=== PATIENT | female | born 1975 | race Caucasian/White ===

== ENCOUNTER → 2020-07-12 14:20 | Outpatient (BNVA) | payer BC, SELFPAY | PROVIDERS: Visit Provider Physician Assistant ==

== ENCOUNTER → 2020-07-16 07:49 | Outpatient (BNVA) | payer BC, SELFPAY | PROVIDERS: Visit Provider Surgery ==

== ENCOUNTER 2020-07-23 08:12 | Outpatient (REF) | payer BC, SELFPAY ==
--- NOTE | ~2020-07-23 | XR_ITS ---
EXAMINATION: XR CHEST CLINICAL INFORMATION: Moderate to severe obesity due to excess calories COMPARISON: None TECHNIQUE: 2 views of the chest were obtained. FINDINGS: No significant abnormality is noted involving the heart, lungs, mediastinum, bony thorax or soft tissues. XR/XR chest 2V IMPRESSION: Unremarkable chest examination.
--- NOTE | 2020-07-23 08:43 | ECG_ITS ---
Test Reason : MORBID OBESITY Blood Pressure : / mmHG Vent. Rate : 071 BPM Atrial Rate : 071 BPM P-R Int : 132 ms QRS Dur : 088 ms QT Int : 394 ms P-R-T Axes : 051 038 008 degrees QTc Int : 428 ms Normal sinus rhythm Normal ECG No previous ECGs available Referred By: Godwin Snowden Electronically Signed By:JOE JOAQUIN
[2020-07-23 09:14] LABS: MANUAL DIFF FLAG NO
[2020-07-23 09:22] LABS: Basophils Percent Auto 0.5 % (0-2); Eosinophils Absolute Auto 0.2 X10*3/uL (0.0-0.4); Eosinophils Percent Auto 3.9 % (0-4); Hematocrit 40.2 % (37-47); Hemoglobin 13.2 g/dl (12.0-16.0); Imm Gran Abs Auto 0.02 X10*3/uL (0.00-0.03); Imm Gran Pct Auto 0.3 % (0.0-0.4); Lymphocytes Absolute Auto 1.8 X10*3/uL (1.2-4.9); Lymphocytes Percent Auto 29.6 % (20-40); Mean Corpuscular HGB Conc 32.8 g/dl (31.0-35.0); Mean Corpuscular Hemoglobin 29.3 pg (27.0-33.0); Mean Corpuscular Volume 89.1 fL (80-98); Mean Platelet Volume 10.1 fL (9.4-12.3); Monocytes Absolute Auto 0.5 X10*3/uL (0.1-1.2); Monocytes Percent Auto 8.2 % (2-11); Neutrophils Absolute Auto 3.4 X10*3/uL (2.0-8.3); Neutrophils Percent Auto 57.5 % (45-73); Platelet Count 342 X10*3/uL (160-400); Red Blood Count 4.51 X10*6/uL (4.20-5.50); Red Cell Distribution Width 13.1 % (11.0-16.0); White Blood Count 5.9 X10*3/uL (4.8-10.8)
[2020-07-23 09:53] LABS: Alanine Aminotransferase 20 U/L (0-31); Albumin Level 4.2 g/dL (3.5-5.0); Alkaline Phosphatase 69 U/L (39-117); Anion Gap 12 (12-20); Aspartate Amino Transferase 22 U/L (5-31); Bilirubin Total 0.3 mg/dL (0.0-1.0); Blood Urea Nitrogen 17 mg/dL (9-16); C Reactive Protein 1.62 mg/dL (< or = 0.50); Carbon Dioxide 23 mmol/L (22-29); Chloride 107 mmol/L (96-108); Cholesterol 177 mg/dL; Estimated Glomerular Filt Rate > 60; Glucose Random 99 mg/dL (60-115); HDL Cholesterol 40 mg/dL; LDL Cholesterol Calculated 116 mg/dl; Potassium 4.2 mmol/L (3.3-5.1); Sodium 138 mmol/L (135-145); Total Protein 7.4 g/dL (6.5-8.0); Triglycerides 105 mg/dL
[2020-07-23 10:05] LABS: Estimated Average Glucose 105 mg/dL; Hemoglobin A1c % 5.3 %
[2020-07-23 10:16] LABS: Ferritin 105 ng/mL (10-250); TSH reflex Free T4 1.31 uIU/mL (0.32-4.0); Vitamin D 25-OH Total 30.1 ng/mL (>30)
[2020-07-23 10:36] LABS: Folate 17.8 ng/mL (> or = 4.0); Vitamin B12 156 pg/mL (200-900)
[2020-07-24 11:41] LABS: H Pylori Breath Test NOT DETECTED (NOT DETECTED)
[2020-07-25 02:16] LABS: Insulin Level Total 10.2 uIU/mL
[2020-07-25 10:36] LABS: Calcium (PTHI) 9.1 mg/dL (8.6-10.2); PTHI 22 pg/mL (14-64)
[2020-07-26 06:07] LABS: Zinc 79 mcg/dL (60-130)
[2020-07-27 11:57] LABS: Vitamin B1 <6 nmol/L (8-30)
[2020-07-27 23:51] LABS: Vitamin A 58 mcg/dL (38-98)
== END 2020-07-23 08:13 | disposition home or self-care (01) ==
LOC: HO.LAB 08:12
PROVIDERS: Visit Provider Surgery
DX: E66.01 Morbid (severe) obesity due to excess calories (principal); K21.9 Gastro-esophageal reflux disease without esophagitis
CPT/HCPCS: 36415; 71046; 80053; 80061; 82306; 82607; 82728; 82746; 83013; 83036; 83525; 83970; 84425; 84443; 84590; 84630; 85025; 86140; 93005

== ENCOUNTER 2020-08-02 08:00 | Outpatient (REF) | payer BC, SELFPAY ==
--- NOTE | ~2020-08-02 | FL_ITS ---
EXAMINATION: FL UPPER GI SERIES CLINICAL INFORMATION: Bariatric service evaluation, E66.01 COMPARISON: None TECHNIQUE: Upper GI series is performed using fluoroscopic evaluation in addition to multiple fluoroscopic spot views. The patient is imaged both upright and prone and using both thick and thin barium sulfate along with effervescent granules. Fluoroscopy time: 0.8 minutes DAP: 11.51 Gycm2 Fluoroscopic spot images: 12 FINDINGS: There is normal esophageal motility. There is no obstruction, stricture, ulceration, or hernia. There is prominent gastroesophageal reflux during the water siphon test to the mid thoracic esophagus. The stomach shows no thickened folds or ulcer crater or outlet obstruction. The duodenal bulb is pliable and without ulcer crater or scarring. The post bulbar duodenum the jejunal mucosal pattern are unremarkable. FL/FL upper GI series IMPRESSION: 1. Gastroesophageal reflux during water siphon test to mid thoracic esophagus. 2. Otherwise normal study. No ulceration.
--- NOTE | ~2020-08-02 | US_ITS ---
EXAMINATION: US COMPLETE ABDOMEN WITH LIVER ELASTOGRAPHY CLINICAL INFORMATION: Severe obesity. COMPARISON: None. TECHNIQUE: Real-time imaging of the abdominal viscera. Noninvasive ultrasound liver fibrosis assessment is performed using Abhijit ElastPQ point quantification shear wave elastography (pSWE) with a C5-2 MHz transducer. Multiple elastography samples are obtained. FINDINGS: PANCREAS: The visualized pancreatic head and body are normal in appearance. The remainder of the pancreas is obscured from visualization by the overlying bowel gas. ABDOMINAL AORTA: The proximal, middle, and distal aortic segments are normal in caliber. INFERIOR VENA CAVA: Visualized portions are normal. LIVER: The liver demonstrates normal size, contour and increased echogenicity. No focal lesion or intrahepatic biliary duct dilatation. The right lobe measures 17.4 cm in length. The left lobe measures 11.7 cm in length. Portal flow is hepatopedal. Shear wave liver elastography median stiffness is 1.14 m/s (reference: normal median stiffness is 1.3 m/s or less). IQR/median stiffness to assess sampling precision is 0.11 (reference: good quality data set is IQR/median stiffness of 0.15 or less). GALLBLADDER: Normal. The gallbladder is physiologically distended without evidence of stones, sludge, polyps, wall thickening or pericholecystic fluid. COMMON BILE DUCT: Normal in caliber measuring 0.4 cm in diameter. RIGHT KIDNEY: Normal. No hydronephrosis. No renal calculi or focal parenchymal lesions. The kidney measures 11.2 cm in maximum dimension. LEFT KIDNEY: Normal. No hydronephrosis. No renal calculi or focal parenchymal lesions. The kidney measures 10.8 cm in maximum dimension. SPLEEN: Normal. The spleen measures 8.2 cm in maximum dimension. There is anechoic simple cyst measuring 1.0 x 0.9 x 1.1 cm. FREE FLUID: None. US/US abdomen comp w elastography IMPRESSION: 1. Appendix steatosis without focal lesion. Small splenic cyst. 2. Liver elastography: Median stiffness of 1.14. High Prob Normal. REFERENCE: Society of Radiologists in Ultrasound Liver Stiffness Thresholds (2019): LIVER STIFFNESS THRESHOLDS: *Liver Stiffness equal or less than 1.3 m/s: High probability of being normal. *Liver Stiffness less than 1.7 m/s: In the absence of other known clinical signs, rules out compensated advanced chronic liver disease. *Liver Stiffness 1.7-2.1 m/s: Suggestive of compensated advanced chronic liver disease but need further test for confirmation. *Liver Stiffness over 2.1 m/s: Rules in compensated advanced chronic liver disease. *Liver Stiffness over 2.4 m/s: Suggestive of clinically significant portal hypertension. QUALITY OF DATA SET: *IQR/Median value equal or less than 0.15 implies a quality data set. *IQR/Median value over 0.15 implies a poor quality data set. SIGNIFICANT CHANGE FROM PRIOR EXAM: Significant change if liver stiffness measurement is 10% or greater from prior exam. OTHER CONSIDERATIONS: The stage of liver fibrosis may be overestimated in the setting of acute hepatitis, liver inflammation, elevated liver function tests, hepatic vascular congestion, obstructive cholestasis, non-fasting state, and infiltrative diseases such as amyloidosis and lymphoma. In some patients with NAFLD, the liver stiffness thresholds for compensated advanced chronic liver disease may be lower. In causes other than viral hepatitis and NAFLD, liver stiffness thresholds are not well established.
== END 2020-08-02 08:01 | disposition home or self-care (01) ==
LOC: HO.US 08:00
PROVIDERS: Visit Provider Surgery
DX: Z01.818 Encounter for other preprocedural examination (principal); E66.01 Morbid (severe) obesity due to excess calories; K21.9 Gastro-esophageal reflux disease without esophagitis
CPT/HCPCS: 74240; 76705; 76981

== ENCOUNTER → 2020-08-06 08:25 | Outpatient (BNVA) | payer BC, SELFPAY | PROVIDERS: Visit Provider Surgery ==

== ENCOUNTER → 2020-08-13 13:10 | Outpatient (BNVA) | payer BC, SELFPAY | PROVIDERS: Visit Provider Dietitian, Registered ==

== ENCOUNTER → 2020-08-31 08:02 | Outpatient (BNVA) | payer BC, SELFPAY | PROVIDERS: Visit Provider Surgery ==

== ENCOUNTER → 2020-09-03 08:16 | Outpatient (BNVA) | payer BC, SELFPAY | PROVIDERS: Visit Provider Dietitian, Registered | DX: E66.01 Morbid (severe) obesity due to excess calories (principal) | CPT/HCPCS: 97803 ==

== ENCOUNTER → 2020-09-24 08:24 | Outpatient (BNVA) | payer BC, SELFPAY | PROVIDERS: Visit Provider Surgery ==

== ENCOUNTER → 2020-09-26 08:19 | Outpatient (BNVA) | payer BC, SELFPAY | PROVIDERS: Visit Provider Dietitian, Registered | DX: E66.01 Morbid (severe) obesity due to excess calories (principal); Z68.41 Body mass index [BMI] 40.0-44.9, adult | CPT/HCPCS: 97803 ==

== ENCOUNTER → 2020-10-05 08:20 | Outpatient (BNVA) | payer BC, SELFPAY | PROVIDERS: Visit Provider Surgery ==

== ENCOUNTER 2020-10-09 09:34 | Inpatient (IN) | payer BC, SELFPAY ==
[2020-10-05 10:24] VITALS: BMI 40.5
[2020-10-06 10:50] LABS: MANUAL DIFF FLAG NO
[2020-10-06 10:53] LABS: Basophils Percent Auto 0.4 % (0-2); Eosinophils Absolute Auto 0.2 X10*3/uL (0.0-0.4); Eosinophils Percent Auto 3.3 % (0-4); Hematocrit 42.5 % (37-47); Hemoglobin 13.5 g/dl (12.0-16.0); Imm Gran Abs Auto 0.01 X10*3/uL (0.00-0.03); Imm Gran Pct Auto 0.2 % (0.0-0.4); Lymphocytes Percent Auto 35.8 % (20-40); Mean Corpuscular HGB Conc 31.8 g/dl (31.0-35.0); Mean Corpuscular Hemoglobin 28.8 pg (27.0-33.0); Mean Corpuscular Volume 90.8 fL (80-98); Mean Platelet Volume 9.7 fL (9.4-12.3); Monocytes Absolute Auto 0.5 X10*3/uL (0.1-1.2); Monocytes Percent Auto 8.8 % (2-11); Neutrophils Absolute Auto 2.9 X10*3/uL (2.0-8.3); Neutrophils Percent Auto 51.5 % (45-73); Platelet Count 383 X10*3/uL (160-400); Red Blood Count 4.68 X10*6/uL (4.20-5.50); Red Cell Distribution Width 13.4 % (11.0-16.0); White Blood Count 5.7 X10*3/uL (4.8-10.8)
[2020-10-06 10:59] LABS: Prothrombin Time 12.3 SEC (10.8-13.0)
[2020-10-06 11:02] LABS: Partial Thromboplastin Time 35.2 SEC (24.1-38.0)
[2020-10-06 11:07] LABS: Estimated Average Glucose 105 mg/dL; Hemoglobin A1c % 5.3 %
[2020-10-06 11:23] LABS: Alanine Aminotransferase 43 U/L (0-31); Albumin Level 4.2 g/dL (3.5-5.0); Alkaline Phosphatase 72 U/L (39-117); Anion Gap 13 (12-20); Aspartate Amino Transferase 23 U/L (5-31); Bilirubin Total 0.5 mg/dL (0.0-1.0); Blood Urea Nitrogen 16 mg/dL (9-16); C Reactive Protein 0.99 mg/dL (< or = 0.50); Carbon Dioxide 25 mmol/L (22-29); Chloride 107 mmol/L (96-108); Cholesterol 178 mg/dL; Creatinine Clr Calc Pharmacy 95.6; Estimated Glomerular Filt Rate > 60; Glucose Random 91 mg/dL (60-115); HDL Cholesterol 41 mg/dL; LDL Cholesterol Calculated 124 mg/dl; Potassium 4.5 mmol/L (3.3-5.1); Sodium 140 mmol/L (135-145); Total Protein 7.3 g/dL (6.5-8.0); Triglycerides 65 mg/dL
[2020-10-06 11:43] LABS: TSH reflex Free T4 0.79 uIU/mL (0.32-4.0)
--- NOTE | 2020-10-08 08:39 | HO.ANESPROP2 ---
Documented by User: Marilyn Hirsch 10/08/20 08:40 HPI - Anesthesia Eval Consult details Narrative: 45yo F for Gastrectomy Sleeve PMFSH Active Problems Active Problems: All Active Problems (Updated 10/05/20 @ 10:28 by Sunni Charles) Vitamin B12 deficiency (Acute) Adjustment disorder, unspecified (Acute) Vitamin B1 deficiency (Acute) GERD (gastroesophageal reflux disease) (Acute) Morbid obesity (Acute) Past Medical History Medical History (Updated 10/09/20 @ 11:08 by Annabelle Garcia) COVID-19 vaccine series completed GERD (gastroesophageal reflux disease) Morbid obesity Plantar fasciitis, bilateral Family History Family History Mother No problems noted. Father Diabetes Brother No problems noted. Daughter No problems noted. Surgical History Surgical History No significant past surgical history Sidney teeth extracted Social History Social History Are you a primary career technical education teacher to a significant other at home: No Do you presently have visiting nurse or other home services: No Alcohol intake: current Alcohol intake frequency: holidays/special occasions only Smoking Status: Former smoker Smoking Quit Date: 11 years ago Use of substances other than those prescribed or required for medical reasons: No Have you been hit, kicked, punched, or otherwise hurt by someone within the past year? If so, by whom?: No Are you DNR?: No Advance Directives: No Advance Directives Information Provided: No Advance Directives on File: No Recently lost weight without trying: No How much weight loss: 14-23 pounds Eating poorly because of decreased appetite: No Nutrition screen score: 2 Nutrition Risks: No Nutritional Risk Patient : No Meds Allergies Allergy/AdvReac Type Severity Reaction Status Date / Time bacitracin Allergy Severe Anaphylaxis Verified 10/09/20 09:21 Cephalosporins Allergy Severe Anaphylaxis Verified 10/09/20 09:21 Sulfa (Sulfonamide Allergy Severe Anaphylaxis Verified 10/09/20 09:21 Antibiotics) Home Medications Medication Instructions Recorded Confirmed Last Taken Type L norgest/E estradiol-E estrad 1 tab PO DAILY 07/12/20 10/05/20 Unknown History 0.15 mg-30 mcg (84)/10 mcg(7) tabs,3mos fluticasone propionate 50 1 spray INTRANASAL DAILY 07/12/20 10/05/20 Unknown History mcg/actuation nasal spray,suspension loratadine 10 mg tablet 10 mg PO DAILY 07/12/20 10/05/20 Unknown History multivitamin 1 tab PO DAILY 07/12/20 10/05/20 Unknown History Exam Exam Date and Time: October 08, 2020 0839 Height,Weight and Vital Signs: Height 5 ft 1.5 in Weight 98.94 kg Pertinent Lab Results Pertinent Lab Results: Laboratory Tests 10/06/20 10/06/20 10/06/20 10:20 10:20 10:20 WBC 5.7 RBC 4.68 Hgb 13.5 Hct 42.5 MCV 90.8 MCH 28.8 MCHC 31.8 RDW 13.4 Plt Count 383 MPV 9.7 Immature Gran % (Auto) 0.2 Neut % (Auto) 51.5 Lymph % (Auto) 35.8 Barren % (Auto) 8.8 Eos % (Auto) 3.3 Baso % (Auto) 0.4 Lymph # (Auto) 2.0 Barren # (Auto) 0.5 Eos # (Auto) 0.2 Baso # (Auto) 0.0 Abs Immat Gran (auto) 0.01 Absolute Neuts (auto) 2.9 Absolute Nucleated RBC 0.000 Nucleated RBC % (auto) 0.0 PT 12.3 INR 1.0 APTT 35.2 Sodium 140 Potassium 4.5 Chloride 107 Carbon Dioxide 25 Anion Gap 13 BUN 16 Creatinine 0.80 Estim Creat Clear Calc 95.6 Estimated GFR > 60 Random Glucose 91 Estimat Average Glucose Hemoglobin A1c % Calcium 9.0 Total Bilirubin 0.5 AST 23 ALT 43 H Alkaline Phosphatase 72 C-Reactive Protein 0.99 H Total Protein 7.3 Albumin 4.2 Triglycerides 65 Cholesterol 178 LDL Cholesterol, Calc 124 HDL Cholesterol 41 TSH 0.79 Blood Type Antibody Screen 10/06/20 10/06/20 10:20 10:20 WBC RBC Hgb Hct MCV MCH MCHC RDW Plt Count MPV Immature Gran % (Auto) Neut % (Auto) Lymph % (Auto) Barren % (Auto) Eos % (Auto) Baso % (Auto) Lymph # (Auto) Barren # (Auto) Eos # (Auto) Baso # (Auto) Abs Immat Gran (auto) Absolute Neuts (auto) Absolute Nucleated RBC Nucleated RBC % (auto) PT INR APTT Sodium Potassium Chloride Carbon Dioxide Anion Gap BUN Creatinine Estim Creat Clear Calc Estimated GFR Random Glucose Estimat Average Glucose 105 Hemoglobin A1c % 5.3 Calcium Total Bilirubin AST ALT Alkaline Phosphatase C-Reactive Protein Total Protein Albumin Triglycerides Cholesterol LDL Cholesterol, Calc HDL Cholesterol TSH Blood Type O Positive Antibody Screen NEGATIVE Narrative Narrative: EKG 07/2020 Vent. Rate : 071 BPM Atrial Rate : 071 BPM P-R Int : 132 ms QRS Dur : 088 ms QT Int : 394 ms P-R-T Axes : 051 038 008 degrees QTc Int : 428 ms Normal sinus rhythm Normal ECG No previous ECGs available Assessment and Plan Assessment Anesthesia Assessment: Chart Reviewed Documented by User: Annabelle Garcia 10/09/20 11:13 [facility] Past Medical History Medical History (Updated 10/09/20 @ 11:08 by Annabelle Garcia) COVID-19 vaccine series completed GERD (gastroesophageal reflux disease) Morbid obesity Plantar fasciitis, bilateral Family History Family History Mother No problems noted. Father Diabetes Brother No problems noted. Daughter No problems noted. Family history of problems with anesthesia: No Surgical History Surgical History No significant past surgical history Sidney teeth extracted History of Problems with Anesthesia: No Social History Social History Are you a primary career technical education teacher to a significant other at home: No Do you presently have visiting nurse or other home services: No Alcohol intake: current Alcohol intake frequency: holidays/special occasions only Smoking Status: Former smoker Smoking Quit Date: 11 years ago Use of substances other than those prescribed or required for medical reasons: No Have you been hit, kicked, punched, or otherwise hurt by someone within the past year? If so, by whom?: No Are you DNR?: No Advance Directives: No Advance Directives Information Provided: No Advance Directives on File: No Recently lost weight without trying: No How much weight loss: 14-23 pounds Eating poorly because of decreased appetite: No Nutrition screen score: 2 Nutrition Risks: No Nutritional Risk Patient : No Meds Allergies Allergy/AdvReac Type Severity Reaction Status Date / Time bacitracin Allergy Severe Anaphylaxis Verified 10/09/20 09:21 Cephalosporins Allergy Severe Anaphylaxis Verified 10/09/20 09:21 Sulfa (Sulfonamide Allergy Severe Anaphylaxis Verified 10/09/20 09:21 Antibiotics) Home Medications Medication Instructions Recorded Confirmed Last Taken Type L norgest/E estradiol-E estrad 1 tab PO DAILY 07/12/20 10/05/20 Unknown History 0.15 mg-30 mcg (84)/10 mcg(7) tabs,3mos fluticasone propionate 50 1 spray INTRANASAL DAILY 07/12/20 10/05/20 Unknown History mcg/actuation nasal spray,suspension loratadine 10 mg tablet 10 mg PO DAILY 07/12/20 10/05/20 Unknown History multivitamin 1 tab PO DAILY 07/12/20 10/05/20 Unknown History Exam Height,Weight and Vital Signs: Vital Signs Temp Pulse Resp BP Pulse Ox 10/09/20 09:25 98.5 F 63 16 113/56 L 99 Pertinent Lab Results Pertinent Lab Results: Laboratory Results - last 24 hr 10/06/20 10/09/20 10/09/20 10:20 09:15 09:15 Total Insulin 6.1 Urine Test NEGATIVE COVID-19 (PRAFUL) Negative COVID-19 Clin Com See Note Airway Mallampati Class: II TM Dist: >3cm Neck ROM: Full Loose/Missing/Broken Teeth: Yes (Top front bonded) Heart: RRR Lungs: CTAB Assessment and Plan Assessment Anesthesia Assessment: Anesthesia Plan Discussed and Chart Reviewed Final Anesthetic Review NPO: Yes ASA Class: III Final Preanesthetic Review: No Changes in Pt Med Stat, Meds/Allgs Chart Reviewed, Consent Obtained/Reviewed and Anes Risks/Benef Reviewed Patient Risk: Intermediate Procedure Risk: Intermediate Assessment/Block/Sedation in SS: Assess/Block/Sedation-SS Anesthetic Plan Anesthetic Plan: GA Disposition: Inp. Admit - Standard Bed
[2020-10-08 14:46] LABS: Insulin Level Total 6.1 uIU/mL
[2020-10-09] VITALS (10 sets, daily range): BP systolic 113–164; BP diastolic 56–77; PULSE 63–88; RESP 16–18; TEMP 36–36.9; O2SAT 98–100
--- NOTE | 2020-10-09 07:24 | P.HPSUR_ITS ---
Pre-Procedural Eval Section A The patient is an INPATIENT: Yes The History & Physical has been completed within 30 days and I have reviewed it.: No Section B Chief Complaint: obesity Details of Present Illness: obesity Relevant Family History (Specify if Yes): No Relevant Social History: None Present Medications: see Short Stay Collaborative assessment Medical History: No relevant PMH History of Previous Operations: No relevant previous surgery Allergies: Allergies Allergy/AdvReac Type Severity Reaction Status Date / Time bacitracin Allergy Severe Anaphylaxis Verified 10/05/20 13:05 Cephalosporins Allergy Severe Anaphylaxis Verified 10/05/20 13:05 Sulfa (Sulfonamide Allergy Severe Anaphylaxis Verified 10/05/20 13:05 Antibiotics) Review of Systems Sugical H&P ROS: Negative: Constitution, Cardiovascular, Respiratory, Neurological, Psychiatric, Hem-Onc, Allergic/Immunologic, Gastrointestinal, Genitourinary, Musculoskeletal, Integumentary, Endocrine and Eyes/Ears/Nose /Throat Exam Surgical H&P Exam: Normal: HEENT, Normal: Heart, Normal: Lungs, Normal: Extremities, Normal: Abdomen, Normal: Skin and Normal: Neurological Plan Diagnosis/Plan: Unchanged I have reviewed the history and physical and performed a pertinent physical examination on my patient. No changes have occurred unless specified.
[2020-10-09 09:34] LABS: UPreg QC Valid YES; Urine Pregnancy NEGATIVE (NEGATIVE)
[2020-10-09 09:54] LABS: COVID-19 Test Negative (Negative)
[2020-10-09] MEDS: Lactated Ringers 1,000 ML 999 ML IV (10:12)
[2020-10-09] MEDS: Lactated Ringers 1,000 ML 100 ML IVCONT (10:14)
[2020-10-09] MEDS: vancomycin HCL 1,000 MG in 0.9 % Sodium Chloride 250 ML 270 MG IV ×2 (10:26→21:55)
--- NOTE | 2020-10-09 13:19 | PM.OP ---
Brief Operative Note Date of Service: 10/09/20 Pre-op diagnosis: Morbid obesity and comorbidities Post-op diagnosis: same (& diaphragmatic hernia) Procedure: INITIAL PATIENT BMI ON PRESENTATION AT OUR OFFICE: 45 kg/m2 LAST BMI BEFORE SURGERY: 40.4 kg/m2 COMORBIDITIES: GERD, diaphragmatic hernia, liver steatosis The patient participated in an intensive weekly lifestyle intervention and exercise program during which the patient has lost between the initial office visit and the last preoperative visit 24.4lbs, or % of initial actual body weight. The patient met the BMI-criteria for bariatric surgery based on the BMI on initial presentation. The patient should not be penalized for achieving such weight loss because it is not sustainable long-term without surgical intervention and it was achieved in preparation for bariatric surgery under my direction and based on my published research ([email or web address] and [email or web address]) that a 10% preoperative weight loss improves long-term weight loss after surgery and reduces perioperative complications. Insurance carriers such as [facility] have endorsed my recommendations and have included in their policies criteria to include a 10% preoperative weight loss requirement. PROCEDURE: Esophago-gastroscopy, laparoscopic repair of incarcerated diaphragmatic hernia, laparoscopic lysis of adhesions, laparoscopic sleeve gastrectomy and laparoscopic gastropexy INDICATIONS: This is a 45 year-old female who was electively scheduled for laparoscopic, possibly open sleeve gastrectomy. The risks and complications of the procedure were discussed with the patient in advance, particularly the possibility of ; pulmonary embolism; staple line leak; bleeding; GERD; cardiac, pulmonary, or renal complications; as well as long-term problems such as insufficient weight loss, vitamin deficiency, strictures, or ulcers. The patient understood all the risks, and was in agreement to proceed with surgery. DESCRIPTION OF PROCEDURE: After informed consent was obtained from the patient, the patient was given preoperative antibiotics, and was transferred to the operating room. After successful induction of general anesthesia, pneumatic compressive devices were placed on both lower extremities. An upper endoscopy was performed next. The oropharynx and esophagus appeared to be within normal limits. There was a diaphragmatic hernia present of moderate size consistent with the findings of the preoperative upper GI. The stomach was entered. Then after all fluid and air were suctioned and the stomach was fully decompressed, the scope was withdrawn and secured in the mid esophagus. The patient was then prepped and draped in the usual sterile manner, and abdominal access was established at the right upper quadrant with the Vidal technique. A 12 mm blunt port was inserted, and the abdomen was insufflated with CO2 to a pressure of 15 mmHg. Under direct visualization, additional ports were placed, specifically two 5 mm Versi-step ports to the left upper quadrant, and a 5 mm Versi-Step port to the right upper quadrant. 1% lidocaine plan was used to infiltrate all port sites as well as all fascia defects. Using the EndoClose suture passer device, we placed a #1 Polysorb tie across the falciform ligament in order to retract it up against the abdominal wall and prevent injury of the ligament with our instruments during the procedure. Following that, the patient was placed in a steep reverse Trendelenburg position. An additional 5 mm port was placed to the right flank for the Mediflex retractor that was used to retract the left lobe of the liver. The gastro-esophageal fat pad was opened with the ultrasonic device (Thunderbeat, Olympus) and the anterior esophagus and hiatus were exposed. The angle of His was opened with the ultrasonic device the fundus of the stomach from any diaphragmatic and splenic attachments. I then opened the gastrocolic ligament between the transverse colon and the greater curvature of the stomach with the ultrasonic device to enter the lesser sac and facilitate the ligation of the short gastric vessels. I started at a mid-point along the greater curvature and using the Thunderbeat, all short gastric vessels were divided all the way to the angle of His until the left isaac was completely dissected at its entirety. I then divided the gastro-colic ligament distally to a distance of about 3-4 cm proximal to the esophagus. There was an obvious significant-sized hiatal hernia. I continued dissecting along the hiatus toward the left isaac and the angle of His. I fully mobilized the fat pad that was incarcerated in the hernia. I then continued by dissecting even further into the posterior retro-esophageal space all the way to the angle of His. I continued to mobilize the esophagus into the mediastinum circumferentially. Both vagal nerves were seen and preserved. The right isaac was also mobilized completely. At that point, I was able to have at least 3 to 5 cm of esophagus into the abdomen. After I completely mobilized the esophagus from both the left and right isaac and I had a good mobilization of the esophagus circumferentially, I closed the hernia defect with three interrupted #0 Surgidac sutures using the Endo Stitch device, two of which were placed posterior and one anterior to the esophagus. The stomach was then divided transversely with one Endo NICOLE-45 purple, one NICOLE-45 orange load and three NICOLE-60 articulating orange loads using the AEON stapler and loads. Every effort was made that the gastric sleeve had a tubular shape and an even caliber throughout. Once the sleeve resection was completed, the staple line of the gastric sleeve was reinforced with Hemoclips. The resected stomach was retrieved without difficulty from the Vidal port. A gastropexy was then performed in order to prevent postoperative GERD and partial gastric volvulus. Several interrupted 2.0 Surgidac sutures were placed between the sleeve's staple line and the previously divided greater omentum and gastro-colic ligament using the Endo-Stitch device. An upper endoscopy was performed. There was no narrowing at the GE junction. The scope was easily advanced all the way to the pylorus which was clearly visualized. There was no narrowing anywhere and the sleeve's caliber was even throughout. The sleeve's staple line was inspected and there was no evidence of ischemia, bleeding or dehiscence. At that point the gastroscope was withdrawn from the patient?s mouth while we were decompressing the bowel and the stomach from any remaining air. I looked into the lesser sac to see how the sleeve was situating and it was situating well. There was no bleeding from the staple line, spleen, or short gastric vessels. The Mediflex retractor was removed, and the undersurface of the liver was inspected and there was no bleeding. The patient was placed in supine position. I closed the fascial defect of the 12 mm port site with a figure of eight #1 Polysorb suture. Then 100 cc 0.25 % Marcaine plain with 10 mg of Dexamethasone were used to infiltrate the fascial closure as well as all skin incisions. At this point, the abdomen was deflated, all ports were removed under direct vision, and no bleeding was noted from any of the port sites. The skin incisions were irrigated with saline and were closed with 4-0 absorbable monofilament sutures. Steri-Strips and OpSites were used to cover all incisions. The patient was extubated and was transferred in stable condition to the recovery room for further care. I was present and performed all lehman parts of the procedure. Ms. Peterson was the assistant operator. There were no residents to assist with this case. Gerardo Snowden MD, PhD, FACS Surgeon: Godwin Snowden MD Anesthesia: GETA, local and other (TAP block) Was an Production Metal Sprayer used for this Procedure?: Yes Production Metal Sprayer: Anabel Peterson Estimated blood loss (mL): 10 IV fluids (mL): 3,000 Urine output (mL): 0 (No Foster to record) Pathology: other (Stomach) Condition: stable Disposition: PACU
--- NOTE | 2020-10-09 13:24 | PM.DS ---
DS: Providers Provider Date of Service: 10/10/20 Date of admission: 10/09/20 09:34 Primary care physician: Nonstaff Physician DS: Medications Discharge Medications Home Medications: Home Medications Medication Instructions Recorded Confirmed L norgest/E estradiol-E estrad 1 tab PO DAILY 07/12/20 10/05/20 0.15 mg-30 mcg (84)/10 mcg(7) tabs,3mos fluticasone propionate 50 1 spray INTRANASAL DAILY 07/12/20 10/05/20 mcg/actuation nasal spray,suspension loratadine 10 mg tablet 10 mg PO DAILY 07/12/20 10/05/20 multivitamin 1 tab PO DAILY 07/12/20 10/05/20 Previous Rx's Medication Instructions Recorded mecobalamin (vitamin B12) 1,000 1,000 mcg SUBLINGUAL DAILY #30 tab 07/23/20 mcg disintegrating tablet,sublingual thiamine HCl (vitamin B1) 100 mg 100 mg PO DAILY #30 tab 08/06/20 tablet ondansetron HCl 4 mg tablet 4 mg PO Q12H #20 tab 10/05/20 pantoprazole 40 mg tablet,delayed 40 mg PO DAILY #30 tab 10/05/20 release polyethylene glycol 3350 17 gram 17 g PO DAILY #14 ea 10/05/20 oral powder packet sucralfate 100 mg/mL oral 10 ml PO BID #400 ml 10/05/20 suspension DS: Summary Time Spent with Patient Time attestation: ADMITTING DIAGNOSIS: morbid obesity, GERD DISCHARGE DIAGNOSIS: same, s/p laparoscopic sleeve gastrectomy and repair diaphragmatic hernia PAST SURGICAL HISTORY: none PROCEDURE: upper endoscopy, laparoscopic sleeve gastrectomy and repair of diaphragmatic hernia hernia DISCHARGE SUMMARY: History of Present Illness: The patient is a 45 year-old woman with a BMI of 45 kg/m2 and associated co-morbidities as described above. The patient had extensive work-up,lost 22 lbs preoperatively and was electively scheduled for laparoscopic, possible open sleeve gastrectomy and gastropexy. Risks and complications of the surgery were discussed with the patient in advance, particularly the possibility of , pulmonary embolism, anastomotic leak, bleeding, bowel injury, GERD, cardiac, renal or pulmonary complications. The patient understood all the risks and was in agreement with the surgical plan. Hospital Course: The patient underwent an uneventful laparoscopic sleeve gastrectomy with gastropexy and repair of diaphragmatic hernia on the day of admission. Postoperatively, the patient was transferred to the surgical floor. The patient was on IV Acetaminophen and IV dilaudid for pain control. Patient was started on bariatric phase 1 diet POD #0. On postoperative day one, the patient was feeling well without nausea, vomiting, fevers, or tachycardia. The patient had some mild incisional pain. The abdomen was soft. On the morning of postoperative day one, the patient was continued on 1 ounce of water or ice every half hour. During the first day, the patient did fairly well, having some incisional pain, but able to ambulate adequately and to tolerate liquids well. Since the patient is doing well, we decided that the patient was ready to be discharged. The patient was given instructions to follow-up with me next week and to call my office for any fever over 101, persistent abdominal pain, nausea, vomiting, GERD, symptoms of DVT such as calf tenderness, or leg swelling, or pulmonary embolism such as chest pain or shortness of breath. The patient was also instructed to drink 40-60 ounces of liquids per day using the 1-ounce cups. The patient was given prescription for Tylenol for pain, Zofran prn for nausea, and pantoprazole and carafate. The patient was encouraged to ambulate and use the incentive spirometer. The patient was allowed to shower, but no baths, and encouraged to stay active at home. All of these instructions were given to the patient personally. All questions were answered and the patient understood all instructions, the instructions were also given to the patient in print. Total time spent providing and/or coordinating discharge services: 15 Discharge coordination time: Less than 30 minutes Quality: Stroke Does the patient have a stroke diagnosis?: No Physical Exam Vital Signs: Vital Signs: Last Vital Signs Temp 97.7 F 10/09/20 13:12 Pulse 83 10/09/20 13:17 Resp 16 10/09/20 13:17 BP 135/74 10/09/20 13:17 Pulse Ox 100 10/09/20 13:17 Body Mass Index 40.5 DS: Data Data Completed and Pending Pending studies at discharge: Pending at discharge 10/09/20 12:53 Surgical [PTH] Routine Labs on day of discharge: Laboratory Results - last 24 hr 10/06/20 10/09/20 10/09/20 10:20 09:15 09:15 Total Insulin 6.1 Urine Test NEGATIVE COVID-19 (PRAFUL) Negative COVID-19 Clin Com See Note Discharge Plan Discharge Anticipated Discharge Date/Time: 10/10/20 11:00 Patient Disposition: Home, Self-Care Discharge Diagnosis: pod#1 s/p sleeve gastrectomy Referrals: Physician,Nonstaff [Primary Care Provider] - 1 Week Discharge Medications: Continued pantoprazole 40 mg tablet,delayed release (DR/EC) 40 mg PO DAILY Qty: 30 RF: 2 sucralfate 100 mg/mL suspension 10 ml PO BID Qty: 400 RF: 2 ondansetron HCl [Zofran] 4 mg tablet 4 mg PO Q12H Qty: 20 RF: 0 loratadine [Claritin] 10 mg tablet 10 mg PO DAILY RF: 0 fluticasone propionate 50 mcg/actuation spray,suspension 1 spray intranasal DAILY RF: 0 Held L norgest/e.estradiol-e.estrad 0.15 mg-30 mcg (84)/10 mcg (7) tablets,dose pack,3 month 1 tab PO DAILY RF: 0 Hold Instructions: Discuss when to restart with Dr Snowden Discontinued mecobalamin (vitamin B12) 1,000 mcg tablet,disintegrating 1,000 mcg sublingual DAILY Qty: 30 RF: 2 thiamine HCl (vitamin B1) 100 mg tablet 100 mg PO DAILY Qty: 30 RF: 2 polyethylene glycol 3350 [Miralax] 17 gram powder in packet 17 g PO DAILY Qty: 14 RF: 0 multivitamin Tablet 1 tab PO DAILY RF: 0 Discharge Orders: Discharge Order (Routine); Ordered 10/10/20 Ordered By: Anabel Peterson Diet: other Activity on Discharge: No heavy lifting Stand Alone Forms: Patient Portal Discharge page Activity Restrictions/Additional Instructions: No tub baths, sex or returning to work until discussed at first post op appointment. No exercise, alcohol, tobacco or illegal drug use. Continue to use incentive spirometer hourly while awake. Walk in home for 5- 10 minutes every 2 hours during the first week. Continue phase 1 diet today and start phase 2 diet tomorrow morning. Follow all instructions in the bariatric handbook and call with any questions. Care Plan Goals: weight loss Health Concerns: morbid obesity Plan of Treatment: see discharge instructions Assessment: stable s/p sleeve gstrectomy
[2020-10-09] MEDS: HYDROmorphone HCl 0.5 MG/0.5 ML SYRINGE 0.25 MG IVPUSH ×2 (13:42→14:05)
[2020-10-09] MEDS: Famotidine/PF 20 MG/2 ML VIAL IVPUSH ×2 (13:42→20:23)
[2020-10-09 14:14] LABS: Hematocrit 39.1 % (37-47); Hemoglobin 12.7 g/dl (12.0-16.0)
[2020-10-09 14:53] LABS: Anion Gap 15 (12-20); Blood Urea Nitrogen 13 mg/dL (9-16); Carbon Dioxide 21 mmol/L (22-29); Chloride 107 mmol/L (96-108); Creatinine Clr Calc Pharmacy 100.7; Estimated Glomerular Filt Rate > 60; Glucose Random 123 mg/dL (60-115); Potassium 4.2 mmol/L (3.3-5.1); Sodium 139 mmol/L (135-145)
[2020-10-09 14:59] LABS: Calcium 8.5 mg/dL (8.4-10.2)
[2020-10-09] MEDS: Lactated Ringers 1,000 ML 125 ML IVCONT ×2 (16:01→21:55)
[2020-10-09] MEDS: ondansetron HCL 4 MG/2 ML VIAL IVPUSH (20:23)
[2020-10-09] MEDS: 0.9 % Sodium Chloride Flush 3 ML SYRINGE IVFLUSH (20:23)
[2020-10-10] VITALS: BP 141/58; PULSE 70; RESP 18; TEMP 36.4; O2SAT 97
[2020-10-10] MEDS: HYDROmorphone HCl 0.5 MG/0.5 ML SYRINGE 0.25 MG IVPUSH ×2 (00:30→04:36)
[2020-10-10 04:00] VITALS: BP 137/60; PULSE 67; RESP 16; TEMP 36.9; O2SAT 98
[2020-10-10] MEDS: ondansetron HCL 4 MG/2 ML VIAL IVPUSH (04:36)
[2020-10-10] MEDS: Lactated Ringers 1,000 ML 125 ML IVCONT (04:38)
[2020-10-10 06:28] LABS: MANUAL DIFF FLAG NO
[2020-10-10 06:47] LABS: Basophils Percent Auto 0.1 % (0-2); Eosinophils Percent Auto 0.2 % (0-4); Hemoglobin 11.5 g/dl (12.0-16.0); Imm Gran Abs Auto 0.01 X10*3/uL (0.00-0.03); Imm Gran Pct Auto 0.1 % (0.0-0.4); Lymphocytes Absolute Auto 1.2 X10*3/uL (1.2-4.9); Mean Corpuscular HGB Conc 32.9 g/dl (31.0-35.0); Mean Corpuscular Hemoglobin 29.5 pg (27.0-33.0); Mean Corpuscular Volume 89.7 fL (80-98); Mean Platelet Volume 10.1 fL (9.4-12.3); Monocytes Absolute Auto 0.8 X10*3/uL (0.1-1.2); Monocytes Percent Auto 9.2 % (2-11); Neutrophils Percent Auto 77.4 % (45-73); Platelet Count 301 X10*3/uL (160-400); Red Cell Distribution Width 13.2 % (11.0-16.0)
[2020-10-10 06:58] LABS: Anion Gap 14 (12-20); Blood Urea Nitrogen 8 mg/dL (9-16); Calcium 8.4 mg/dL (8.4-10.2); Carbon Dioxide 21 mmol/L (22-29); Chloride 107 mmol/L (96-108); Creatinine Clr Calc Pharmacy 121.5; Estimated Glomerular Filt Rate > 60; Glucose Random 114 mg/dL (60-115); Potassium 4.2 mmol/L (3.3-5.1); Sodium 138 mmol/L (135-145)
[2020-10-10] MEDS: Fluticasone Propionate Nasal 16 GM SPRAY 1 SPRAY NOSTRIL-B (07:13)
[2020-10-10] MEDS: Famotidine/PF 20 MG/2 ML VIAL IVPUSH (07:14)
[2020-10-10 07:52] VITALS: BP 129/60; PULSE 61; RESP 17; TEMP 36.8; O2SAT 99
--- NOTE | 2020-10-10 08:30 | P.PNGS_ITS ---
Subjective Subjective Date of Service: 10/10/20 Interval history: Pt feels well this am, no abd pain, nausea or emesis. Had neck pain overnight, from position ibed, pillow adjusted this am and pain improved. Using ICS well, tolerated bariatric phase 1 diet yesterday and phase 2 diet this am. Ambulating, voiding well. Physical Exam Vital Signs: Vital Signs: Last Vital Signs Temp 98.3 F 10/10/20 07:52 Pulse 61 10/10/20 07:52 Resp 17 10/10/20 07:52 BP 129/60 10/10/20 07:52 Pulse Ox 99 10/10/20 07:52 Body Mass Index 40.5 Const: General: cooperative, healthy appearing and comfortable Nutritional Appearance: obese GI: Inspection: Yes other (all surg dressings clean, dry intact,) Palpation (GI): Soft to palpation, nontender, no guarding and not rigid Extrem: General: No no pedal edema and No no calf tenderness Progress Note: A&P Assessment and plan (1) S/P laparoscopic sleeve gastrectomy: Problem details: POD #1 s/p LSG and repair off paraesophageal hernia. Pt is stable and tolerating phase 2 diet well, ready for discharge home this am. All discharge instructions reviewed with patient. Will continue heating pad to back of neck and pillow at mid back prn for posterior neck pain. Labs reviewed and case discussed with Dr Snowden. Status: Acute (2) S/P repair of paraesophageal hernia: Status: Acute (3) Morbid obesity: Problem details: Denies LUIS Status: Acute Fall Risk Details Current Medications: Current Medications Generic Name Dose Route Start Last Admin Trade Name Freq PRN Reason Stop Dose Admin Famotidine 20 mg 10/09/20 13:34 10/10/20 07:14 Famotidine/Pf 20 Mg/2 Ml Vial IVPUSH 20 mg BID DUC Administration Fluticasone Propionate 1 spray 10/10/20 09:00 10/10/20 07:13 Fluticasone Propionate Nasal 16 Gm [place] NOSTRIL-B 1 spray DAILY DUC Administration Hydromorphone HCl 0.25 mg 10/09/20 14:36 10/10/20 04:36 Hydromorphone Hcl 0.5 Mg/0.5 Ml Syringe IVPUSH 0.25 mg Q4H PRN Administration Pain, Moderate (Pain Scale 4-6 Lactated Ringer's 1,000 mls @ 125 mls/hr 10/09/20 14:36 10/10/20 04:38 Lr IVCONT 125 mls/hr .Q8H DUC Administration Acetaminophen 1,000 mg in 100 mls @ 16.7 mls/hr 10/09/20 18:00 10/10/20 04:36 Ofirmev IV 16.7 mls/hr .Q6H DUC Administration Metoclopramide HCl 10 mg 10/09/20 14:36 Metoclopramide Hcl 10 Mg/2 Ml Vial IVPUSH Q6H PRN Nausea Ondansetron HCl 4 mg 10/09/20 20:00 10/10/20 04:36 Ondansetron Hcl 4 Mg/2 Ml Vial IVPUSH 4 mg Q8H DUC Administration Sodium Chloride 3 ml 10/09/20 16:00 10/10/20 06:49 0.9 % Sodium Chloride Flush 3 Ml Syringe IVFLUSH Not Given QSHIFT DUC Time Spent With Patient Time: Total time spent is greater than 50% in coordination of care (as documented) at patient's floor/unit and/or counseling patient: Time with patient: 25 - 35 minutes Procedures Date of Service Date of Service: 10/10/20
--- NOTE | 2020-10-10 10:19 | MHC.CM.PN ---
NURSE ENGAGEMENT ENGINEER NOTE ELECTRONIC MEDICAL RECORD. 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 PATIENT HAS NO DME/NO VNA SERVICES IN THE HOME , SHE IS S/P BARIATRIC SURGERY AND IS AWARE THAT SHE WILL BE GOING HOME TODAY , NO SERVICES DISCHARGE PLAN HOME NO SERVICES
--- NOTE | 2020-10-10 10:26 | HO.POSTANES ---
Post Anesthesia Evaluation Post Anesthesia Evaluation Vital Signs: Vital Signs Temp Pulse Resp BP Pulse Ox 10/10/20 07:52 98.3 F 61 17 129/60 99 10/10/20 04:00 98.4 F 67 16 137/60 98 10/10/20 00:00 97.6 F 70 18 141/58 H 97 Anesthesia: General Endotracheal-GETA Mental Status: Awake Pain Control: Satisfactory Nausea/Vomiting: None Hydration: Adequate Anesthesia-Related Issues: No Anes. Related Issues
== END 2020-10-10 10:28 | disposition home or self-care (01) | DRG 403 ==
LOC: HO.SSSA 13:24 → HO.S3 13:54
PROVIDERS: Nurse Practitioner; Physician Assistant; Admitting Provider Surgery; PCP Internal Medicine Cardiovascular Disease; Visit Provider Surgery
PROC: 0DB64Z3 Excision of Stomach, Percutaneous Endoscopic Approach, Vertical (ICD-10-PCS; CPT 43845; principal; 2020-10-09 10:30)
DX: E66.01 Morbid (severe) obesity due to excess calories (principal); K44.0 Diaphragmatic hernia with obstruction, without gangrene; K76.0 Fatty (change of) liver, not elsewhere classified; K66.0 Peritoneal adhesions (postprocedural) (postinfection); Z68.41 Body mass index [BMI] 40.0-44.9, adult; Z20.822 Contact with and (suspected) exposure to COVID-19; Z88.2 Allergy status to sulfonamides; Z87.891 Personal history of nicotine dependence; Z79.51 Long term (current) use of inhaled steroids; Z79.899 Other long term (current) drug therapy
CPT/HCPCS: 36415; 80048; 80053; 80061; 81025; 83036; 83525; 84443; 85014; 85018; 85025; 85610; 85730; 86140; 86850; 86900; 86901; 87635; 88307; 88342; A4649; J0131; J1100; J1170; J2250; J2405; J3010; J3370

== ENCOUNTER → 2020-10-15 09:54 | Outpatient (BNVA) | payer BC, SELFPAY | PROVIDERS: Visit Provider Surgery ==

== ENCOUNTER → 2020-11-09 06:50 | Outpatient (BNVA) | payer BC, SELFPAY | PROVIDERS: Visit Provider Surgery ==

== ENCOUNTER → 2020-12-19 07:01 | Outpatient (BNVA) | payer BC, SELFPAY | PROVIDERS: Visit Provider Surgery ==

== ENCOUNTER → 2021-02-08 08:09 | Outpatient (BNVA) | payer BC, SELFPAY | PROVIDERS: Visit Provider Surgery ==

== ENCOUNTER → 2021-03-13 07:59 | Outpatient (BNVA) | payer BC, SELFPAY | PROVIDERS: Visit Provider Surgery ==

== ENCOUNTER → 2021-04-22 08:16 | Outpatient (BNVA) | payer BC, SELFPAY | PROVIDERS: Visit Provider Physician Assistant Surgical ==

== ENCOUNTER → 2021-05-08 08:20 | Outpatient (BNVA) | payer BC, SELFPAY | PROVIDERS: Visit Provider Dietitian, Registered | DX: E66.9 Obesity, unspecified (principal) | CPT/HCPCS: 97803 ==

== ENCOUNTER 2021-05-22 13:09 | Outpatient (REF) | payer BC, SELFPAY ==
[2021-05-22 13:37] LABS: MANUAL DIFF FLAG NO
[2021-05-22 13:38] LABS: Basophils Percent Auto 0.3 % (0-2); Eosinophils Absolute Auto 0.1 X10*3/uL (0.0-0.4); Eosinophils Percent Auto 1.2 % (0-4); Hematocrit 40.5 % (37.0-47.0); Hemoglobin 13.3 g/dl (12.0-16.0); Imm Gran Abs Auto 0.02 X10*3/uL (0.00-0.03); Imm Gran Pct Auto 0.3 % (0.0-0.4); Lymphocytes Absolute Auto 2.5 X10*3/uL (1.2-4.9); Lymphocytes Percent Auto 32.9 % (20-40); Mean Corpuscular HGB Conc 32.8 g/dl (31.0-35.0); Mean Corpuscular Hemoglobin 30.2 pg (27.0-33.0); Mean Platelet Volume 9.2 fL (9.4-12.3); Monocytes Absolute Auto 0.4 X10*3/uL (0.1-1.2); Monocytes Percent Auto 5.8 % (2-11); Neutrophils Absolute Auto 4.5 x10*3/uL (2.0-8.3); Neutrophils Percent Auto 59.5 % (45-73); Platelet Count 311 X10*3/uL (160-400); Red Cell Distribution Width 13.8 % (11.0-16.0); White Blood Count 7.6 X10*3/uL (4.8-10.8)
[2021-05-22 13:51] LABS: Estimated Average Glucose 97 mg/dL
[2021-05-22 14:07] LABS: Anion Gap 12 (12-20); Blood Urea Nitrogen 17 mg/dL (9-16); C Reactive Protein 0.72 mg/dL (< or = 0.50); Calcium 9.9 mg/dL (8.4-10.2); Carbon Dioxide 25 mmol/L (22-29); Chloride 107 mmol/L (96-108); Cholesterol 183 mg/dL; Estimated Glomerular Filt Rate > 60; Glucose Random 89 mg/dL (60-115); HDL Cholesterol 46 mg/dL; Iron 65 mcg/dL (30-160); LDL Cholesterol Calculated 118 mg/dl; Percent Iron Saturation 13 % (15-50); Sodium 140 mmol/L (135-145); Total Iron Binding Capacity 491 mcg/dL (228-428); Triglycerides 95 mg/dL; Unsaturated Iron Binding 426 ug/dL
[2021-05-22 14:29] LABS: TSH reflex Free T4 0.54 uIU/mL (0.32-4.0); Vitamin D 25-OH Total 88.1 ng/mL (>30)
[2021-05-22 14:54] LABS: Folate > 20.0 ng/mL (> or = 4.0); Vitamin B12 418 pg/mL (200-900)
[2021-05-22 15:01] LABS: Ferritin 79 ng/mL (10-250)
[2021-05-24 13:25] LABS: Zinc 67 mcg/dL (60-130)
[2021-05-27 14:10] LABS: Vitamin A 68 mcg/dL (38-98)
[2021-05-28 15:56] LABS: Vitamin B1 38 nmol/L (8-30)
== END 2021-05-22 13:10 | disposition home or self-care (01) ==
LOC: HO.LAB 13:09
PROVIDERS: Absent Provider Internal Medicine Cardiovascular Disease; PCP Internal Medicine Cardiovascular Disease; Visit Provider Physician Assistant Surgical
DX: E66.9 Obesity, unspecified (principal); Z98.84 Bariatric surgery status
CPT/HCPCS: 36415; 80048; 80061; 82306; 82607; 82728; 82746; 83036; 83540; 84425; 84443; 84590; 84630; 85025; 86140

== ENCOUNTER → 2021-05-28 08:01 | Outpatient (BNVA) | payer BC, SELFPAY | PROVIDERS: Visit Provider Physician Assistant Surgical | DX: E66.9 Obesity, unspecified (principal); Z98.84 Bariatric surgery status ==

== ENCOUNTER → 2021-07-12 10:28 | Outpatient (BNVA) | payer BC, SELFPAY | PROVIDERS: Visit Provider Physician Assistant Surgical | DX: E66.9 Obesity, unspecified (principal); Z98.84 Bariatric surgery status ==

== ENCOUNTER → 2021-10-07 14:46 | Outpatient (BNVA) | payer BC, SELFPAY | PROVIDERS: Visit Provider Dietitian, Registered | DX: E66.9 Obesity, unspecified (principal); Z68.28 Body mass index [BMI] 28.0-28.9, adult | CPT/HCPCS: 97803 ==

== ENCOUNTER → 2022-01-15 08:42 | Outpatient (BNVA) | payer BC, SELFPAY | PROVIDERS: Visit Provider Dietitian, Registered | DX: E66.3 Overweight (principal) | CPT/HCPCS: 97803 ==

== ENCOUNTER 2022-01-17 10:17 | Outpatient (REF) | payer BC, SELFPAY ==
[2022-01-17 10:35] LABS: MANUAL DIFF FLAG NO
[2022-01-17 11:16] LABS: Basophils Percent Auto 0.5 % (0-2); Eosinophils Absolute Auto 0.1 X10*3/uL (0.0-0.4); Eosinophils Percent Auto 1.3 % (0-4); Hematocrit 40.9 % (37.0-47.0); Hemoglobin 13.7 g/dl (12.0-16.0); Imm Gran Abs Auto 0.02 X10*3/uL (0.00-0.03); Imm Gran Pct Auto 0.2 % (0.0-0.4); Lymphocytes Absolute Auto 2.6 X10*3/uL (1.2-4.9); Lymphocytes Percent Auto 31.1 % (20-40); Mean Corpuscular HGB Conc 33.5 g/dl (31.0-35.0); Mean Corpuscular Hemoglobin 31.6 pg (27.0-33.0); Mean Corpuscular Volume 94.2 fL (80.0-98.0); Mean Platelet Volume 9.5 fL (9.4-12.3); Monocytes Absolute Auto 0.6 X10*3/uL (0.1-1.2); Monocytes Percent Auto 6.9 % (2-11); Neutrophils Absolute Auto 4.9 x10*3/uL (2.0-8.3); Platelet Count 302 X10*3/uL (160-400); Red Blood Count 4.34 X10*6/uL (4.20-5.50); Red Cell Distribution Width 13.2 % (11.0-16.0); White Blood Count 8.2 X10*3/uL (4.8-10.8)
[2022-01-17 12:26] LABS: Anion Gap 14 (12-20); Blood Urea Nitrogen 21 mg/dL (9-16); Carbon Dioxide 26 mmol/L (22-29); Chloride 105 mmol/L (96-108); Cholesterol 171 mg/dL; Estimated Glomerular Filt Rate > 60; Glucose Random 82 mg/dL (60-115); HDL Cholesterol 51 mg/dL; Iron 125 mcg/dL (30-160); LDL Cholesterol Calculated 106 mg/dl; Percent Iron Saturation 24 % (15-50); Potassium 4.2 mmol/L (3.3-5.1); Sodium 141 mmol/L (135-145); Total Iron Binding Capacity 523 mcg/dL (228-428); Triglycerides 74 mg/dL; Unsaturated Iron Binding 398 ug/dL
[2022-01-17 12:37] LABS: Ferritin 87 ng/mL (10-250); TSH reflex Free T4 0.59 uIU/mL (0.32-4.0); Vitamin D 25-OH Total 95.5 ng/mL (>30)
[2022-01-17 12:58] LABS: Folate > 20.0 ng/mL (> or = 4.0); Vitamin B12 491 pg/mL (200-900)
[2022-01-19 13:17] LABS: Calcium (PTHI) 9.4 mg/dL (8.6-10.2); PTHI 8 pg/mL (16-77)
[2022-01-22 00:51] LABS: Zinc 85 mcg/dL (60-130)
[2022-01-22 17:06] LABS: Vitamin A 89 mcg/dL (38-98)
[2022-01-23 15:17] LABS: Vitamin B1 44 nmol/L (8-30)
== END 2022-01-17 10:18 | disposition home or self-care (01) ==
LOC: HO.LAB 10:17
PROVIDERS: Absent Provider Internal Medicine Cardiovascular Disease; PCP Internal Medicine Cardiovascular Disease; Visit Provider Physician Assistant Surgical
DX: E66.3 Overweight (principal); Z98.84 Bariatric surgery status
CPT/HCPCS: 36415; 80048; 80061; 82306; 82607; 82728; 82746; 83540; 83970; 84425; 84443; 84590; 84630; 85025

== ENCOUNTER → 2022-04-14 08:41 | Outpatient (BNVA) | payer BC, SELFPAY | PROVIDERS: PCP Internal Medicine Cardiovascular Disease; Referring Provider Physician Assistant Surgical; Visit Provider Dietitian, Registered | DX: E66.3 Overweight (principal) | CPT/HCPCS: 97803 ==

== ENCOUNTER → 2022-06-03 13:04 | Outpatient (BNVA) | payer BC, SELFPAY | PROVIDERS: PCP Internal Medicine Cardiovascular Disease; Visit Provider Dietitian, Registered | DX: E66.3 Overweight (principal) | CPT/HCPCS: 97803 ==

== ENCOUNTER → 2022-08-27 07:50 | Outpatient (BNVA) | payer BC, SELFPAY | PROVIDERS: PCP Internal Medicine Cardiovascular Disease; Visit Provider Surgery | DX: L03.90 Cellulitis, unspecified (principal); Z98.84 Bariatric surgery status; K91.2 Postsurgical malabsorption, not elsewhere classified; Z90.3 Acquired absence of stomach [part of] ==

== ENCOUNTER → 2022-09-05 11:01 | Outpatient (BNVA) | payer BC, SELFPAY | PROVIDERS: PCP Internal Medicine Cardiovascular Disease; Visit Provider Surgery | DX: Z13.89 Encounter for screening for other disorder (principal) ==

== ENCOUNTER 2022-09-11 07:56 | Day surgery (SDC) | payer BC, SELFPAY ==
[2022-08-28 12:30] VITALS: BMI 26.7
[2022-09-04 12:30] LABS: MANUAL DIFF FLAG NO
[2022-09-04 13:05] LABS: Basophils Percent Auto 0.7 % (0-2); Eosinophils Absolute Auto 0.1 X10*3/uL (0.0-0.4); Eosinophils Percent Auto 1.6 % (0-4); Hematocrit 41.2 % (37.0-47.0); Hemoglobin 13.8 g/dl (12.0-16.0); Lymphocytes Absolute Auto 2.4 X10*3/uL (1.2-4.9); Lymphocytes Percent Auto 42.6 % (20-40); Mean Corpuscular HGB Conc 33.5 g/dl (31.0-35.0); Mean Corpuscular Hemoglobin 31.3 pg (27.0-33.0); Mean Corpuscular Volume 93.4 fL (80.0-98.0); Mean Platelet Volume 9.1 fL (9.4-12.3); Monocytes Absolute Auto 0.4 X10*3/uL (0.1-1.2); Monocytes Percent Auto 7.8 % (2-11); Neutrophils Absolute Auto 2.6 x10*3/uL (2.0-8.3); Neutrophils Percent Auto 47.3 % (45-73); Platelet Count 266 X10*3/uL (160-400); Red Blood Count 4.41 X10*6/uL (4.20-5.50); Red Cell Distribution Width 12.7 % (11.0-16.0); White Blood Count 5.5 X10*3/uL (4.8-10.8)
[2022-09-04 13:11] LABS: Prothrombin Time 11.1 SEC (10.0-13.1)
[2022-09-04 13:43] LABS: Alanine Aminotransferase 15 U/L (0-31); Albumin Level 4.2 g/dL (3.5-5.0); Alkaline Phosphatase 56 U/L (39-117); Anion Gap 11 (12-20); Aspartate Amino Transferase 17 U/L (5-31); Bilirubin Total 0.4 mg/dL (0.0-1.0); Blood Urea Nitrogen 20 mg/dL (9-16); Calcium 9.9 mg/dL (8.4-10.2); Carbon Dioxide 29 mmol/L (22-29); Chloride 104 mmol/L (96-108); Creatinine Clr Calc Pharmacy 89.8; Estimated Glomerular Filt Rate > 60; Glucose Random 84 mg/dL (60-115); Potassium 4.2 mmol/L (3.3-5.1); Sodium 140 mmol/L (135-145); Total Protein 6.9 g/dL (6.5-8.0)
--- NOTE | 2022-09-07 23:11 | P.HPSUR_ITS ---
Pre-Procedural Eval Section A Date of Service: 09/07/22 The patient is an INPATIENT: No The History & Physical has been completed within 30 days and I have reviewed it.: Yes Section B Chief Complaint: Excessive and redundant skin and subcutaneous tiss Relevant Family History (Specify if Yes): No Relevant Social History: None Present Medications: None Medical History: No relevant PMH History of Previous Operations: Relevant previous surgery/procedure and date(s) (Laparoscopic sleeve gastrectomy) Allergies: Allergies Allergy/AdvReac Type Severity Reaction Status Date / Time bacitracin Allergy Severe Anaphylaxis, Verified 09/05/22 11:41 cellilitis Cephalosporins Allergy Severe Anaphylaxis, Verified 09/05/22 11:41 cellulitis Sulfa (Sulfonamide Allergy Severe Anaphylaxis Verified 09/05/22 11:41 Antibiotics) Review of Systems Sugical H&P ROS: Negative: Constitution, Cardiovascular, Respiratory, Neurological, Psychiatric, Hem-Onc, Allergic/Immunologic, Gastrointestinal, Genitourinary, Musculoskeletal, Integumentary, Endocrine and Eyes/Ears/Nose/Throat Exam Surgical H&P Exam: Normal: HEENT, Normal: Heart, Normal: Lungs, Normal: Extr emities, Normal: Abdomen, Normal: Skin and Normal: Neurological Plan Diagnosis/Plan: Unchanged I have reviewed the history and physical and performed a pertinent physical examination on my patient. No changes have occurred unless specified. Time Spent With Patient Time: Total time managing care of this patient today ____ minutes.
--- NOTE | 2022-09-10 10:05 | P.CONAN_ITS ---
HPI - Anesthesia Eval Consult details Narrative: 47yo F for Panniculectomy s/p sleeve09/2020 with GA-ETT 7 PMFSH Active Problems Active Problems: All Active Problems (Updated 08/28/22 @ 12:36 by Arelis Khan, RN) Adjustment disorder, unspecified (Acute) Paraesophageal hernia (Acute) S/P repair of paraesophageal hernia (Acute) S/P laparoscopic sleeve gastrectomy (Acute) BMI 38.0-38.9,adult (Acute) BMI over 35 (Acute) BMI 32.0-32.9,adult (Acute) Obesity (BMI 30.0-34.9) (Acute) Overweight (BMI 25.0-29.9) (Acute) Excess skin of abdomen (Acute) Colonoscopy planned (Acute) Colon cancer screening (Acute) Postgastrectomy malabsorption (Acute) Obesity (Acute) GERD (gastroesophageal reflux disease) (Acute) Morbid obesity (Acute) Past Medical History Medical History COVID-19 vaccine series completed GERD (gastroesophageal reflux disease) Low back pain Morbid obesity Obesity Plantar fasciitis, bilateral Vitamin B1 deficiency Vitamin B12 deficiency Family History Family History Mother No problems noted. Father Diabetes Brother No problems noted. Daughter No problems noted. Family history of problems with anesthesia: No Surgical History Surgical History History of sleeve gastrectomy [place] teeth extracted History of Problems with Anesthesia: No Social History Social History Are you a primary residential child care counselor to a significant other at home: No Do you presently have visiting nurse or other home services: No Alcohol intake: former Patient Tobacco Use Status: Former Tobacco user Quit Date: 2009 Tobacco use type: Cigarette service: No Current occupational status: employed Meds Allergies Allergy/AdvReac Type Severity Reaction Status Date / Time bacitracin Allergy Severe Anaphylaxis, Verified 09/05/22 11:41 cellilitis Cephalosporins Allergy Severe Anaphylaxis, Verified 09/05/22 11:41 cellulitis Sulfa (Sulfonamide Allergy Severe Anaphylaxis Verified 09/05/22 11:41 Antibiotics) Home Medications Medication Instructions Recorded Confirmed Last Taken Type fluticasone propionate 50 1 spray intranasal DAILY 07/12/20 08/28/22 09/11/22 History mcg/actuation nasal spray,suspension multivitamin 1 tab PO DAILY 07/12/21 08/28/22 09/11/22 History acyclovir 5 % topical ointment topical 01/17/22 04/11/22 Unknown History L norgest/E estradiol-E estrad 1 tab PO DAILY 04/23/22 08/28/22 08/27/22 08:00 History 0.15 mg-30 mcg (84)/10 mcg(7) tabs,3mos cetirizine 10 mg tablet (Zyrtec) 10 mg PO DAILY 08/28/22 08/28/22 09/11/22 History valacyclovir 1 gram tablet 1,000 mg PO Q12H 08/28/22 08/28/22 09/11/22 History Exam Exam Date and Time: September 10, 2022 1005 Height,Weight and Vital Signs: Height 5 ft 1.5 in Weight 65.317 kg Pertinent Lab Results Pertinent Lab Results: Laboratory Tests 09/04/22 09/04/22 09/04/22 12:22 12:29 12:29 WBC 5.5 RBC 4.41 Hgb 13.8 Hct 41.2 MCV 93.4 MCH 31.3 MCHC 33.5 RDW 12.7 Plt Count 266 MPV 9.1 L Immature Gran % (Auto) 0.0 Neut % (Auto) 47.3 Lymph % (Auto) 42.6 H Baker % (Auto) 7.8 Eos % (Auto) 1.6 Baso % (Auto) 0.7 Lymph # (Auto) 2.4 Baker # (Auto) 0.4 Eos # (Auto) 0.1 Baso # (Auto) 0.0 Abs Immat Gran (auto) 0.00 Absolute Neuts (auto) 2.6 Absolute Nucleated RBC 0.000 Nucleated RBC % (auto) 0.0 PT 11.1 INR 1.0 APTT 31.0 Sodium Potassium Chloride Carbon Dioxide Anion Gap BUN Creatinine Estim Creat Clear Calc Estimated GFR Random Glucose Calcium Total Bilirubin AST ALT Alkaline Phosphatase Total Protein Albumin Blood Type O Positive Antibody Screen NEGATIVE 09/04/22 12:29 WBC RBC Hgb Hct MCV MCH MCHC RDW Plt Count MPV Immature Gran % (Auto) Neut % (Auto) Lymph % (Auto) Baker % (Auto) Eos % (Auto) Baso % (Auto) Lymph # (Auto) Baker # (Auto) Eos # (Auto) Baso # (Auto) Abs Immat Gran (auto) Absolute Neuts (auto) Absolute Nucleated RBC Nucleated RBC % (auto) PT INR APTT Sodium 140 Potassium 4.2 Chloride 104 Carbon Dioxide 29 Anion Gap 11 L BUN 20 H Creatinine 0.67 Estim Creat Clear Calc 89.8 Estimated GFR > 60 Random Glucose 84 Calcium 9.9 D Total Bilirubin 0.4 AST 17 ALT 15 Alkaline Phosphatase 56 Total Protein 6.9 Albumin 4.2 Blood Type Antibody Screen Assessment and Plan Assessment Anesthesia Assessment: Chart Reviewed Final Anesthetic Review Family History of Problems with Anesthesia: No History of Problems with Anesthesia: No
[2022-09-10 12:55] LABS: COVID-19 Test Negative (Negative); IDNOW Serial# BCCEAD1C
[2022-09-11] VITALS (9 sets, daily range): BP systolic 100–126; BP diastolic 49–60; PULSE 69–104; RESP 12–20; TEMP 36.6–37.2; O2SAT 98–99
[2022-09-11] MEDS: Lactated Ringers 1,000 ML 100 ML IVCONT (08:26)
[2022-09-11] MEDS: Lactated Ringers 1,000 ML 80 ML IVCONT (08:26)
[2022-09-11 08:30] LABS: UPreg QC Valid YES; Urine Pregnancy NEGATIVE (NEGATIVE)
--- NOTE | 2022-09-11 10:24 | P.CONAN_ITS ---
[facility] Active Problems Active Problems: All Active Problems (Updated 08/28/22 @ 12:36 by Arelis Khan RN) Adjustment disorder, unspecified (Acute) Paraesophageal hernia (Acute) S/P repair of paraesophageal hernia (Acute) S/P laparoscopic sleeve gastrectomy (Acute) BMI 38.0-38.9,adult (Acute) BMI over 35 (Acute) BMI 32.0-32.9,adult (Acute) Obesity (BMI 30.0-34.9) (Acute) Overweight (BMI 25.0-29.9) (Acute) Excess skin of abdomen (Acute) Colonoscopy planned (Acute) Colon cancer screening (Acute) Postgastrectomy malabsorption (Acute) Obesity (Acute) GERD (gastroesophageal reflux disease) (Acute) Morbid obesity (Acute) Past Medical History Medical History COVID-19 vaccine series completed GERD (gastroesophageal reflux disease) Low back pain Morbid obesity Obesity Plantar fasciitis, bilateral Vitamin B1 deficiency Vitamin B12 deficiency Family History Family History Mother No problems noted. Father Diabetes Brother No problems noted. Daughter No problems noted. Family history of problems with anesthesia: No Surgical History Surgical History History of sleeve gastrectomy [place] teeth extracted History of Problems with Anesthesia: No Social History Social History Are you a primary school childcare attendant to a significant other at home: No Do you presently have visiting nurse or other home services: No Alcohol intake: former Patient Tobacco Use Status: Former Tobacco user Quit Date: 2009 Tobacco use type: Cigarette Use of substances other than those prescribed or required for medical reasons: No Have you been hit, kicked, punched, or otherwise hurt by someone within the past year? If so, by whom?: No Are you DNR?: No Advance Directives: No Advance Directives Information Provided: Yes Advance Directives on File: No Recently lost weight without trying: No Patient : No FDLMP: 08/20/2022 : No Poor oral hygiene: No service: No Current occupational status: employed Meds Allergies Allergy/AdvReac Type Severity Reaction Status Date / Time bacitracin Allergy Severe Anaphylaxis, Verified 09/05/22 11:41 cellilitis Cephalosporins Allergy Severe Anaphylaxis, Verified 09/05/22 11:41 cellulitis Sulfa (Sulfonamide Allergy Severe Anaphylaxis Verified 09/05/22 11:41 Antibiotics) Active Medications: Current Medications Lactated Ringer's (Lr) 1,000 mls @ 80 mls/hr IVCONT .[id number] [facility] Last Admin: 09/11/22 08:26 Dose: 80 mls/hr Lactated Ringer's (Lr) 1,000 mls @ 100 mls/hr IVCONT .Q10H [facility] Last Admin: 09/11/22 08:26 Dose: 100 mls/hr Home Medications Medication Instructions Recorded Confirmed Last Taken Type fluticasone propionate 50 1 spray intranasal DAILY 07/12/20 08/28/22 09/11/22 History mcg/actuation nasal spray,suspension multivitamin 1 tab PO DAILY 07/12/21 08/28/22 09/11/22 History acyclovir 5 % topical ointment topical 01/17/22 04/11/22 Unknown History L norgest/E estradiol-E estrad 1 tab PO DAILY 04/23/22 08/28/22 08/27/22 08:00 History 0.15 mg-30 mcg (84)/10 mcg(7) tabs,3mos cetirizine 10 mg tablet (Zyrtec) 10 mg PO DAILY 08/28/22 08/28/22 09/11/22 History valacyclovir 1 gram tablet 1,000 mg PO Q12H 08/28/22 08/28/22 09/11/22 History Exam Exam Date and Time: September 11, 2022 1024 Height,Weight and Vital Signs: Height 5 ft 1.5 in Weight 65.317 kg Last Vital Signs Temp 98.3 F 09/11/22 08:11 Pulse 69 09/11/22 08:11 Resp 20 09/11/22 08:11 BP 100/54 L 09/11/22 08:11 Pulse Ox 98 09/11/22 08:11 O2 Del Method Room Air 09/11/22 08:11 Pertinent Lab Results Pertinent Lab Results: Laboratory Tests 09/04/22 09/04/22 09/04/22 12:22 12:29 12:29 WBC 5.5 RBC 4.41 Hgb 13.8 Hct 41.2 MCV 93.4 MCH 31.3 MCHC 33.5 RDW 12.7 Plt Count 266 MPV 9.1 L Immature Gran % (Auto) 0.0 Neut % (Auto) 47.3 Lymph % (Auto) 42.6 H Wilkinson % (Auto) 7.8 Eos % (Auto) 1.6 Baso % (Auto) 0.7 Lymph # (Auto) 2.4 Wilkinson # (Auto) 0.4 Eos # (Auto) 0.1 Baso # (Auto) 0.0 Abs Immat Gran (auto) 0.00 Absolute Neuts (auto) 2.6 Absolute Nucleated RBC 0.000 Nucleated RBC % (auto) 0.0 PT 11.1 INR 1.0 APTT 31.0 Sodium Potassium Chloride Carbon Dioxide Anion Gap BUN Creatinine Estim Creat Clear Calc Estimated GFR Random Glucose Calcium Total Bilirubin AST ALT Alkaline Phosphatase Total Protein Albumin Urine Test COVID-19 (PRAFUL) [facility] Blood Type O Positive Antibody Screen NEGATIVE 09/04/22 09/10/22 09/11/22 12:29 12:22 08:00 WBC RBC Hgb Hct MCV MCH MCHC RDW Plt Count MPV Immature Gran % (Auto) Neut % (Auto) Lymph % (Auto) Wilkinson % (Auto) Eos % (Auto) Baso % (Auto) Lymph # (Auto) Wilkinson # (Auto) Eos # (Auto) Baso # (Auto) Abs Immat Gran (auto) Absolute Neuts (auto) Absolute Nucleated RBC Nucleated RBC % (auto) PT INR APTT Sodium 140 Potassium 4.2 Chloride 104 Carbon Dioxide 29 Anion Gap 11 L BUN 20 H Creatinine 0.67 Estim Creat Clear Calc 89.8 Estimated GFR > 60 Random Glucose 84 Calcium 9.9 D Total Bilirubin 0.4 AST 17 ALT 15 Alkaline Phosphatase 56 Total Protein 6.9 Albumin 4.2 Urine Test NEGATIVE COVID-19 (PRAFUL) Negative [facility] See Note Blood Type Antibody Screen Airway Mallampati Class: II TM Dist: >3cm Neck ROM: Full Loose/Missing/Broken Teeth: No Heart: RRR Lungs: CTA Assessment and Plan Assessment Anesthesia Assessment: Anesthesia Plan Discussed and Chart Reviewed Final Anesthetic Review Family History of Problems with Anesthesia: No History of Problems with Anesthesia: No NPO: Yes ASA Class: II Final Preanesthetic Review: Meds/Allgs Chart Reviewed, Consent Obtained/Reviewed and Anes Risks/Benef Reviewed Patient Risk: Low Procedure Risk: Low Anesthetic Plan Anesthetic Plan: GA Disposition: Standard PACU
--- NOTE | 2022-09-11 10:30 | PM.OP ---
Brief Operative Note Date of Service: 09/11/22 Pre-op diagnosis: Excess skin Post-op diagnosis: same Procedure: PROCEDURE: Panniculectomy with umbilical transposition and bilateral subcutaneous fat flaps INDICATION: This a 47 year old female who underwent laparoscopic sleeve gastrectomy on 10/19/2020. She had an excellent result achieving a BMI of 26.8 kg/m2 with a total weight loss of 98.4lbs, or 40.6% of her TBWL. As a result, she has developed panniculitis which has not resolved despite continuous use of clotrimazole ointment as well as skin irritation. On exam she has extreme skin laxity due to massive weight loss, with the abdominal pannus completely hanging 4cm below the pubis. Panniculectomy was recommended. We discussed the two options for the panniculectomy of using a combined vertical and horizontal incisions or just a horizontal (bikini) incision. It was my recommendation to do only horizontal incision based on her body habitus and skin laxity. The patient agreed with this. Risks and complications were discussed with the patient including bleeding, infection, umbilical loss, flap necrosis, asymmetry, dehiscence, seroma, VTE. The patient understood the risks and was in agreement to proceed with surgery. PROCEDURE: The incisions were appropriately marked at the preop area with the patient standing and laying down. After induction of general anesthesia a Foster catheter and pneumatic compression devices were placed. The patient was prepped and draped in the usual sterile manner and the incisions were marked again and confirmed. The skin was infiltrated with lidocaine and epinephrine. The #10 blade scalpel was used for the large incisions and the #15 blade scalpel for the umbilicus. Cautery was used to divide the subcutaneous tissues until the fascia was identified. Then I used the Thunderbeat (Olympus) to separate the pannus from the fascia. The inferior incision was made initially and I mobilized the flap for a several centimeters cephalad to the umbilicus. The umbilicus was incised circumferentially and detached from the surrounding tissues all the way to the fascia while its stalk was preserved. With the patient in reflex position I confirmed that the skin flaps were appropriate and would allow for the tissues to come together with reasonable tension. At that point a horizontal incision was made 4 cm above the umbilicus. #10 blade was used for the skin, cautery for the dermis and the Thunderbeat for the remaining tissues. A subcutaneous fat flap was raised from the upper skin flap in order to fill the space under the skin and support the closure of the two flaps. In addition the inferior flap was mobilized caudally for a few centimeters to create a space for the subcutaneous fat flap as well as relieve tension from the closure. A circumferential incision was made at the area where the umbilicus would be re-implanted. The umbilicus was appropriately oriented and was delivered through the defect and was secured in place with a Ksenia. No bleeding was noted anywhere. One HONEY drain was placed from the left corner of the horizontal incision across the wound and was secured in place with a silk suture. A total of 14ml of Zynrelef was applied on top of the fascia and under the subcutaneous fat flaps. The subcutaneous fat flap was secured under the inferior flap with several interrupted 3.0 Monocryl sutures. The two flaps were brought together and were attached at the midline of the horizontal incision with a #3.0 Monocryl suture. At that point the umbilicus was properly oriented and was re-approximated to the skin with 8 interrupted 3.0 Monocryl sutures. In a similar fashion the skin flaps were re-approximated with multiple 3.0 Monocryl sutures. The skin was closed in all incisions and umbilicus with 4.0 Monocryl sutures. Steri-strips, xeroform gauzes and gauzes were used to cover the incisions. An abdominal binder was also placed. The was awaken and was transferred to the recover room in a stable condition. I was present and performed the entire procedure. Nikita Baker was the mate first. Gerardo Snowden MD, PhD, FACS Surgeon: Godwin Snowden MD Surgeon: Godwin Snowden MD Anesthesia: GETA, local and other (14ml Zynrelef) Was an [employer] Fire Control Man used for this Procedure?: No [employer] Fire Control Man: Suki Baker Estimated blood loss (mL): 10 IV fluids (mL): 3,000 Urine output (mL): 100 Pathology: other (Abdominal pannus) Condition: stable Disposition: PACU
[2022-09-11] MEDS: ondansetron HCL 4 MG/2 ML VIAL IVPUSH (15:23)
--- NOTE | 2022-09-11 15:38 | W.MHC.F2F ---
Service Date Service Date: 09/11/22 Encounter Date of encounter: 09/11/22 Reasons for Services Signs and symptoms assessed: s/p panniculectomy Reason for custodial: wound care and other (drain care) Homebound: Leaving the home is medically contraindicated at this time without the asist of a device and/or another person due to the listed conditions above and below. Reason homebound: unable to drive Certification: Based on the above findings, I certify that this patient is confined to the home and needs intermittent custodial care, physical therapy and/or speech therapy, or continues to need occupational therapy. The patient is under my care, and I have initiated the establishment of the plan of care. The patient will be followed by a physician who will periodically review the plan of care. Time Spent With Patient Time: Total time managing care of this patient today __30__ minutes.
== END 2022-09-11 16:45 | disposition home or self-care (01) ==
PROVIDERS: Nurse Practitioner; Physician Assistant Surgical; PCP Internal Medicine Cardiovascular Disease; Visit Provider Surgery
PROC: 0JB80ZZ Excision of Abdomen Subcutaneous Tissue and Fascia, Open Approach (ICD-10-PCS; CPT 15830; principal; 2022-09-11 10:10)
DX: L98.7 Excessive and redundant skin and subcutaneous tissue (principal); K91.2 Postsurgical malabsorption, not elsewhere classified; Z90.3 Acquired absence of stomach [part of]; Z98.84 Bariatric surgery status; M54.50 Low back pain, unspecified; K21.9 Gastro-esophageal reflux disease without esophagitis; K44.9 Diaphragmatic hernia without obstruction or gangrene; K59.00 Constipation, unspecified; M72.2 Plantar fascial fibromatosis; E66.9 Obesity, unspecified; Z68.26 Body mass index [BMI] 26.0-26.9, adult; E53.8 Deficiency of other specified B group vitamins; Z79.51 Long term (current) use of inhaled steroids; Z79.899 Other long term (current) drug therapy; Z88.1 Allergy status to other antibiotic agents; Z88.2 Allergy status to sulfonamides; Z20.822 Contact with and (suspected) exposure to COVID-19; Z87.891 Personal history of nicotine dependence
CPT/HCPCS: 15830; 15847; 36415; 80053; 81025; 85025; 85610; 85730; 86850; 86900; 86901; 87635; 88304; C9088; J0131; J1170; J1956; J2250; J2370; J2405; J2550; J3010; J3370

== ENCOUNTER → 2022-09-19 10:59 | Outpatient (BNVA) | payer BC, SELFPAY | PROVIDERS: PCP Internal Medicine Cardiovascular Disease; Visit Provider Physician Assistant Surgical | DX: Z13.89 Encounter for screening for other disorder (principal) ==

== ENCOUNTER → 2022-09-24 11:26 | Outpatient (BNVA) | payer BC, SELFPAY | PROVIDERS: PCP Internal Medicine Cardiovascular Disease; Visit Provider Physician Assistant | DX: Z13.89 Encounter for screening for other disorder (principal) ==

== ENCOUNTER → 2022-09-29 10:16 | Outpatient (BNVA) | payer BC, SELFPAY | PROVIDERS: PCP Internal Medicine Cardiovascular Disease; Visit Provider Dietitian, Registered | DX: E66.9 Obesity, unspecified (principal); Z98.84 Bariatric surgery status; Z71.3 Dietary counseling and surveillance | CPT/HCPCS: 97803 ==

== ENCOUNTER → 2022-10-01 15:02 | Outpatient (BNVA) | payer BC, SELFPAY | PROVIDERS: PCP Internal Medicine Cardiovascular Disease; Visit Provider Physician Assistant ==

== ENCOUNTER → 2022-10-21 14:16 | Outpatient (BNVA) | payer BC, SELFPAY | PROVIDERS: PCP Internal Medicine Cardiovascular Disease; Referring Provider Internal Medicine Cardiovascular Disease; Visit Provider Physician Assistant Surgical ==

== ENCOUNTER 2022-12-08 14:40 | Outpatient (AMB) | payer BC, SELFPAY ==
--- NOTE | 2022-12-08 14:42 | A.OFFVIS_ITS ---
Intake VS Expanded 12/08/22 14:43 Height 5 ft 1.5 in Weight 140 lb BMI 26.0 BP 106/59 L Blood Pressure Location Rt brachial Blood Pressure Position Sitting Pulse 66 Pulse Source Pulse Oximeter Temp 98.3 F Temperature Source Temporal Artery Scan Pulse Oximetry 100 Oxygen Delivery Method Room Air Body Fat 40.0 Body Fat Percentage 28.5 Free Fat Mass 100.0 Muscle Mass 95.0 Visceral Mass 5.0 Water Mass 71.2 BMR 1,346 Intake Visit Reasons: (OV) PO Panniculectomy 09/11/22 Allergies bacitracin Allergy (Severe, Verified 12/08/22 14:45) Anaphylaxis, cellilitis Cephalosporins Allergy (Severe, Verified 12/08/22 14:45) Anaphylaxis, cellulitis Sulfa (Sulfonamide Antibiotics) Allergy (Severe, Verified 12/08/22 14:45) Anaphylaxis Medication List - Last Reconciled 12/08/22 by JOANNE Gentile acyclovir 400 mg PO BID cetirizine (Zyrtec) 10 mg PO DAILY ciprofloxacin HCl (Cipro) 500 mg PO Q12H docusate sodium (Colace) 100 mg orally one per day; fluticasone propionate 50 mcg/actuation 1 spray intranasal DAILY L norgest/e.estradiol-e.estrad 0.15 mg-30 mcg (84)/10 mcg (7) 1 tab PO DAILY multivitamin 1 tab PO DAILY valacyclovir 1,000 mg PO Q12H HPI HPI Comments History of Present Illness Details Pt is almost 3 months s/p panniculectomy, 09/11/2022. LSG 10/10/2020. No complaints of pain, no fevers at home. Tolerating high protein meal plan although she reports some increased peanut butter intake recently and some evenings where she has some snacking. Wearing binder at night for comfort. Doing walking for exercise. Reports infrequent sensations of weakness and sweating, often happening in evening before or after dinner. Perhaps 4 times since her sleeve. [facility] Medical History COVID-19 vaccine series completed GERD (gastroesophageal reflux disease) Low back pain Morbid obesity Obesity Plantar fasciitis, bilateral Vitamin B1 deficiency Vitamin B12 deficiency Surgical History History of sleeve gastrectomy [place] teeth extracted Family History Mother No problems noted. Father Diabetes Brother No problems noted. Daughter No problems noted. Social History Are you a primary home care chaplain to a significant other at home: No Do you presently have visiting nurse or other home services: No Alcohol intake: former Patient Tobacco Use Status: Former Tobacco user Quit Date: 2009 Tobacco use type: Cigarette service: No Current occupational status: employed Physical Exam Const General: cooperative, comfortable and no acute distress Orientation/consciousness: patient oriented x3 GI Other: soft, nontender, nondistended, incisions well healed, no hernia, no masses; panniculectomy incision healed well Neuro General: patient oriented x3 Assessment & Plan Assessment & Plan (1) S/P panniculectomy: Code(s): Z98.890 - Other specified postprocedural states (2) S/P laparoscopic sleeve gastrectomy: Code(s): Z98.84 - Bariatric surgery status (3) Overweight (BMI 25.0-29.9): Code(s): E66.3 - Overweight Plan Pt cleared for all physical activity once she is 3 months postop. Annual labs ordered. Pt will monitor any future episodes of flushing/sweating, will try to track what she eats/activity around any future episodes. Can have a snack with protein and complex carb (protein bar plus fruit, or dairy milk) at the time to see if that helps. RTC next year for annual in September with PA. Can follow up with RD in 3 months. Patient is overweight and is not considered stable at this time. I spent a total of 30 minutes reviewing/updating records, examining the patient and counseling the patient on weight management as detailed above. Orders: Orders Vitamin B12 and Folate Today Z87.19 - Personal history of other diseases of the digestive system, Z98.890 - Other specified postprocedural states Comprehensive Met. Panel Today Z87.19 - Personal history of other diseases of the digestive system, Z98.890 - Other specified postprocedural states C Reactive Protein Today Z87.19 - Personal history of other diseases of the digestive system, Z98.890 - Other specified postprocedural states Ferritin Today Z87.19 - Personal history of other diseases of the digestive system, Z98.890 - Other specified postprocedural states Hemoglobin A1c Today Z87.19 - Personal history of other diseases of the digestive system, Z98.890 - Other specified postprocedural states Insulin Today Z87.19 - Personal history of other diseases of the digestive system, Z98.890 - Other specified postprocedural states IRON PROFILE Today Z87.19 - Personal history of other diseases of the digestive system, Z98.890 - Other specified postprocedural states Lipid Panel Today Z87.19 - Personal history of other diseases of the digestive system, Z98.890 - Other specified postprocedural states PTHI Today Z87.19 - Personal history of other diseases of the digestive system, Z98.890 - Other specified postprocedural states TSH reflex Free T4 Today Z87.19 - Personal history of other diseases of the digestive system, Z98.890 - Other specified postprocedural states Vitamin A Today Z87.19 - Personal history of other diseases of the digestive system, Z98.890 - Other specified postprocedural states Vitamin B1 Today Z87.19 - Personal history of other diseases of the digestive system, Z98.890 - Other specified postprocedural states Vitamin D 25-OH Total Today Z87.19 - Personal history of other diseases of the digestive system, Z98.890 - Other specified postprocedural states Zinc Today Z87.19 - Personal history of other diseases of the digestive system, Z98.890 - Other specified postprocedural states Complete Blood Count Auto Diff Today Z87.19 - Personal history of other diseases of the digestive system, Z98.890 - Other specified postprocedural states Medications: Discontinued ciprofloxacin HCl (Cipro) Discontinued Reason: Patient Completed Course 500 mg PO Q12H 30 tabs 2RF L03.90 - Cellulitis, unspecified Coding Level of Care Code Est Pt Level 4 (75655) Diagnoses S/P panniculectomy Z98.890 S/P laparoscopic sleeve gastrectomy Z98.84 Overweight (BMI 25.0-29.9) E66.3
[2022-12-08 14:43] VITALS: BP 106/59; PULSE 66; TEMP 36.8; O2SAT 100; BMI 26.0
== END 2022-12-08 15:29 | disposition home or self-care (01) ==
PROVIDERS: PCP Internal Medicine Cardiovascular Disease; Visit Provider Physician Assistant Surgical
DX: L98.7 Excessive and redundant skin and subcutaneous tissue (principal); E66.3 Overweight; Z68.26 Body mass index [BMI] 26.0-26.9, adult; Z90.3 Acquired absence of stomach [part of]; Z98.84 Bariatric surgery status
CPT/HCPCS: 99214

== ENCOUNTER → 2022-12-08 14:40 | Outpatient (BNVA) | payer BC, SELFPAY | PROVIDERS: PCP Internal Medicine Cardiovascular Disease; Visit Provider Physician Assistant Surgical ==

== ENCOUNTER 2022-12-25 08:12 | Outpatient (REF) | payer BC, SELFPAY ==
[2022-12-25 09:00] LABS: Basophils Percent Auto 0.6 % (0-2); Eosinophils Absolute Auto 0.1 X10*3/uL (0.0-0.4); Eosinophils Percent Auto 1.7 % (0-4); Hematocrit 41.5 % (37.0-47.0); Hemoglobin 13.6 g/dl (12.0-16.0); Imm Gran Abs Auto 0.01 X10*3/uL (0.00-0.03); Imm Gran Pct Auto 0.2 % (0.0-0.4); Lymphocytes Absolute Auto 2.1 X10*3/uL (1.2-4.9); Lymphocytes Percent Auto 40.5 % (20-40); MANUAL DIFF FLAG NO; Mean Corpuscular HGB Conc 32.8 g/dl (31.0-35.0); Mean Corpuscular Volume 94.5 fL (80.0-98.0); Mean Platelet Volume 8.9 fL (9.4-12.3); Monocytes Absolute Auto 0.4 X10*3/uL (0.1-1.2); Monocytes Percent Auto 7.3 % (2-11); Neutrophils Absolute Auto 2.6 x10*3/uL (2.0-8.3); Neutrophils Percent Auto 49.7 % (45-73); Platelet Count 251 X10*3/uL (160-400); Red Blood Count 4.39 X10*6/uL (4.20-5.50); Red Cell Distribution Width 12.5 % (11.0-16.0); White Blood Count 5.2 X10*3/uL (4.8-10.8)
[2022-12-25 09:20] LABS: Estimated Average Glucose 94 mg/dL; Hemoglobin A1c % 4.9 %
[2022-12-25 10:03] LABS: Alanine Aminotransferase 18 U/L (0-31); Albumin Level 4.1 g/dL (3.5-5.0); Alkaline Phosphatase 53 U/L (39-117); Anion Gap 14 (12-20); Aspartate Amino Transferase 19 U/L (5-31); Bilirubin Total 0.5 mg/dL (0.0-1.0); Blood Urea Nitrogen 22 mg/dL (9-16); C Reactive Protein 0.17 mg/dL (< or = 0.50); Carbon Dioxide 24 mmol/L (22-29); Chloride 106 mmol/L (96-108); Cholesterol 159 mg/dL; Estimated Glomerular Filt Rate > 60; Glucose Random 85 mg/dL (60-115); HDL Cholesterol 57 mg/dL; Iron 120 mcg/dL (30-160); LDL Cholesterol Calculated 91 mg/dl; Percent Iron Saturation 30 % (15-50); Potassium 4.1 mmol/L (3.3-5.1); Sodium 140 mmol/L (135-145); Total Iron Binding Capacity 402 mcg/dL (228-428); Total Protein 7.4 g/dL (6.5-8.0); Triglycerides 58 mg/dL; Unsaturated Iron Binding 282 ug/dL
[2022-12-25 10:19] LABS: Ferritin 90 ng/mL (10-250); Insulin 3 uU/mL (2-29); TSH reflex Free T4 0.97 uIU/mL (0.32-4.0); Vitamin D 25-OH Total 152.4 ng/mL (>30)
[2022-12-25 10:36] LABS: Folate 17.4 ng/mL (> or = 4.0); Vitamin B12 771 pg/mL (200-900)
[2022-12-29 12:42] LABS: Calcium (PTHI) 9.4 mg/dL (8.6-10.2); PTHI 9 pg/mL (16-77)
[2022-12-30 02:04] LABS: Zinc 85 mcg/dL (60-130)
[2022-12-31 14:29] LABS: Vitamin A 84 mcg/dL (38-98)
[2022-12-31 15:39] LABS: Vitamin B1 33 nmol/L (8-30)
== END 2022-12-25 08:13 | disposition home or self-care (01) ==
LOC: HO.LAB 08:12
PROVIDERS: PCP Internal Medicine Cardiovascular Disease; Visit Provider Physician Assistant Surgical
DX: Z87.19 Personal history of other diseases of the digestive system (principal); Z98.890 Other specified postprocedural states
CPT/HCPCS: 36415; 80053; 80061; 82306; 82607; 82728; 82746; 83036; 83525; 83540; 83970; 84425; 84443; 84590; 84630; 85025; 86140

== ENCOUNTER 2022-12-30 10:09 | Outpatient (AMB) | payer BC, SELFPAY ==
--- NOTE | 2022-12-30 10:07 | A.OFFVIS_ITS ---
Intake Intake Visit Reasons: VIDEO PO LSG 10/10/20 Allergies bacitracin Allergy (Severe, Verified 12/08/22 14:45) Anaphylaxis, cellilitis Cephalosporins Allergy (Severe, Verified 12/08/22 14:45) Anaphylaxis, cellulitis Sulfa (Sulfonamide Antibiotics) Allergy (Severe, Verified 12/08/22 14:45) Anaphylaxis HPI Nutrition Presentation Details 18 MO LSG DOS 10/10/20 Weight at 6 months PO 166# Panniculectomy 09/11/22 current weight - fluctuations 137-140# Reason for consult elevated BMI Diet Assmnt Details coffee with almond milk breakfast 1 scoop pure protein powder with water - or celebrate oatmeal lunch 1 scoop protein powder - or cottage cheese and fruit dinner 4pm-4:30pm 5 bites of protein, same veg Then 7pm experiences what she thinks is a low blood sugar Exercise: now cleared so walking and doing elliptical Vitamins: celebrate MVI and calcium but is taking 2 of each Noted labs Dietary counseling reduction Diagnosis Nutrition problem #1 overweight/obesity As related to (etiology) #1 excess energy intake and physical inactivity As evidenced by (sign/symptom) #1 high BMI (resolved) Monitoring/Goals Nutrition problem monitoring total energy intake, level of knowledge/skill, total PRO intake, total CHO intake and weight Outcome progress progressing Learning/Education Readiness to learn excellent Stages of change action Most Recent Diabetes Results: Cholesterol 159 mg/dL 12/25/22 HDL Cholesterol 57 mg/dL 12/25/22 Triglycerides 58 mg/dL 12/25/22 Creatinine 0.81 mg/dL (0.5-1.4) 12/25/22 Blood Urea Nitrogen 22 mg/dL (9-16) H 12/25/22 Sodium 140 mmol/L (135-145) 12/25/22 Potassium 4.1 mmol/L (3.3-5.1) 12/25/22 Chloride 106 mmol/L (96-108) 12/25/22 Carbon Dioxide 24 mmol/L (22-29) 12/25/22 Calcium 10.0 mg/dL (8.4-10.2) 12/25/22 AST 19 U/L (5-31) 12/25/22 ALT 18 U/L (0-31) 12/25/22 Total Protein 7.4 g/dL (6.5-8.0) 12/25/22 Albumin 4.1 g/dL (3.5-5.0) 12/25/22 [facility] Medical History COVID-19 vaccine series completed GERD (gastroesophageal reflux disease) Low back pain Morbid obesity Obesity Plantar fasciitis, bilateral Vitamin B1 deficiency Vitamin B12 deficiency Surgical History History of sleeve gastrectomy [place] teeth extracted Family History Mother No problems noted. Father Diabetes Brother No problems noted. Daughter No problems noted. Social History Are you a primary transitional care nurse to a significant other at home: No Do you presently have visiting nurse or other home services: No Alcohol intake: former Patient Tobacco Use Status: Former Tobacco user Quit Date: 2009 Tobacco use type: Cigarette service: No Current occupational status: employed Assessment & Plan Assessment & Plan (1) History of sleeve gastrectomy: Code(s): Z90.3 - Acquired absence of stomach [part of] Patient Instructions: Patient's symptoms are consistent with low blood glucose symptoms. We talked about getting adequate calories throughout the day. 1 Pure protein shake with 1 scoop powder - with water (next appt may consider changing to milk) lunch: protein and vegetable, encouraged adding healthy fats into each meal Dinner: Same as lunch Snack: Protein bar Exercise: Recommended adding 3 days per week minimum of weight training in addition to cardio routine The dose for [id number] is 1 capsule per day, she will cut down to 1 capsule. monitor vitaminD Telehealth Telehealth Location of provider rendering services: practice address Location of patient: address on file Patient Identification confirmed using: Name, : Yes Telehealth method: voice only Patient verbally consented to treatment: Yes Patient verbally consented to billing insurance company: Yes Patient informed of any privacy concerns related to visit: Yes Minutes spent on Phone/Video with Pt.: 30 Coding Level of Care Code Nutr Indiv Subseq (87136) Diagnoses History of sleeve gastrectomy Z90.3 Time Spent (min) 30
== END 2022-12-30 10:37 | disposition home or self-care (01) ==
LOC: HO.HBS 10:09
PROVIDERS: PCP Internal Medicine Cardiovascular Disease; Visit Provider Dietitian, Registered
DX: Z90.3 Acquired absence of stomach [part of] (principal)

== ENCOUNTER → 2022-12-30 10:09 | Outpatient (BNVA) | payer BC, SELFPAY | PROVIDERS: PCP Internal Medicine Cardiovascular Disease; Visit Provider Dietitian, Registered | DX: E66.01 Morbid (severe) obesity due to excess calories (principal); K21.9 Gastro-esophageal reflux disease without esophagitis; E51.9 Thiamine deficiency, unspecified; E53.8 Deficiency of other specified B group vitamins; Z71.3 Dietary counseling and surveillance; Z90.3 Acquired absence of stomach [part of] | CPT/HCPCS: 97803 ==

== ENCOUNTER → 2023-03-09 08:45 | Outpatient (BNVA) | payer BC, SELFPAY | PROVIDERS: PCP Internal Medicine Cardiovascular Disease; Visit Provider Dietitian, Registered | DX: E66.9 Obesity, unspecified (principal); Z98.84 Bariatric surgery status; Z71.3 Dietary counseling and surveillance | CPT/HCPCS: 97803 ==

== ENCOUNTER 2023-03-18 19:02 | Outpatient (AMB) | payer BC, SELFPAY ==
--- NOTE | 2023-03-19 09:20 | A.OFFWM_ITS ---
Intake Intake Visit Reasons: Group Therapy Allergies bacitracin Allergy (Severe, Verified 12/08/22 14:45) Anaphylaxis, cellilitis Cephalosporins Allergy (Severe, Verified 12/08/22 14:45) Anaphylaxis, cellulitis Sulfa (Sulfonamide Antibiotics) Allergy (Severe, Verified 12/08/22 14:45) Anaphylaxis [facility] Medical History COVID-19 vaccine series completed GERD (gastroesophageal reflux disease) Low back pain Morbid obesity Obesity Plantar fasciitis, bilateral Vitamin B1 deficiency Vitamin B12 deficiency Surgical History History of sleeve gastrectomy [place] teeth extracted Family History Mother No problems noted. Father Diabetes Brother No problems noted. Daughter No problems noted. Social History Are you a primary care trainer to a significant other at home: No Do you presently have visiting nurse or other home services: No Alcohol intake: former Patient Tobacco Use Status: Former Tobacco user Quit Date: 2009 Tobacco use type: Cigarette service: No Current occupational status: employed Behavioral Health Assessment Weight Management Therapy Therapy Notes Details Group therapy session on Hurry Sickness , reducing stress around rushing/being late, analysis of time management. Patient was encouraging, e ngaged, shared, and supportive to others. Patient is a couple of years post weight loss surgery. She is doing well overall but struggles with some old habits. Assessment & Plan Assessment & Plan (1) S/P laparoscopic sleeve gastrectomy: Code(s): Z98.84 - Bariatric surgery status Coding Level of Care Code [facility] ([id number]) Diagnoses S/P laparoscopic sleeve gastrectomy Z98.84 Time Spent (min) 60
== END 2023-03-19 09:20 | disposition home or self-care (01) ==
LOC: HO.HBST 19:02
PROVIDERS: PCP Internal Medicine Cardiovascular Disease; Visit Provider Counselor Mental Health
DX: Z98.84 Bariatric surgery status (principal)

== ENCOUNTER → 2023-03-18 19:02 | Outpatient (BNVA) | payer BC, SELFPAY | PROVIDERS: PCP Internal Medicine Cardiovascular Disease; Visit Provider Counselor Mental Health | DX: Z98.84 Bariatric surgery status (principal) | CPT/HCPCS: 90853 ==

== ENCOUNTER → 2023-03-25 10:12 | Outpatient (BNVA) | payer BC, SELFPAY | PROVIDERS: PCP Internal Medicine Cardiovascular Disease; Visit Provider Dietitian, Registered | DX: Z71.3 Dietary counseling and surveillance (principal); E66.09 Other obesity due to excess calories; Z68.26 Body mass index [BMI] 26.0-26.9, adult; Z90.3 Acquired absence of stomach [part of] | CPT/HCPCS: 97803 ==

== ENCOUNTER 2023-06-25 09:45 | Outpatient (AMB) | payer BC, SELFPAY ==
--- NOTE | 2023-06-25 09:36 | A.OFFVIS_ITS ---
Intake Intake Visit Reasons: VIDEO PO LSG 10/10/20 Allergies bacitracin Allergy (Severe, Verified 12/08/22 14:45) Anaphylaxis, cellilitis Cephalosporins Allergy (Severe, Verified 12/08/22 14:45) Anaphylaxis, cellulitis Sulfa (Sulfonamide Antibiotics) Allergy (Severe, Verified 12/08/22 14:45) Anaphylaxis HPI Nutrition Presentation Details LSG DOS 10/10/20 Weight at 6 months PO 166# Panniculectomy 09/11/22 current weight - 139# pt reports got up to 146# as a result of emotional eating . has worked through this now Diet Assmnt Details Pt reports she likes her nutrition plan below, her choice to continue with shakes. She reports Denice is therapy groups have been immensely helpful i helping control and understand her emotional eating triggers coffee with almond milk breakfast 2 scoop premier protein powder with water = 30g lunch 2 scoop protein powder = 30g dinner 4pm-4:30pm 5 bites of protein, same veg Quest bars = 20g was previously emotionally eating, but switched her bar from the Zone to the quest. Also switched from using using really sweet [place] water additives to less sweet and noticed lesser sweet cravings. pt states she has good discipline and is able to think through decisions before making choices Exercise: 3x per week exercise , previously getting tx for bursitis , she wants to incorporate more strength training Vitamins: celebrate MVI and calcium Dietary counseling reduction Diagnosis Nutrition problem #1 overweight/obesity As related to (etiology) #1 excess energy intake and physical inactivity As evidenced by (sign/symptom) #1 high BMI (resolved) Monitoring/Goals Nutrition problem monitoring total energy intake, level of knowledge/skill, total PRO intake, total CHO intake and weight Outcome progress progressing Learning/Education Readiness to learn excellent Stages of change action Most Recent Diabetes Results: Cholesterol 159 mg/dL 12/25/22 HDL Cholesterol 57 mg/dL 12/25/22 Triglycerides 58 mg/dL 12/25/22 Creatinine 0.81 mg/dL (0.5-1.4) 12/25/22 Blood Urea Nitrogen 22 mg/dL (9-16) H 12/25/22 Sodium 140 mmol/L (135-145) 12/25/22 Potassium 4.1 mmol/L (3.3-5.1) 12/25/22 Chloride 106 mmol/L (96-108) 12/25/22 Carbon Dioxide 24 mmol/L (22-29) 12/25/22 Calcium 10.0 mg/dL (8.4-10.2) 12/25/22 AST 19 U/L (5-31) 12/25/22 ALT 18 U/L (0-31) 12/25/22 Total Protein 7.4 g/dL (6.5-8.0) 12/25/22 Albumin 4.1 g/dL (3.5-5.0) 12/25/22 [facility] Medical History COVID-19 vaccine series completed GERD (gastroesophageal reflux disease) Low back pain Morbid obesity Obesity Plantar fasciitis, bilateral Vitamin B1 deficiency Vitamin B12 deficiency Surgical History History of sleeve gastrectomy [place] teeth extracted Family History Mother No problems noted. Father Diabetes Brother No problems noted. Daughter No problems noted. Social History Are you a primary critical care paramedic to a significant other at home: No Do you presently have visiting nurse or other home services: No Alcohol intake: former Comment: aware of trip hazard Patient Tobacco Use Status: Former Tobacco user Quit Date: 2009 Tobacco use type: Cigarette service: No Current occupational status: employed Assessment & Plan Assessment & Plan (1) Overweight (BMI 25.0-29.9): Code(s): E66.3 - Overweight Plan see below Patient Instructions: discussed the benefits of strength training. Is getting adequate protein and feeling great. next appt with PA for 3 year appt, and resume f/u with me. pt would like both appts in September Telehealth Telehealth Location of provider rendering services: practice address Location of patient: address on file Patient Identification confirmed using: Name, : Yes Telehealth method: video Patient verbally consented to treatment: Yes Patient verbally consented to billing insurance company: Yes Patient informed of any privacy concerns related to visit: Yes Minutes spent on Phone/Video with Pt.: 45 Coding Level of Care Code Nutr Indiv Subseq ([id number]) Diagnoses Overweight (BMI 25.0-29.9) E66.3 Time Spent (min) 45
== END 2023-06-25 10:15 | disposition home or self-care (01) ==
LOC: HO.HBS 09:45
PROVIDERS: PCP Internal Medicine Cardiovascular Disease; Visit Provider Dietitian, Registered
DX: E66.3 Overweight (principal)

== ENCOUNTER → 2023-06-25 09:45 | Outpatient (BNVA) | payer BC, SELFPAY | PROVIDERS: PCP Internal Medicine Cardiovascular Disease; Visit Provider Dietitian, Registered | DX: E66.3 Overweight (principal); Z98.84 Bariatric surgery status; Z71.3 Dietary counseling and surveillance | CPT/HCPCS: 97803 ==

== ENCOUNTER 2023-08-19 10:10 | Outpatient (AMB) | payer BC, SELFPAY ==
--- NOTE | 2023-08-19 10:01 | MHC.AMNUTRGE ---
Intake VS Expanded 08/19/23 10:02 Height 5 ft 1.5 in Weight 142 lb BMI 26.4 Intake Visit Reasons: (TV) PO LSG 10/10/20 Communications Systems Engineer Required: No Allergies bacitracin Allergy (Severe, Verified 12/08/22 14:45) Anaphylaxis, cellilitis Cephalosporins Allergy (Severe, Verified 12/08/22 14:45) Anaphylaxis, cellulitis Sulfa (Sulfonamide Antibiotics) Allergy (Severe, Verified 12/08/22 14:45) Anaphylaxis HPI Nutrition Presentation Details LSG DOS 10/10/20 Weight at 6 months PO 166# Panniculectomy 09/11/22 current weight - 139# pt reports got up to 146# as a result of emotional eating . has worked through this now Diet Assmnt Details Pt reports she likes her nutrition plan below, her choice to continue with shakes. She does however report increased snacking on peanut butter. will ahve a few spoonfuls at night. noticed some weight gain associated. Also decreased exercise. coffee with almond milk breakfast 2 scoop premier protein powder with water = 30g lunch 2 scoop protein powder = 30g dinner 4pm-4:30pm 5 bites of protein, same veg Quest bars = 20g was previously emotionally eating, but switched her bar from the Zone to the quest. Also switched from using using really sweet Stephan water additives to less sweet and noticed lesser sweet cravings. pt states she has good discipline and is able to think through decisions before making choices. Exercise: 3x per week exercise , previously getting tx for bursitis , she wants to incorporate more strength training Vitamins: celebrate MVI and calcium Dietary counseling reduction Diagnosis Nutrition problem #1 overweight/obesity As related to (etiology) #1 excess energy intake and physical inactivity As evidenced by (sign/symptom) #1 high BMI (resolved) Monitoring/Goals Nutrition problem monitoring total energy intake, level of knowledge/skill, total PRO intake, total CHO intake and weight Outcome progress progressing Learning/Education Readiness to learn excellent Stages of change action Most Recent Diabetes Results: Cholesterol 159 mg/dL 12/25/22 HDL Cholesterol 57 mg/dL 12/25/22 Triglycerides 58 mg/dL 12/25/22 Creatinine 0.81 mg/dL (0.5-1.4) 12/25/22 Blood Urea Nitrogen 22 mg/dL (9-16) H 12/25/22 Sodium 140 mmol/L (135-145) 12/25/22 Potassium 4.1 mmol/L (3.3-5.1) 12/25/22 Chloride 106 mmol/L (96-108) 12/25/22 Carbon Dioxide 24 mmol/L (22-29) 12/25/22 Calcium 10.0 mg/dL (8.4-10.2) 12/25/22 AST 19 U/L (5-31) 12/25/22 ALT 18 U/L (0-31) 12/25/22 Total Protein 7.4 g/dL (6.5-8.0) 12/25/22 Albumin 4.1 g/dL (3.5-5.0) 12/25/22 [facility] Medical History COVID-19 vaccine series completed GERD (gastroesophageal reflux disease) Low back pain Morbid obesity Obesity Plantar fasciitis, bilateral Vitamin B1 deficiency Vitamin B12 deficiency Surgical History History of sleeve gastrectomy [place] teeth extracted Family History Mother No problems noted. Father Diabetes Brother No problems noted. Daughter No problems noted. Social History Are you a primary pet caretaker to a significant other at home: No Do you presently have visiting nurse or other home services: No Alcohol intake: former Comment: aware of trip hazard Patient Tobacco Use Status: Former Tobacco user Quit Date: 2009 Tobacco use type: Cigarette service: No Current occupational status: employed Assessment & Plan Assessment & Plan (1) Overweight (BMI 25.0-29.9): Code(s): E66.3 - Overweight Plan Pt will continue f/u with Suki RUBIO . Patient Instructions: rec having 1 spoon of peanut butter with half an apple for a more balanced, filling snack. we also talked about including some healthy fats in her diet, which she currently has none during the day. Telehealth Telehealth Location of provider rendering services: practice address Location of patient: address on file Patient Identification confirmed using: Name, : Yes Telehealth method: voice only Patient verbally consented to treatment: Yes Patient verbally consented to billing insurance company: Yes Patient informed of any privacy concerns related to visit: Yes Minutes spent on Phone/Video with Pt.: 35 Coding Level of Care Code Nutr Indiv Subseq ([id number]) Diagnoses Overweight (BMI 25.0-29.9) E66.3 Time Spent (min) 35
[2023-08-19 10:02] VITALS: BMI 26.4
== END 2023-08-19 10:52 | disposition home or self-care (01) ==
LOC: HO.HBS 10:10
PROVIDERS: PCP Internal Medicine Cardiovascular Disease; Visit Provider Dietitian, Registered
DX: E66.3 Overweight (principal)

== ENCOUNTER → 2023-08-19 10:10 | Outpatient (BNVA) | payer BC, SELFPAY | PROVIDERS: PCP Internal Medicine Cardiovascular Disease; Visit Provider Dietitian, Registered | DX: E66.3 Overweight (principal); Z68.26 Body mass index [BMI] 26.0-26.9, adult; Z98.84 Bariatric surgery status; Z71.3 Dietary counseling and surveillance | CPT/HCPCS: 97803 ==

== ENCOUNTER 2023-09-25 07:56 | Outpatient (REF) | payer BC, SELFPAY ==
[2023-09-25 08:11] LABS: MANUAL DIFF FLAG NO
[2023-09-25 09:12] LABS: Basophils Percent Auto 0.8 % (0-2); Eosinophils Absolute Auto 0.1 X10*3/uL (0.0-0.4); Eosinophils Percent Auto 2.3 % (0-4); Hematocrit 40.3 % (37.0-47.0); Hemoglobin 13.4 g/dl (12.0-16.0); Imm Gran Abs Auto 0.01 X10*3/uL (0.00-0.03); Imm Gran Pct Auto 0.3 % (0.0-0.4); Lymphocytes Absolute Auto 1.8 X10*3/uL (1.2-4.9); Lymphocytes Percent Auto 45.8 % (20-40); Mean Corpuscular HGB Conc 33.3 g/dl (31.0-35.0); Mean Corpuscular Hemoglobin 31.5 pg (27.0-33.0); Mean Corpuscular Volume 94.8 fL (80.0-98.0); Mean Platelet Volume 9.3 fL (9.4-12.3); Monocytes Absolute Auto 0.3 X10*3/uL (0.1-1.2); Neutrophils Absolute Auto 1.7 x10*3/uL (2.0-8.3); Neutrophils Percent Auto 42.8 % (45-73); Platelet Count 253 X10*3/uL (160-400); Red Blood Count 4.25 X10*6/uL (4.20-5.50); Red Cell Distribution Width 12.6 % (11.0-16.0)
[2023-09-25 09:22] LABS: Estimated Average Glucose 103 mg/dL; Hemoglobin A1C 110.1391 umol/L; Hemoglobin A1c % 5.2 % (<6.0)
[2023-09-25 10:06] LABS: Ferritin 97 ng/mL (10-250); TSH reflex Free T4 0.93 uIU/mL (0.32-4.0); Vitamin D 25-OH Total 99.7 ng/mL (>30)
[2023-09-25 10:19] LABS: Alanine Aminotransferase 16 U/L (0-31); Alkaline Phosphatase 38 U/L (39-117); Anion Gap 12 (12-20); Aspartate Amino Transferase 18 U/L (5-31); Bilirubin Total 0.5 mg/dL (0.0-1.0); Blood Urea Nitrogen 17 mg/dL (9-16); C Reactive Protein 0.13 mg/dL (< or = 0.50); Calcium 9.5 mg/dL (8.4-10.2); Carbon Dioxide 26 mmol/L (22-29); Chloride 105 mmol/L (96-108); Cholesterol 143 mg/dL (<200); Estimated Glomerular Filt Rate > 60; Glucose Random 88 mg/dL (60-115); HDL Cholesterol 49 mg/dL (>40); Iron 133 mcg/dL (30-160); LDL Cholesterol Calculated 79 mg/dL (<100); Percent Iron Saturation 34 % (15-50); Potassium 3.7 mmol/L (3.3-5.1); Sodium 139 mmol/L (135-145); Total Iron Binding Capacity 395 mcg/dL (228-428); Total Protein 7.3 g/dL (6.5-8.0); Triglycerides 75 mg/dL (<150); Unsaturated Iron Binding 262 ug/dL
[2023-09-25 10:51] LABS: Folate 14.5 ng/mL (> or = 4.0); Vitamin B12 684 pg/mL (200-900)
[2023-09-25 11:03] LABS: Insulin 4 uU/mL (2-29)
[2023-09-29 06:33] LABS: Zinc 86 mcg/dL (60-130)
[2023-09-29 17:23] LABS: Vitamin A 74 mcg/dL (38-98)
[2023-10-04 11:14] LABS: Vitamin B1 19 nmol/L (8-30)
== END 2023-09-25 07:57 | disposition home or self-care (01) ==
LOC: HO.LAB 07:56
PROVIDERS: Visit Provider Physician Assistant Surgical
DX: Z98.84 Bariatric surgery status (principal)
CPT/HCPCS: 36415; 80053; 80061; 82306; 82607; 82728; 82746; 83036; 83525; 83540; 84425; 84443; 84590; 84630; 85025; 86140

== ENCOUNTER 2023-10-08 13:35 | Outpatient (AMB) | payer BC, SELFPAY ==
--- NOTE | 2023-10-08 13:37 | A.OFFVIS_ITS ---
VS Expanded 10/08/23 13:45 BP 113/56 L Blood Pressure Location Rt brachial Blood Pressure Position Sitting Pulse 60 Pulse Source Pulse Oximeter Temp 97.0 F Temperature Source Tympanic Pulse Oximetry 100 Oxygen Delivery Method Room Air Height 5 ft 1.5 in Weight 143 lb 6.4 oz BMI 26.7 Body Fat % 31.2 Body Fat Mass 44.8 Fat Free Mass 98.6 Visceral Fat Rating 6.0 Body Water % 48.9 Body Water Mass 70.2 Muscle Mass/Score 93.4 Basal Metabolic Rate/Score 1,335 Intake Visit Reasons: (OV) PO LSG 10/10/20 Allergies bacitracin Allergy (Severe, Verified 10/08/23 13:53) Anaphylaxis, cellilitis Cephalosporins Allergy (Severe, Verified 10/08/23 13:53) Anaphylaxis, cellulitis Sulfa (Sulfonamide Antibiotics) Allergy (Severe, Verified 10/08/23 13:53) Anaphylaxis Medication List - Last Reconciled 10/08/23 by JOANNE Gentile acyclovir 400 mg PO BID cetirizine (Zyrtec) 10 mg PO DAILY fluticasone propionate 50 mcg/actuation 1 spray intranasal DAILY L norgest/e.estradiol-e.estrad 0.15 mg-30 mcg (84)/10 mcg (7) 1 tab PO DAILY multivitamin 1 tab PO DAILY valacyclovir 1,000 mg PO Q12H HPI Comments Details: This?is a?48?yo female who is s/p LSG 10/10/2020. Presents for 3 year post op visit. Weight stable since last visit 6 weeks ago.? No complaints of nausea, emesis, abdominal pain or reflux, or constipation. Notes discomfort with any weight gain in abdomen- feels tight. Present meal plan includes: coffee with almond milk breakfast 2 scoop premier protein powder with water = 30g lunch 2 scoop protein powder = 30g dinner 4pm-4:30pm 5 bites of protein, same veg Quest bars = 20g snack of PB and half apple tried adding PB2 to shake was trying too many different snack options Exercise: 3x per week exercise treadmill and elliptical, she wants to incorporate more strength training [facility] Medical History COVID-19 vaccine series completed GERD (gastroesophageal reflux disease) Low back pain Morbid obesity Obesity Plantar fasciitis, bilateral Vitamin B1 deficiency Vitamin B12 deficiency Surgical History History of sleeve gastrectomy [place] teeth extracted Family History Mother No problems noted. Father Diabetes Brother No problems noted. Daughter No problems noted. Social History Are you a primary transitional care liaison to a significant other at home: No Do you presently have visiting nurse or other home services: No Alcohol intake: former Comment: aware of trip hazard Patient Tobacco Use Status: Former Tobacco user Quit Date: 2009 Tobacco use type: Cigarette service: No Current occupational status: employed Assessment & Plan Assessment & Plan (1) Overweight (BMI 25.0-29.9): Code(s): E66.3 - Overweight Category: Medical (2) S/P laparoscopic sleeve gastrectomy: Code(s): Z98.84 - Bariatric surgery status Category: Surgical (3) S/P panniculectomy: Code(s): Z98.890 - Other specified postprocedural states Category: Surgical Plan Pt expresses interest in meeting with Denice to discuss tactics for avoiding emotional/habitual eating. She is unavailable during support groups although she found them helpful in the past. Will keep same meal plan for now, will work on avoiding snacking. She recognizes that too many options for variety can cause her to overeat. Also wants to start strength training. Labs reviewed. RTC 6 months, sent pt text message with my contact info and encouraged her to reach out between appts with any concerns. Patient is overweight and is not considered stable at this time. I spent a total of 30 minutes reviewing/updating records, examining the patient and counseling the patient on weight management as detailed above.
[2023-10-08 13:45] VITALS: BP 113/56; PULSE 60; TEMP 36.1; O2SAT 100; BMI 26.7
== END 2023-10-08 14:56 | disposition home or self-care (01) ==
PROVIDERS: PCP Internal Medicine Cardiovascular Disease; Visit Provider Physician Assistant Surgical
DX: E66.3 Overweight (principal); Z68.26 Body mass index [BMI] 26.0-26.9, adult; Z90.3 Acquired absence of stomach [part of]; Z98.84 Bariatric surgery status
CPT/HCPCS: 99214

== ENCOUNTER → 2023-10-08 13:35 | Outpatient (BNVA) | payer BC, SELFPAY | PROVIDERS: PCP Internal Medicine Cardiovascular Disease; Visit Provider Physician Assistant Surgical | DX: E66.3 Overweight (principal) ==

== ENCOUNTER 2023-10-21 09:12 | Outpatient (AMB) | payer BC, SELFPAY ==
--- NOTE | 2023-10-21 10:44 | A.OFFWM_ITS ---
Intake Intake Visit Reasons: (TV) PO LSG 10/10/20 Allergies bacitracin Allergy (Severe, Verified 10/08/23 13:53) Anaphylaxis, cellilitis Cephalosporins Allergy (Severe, Verified 10/08/23 13:53) Anaphylaxis, cellulitis Sulfa (Sulfonamide Antibiotics) Allergy (Severe, Verified 10/08/23 13:53) Anaphylaxis [facility] Medical History COVID-19 vaccine series completed GERD (gastroesophageal reflux disease) Low back pain Morbid obesity Obesity Plantar fasciitis, bilateral Vitamin B1 deficiency Vitamin B12 deficiency Surgical History History of sleeve gastrectomy [place] teeth extracted Family History Mother No problems noted. Father Diabetes Brother No problems noted. Daughter No problems noted. Social History Are you a primary health care / medical job titles to a significant other at home: No Do you presently have visiting nurse or other home services: No Alcohol intake: former Comment: aware of trip hazard Patient Tobacco Use Status: Former Tobacco user Quit Date: 2009 Tobacco use type: Cigarette service: No Current occupational status: employed Behavioral Health Assessment Weight Management Therapy Therapy Notes Details Pt requested an appt when she met with the PA recently due to lack of motivation and unclear goals/direction. She reported not exercising, not wanting to. Discussed her Why, her history of disordered eating and the details of all that. She reported currently fluctuating between 145 and 140lbs. Assessment & Plan Assessment & Plan (1) S/P laparoscopic sleeve gastrectomy: Code(s): Z98.84 - Bariatric surgery status Plan Pt has a hx in her teenage years of disordered eating and also body image issues. She is three years post sleeve surgery and also one year post skin removal surgery. Pt stated that she often all day thinks about food. what she can eat and what she cant. Also weighs herself constantly. Is struggling with motivation, we discussed her goals. Telehealth Telehealth Telehealth Platform: Telephone Location of provider rendering services: other Location of patient: other Patient Identification confirmed using: Name, : Yes Telehealth method: voice only Patient verbally consented to treatment: Yes Patient verbally consented to billing insurance company: Yes Patient informed of any privacy concerns related to visit: Yes Minutes spent on Phone/Video with Pt.: 55 Coding Level of Care Code Tele Psytx >53 mins ([id number]) Diagnoses S/P laparoscopic sleeve gastrectomy Z98.84 Time Spent (min) 55
== END 2023-10-21 15:02 | disposition home or self-care (01) ==
LOC: HO.HBST 09:12
PROVIDERS: PCP Internal Medicine Cardiovascular Disease; Visit Provider Counselor Mental Health
DX: Z98.84 Bariatric surgery status (principal)
CPT/HCPCS: 90837

== ENCOUNTER → 2023-10-21 09:12 | Outpatient (BNVA) | payer BC, SELFPAY | PROVIDERS: PCP Internal Medicine Cardiovascular Disease; Visit Provider Counselor Mental Health ==

== ENCOUNTER 2023-11-18 10:11 | Outpatient (AMB) | payer BC, SELFPAY ==
--- NOTE | 2023-12-21 10:59 | A.OFFWM_ITS ---
Intake Intake Visit Reasons: (TV) PO LSG 10/10/20 Allergies bacitracin Allergy (Severe, Verified 10/08/23 13:53) Anaphylaxis, cellilitis Cephalosporins Allergy (Severe, Verified 10/08/23 13:53) Anaphylaxis, cellulitis Sulfa (Sulfonamide Antibiotics) Allergy (Severe, Verified 10/08/23 13:53) Anaphylaxis [facility] Medical History COVID-19 vaccine series completed GERD (gastroesophageal reflux disease) Low back pain Morbid obesity Obesity Plantar fasciitis, bilateral Vitamin B1 deficiency Vitamin B12 deficiency Surgical History History of sleeve gastrectomy [place] teeth extracted Family History Mother No problems noted. Father Diabetes Brother No problems noted. Daughter No problems noted. Social History Are you a primary healthcare interpreter to a significant other at home: No Do you presently have visiting nurse or other home services: No Alcohol intake: former Comment: aware of trip hazard Patient Tobacco Use Status: Former Tobacco user Tobacco use type: Cigarette service: No Current occupational status: employed Behavioral Health Assessment Weight Management Therapy Therapy Notes Details Pt stated that overally doing well but still struggles with some exercise and motivation. CBT was used to rexamine and reframe thoughts around her progress, and difficulties. Assessment & Plan Assessment & Plan (1) S/P laparoscopic sleeve gastrectomy: Code(s): Z98.84 - Bariatric surgery status Plan Pt has a hx in her teenage years of disordered eating and also body image issues. She is three years post sleeve surgery and also one year post skin removal surgery. Pt stated that she often all day thinks about food. what she can eat and what she cant. Also weighs herself constantly. Is struggling with motivation, we discussed her goals. Telehealth Telehealth Telehealth Platform: Telephone Location of provider rendering services: other Location of patient: other Patient Identification confirmed using: Name, : Yes Telehealth method: voice only Patient verbally consented to treatment: Yes Patient verbally consented to billing insurance company: Yes Patient informed of any privacy concerns related to visit: Yes Minutes spent on Phone/Video with Pt.: 45 Coding Level of Care Code Tele Psytx 45 mins ([id number]) Diagnoses S/P laparoscopic sleeve gastrectomy Z98.84 Time Spent (min) 45
== END 2023-11-18 11:00 | disposition home or self-care (01) ==
LOC: HO.HBST 10:11
PROVIDERS: PCP Internal Medicine Cardiovascular Disease; Visit Provider Counselor Mental Health
DX: Z98.84 Bariatric surgery status (principal)
CPT/HCPCS: 90834

== ENCOUNTER → 2023-11-18 10:11 | Outpatient (BNVA) | payer BC, SELFPAY | PROVIDERS: PCP Internal Medicine Cardiovascular Disease; Visit Provider Counselor Mental Health | DX: Z98.84 Bariatric surgery status (principal) ==

== ENCOUNTER 2024-03-28 13:32 | Outpatient (AMB) | payer BC, SELFPAY ==
--- NOTE | 2024-03-28 13:49 | A.OFFVIS_ITS ---
VS Expanded 03/28/24 13:59 BP 118/55 L Blood Pressure Location Rt brachial Blood Pressure Position Sitting Pulse 78 Pulse Source Pulse Oximeter Temp 98.5 F Temperature Source Temporal Artery Scan Pulse Oximetry 100 Oxygen Delivery Method Room Air Height 5 ft 1.5 in Weight 138 lb BMI 25.6 Body Fat % 30.2 Body Fat Mass 41.6 Fat Free Mass 96.2 Visceral Fat Rating 6.0 Body Water % 49.6 Body Water Mass 68.4 Muscle Mass/Score 91.2 Basal Metabolic Rate/Score 1,301 Intake Visit Reasons: OV PO LSG 10/10/20 Allergies bacitracin Allergy (Severe, Verified 03/28/24 13:53) Anaphylaxis, cellilitis Cephalosporins Allergy (Severe, Verified 03/28/24 13:53) Anaphylaxis, cellulitis Sulfa (Sulfonamide Antibiotics) Allergy (Severe, Verified 03/28/24 13:53) Anaphylaxis Medication List - Last Reconciled 03/28/24 by JOANNE Gentile acyclovir 400 mg PO BID cetirizine (Zyrtec) 10 mg PO DAILY fluticasone propionate 50 mcg/actuation 1 spray intranasal DAILY L norgest/e.estradiol-e.estrad 0.15 mg-30 mcg (84)/10 mcg (7) 1 tab PO DAILY multivitamin 1 tab PO DAILY valacyclovir 1,000 mg PO Q12H HPI Comments Details: This?is a?48?yo female who is s/p LSG 10/10/2020. Presents for 3.5 year post op visit. Weight at last visit on 10/08/2023 was 143.4 pounds with a BMI of 26.7, weight today is 138 pounds, representing a 5.4 pound weight loss with a BMI today of 25.6.? No complaints of nausea, emesis, abdominal pain or reflux, or constipation. Pt had a few appts with Denice, found it helpful. Has been using [employer] hoa. Was able to get down to 136lbs, feels comfortable at this weight. Feels better with abdominal pressure at previous panniculectomy incision when her weight is lower. Present meal plan includes: coffee with almond milk 2 shakes 2 bars (hoa told her to use 1 but she felt she needed 2 due to hunger; uses Quest and [employer]) 1 meal MVI Exercise: 3x per week exercise treadmill and elliptical, she wants to incorporate more strength training got a new puppy, also has 2 Rottweilers and has been walking a lot more than doing formal exercise PFSH Medical History COVID-19 vaccine series completed GERD (gastroesophageal reflux disease) Low back pain Morbid obesity Obesity Plantar fasciitis, bilateral Vitamin B1 deficiency Vitamin B12 deficiency Surgical History History of sleeve gastrectomy [place] teeth extracted Family History Mother No problems noted. Father Diabetes Brother No problems noted. Daughter No problems noted. Social History Are you a primary hospice care transitions coordinator to a significant other at home: No Do you presently have visiting nurse or other home services: No Alcohol intake: current Alcohol intake frequency: holidays/special occasions only Comment: aware of trip hazard Patient Tobacco Use Status: Former Tobacco user Tobacco use type: Cigarette service: No Current occupational status: employed Assessment & Plan Assessment & Plan (1) S/P panniculectomy: Code(s): Z98.890 - Other specified postprocedural states Category: Surgical (2) S/P laparoscopic sleeve gastrectomy: Code(s): Z98.84 - Bariatric surgery status Category: Surgical (3) Overweight (BMI 25.0-29.9): Code(s): E66.3 - Overweight Category: Medical Plan Pt will continue using hoa for meal plan, doing well. Will be due for labs at next annual. RTC 6 months. I spent a total of 30 minutes reviewing/updating records, examining the patient and counseling the patient on weight management as detailed above.
[2024-03-28 13:59] VITALS: BP 118/55; PULSE 78; TEMP 36.9; O2SAT 100; BMI 25.6
== END 2024-03-28 14:11 | disposition home or self-care (01) ==
LOC: HO.HBS 13:46
PROVIDERS: PCP Internal Medicine Cardiovascular Disease; Visit Provider Physician Assistant Surgical
DX: E66.3 Overweight (principal); Z68.25 Body mass index [BMI] 25.0-25.9, adult; Z90.3 Acquired absence of stomach [part of]; Z98.84 Bariatric surgery status
CPT/HCPCS: 99214

== ENCOUNTER 2024-09-30 07:41 | Outpatient (REF) | payer BC, SELFPAY ==
--- OUTSIDE RECORDS SUMMARY | 2024-09-30 07:45 | XMS_ITS | Encounter Summary ---
Author Organization [facility]ly [facility] Address [address] [place] [address] Care Team Providers Care Sailing Instructor Name Role Phone Trudy Pascual MD Unavailable Unavaila Trudy Trejo MD Primary Care Provider Un available Dannie Honeycutt DO Unavailable Valerie Shahid MD Primary Care Provider Shmuel Norton MD Unavailable [phone] Encounter Details Date Type Department Care Team (Late st Contact Info) Description 06/25/2023 Scanned Document [facility] ENDOCRINOLOGY SCAN Endocrinology, Scan Social History Tobacco Use Types Packs/Day Years Used Date Smoking Tobacco: Former Cigarettes Smokeless Tobacco: Never Comments:QUIT IN 2009 Alcohol Use Standard Drinks/Week Comments Yes 0 (1 standard drink = 0.6 oz pur e alcohol) Rarely OASIS D0700: Social Isolation Answer Da te Recorded Frequency of experiencing loneliness or isolatio n Never 10/06/2022 OASIS A1250: Transportation Answer Date Recorded Lack of Transportation (Medical) No 10/06/2022 Lack of Transportation (Non-Medical) No 10/06/2022 Patient Unable or Declines to Respond No 10/06/2022 AUDIT-C Answer Date Recorded Frequency of Alcohol Consumption Never 07/09/2018 Average Number of Drinks Not on file 019 Frequency of Binge Drinking Not on file 06/25 PHQ-2 Answer Date Recorded PHQ-2 Total Score 0 07/31/2020 Comments No Sex and Gender Information Value Date Recorded Sex Assigned at Female 10/27/2023 12:28 PM EDT Legal Sex Female 3:24 PM EDT Gender Identity Female 08/23/2020 6:42 AM EDT Sexual Orientation Not on file documented as of this encounter Plan of Treatment Upcoming Encounters Date Type Department Care Team (Late st Contact Info) Description 10/24/2024 1:00 PM EDT Consult [facility] [address] [facility] [address] [place] [phone] Radha Escalante MD [address] [place], [place] [id number] 11/21/2024 3:00 PM EDT Office Visit [facility] [address] [facility] [address] [place] [phone] Valerie Shahid MD [address] [place] [address] documented as of this encounter Visit Diagnoses Not on filedocumented in this encounter Care Teams Sailing Instructor Relationship Specialty Start Date End Date Trudy Pascual MD PCP - Hospice Attending 08/27/22 Trudy Pascual MD PCP - General Internal Medicine 02/26/23 10/28/23 Dannie Honeycutt DO [address] [place] [address] PCP - [place] [employer] Attributed 03/25/23 Valerie Shahid MD [address] [place] [address] PCP - General Internal Medicine 10/29/23 Shmuel Norton MD [address] [place] [address] Obstetrics and Gynecology 12/16/23 documented as of this encounter
--- OUTSIDE RECORDS SUMMARY | 2024-09-30 07:45 | XMS_ITS | Encounter Summary ---
Author Organization [facility] Address [address] [place] [address] Care Team Providers Care Information Technology Intern Name Role Phone Bethany Hernandez MD Primary Care Provider [phone] Khushbu John APRN Primary Care Provider [phone] Trudy Pascual MD Primary Care Provider Un available Jack Goodman DO Unavailable [phone] Trudy Pascual MD Unavailable UnavailTrudy Ogden MD Unavailable UnavailTrudy Ogden MD Unavailable UnavailTrudy Ogden MD Unavailable UnavailGodwin Gabriel MD Primary Care Provider [phone] Trudy Pascual MD Primary Care Provider Un available Dannie Honeycutt DO Unavailable Valerie Shahid MD Primary Care Provider [phone] Shmuel Norton MD Unavailable [phone] Encounter Details Date Type Department Care Team (Late st Contact Info) Description 03/02/2018 Scanned Document [facility] [address] [place] [address] Bethany Hernandez MD [address] [place] [address] [place] [id number] Social History Tobacco Use Types Packs/Day Years Used Date Smoking Tobacco: Former Smokeless Tobacco: Never Alcohol Use Standard Drinks/Week Comments Yes 0 (1 standard drink = 0.6 oz pur e alcohol) Comments No Sex and Gender Information Value Date Recorded Sex Assigned at Female 10/27/2023 12:28 PM EDT Legal Sex Female 3:24 PM EDT Gender Identity Female 08/23/2020 6:42 AM EDT Sexual Orientation Not on file documented as of this encounter Plan of Treatment Upcoming Encounters Date Type Department Care Team (Late st Contact Info) Description 10/24/2024 1:00 PM EDT Consult [facility] [address] [facility] [address] [place] [phone] Radha Escalante MD [address] [place] [address] 11/21/2024 3:00 PM EDT Office Visit [facility] [address] [facility] [address] [place] [phone] Valerie Shahid MD [address] [place] [address] documented as of this encounter Visit Diagnoses Not on filedocumented in this encounter Care Teams Information Technology Intern Relationship Specialty Start Date End Date Bethany Hernandez MD PCP - General Internal Medicine 06/20/15 07/24/19 Khushbu John APRN [address] [place] [address] PCP - General Family Medicine 07/25/19 07/08/20 Trudy Pascual MD [address] [place] [address] PCP - General Internal Medicine 07/09/20 08/26/22 Jack Goodman DO [address] [place] [address] PCP - [place] [employer] Attributed 09/22/20 12/22/20 Trudy Psacual MD Retired provider PCP - [place] [employer] Attributed 12/23/20 03/24/21 Trudy Pascual MD Retired provider PCP - [place] [employer] Attributed 05/25/21 10/22/21 Trudy Pascual MD Retired provider PCP - [place] [employer] Attributed 12/23/21 09/21/22 Trudy Pascual MD [address] [place], [place] [id number] PCP - Hospice Attending 08/27/22 Godwin Snowden MD [address] [place] [address] PCP - General Surgery, General 08/27/22 02/25/23 Trudy Pascual MD [address] [place], [place] [id number] PCP - General Internal Medicine 02/26/23 10/28/23 Dannie Honeycutt DO [address] [place] [address] PCP - [place] [employer] Attributed 03/25/23 Valerie Shahid MD [address] [place] [address] PCP - General Internal Medicine 10/29/23 Shmuel Norton MD [address] [place] [address] Obstetrics and Gynecology 12/16/23 documented as of this encounter
--- OUTSIDE RECORDS SUMMARY | 2024-09-30 07:45 | XMS_ITS | Encounter Summary ---
Author Organization [facility] Address [address] [place] [address] Care Team Providers Care Glue Mounter Operator Name Role Phone Trudy Pascual MD Unavailable Unavaila Trudy Trejo MD Primary Care Provider Un available Dannie Honeycutt DO Unavailable Valerie Shahid MD Primary Care Provider [phone] Shmuel Norton MD Unavailable [phone] Encounter Details Date Type Department Care Team (Late st Contact Info) Description 09/10/[address] [address] Trudy Pascual MD Retired provider Social History Tobacco Use Types Packs/Day Years [...] Description 10/24/2024 1:00 PM EDT Consult [facility] [address] [place] [phone] Radha Escalante MD [address] [place] [address] 11/21/2024 3:00 PM EDT Office Visit [facility] [address] [facility] [address] [place] [phone] Valerie Shahid MD [address] [place] [id number] documented as of this encounter Visit Diagnoses Not on filedocumented in this encounter Care Teams Glue Mounter Operator Relationship Specialty Start Date End Date Trudy Pascual MD PCP - Hospice Attending 08/27/22 Trudy Pascual MD PCP - General Internal Medicine 02/26/23 10/28/23 Dannie Honeycutt DO [address] [place] [address] PCP - [place] Commercial Attributed 03/25/23 Valerie Shahid MD 100 [place] [address] PCP - General Internal Medicine 10/29/23 Shmuel Norton MD [address] [place] [address] Obstetrics and Gynecology 12/16/23 documented as of this encounter
--- OUTSIDE RECORDS SUMMARY | 2024-09-30 07:45 | XMS_ITS | Encounter Summary ---
Author Organization [facility] Address [address] [place] [address] Care Team Providers Care Collection Support Specialist Name Role Phone Trudy Pascual MD Primary Care Provider Un available Jack Goodman DO Unavailable [phone] Turdy Pascual MD Unavailable UnavailTrudy Ogden MD Unavailable UnavailTrudy gOden MD Unavailable UnavailTrudy Ogden MD Unavailable UnavailGodwin Gabriel MD Primary Care Provider [phone] Trudy Pascual MD Primary Care Provider Un available Dannie Honeycutt DO Unavailable Valerie Shahid MD Primary Care Provider [phone] Shmuel Norton MD Unavailable [phone] Encounter Details Date Type Department Care Team (Late st Contact Info) Description 07/23/2020 Scanned Document [id number] [place] [phone] Bariatric Surgery, Scan Social History Tobacco Use Types Packs/Day Years Used Date Smoking Tobacco: Former Cigarettes Smokeless Tobacco: Never Alcohol Use Standard Drinks/Week Comments Yes 0 (1 standard drink = 0.6 oz pur e alcohol) Rarely AUDIT-C Answer Date Recorded Frequency of Alcohol Consumption Never 07/09/2018 Average Number of Drinks Not on file 019 Frequency of Binge Drinking Not on file 06/25 Comments No Sex and Gender Information Value Date Recorded Sex Assigned at Female 10/27/2023 12:28 PM EDT Legal Sex Female 3:24 PM EDT Gender Identity Female 08/23/2020 6:42 AM EDT Sexual Orientation Not on file COVID-19 Exposure Response Date Recorded In the last month, have you been in contact with someone who was confirmed or suspected to have Coronavirus / COVID-19? No / Unsure 07/09/2020 10:22 AM EST documented as of this encounter Plan of Treatment Upcoming Encounters Date Type Department Care Team (Late st Contact Info) Description 10/24/2024 1:00 PM EDT Consult [facility] [address] [facility] [address] [place] [address] Radha Escalante MD [address] [place] [address] 11/21/2024 3:00 PM EDT Office Visit [facility] [address] [facility] [address] [place] [address] Valerie Shahid MD [address] [place] [address] documented as of this encounter Procedures Procedure Name Priority Date/Time Associated Diagnosis Comments LAB RESULT 07/23/2020 documented in this encounter Results * LAB RESULT (07/23/2020) 07/23/2020 us Scan Bariatric Surgery HX AMB PROCEDURES Edited Result - Final documented in this encounter Visit Diagnoses Not on filedocumented in this encounter Care Teams Collection Support Specialist Relationship Specialty Start Date End Date Trudy Pascual MD PCP - General Internal Medicine 07/09/20 08/26/22 Jack Goodman DO [address] [place] [address] PCP - Agency Commercial Attributed 09/22/20 12/22/20 Trudy Pascual MD Retired provider PCP - Agency Commercial Attributed 12/23/20 03/24/21 Trudy Pascual MD Retired provider PCP - Agency Commercial Attributed 05/25/21 10/22/21 Trudy Pascual MD Retired provider PCP - Agency Commercial Attributed 12/23/21 09/21/22 Trudy Pascual MD PCP - Hospice Attending 08/27/22 Godwin Snowden MD [address] [place] [address] PCP - General Surgery, General 08/27/22 02/25/23 Trudy Pascual MD PCP - General Internal Medicine 02/26/23 10/28/23 Dannie Honeycutt DO [address] [place] [address] PCP - Agency Commercial Attributed 03/25/23 Valerie Shahid MD [address] [place] [address] PCP - General Internal Medicine 10/29/23 Shmuel Norton MD [address] [place] [id number] Obstetrics and Gynecology 12/16/23 documented as of this encounter
--- OUTSIDE RECORDS SUMMARY | 2024-09-30 07:45 | XMS_ITS | Encounter Summary ---
Author Organization [facility] Address [address] [place] [address] Care Team Providers Care Sql Etl Developer Name Role Phone Trudy Pascual MD Unavailable Unavaila Trudy Trejo MD Primary Care Provider Un available Dannie Honeycutt DO Unavailable Valerie Shahid MD Primary Care Provider [phone] Shmuel Norton MD Unavailable [phone] Encounter Details Date Type Department Care Team (Late st Contact Info) Description 09/09/[address] [address] Trudy Pascual MD Retired provider [...] Description 10/24/2024 1:00 PM EDT Consult [facility] [address] [place] [phone] Radha Escalante MD 85 [place] [address] 11/21/2024 3:00 PM EDT Office Visit [facility] 100 [facility] [address] [place] [phone] Valerie Shahid MD [address] [place] [phone] documented as of this encounter Visit Diagnoses Not on filedocumented in this encounter Care Teams Sql Etl Developer Relationship Specialty Start Date End Date Trudy Pascual MD PCP - Hospice Attending 08/27/22 Trudy Pascual MD PCP - General Internal Medicine 02/26/23 10/28/23 Dannie Honeycutt DO [address] [place] [address] PCP - [place] Commercial Attributed 03/25/23 Valerie Shahid MD 100 [place] [address] PCP - General Internal Medicine 10/29/23 Shmuel Norton MD 100 [place] [address] Obstetrics and Gynecology 12/16/23 documented as of this encounter
--- OUTSIDE RECORDS SUMMARY | 2024-09-30 07:45 | XMS_ITS | Encounter Summary ---
Author Organization [facility] Address [address] [place] [address] Care Team Providers Care Grassland Conservationist Name Role Phone Khushbu John APRN Primary Care Provider [phone] Trudy Pascual MD Primary Care Provider Un available Jack Goodman DO Unavailable [phone] Trudy Pascual MD Unavailable Unavaila Trudy Trejo MD Unavailable Unavaila Trudy Trejo MD Unavailable Unavaila Trudy Trejo MD Unavailable Unavaila Godwin Franklin MD Primary Care Provider [phone] Trudy Pascual MD Primary Care Provider Un available Dannie Honeycutt DO Unavailable Valerie Shahid MD Primary Care Provider [phone] Shmuel Norton MD Unavailable [phone] Encounter Details Date Type Department Care Team (Latest Contact Info) Description 04/18/2020 Lab Requisition [facility] COVID [address] Through [address] [place] [address] [address] [place] [address] Shmuel Talbot, PALuiC [address] [place] [id number] Encounter for laboratory testing for COVID-19 virus Social History Tobacco Use Types Packs/Day Years [...] Info) Description 10/24/2024 1:00 PM EDT Consult [facility] [address] [facility] [address] [place] [address] Radha Escalante MD [address] [place], [place] [phone] 11/21/2024 3:00 PM EDT [facility] [address] [facility] [address] [place] [address] Valerie Shahid MD 100 [place] [address] documented as of this encounter Procedures Procedure Name Priority Date/Time Associated Diagnosis Comments (REPORT) SARS COV-2 RNA (COVID-19), QUAL Routine 04/18/2020 12:34 PM EST Encounter for laboratory testing for COVID-19 virus [ICD-10-CM] documented in this encounter Results * SARS CoV-2 RNA (COVID-19), Qual (04/18/2020 12:34 PM EST) [facility] SARS CoV 2 RNA, Qual NOT DETECTED NOT DETECTED 04/22/2020 6:00 PM EST [facility] Comment: A Not Detected (negative) test result for this test means that SARS-CoV-2 RNA was not present in the specimen above the limit of detection. A negative result does not rule out the possibility of COVID-19 and should not be used as the sole basis for treatment or patient management decisions. If COVID-19 is still suspected, based on exposure history together with other clinical findings, re-testing should be considered in consultation with public health authorities. Laboratory test results should always be considered in the context of clinical observations and epidemiological data in making a final diagnosis and patient management decisions. REFERENCE RANGE: ??NOT DETECTED This patient specimen was tested using an FDA EUA pooling method. Negative results from pooled testing should not be treated as definitive. ??If the patient's clinical signs and symptoms are inconsistent with a negative result or results are necessary for patient management, then the patient should be considered for individual testing. Specimens with low viral loads may not be detected in sample pools due to the decreased sensitivity of pooled testing. Please review the Fact Sheets and FDA authorized labeling available for health care providers and patients using the following websites: https://www.[employer].Socialscope/home/Covid-19/HCP/QuestLDTP/ fact-sheet https://www.[employer].Socialscope/home/Covid-19/Patients/QuestLDTP/ fact-sheet.html This test has been authorized by the FDA under an Emergency Use Authorization (EUA) for use by authorized laboratories. Due to the current public health emergency, [facility] is receiving a high volume of samples from a wide variety of swabs and media for COVID-19 testing. In order to serve patients during this public health crisis, samples from appropriate clinical sources are being tested. Negative test results derived from specimens received in non-commercially manufactured viral collection and transport media, or in media and sample collection kits not yet authorized by FDA for COVID-19 testing should be cautiously evaluated and the patient potentially subjected to extra precautions such as additional clinical monitoring, including collection of an additional specimen. Methodology: ??Nucleic Acid Amplification Test (NAAT) includes RT-PCR or TMA ?? Additional information about COVID-19 can be found at the [facility] website: www.[employer].Socialscope/Covid19. Microbiology Nasopharyngeal swab / Unknown 04/18/2020 12:34 PM EST 04/18/2020 12:34 PM EST [facility] 04/22/2020 6:00 PM EST Performing Organization Information: ?Site ID: [id number] ?Name: [facility] [facility] ?Address: [address] [place] [address] [address] [address] ?Director: ATIF QUEEN MD Performed at [facility] License number [id number] Shmuel Talbot PA-C BODY FLUIDS AND STOOLS OR DERABLES Final Result JORGE Poe PURDON documented in this encounter Visit Diagnoses Diagnosis Encounter for laboratory testing for COVID-19 virus documented in this encounter Care Teams Grassland Conservationist Relationship Specialty Start Date End Date Khushbu John APRN [address] [place] [address] PCP - General Family Medicine 07/25/19 07/08/20 Trudy Pascual MD [address] [place] [address] PCP - General Internal Medicine 07/09/20 08/26/22 Jack Goodman DO [address] [place] [address] PCP - [place] Commercial Attributed 09/22/20 12/22/20 Trudy Pascual MD Retired provider PCP - [place] Commercial Attributed 12/23/20 03/24/21 Trudy Pascual MD Retired provider PCP - [place] Commercial Attributed 05/25/21 10/22/21 Trudy Pascual MD Retired provider PCP - [place] Commercial Attributed 12/23/21 09/21/22 Trudy Pascual MD [address] [place] [address] PCP - Hospice Attending 08/27/22 Godwin Snowden MD [address] [address] PCP - General Surgery, General 08/27/22 02/25/23 Trudy Pascual MD [address] [place] [address] PCP - General Internal Medicine 02/26/23 10/28/23 Dannie Honeycutt DO [address] [place] [address] PCP - [place] Commercial Attributed 03/25/23 Valerie Shahid MD [address] [place] [address] PCP - General Internal Medicine 10/29/23 Shmuel Norton MD [address] [place] [address] Obstetrics and Gynecology 12/16/23 documented as of this encounter
--- OUTSIDE RECORDS SUMMARY | 2024-09-30 07:45 | XMS_ITS | Clinical Summary ---
Author Organization [facility] Address [address] [place] [address] Care Team Providers Care Canal Driver Name Role Phone Lanre Galvan Primary Care Provider Unavailabl e Allergies Active Allergy Reactions Criticality Noted Date Comments Bacitracin 12/09/2017 Cephalosporins 12/09/2017 Sulfa Antibiotics 12/09/2017 Active Problems Problem Noted Date Diagnosed Date Acute recurrent maxillary sinusitis 08/10/2019 Dysfunction of right eustachian tube 08/10/2019 Vestibular dizziness 12/09/2017 Family History Medical History Relation Name Comments Allergies (med/food/envrnmt) Other allergies : Family History Cancer (?Type) Other malignant thi plasm : Family History Relation Name Status Comments Other Social History Tobacco Use Types Packs/Day Years Used Date Smoking Tobacco: Never Assessed Comments Unknown Sex and Gender Information Value Date Recorded Sex Assigned at Not on file Legal Sex Female 8:27 PM EDT Gender Identity Not on file Sexual Orientation Not on file Last Filed Vital Signs Vital Sign Reading Time Taken Comments Blood Pressure - - Pulse - - Temperature - - Respiratory Rate - - Oxygen Saturation - - Inhaled Oxygen Concentration - - Weight 109 kg (239 lb 15.9 oz) 12/09/2017 9:59 A M EDT Height 157.5 cm (5' 2 ) 12/09/2017 9:59 AM EDT Body Mass Index 43.9 12/09/2017 9:59 AM EDT Plan of Treatment Health Maintenance Due Date Last Done Comments Hepatitis C Screening 1975 Pap Smear 1991 DTaP/Tdap/Td (1 - Tdap) 09/04/1993 Hep B (1 of 3 - 19+ 3-dose series) 09/04/1994 Mammogram/Breast Imaging 2015 COVID-19 Vaccine ( - 2023-2 5 season) 2024 Influenza (#1) 2024 Zoster (Shingrix) (1 of 2) 09/04/2025 HPV Vaccine Aged Out No longer eligi ble based on patient's age to complete this topic Hep A Aged Out No longer eligi ble based on patient's age to complete this topic Hib Aged Out No longer eligi ble based on patient's age to complete this topic Meningococcal ACWY Aged Out No longer eligible based on patient's age to complete this topic Pneumococcal Aged Out No longer eligi ble based on patient's age to complete this topic Care Teams Canal Driver Relationship Specialty Start Date End Date Lanre Galvan PCP - General 12/29/22
--- OUTSIDE RECORDS SUMMARY | 2024-09-30 07:45 | XMS_ITS | Data Portability ---
Author Organization [place] - [facility], [facility] Address [address] [place] [address] Care Team Providers Care Property Clerk Name Role Phone MAMI MURCIA Primary Care Provider [phone] Assessment No assessment recorded. 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 Azul Smith Not available Not available Not available Lab bacteria l vaginosi s + vaginiti s panel, vaginal 2023 024 [facility], [address] [place] [address], 11/13/2023 09:18:37 urinalys is, dipstick 2023 024 In-Office Order, Internal Use Only DO Not Attach Compendium DO Not Attach Compendium, Do Not Delete/merge, [id number] 11/11/2023 11:45:31 pap, IG + reflex HPV 2023 024 [facility], [address], [place], 11/13/2023 09:28:38 pap, IG + HPV 2022 023 [facility], [address] [place] [address], 08/03/2022 07:32:29 urinalys is, dipstick 2021 [email or web address] In-Office Order, Internal Use Only DO Not Attach Compendium DO Not Attach Compendium, Do Not Delete/merge, [id number] 10/17/2021 19:26:22 ken wet prep 2021 [email or web address] In-Office Order, Internal Use Only DO Not Attach Compendium DO Not Attach Compendium, Do Not Delete/merge, [id number] 10/17/2021 19:26:22 ph, vaginal fluid 2021 [email or web address] In-Office Order, Internal Use Only DO Not Attach Compendium DO Not Attach Compendium, Do Not Delete/merge, 10/17/2021 19:26:22 whiff test, vaginal fluid 2021 [email or web address] In-Office Order, Internal Use Only DO Not Attach Compendium DO Not Attach Compendium, Do Not Delete/merge, 10/17/2021 19:26:22 Referral None recorded . Procedures colonosc opy procedur e (PROC) 2023 024 kermit Parker MD, [address] [facility] , [place], [address], 11/18/2023 16:40:32 Surgeries None recorded . Imaging None recorded . Medication Orders nystatin -triamci nolone 100,000 unit/gra m-0.1 % topical ointment 2023 024 [facility] #1098, [address] [place], [address], 11/11/2023 11:45:31 Simpesse 0.15 mg-30 mcg (84)/10 mcg(7) tablets, 3 month dose pack 2023 024 [facility]acy #1098, [address] [place], [address], 11/11/2023 11:45:30 L norgest/ E estradio l-E estrad 0.15 mg-30 mcg (84)/10 mcg(7) tabs,3mo s 2022 023 [facility] [address] [place], [address], 07/30/2022 10:26:50 Zovirax 5 % topical ointment 2021 022 [address] [place], [address], 07/30/2022 10:05:37 lidocain e 5 % topical cream [address]/Pharmacy #1098, [address] [place], [address], 07/30/2022 10:05:41 Valtrex 1 gram tablet 2021 022 [email or web address] [facility]/Pharmacy #1098, [address] [place], [address], 10/17/2021 21:18:00 lidocain e HCl 2 % mucosal jelly 2021 022 [address] [place], [address], 07/30/2022 10:05:56 Diflucan 150 mg tablet 2021 022 [facility] [address] [place], [address], 10/17/2021 19:26:25 Patient TargetsNo targets recorded. Patient Instructions Encounter Date Encounter Id Patient Instructions Last Modified By Organization Details Last Modified Time 10/17/2021 [id number] genital herpes: care instructions [email or web address] Not available 10/17/2021 19:26:22 vaginal yeast infection: care instructions [email or web address] Not available 10/17/2021 19:26:22 07/30/2022 [id number] mammogram: about this test Not available 07/30/2022 10:26:48 tips to help you stay healthy Not available 07/30/2022 10:26:48 self breast exam education Not available 07/30/2022 10:26:48 Normal Harness Brusher Exam; PAP done per Guidelines; Low Fat Diet/Regular Exercise Not available 07/29/2022 12:27:12 Normal Harness Brusher Exam; PAP done per Guidelines; Low Fat Diet/Regular Exercise Not available 07/29/2022 12:27:25 11/11/2023 [id number] mammogram: about this test Not available 11/11/2023 11:45:27 tips to help you stay healthy Not available 11/11/2023 11:45:27 self breast exam education Not available 11/11/2023 11:45:27 Normal Harness Brusher Exam; PAP done per Guidelines; Low Fat Diet/Regular Exercise Not available 11/09/2023 08:37:42 Normal Harness Brusher Exam; PAP done per Guidelines; Low Fat Diet/Regular Exercise Not available 11/09/2023 08:37:54 Reason for Referral None Reported. Results Created Date Observation Date Name Description Value Unit Range Abnormal Flag Note LastModifiedBy Organization Detail LastModifiedTime 10/16/19 22 10/15/2021 URINE CULTU RE urine source URINE, CLEAN CATCH Not Available [facility] [address] [place], [address] 10/17/2021 09:18:34 10/16/1910/15/2021 URINE CULTU RE micro culture result Steril e or <1,000 col/mL . NOTE: For urine cultu re speci mens not submi tted in rodriguez top tubes , due to suppl y chain limit s, the labor atory is tempo raril y perfo rming urine cultu res from FDA appro yamel prese rvati ve tubes that have not been valid ated, as well as from refri gerat ed steri le urine colle ction cups that do not conta in a prese rvati ve. Cultu re of unpre serve d urine may produ ce false ly eleva dipesh bacte rial count s. Not Available [facility] [address] [place], [address] 10/17/2021 09:18:34 10/18/19 22 10/17/2021 whiff test, vagin al fluid Result negati ve Not Available In-Office Order Internal Use Only DO Not Attach Compendium DO Not Attach Compendium, Do Not Delete/merge, [id number] 10/17/2021 19:24:30 10/18/19 22 10/17/2021 ph, vagin al fluid Vaginal pH 4.5 Not Available In-Offi ce Order Internal Use Only DO Not Attach Compendium DO Not Attach Compendium, Do Not Delete/merge, [id number] 10/17/2021 19:24:30 10/18/19 22 10/17/2021 ken wet prep Hyphae Presen t Not Available In-Office Order Internal Use Only DO Not Attach Compendium DO Not Attach Compendium, Do Not Delete/merge, [id number] 10/17/2021 19:24:30 10/18/19 22 10/17/2021 ken wet prep Clue Cells Presen t Not Available In-Office Order Internal Use Only DO Not Attach Compendium DO Not Attach Compendium, Do Not Delete/merge, [id number] 10/17/2021 19:24:30 10/18/19 22 10/17/2021 ken wet prep Yeast Presen t Not Available In-Office Order Internal Use Only DO Not Attach Compendium DO Not Attach Compendium, Do Not Delete/merge, [id number] 10/17/2021 19:24:30 10/18/19 22 10/17/2021 urina lysis , dipst ick Interpretati on negati ve Not Available In-Office Order Internal Use Only DO Not Attach Compendium DO Not Attach Compendium, Do Not Delete/merge, [id number] 10/17/2021 19:02:15 10/18/19 22 10/17/2021 urina lysis , dipst ick Leukocytes Negati ve Not Available In-Office Order Internal Use Only DO Not Attach Compendium DO Not Attach Compendium, Do Not Delete/merge, [id number] 10/17/2021 19:02:15 10/18/19 22 10/17/2021 urina lysis , dipst ick Nitrite negati ve Not Available In-Office Order Internal Use Only DO Not Attach Compendium DO Not Attach Compendium, Do Not Delete/merge, 10/17/2021 19:02:15 10/18/19 22 10/17/2021 urina lysis , dipst ick Urobilinogen Normal : 0.2 mg/dl Not Available In-Office Order Internal Use Only DO Not Attach Compendium DO Not Attach Compendium, Do Not Delete/merge, 10/17/2021 19:02:15 10/18/19 22 10/17/2021 urina lysis , dipst ick Protein Negati ve Not Available In-Office Order Internal Use Only DO Not Attach Compendium DO Not Attach Compendium, Do Not Delete/merge, 10/17/2021 19:02:15 10/18/19 22 10/17/2021 urina lysis , dipst ick pH 5.0 Not Available In-Office Order Internal Use Only DO Not Attach Compendium DO Not Attach Compendium, Do Not Delete/merge, 10/17/2021 19:02:15 10/18/19 22 10/17/2021 urina lysis , dipst ick Blood Negati ve Not Available In-Office Order Internal Use Only DO Not Attach Compendium DO Not Attach Compendium, Do Not Delete/merge, 10/17/2021 19:02:15 10/18/19 22 10/17/2021 urina lysis , dipst ick Specific [place] 1.000 Not Available In-Off ice Order Internal Use Only DO Not Attach Compendium DO Not Attach Compendium, Do Not Delete/merge, 10/17/2021 19:02:15 10/18/19 22 10/17/2021 urina lysis , dipst ick Ketone Negati ve Not Available In-Office Order Internal Use Only DO Not Attach Compendium DO Not Attach Compendium, Do Not Delete/merge, 10/17/2021 19:02:15 10/18/19 22 10/17/2021 urina lysis , dipst ick Bilirubin Negati ve Not Available In-Office Order Internal Use Only DO Not Attach Compendium DO Not Attach Compendium, Do Not Delete/merge, 10/17/2021 19:02:15 10/18/19 22 10/17/2021 urina lysis , dipst ick Glucose Negati ve Not Available In-Office Order Internal Use Only DO Not Attach Compendium DO Not Attach Compendium, Do Not Delete/merge, 10/17/2021 19:02:15 10/18/19 22 10/17/2021 urina lysis , dipst ick Appearance Clear Not Available In-Offi ce Order Internal Use Only DO Not Attach Compendium DO Not Attach Compendium, Do Not Delete/merge, 10/17/2021 19:02:15 10/18/19 22 10/17/2021 urina lysis , dipst ick Color Pale Yellow Not Available In-Office Order Internal Use Only DO Not Attach Compendium DO Not Attach Compendium, Do Not Delete/merge, 10/17/2021 19:02:15 07/31/19 23 07/30/2022 HPV MRNA E6/E7 HPV MRNA E6/E7 Negati ve negati ve APTIM A HPV assay detec ts 14 high risk HPV types (HPV 16,18 ,31,3 3,35, 39,45 ,51,5 2,56, 58,59 ,66,6 8). The assay is FDA appro yamel for testi ng ThinP rep liqui d Pap vials but not FDA appro yamel for detec ting HPV in SureP ath liqui d Pap speci mens. In-ho use valid ation has shown the assay can detec t all HPV types from this [facility] e Not Available [facility] [address] [place] [address], [id number] 08/03/2022 07:32:27 07/31/19 23 07/30/2022 THINP REP PAP TEST (IMAG ER), HPV ERNESTO N, REFLE X HPV 16,18 /45 report Report Final Gynec ologi isidoro Cytol ogy Repor t ----- ----- ----- ----- ----- ----- ----- ----- ----- ----- ----- ----- ThinP rep Pap Test, HPV Scree n, Refle x HPV Genot ype SPECI MEN ADEQU ACY: SATIS FACTO RY FOR EVALU ATION ; ENDOC ERVIC AL/TR ANSFO RMATI ON ZONE COMPO NENT PRESE NT. INTER PRETA TION: NEGAT VERÓNICA FOR INTRA EPITH ELIAL JULEE Fitzgerald OR ZIYAD TRACY . Elect jose carlos Bell d: Barbara Garner, [place] (ASCP ) ----- ----- ----- ----- ----- ----- ----- ----- ----- ----- ----- ----- CLINI ISIDORO INFOR MATIO N: LMP: NG Clini isidoro Histo ry: HXP Biops y Date: NG Speci men Sourc e: Cervi x, Endoc ervix Previ ous Pap Date: NG HPV RESUL TS: HPV mRNA E6/E7 16037 30040 Appro yamel: 08/01 Negat verónica REF RANGE : Negat verónica CPT Codes : 52049 ICD Codes : Z12.4 Not Available [facility] [address] [place], [address] 08/03/2022 07:32:29 11/11/19 24 11/13/2023 SURES WAB(R ) ADVAN LISA VAGIN ITIS, TMA sureswab(R) adv bacterial vaginosis (bv), tma NEGATI VE negati ve normal Not Available [facility] [place] [facility] [address], [address], 11/13/2023 09:18:37 11/11/19 24 11/13/2023 SURES WAB(R ) ADVAN LISA VAGIN ITIS, TMA jozef species NOT DETECT ED not detect ed normal Not Available [facility] [place] [facility] [address], [address], 11/13/2023 09:18:37 11/11/19 24 11/13/2023 SURES WAB(R ) ADVAN LISA VAGIN ITIS, TMA jozef glabrata NOT DETECT ED not detect ed normal Julieta da speci es C. albic ans, C. tropi calis , C. parap barrett is, and/o r C. dubli angelina is can be detec dipesh, but not diffe renti ated, in the Julieta da spp. resul t. Not Available [facility] [address], [address], 11/13/2023 09:18:37 11/11/19 24 11/13/2023 SURES WAB(R ) ADVAN LISA VAGIN ITIS, TMA trichomonas vaginalis (TV), tma NOT DETECT ED not detect ed normal Not Available [facility]- [address], [place], [address], 11/13/2023 09:18:37 11/11/19 24 11/13/2023 THINP REP TIS PAP W/REF L HPV MRNA E6/E7 clinical information: normal None given Not Available [facility]- [address], [place], [address], 11/13/2023 09:28:38 11/11/19 24 11/13/2023 THINP REP TIS PAP W/REF L HPV MRNA E6/E7 LMP: normal NONE GIVEN Not Available [facility]- [address], [address], 11/13/2023 09:28:38 11/11/19 24 11/13/2023 THINP REP TIS PAP W/REF L HPV MRNA E6/E7 prev. Pap: normal NONE GIVEN Not Available [facility]- [address], [address], 11/13/2023 09:28:38 11/11/19 24 11/13/2023 THINP REP TIS PAP W/REF L HPV MRNA E6/E7 prev. BX: normal NONE GIVEN Not Available [facility] [place], [address], 11/13/2023 09:28:38 11/11/19 24 11/13/2023 THINP REP TIS PAP W/REF L HPV MRNA E6/E7 source: normal Cervi x, Endoc ervix Not Available [facility] [address] [place], [address], 11/13/2023 09:28:38 11/11/19 24 11/13/2023 THINP REP TIS PAP W/REF L HPV MRNA E6/E7 statement of adequacy: normal Satis facto ry for evalu ation . Endoc ervic al/tr ansfo rmati on zone compo nent absen t. Not Available [facility] [place] [facility] [address], [place], [address], 11/13/2023 09:28:38 11/11/19 24 11/13/2023 THINP REP TIS PAP W/REF L HPV MRNA E6/E7 interpretati on/result: normal Cytol ogy Resul ts: Negat verónica for intra epith elial lesio n or ziyad tracy . Not Available [facility] [place] [facility] [address] [place], [place], [address], 11/13/2023 09:28:38 11/11/19 24 11/13/2023 THINP REP TIS PAP W/REF L HPV MRNA E6/E7 comment: normal This Pap test has been evalu ated with compu ter ronnie dipesh techn ology . Not Available [facility] [place] [facility] [address] [place], [address], 11/13/2023 09:28:38 11/11/19 24 11/13/2023 THINP REP TIS PAP W/REF L HPV MRNA E6/E7 cytotechnolo gist: normal ALS, CT( CP) CT scree robb locat ion: [facility] [address] [place], [place] [address] Not Available [facility] [place] [facility] [address] [place], [place], [address], 11/13/2023 09:28:38 11/11/19 24 11/13/2023 THINP REP TIS PAP W/REF L HPV MRNA E6/E7 comment EXPLA NATOR Y NOTE: The Pap is a scree robb test for cervi isidoro cance r. It is not a diagn ostic test and is subje ct to false negat verónica and false posit verónica resul ts. It is most relia ble when a satis facto ry sampl e, regul graeme obtai bereket, is submi tted with relev ant clini isidoro findi ngs and histo ry, and when the Pap resul t is evalu ated along with histo herlinda and curre nt clini isidoro infor matio n. Not Available [facility] [place] [facility] [address] [place], [place], [address], 11/13/2023 09:28:38 11/11/19 24 11/11/2023 urina lysis , dipst ick Leukocytes Negati ve Not Available In-Office Order Internal Use Only DO Not Attach Compendium DO Not Attach Compendium, Do Not Delete/merge, [id number] 11/09/2023 08:37:04 11/11/19 24 11/11/2023 urina lysis , dipst ick Nitrite negati ve Not Available In-Office Order Internal Use Only DO Not Attach Compendium DO Not Attach Compendium, Do Not Delete/merge, [id number] 11/09/2023 08:37:04 11/11/19 24 11/11/2023 urina lysis , dipst ick Protein Negati ve Not Available In-Office Order Internal Use Only DO Not Attach Compendium DO Not Attach Compendium, Do Not Delete/merge, [id number] 11/09/2023 08:37:04 11/11/19 24 11/11/2023 urina lysis , dipst ick Glucose Negati ve Not Available In-Office Order Internal Use Only DO Not Attach Compendium DO Not Attach Compendium, Do Not Delete/merge, [id number] 11/09/2023 08:37:04 08/05/19 23 07/30/2022 MAMMO , ernesto zamudio, anthony ybenigno sis, bilat eral HISTOR Y: Andrzej mercedes is 46 years old and is seen for screen ing. The andrzej mercedes has the follow ing family histor y of breast cancer : naomie al aunt, at age 55, breast cancer . FILMS COMPAR ED: The presayala t examin ation has been compar ed to prior imagin g studie s dated 2021, 2020, 2018 and 2015. TIFFANIE ORDOÑEZ ENT: Comput er-aid ed detect ion was utiliz ed by the radiol ogist in the interp retati on of this examin ation. 3D tomosy nthesi s digita l mammog raphic images were obtain ed using standa rd projec tions. MAMMOG EUNICE FINDIN GS: The breast s are hetero geneou sly dense, which may obscur e small masses . (ACR BIRADS densit y Catego ry c) * No suspic ious masses , calcif icatio ns or other abnorm alitie s are seen in either breast . IMPRES KINZA: There is no mammog raphic eviden ce of malign delgado. Routin e follow -up mammog eunice in 1 year is recomm ended. The andrzej mercedes will receiv e a lay summar y of the result s of this breast imagin g exam. Lay summar ies for mammog greyson examin ations will also identi fy the andrzej mercedes's person al breast tissue compos ition as requir ed by state law. BIRADS Catego ry 1: Negati ve Electr onical ly Signed By: LARISSA GOMEZ Electr onical ly Signed On: Aug 04, 2022 14:10 [email or web address] [facility] [place] [address], [place], [address], 08/05/2022 08:05:02 08/20/19 23 08/19/2022 US, trans vagin al RAD [facility] [address], [place], [address], 08/19/2022 13:18:21 08/20/19 23 08/19/2022 US, trans vagin al RAD [facility] [address], [place], [address], 08/19/2022 13:18:21 11/12/19 24 11/12/2023 scree robb mammm ogram - bilat eral 3D No observ ation record ed. [address], [place], [address], 11/19/2023 12:13:17 Result Notes None recorded. Problems Name Problem SNOMED Code Status Onset Date Resolution Date Notes Provider Name and Address Organization Details Recorded Time Acute vaginitis 30855778 Active AZUL SMITH MD 175 [facility], [address] [place] [address], [address] [place] [address] 4, [facility] 6 12:13:53 Cystitis 61795117 Active AZUL SMITH MD 175 [facility], [address] [place] [address], [address] [place] [address] 4, [facility] 6 12:13:53 Obesity 794304382 Active AZUL SMITH MD 175 [facility], [address] [place] [address], [address] [place] [address] 4, [facility] 6 12:13:54 Genital herpes simplex 50229828 Active 022 ERUM MOTA MD 175 [facility], [address] [place] [address], [address] [place] [address] 4, [facility] 2 13:33:26 Problem Notes None recorded. Procedures Surgical History Date Name Laterality Status Provider Name and Address Organization Details Recorded Time 11/11/19 24 [id number] completed AZUL SMITH MD 175 [facility], [address] [place] [address], [address], [facility] 11/09/2023 08:36:30 11/11/19 24 Date of Last Pap Smear completed AZUL SMITH MD [address], [place], [address], [facility] 11/13/2023 09:32:34 11/11/19 24 Date of Last Mammogram completed Isabelle Lalo [facility] 11/11/2023 10:51:49 09/12/19 23 Abdominoplasty completed AZUL SMITH MD [address], [place], [address], [facility] 11/11/2023 11:46:06 07/31/19 23 [id number] completed AZUL SMITH MD [address], [place], [address], [facility] 07/29/2022 12:24:59 07/31/19 23 H5F-WIR completed AZUL SMITH MD [address], [place], [address], [facility] 07/29/2022 12:24:57 07/17/19 22 [id number] completed AZUL SMITH MD [address], [place], [address], [facility] 07/16/2021 13:13:55 07/17/19 22 P8R-CXE completed AZUL SMITH MD [address], [place], [address], [facility] 07/16/2021 13:13:52 10/10/19 21 laparoscopic sleeve gastrectomy completed AZUL SMITH MD [address], [place], [address], [facility] 07/17/2021 09:31:33 06/06/19 21 [id number] completed AZUL SMITH MD [address], [place], [address], [facility] 06/05/2020 17:15:01 06/06/19 21 A0D-EAL completed AZUL SMITH MD [address] [facility], [place], [address], [facility] 06/05/2020 17:14:59 05/25/19 21 Gastric Bypass completed Eleanor Desouza [facility] 08/19/2022 12:30:36 06/01/19 20 [id number] completed AZUL SMITH MD [address], [address] [place] [address], [place], [address], [facility] 06/01/2019 15:15:21 06/01/19 20 V6R-ARM completed AZUL SMITH MD [address] [facility], [address] [place] [address], [place], [address], [facility] 06/01/2019 15:15:20 03/19/20 18 [id number]-[id number] completed AZUL SMITH MD [address], [address] [place] [address], [place], [address], [facility] 03/19/2018 15:41:56 03/19/20 18 Y3L-EHC completed AZUL SMITH MD [address] [facility], [address] [place] [address], [place], [address], [facility] 03/19/2018 15:41:53 03/11/20 17 P6P-EGKLCF completed AZUL SMITH MD [address], [address] [place] [address], [place], [address], [facility] 03/11/2017 12:31:17 03/11/20 17 E5E-HEG completed AZUL SMITH MD [address] [facility], [place], [address], [facility] 03/11/2017 12:30:36 12/17/19 16 W7I-JBG completed AZUL SMITH MD [address], [place], [address], [place] [facility] 12/17/2015 12:07:34 12/17/19 16 B2G-[id number] completed AZUL SMITH MD [address], [place], [address], [place] [facility] 12/17/2015 12:07:34 12/17/19 16 C2X-PLN completed AZUL SMITH MD [address], [place], [address], [place] [facility] 12/17/2015 12:07:34 12/17/19 16 H0P-UAM completed AZUL SMITH MD [address], [place], [address], [place] [facility] 12/17/2015 12:07:34 12/17/19 16 [id number]-[id number] completed AZUL SMITH MD [address], [place], [address], [place] [facility] 12/17/2015 12:07:34 12/17/19 16 [id number] completed AZUL SMITH MD [address], [place], [address], [place] [facility] 12/17/2015 12:07:34 05/25/19 02 Dilation & suction completed Not Available [facility] 06/04/2020 08:55:57 Imaging Results Imaging Date Name Status LastModified by Organization Details LastModified Time 07/30/2022 MAMMO, screening, tomosynthesis, bilateral completed [email or web address] [facility] [address], [place], [address], 08/05/2022 08:05:02 08/19/2022 [facility], [place], [address], 08/19/2022 13:18:21 08/19/2022 US, transvaginal completed [facility] [address], [place], [address], 08/19/2022 13:18:21 11/12/2023 screening mammmogram - bilateral 3D completed [facility] [address] [facility] [address], [place], [address], 11/19/2023 12:13:17 Procedure Notes None recorded. Medical Equipment None Reported. Allergies Allergen ID Allergen Name Allergen Category Reaction Reaction Severity Criticality Documentation Date Start Date Code Code System Note Provider Name and Address Organization Details Recorded Time 4789185 Macrobid medicatio n dizziness headache nausea mild moderate moderate Not available 12/09/20162016 65902 1 RxNorm Leandrovesta Osei [facility] 7 11:52:23 888867 Substance with sulfonami de structure and antibacte rial mechanism of action (substanc e) medicatio n rash Not available Not available 12/17/2015 89376 8003 SNOMED Lashell Alejandre [facility] 6 11:34:43 [id number] bacitraci n medicatio n other Not available Not available 12/17/2015 1291 RxNorm Cellu litis AZUL SMITH MD 175 [facility], [address] [place] [address], [phone], [facility] 6 11:43:47 [id number] Medicinal product containin g cephalosp susan and acting as antibacte rial agent (product) medicatio n rash Not available Not available 12/17/2015 [id number] SNOMED AZUL SMITH MD 175 [facility], [address] [place] [address], [phone], [facility] 6 11:43:47 Medications Name Sig Start Date Stop Date Status Note LastModified by Organization Details LastModified Time cyclobenzap rine 10 mg tablet TAKE 1 TABLET BY MOUTH 3 TIMES DAILY (EVERY 8 HOURS) NEEDED FOR MUSCLE SPASMS. 07/14 completed Not Available Not Available Not Available amoxicillin 500 mg capsule active Not Available Not Available Not Available prednisone 10 mg tablet PLEASE SEE ATTACHED FOR DETAILED DIRECTION S 06/04 completed Not Available Not Available Not Available doxycycline hyclate 100 mg capsule 03/11 completed Not Available Not Available Not Available polyethylen e glycol 3350 17 gram oral powder packet MIX 17 G WITH 8 OZ OF WATER ON 10/07/20 AND REPEAT ON 12/08/2007/14 completed Not Available Not Available Not Available azithromyci n 250 mg tablet TAKE 2 TABLETS BY MOUTH TODAY, THEN TAKE 1 TABLET DAILY FOR 4 DAYS 06/04 completed Not Available Not Available Not Available fluconazole 150 mg tablet TAKE 1 TABLET BY MOUTH ONCE 07/27 completed Not Available Not Available Not Available benzonatate 200 mg capsule TAKE 1 CAPSULE BY MOUTH THREE TIMES A DAY NEEDED FOR COUGH 06/04 completed Not Available Not Available Not Available valacyclovi r 1 gram tablet TAKE 1 TABLET BY MOUTH EVERY 12 HOURS FOR 10 DAYS active Not Available Not Available No t Available sucralfate 100 mg/mL oral suspension TAKE 10 ML BY MOUTH TWICE A DAY 07/14 completed Not Available Not Available Not Available meloxicam 15 mg tablet 03/11 completed Not Available Not Available Not Available metronidazo le 0.75 % (37.5 mg/5 gram) vaginal gel INSERT 1 APPLICATO RFUL BY VAGINAL ROUTE EVERY DAY IN THE EVENING FOR 5 DAYS 07/14 completed Not Available Not Available Not Available ondansetron HCl 4 mg tablet TAKE 1 TABLET BY MOUTH EVERY 12 HOURS FOR NAUSEA AND VOMITING 07/14 completed Not Available Not Available Not Available prednisone 20 mg tablet TAKE 2 TABLETS BY MOUTH EVERY DAY WITH FOOD 11/10 completed Not Available Not Available Not Available thiamine HCl (vitamin B1) 100 mg tablet TAKE 1 TABLET EVERY DAY 07/14 completed Not Available Not Available Not Available metronidazo le 500 mg tablet Take 1 tablet every 12 hours by oral route for 7 days. 06/01 completed Not Available Not Available Not Available lidocaine HCl 2 % mucosal jelly APPLY A SMALL AMOUNT OF GEL TO AFFECTED AREA EVERY 2-3 HOURS NEEDED FOR PAIN 07/30 completed Not Available Not Available Not Available ciprofloxac in 250 mg tablet TAKE 1 TABLET BY MOUTH EVERY 12 HOURS FOR 3 DAYS 10/17 completed Not Available Not Available Not Available acyclovir 400 mg tablet TAKE 1 TABLET BY MOUTH TWO TIMES A DAY FOR SUPPRESSI ON 2023 active Not Available Not Available Not Avai lable valacyclovi r 500 mg tablet 06/18 completed Not Available Not Available Not Available ciprofloxac in 500 mg tablet TAKE 1 TABLET EVERY 12 HOURS 11/10 completed Not Available Not Available Not Available nystatin-tr iamcinolone 100,000 unit/gram-0 .1 % topical ointment APPLY TO AFFECTED AREA TWICE A DAY active Not Available Not Available No t Available terbinafine HCl 250 mg tablet TAKE 1 TABLET BY MOUTH DAILY 07/27 completed Not Available Not Available Not Available amoxicillin 875 mg tablet 03/19 completed Not Available Not Available Not Available dicyclomine 20 mg tablet 06/01 completed Not Available Not Available Not Available meclizine 25 mg tablet 03/19 completed Not Available Not Available Not Available pantoprazol e 40 mg tablet,abran yed release TAKE 1 TABLET BY MOUTH EVERY DAY 07/14 completed Not Available Not Available Not Available erythromyci n 5 mg/gram (0.5 %) eye ointment APPLY 1 APPLICATI ON TO EYE(S) 3 TIMES A DAY FOR 5 DAYS 07/30 completed Not Available Not Available Not Available acyclovir 5 % topical ointment APPLY TO AFFECTED AREA EVERY 3 HOURS 6 TIMES A DAY 07/30 completed Not Available Not Available Not Available tobramycin 0.3 % eye drops INSTILL 1 DROP INTO RIGHT EYE 3 TIMES A DAY 06/04 completed Not Available Not Available Not Available dexamethaso ne 4 mg tablet 03/11 completed Not Available Not Available Not Available prednisone 50 mg tablet 06/01 completed Not Available Not Available Not Available nystatin-tr iamcinolone 100,000 unit/g-0.1 % topical cream Apply every night for 5 nights 03/11 completed Not Available Not Available Not Available codeine 10 mg-guaifene sin 100 mg/5 mL oral liquid TAKE 5 ML BY MOUTH NIGHTLY NEEDED FOR COUGH. 06/04 completed Not Available Not Available Not Available clobetasol 0.05 % topical ointment APPLY A THIN LAYER TO THE AFFECTED AREA(S) BY TOPICAL ROUTE 2-3 TIMES PER DAY 06/01 completed Not Available Not Available Not Available levofloxaci n 500 mg tablet active Not Available Not Available Not Available albuterol sulfate HFA 90 mcg/actuati on aerosol inhaler INHALE 2 PUFFS BY MOUTH 4 TIMES A DAY 06/04 completed Not Available Not Available Not Available fluticasone propionate 50 mcg/actuati on nasal spray,suspe nsion 03/11 completed Not Available Not Available Not Available clotrimazol e 1 % topical cream APPLY TO AFFECTED AREA TOPICALLY TWICE A DAY 07/30 completed Not Available Not Available Not Available amoxicillin 875 mg-potassiu m clavulanate 125 mg tablet TAKE 1 TABLET BY MOUTH TWICE A DAY 07/14 completed Not Available Not Available Not Available nitrofurant oin monohydrate /macrocryst als 100 mg capsule TAKE 1 CAPSULE BY MOUTH TWICE A DAY WITH MEALS -DISPENSE GENERIC EQUIVALEN T OF MACROBID 07/27 completed Not Available Not Available Not Available acyclovir active Not Available Not [place] ilable Not Available diclofenac 1 % topical gel PLEASE SEE ATTACHED FOR DETAILED DIRECTION S 11/10 completed Not Available Not Available Not Available sodium,pota ssium,mag sulfates 17.5 gram-3.13 gram-1.6 gram oral soln DILUTE PER INSTRUCTI ONS 07/27 completed Not Available Not Available Not Available Joe Kovacs [facility] spacer 06/01 completed Not Available Not Available Not Available AneCream5 5 % topical APPLY 1 APPLICATI ON 6 TIMES A DAY BY TOPICAL ROUTE NEEDED. 07/30 completed Not Available Not Available Not Available Simpesse 0.15 mg-30 mcg (84)/10 mcg(7) tablets,3 month dose pack TAKE 1 TABLET BY MOUTH EVERY DAY 2023 active Not Available Not Available Not Avai lable Fluzone Quad (PF) 60 mcg (15 mcg x 4)/0.5 mL IM syringe PHARMACY ADMINIST[facility] 06/04 completed Not Available Not Available Not Available COVID-19 At-Home Test kit FOLLOW DIRECTION S INSIDE PACKAGE 07/27 completed Not Available Not Available Not Available Vitals Date Recorded Body height Systolic blood pressure Diastolic blood pressure Provider Name and Address Organization Details Last Updated DateTime 10/17/2021 157.48 cm 112 mm[Hg] 78 mm[Hg] Jane Olivares [facility] 10/17/2021 18:59:00 Date Recorded Body height Body mass index (BMI) Body weight Systolic blood pressure Diastolic blood pressure Provider Name and Address Organization Details Last Updated DateTime 12/02/2021 157.48 cm 28.4 kg/m2 69402.25 g 120 mm[Hg] 70 mm[Hg] Tashia Hubbardtana [facility] 2 14:02:08 Date Recorded Body height Body mass index (BMI) Body weight Systolic blood pressure Diastolic blood pressure Provider Name and Address Organization Details Last Updated DateTime 07/30/2022 157.48 cm 27.4 kg/m2 80104.14 g 110 mm[Hg] 60 mm[Hg] Alon Ramirez [facility] 3 10:11:46 Date Recorded Body height Body mass index (BMI) Body weight Systolic blood pressure Diastolic blood pressure Provider Name and Address Organization Details Last Updated DateTime 08/19/2022 157.48 cm 27.3 kg/m2 95094.26 g 104 mm[Hg] 68 mm[Hg] Eleanor Desouza [facility] 3 12:33:19 Date Recorded Body height Body mass index (BMI) Body weight Systolic blood pressure Diastolic blood pressure Provider Name and Address Organization Details Last Updated DateTime 11/11/2023 157.48 cm 26.3 kg/m2 28449.3 g 108 mm[Hg] 58 mm[Hg] Isabelle May [facility] 4 11:34:42 Social History Question Answer Notes LastModified by Organizat ion Details LastModified Time Tobacco Smoking Status Former Smoker Jane rodríguez, [facility] 10/17/2021 18:42:54 What Is Your Level Of Alcohol Consumption? Occasional Information not available 10/17/2021 Is Blood Transfusion Acceptable In An Emergency? Yes Information not available 07/30/2022 Concerns About Meeting Basic Needs (food, Housing, Heat, Etc)? No Information not available 07/30/2022 Education 4 Year College Informatio n not available 07/30/2022 What Is The Highest Grade Or Level Of School You Have Completed Or The Highest Degree You Have Received? [id number] Information not available 10/17/2021 Does Your Partner Physically Hurt You Or Threaten To Hurt You? No Information not available 03/11/2017 Has Your Partner Forced You To Have Sex Or Perform Sex Acts When You Did Not Want To? No Information not available 03/11/2017 Does Your Partner Insult, Scream At Or Talk Down To You? No Information not available 03/11/2017 Does Your Partner Control You Or Any Part Of Your Life? No Information not available 03/11/2017 Are You Afraid Of Your Partner? No 06/01/19, 06/06/20, 07/17/21, 11/11/23 Information not available 03/11/2017 Tobacco Type Cigarettes Information not available 06/01/2019 Drug Use? No Information no t available 12/17/2015 Do You Feel Safe At Home? Yes Information not available 03/11/2017 What Was The Date Of Your Most Recent Tobacco Screening? 11/11/2023 [email or web address] Information not available 11/11/2023 General Stress Level High Information not available 07/30/2022 Do You Feel Stressed (tense, Restless, Nervous, Or Anxious, Or Unable To Sleep At Night)? [id number] Information not available 10/17/2021 Have You Recently Traveled Abroad? No Information not available 07/17/2021 Have You Recently (within The Last 12 Weeks, Or During A Current ) Traveled To Or Lived In A Zika-affected Area? No Information not available 07/30/2022 Sex: Unknown Functional Status Question Answer Note LastModified by Organization D etails LastModified Time What is your exercise level? Moderate Information not available 10/17/2021 Mental Status None recorded. Family History Relationship Description Onset Age of this Age Resolved Age Notes LastModified by Organization Details LastModified Time Paternal Aunt Malignant tumor of breast Not available 12/16 11:49:03 Maternal Aunt Malignant tumor of colon Not available 12/16 11:49:03 Mother Well adult roly Not avai lable 11/11/2023 10:36:57 Father Diabetes mellitus Not available 12/16 11:49:03 Notes:No Family H/O Ovarian/ Endometrial/Cervical Cancer Medical History Condition Response Other N Kidney Stones N Blood clots N Breast Cancer N Benign breast disease N Colon cancer N Lung Disease N Depression N Defects or Inherited Disease N Anesthesia Complications N Headaches/Migraines N Neurological Disorder N Have you ever been on isolation N Anxiety Disorder N HSV Y Arthritis N Infertility N Interstitial Cystitis N Acid Reflux (GERD) N Cancer N Stroke N Endometriosis N Fibromyalgia N Spina Bifida N HIV N Heart Problems N Sexual Dysfunction N Hypogonadism N Autoimmune disorder N Thyroid Problems N Kidney or Bladder Problems N GI Problems N Eating Disorder N Anemia N Multiple Sclerosis N Psychiatric Illness N Diabetes N Ovarian Cancer N Blood Transfusions N Bladder disease N History of MRSA N None reported by patient N Abnormal Uterine Bleeding N Hyperlipidemia N BrCa positive N Abuse/Domestic Violence N Diverticulitis N Asthma Y Bladder Cancer N Hepatitis N Hypertension N Osteoporosis N Thrombophilias N Gynecological History Statement/Question Response Date of Last Mammogram 11/11/2023 Date of LMP 09/24/2023 IPV Screen Done 11/11/2023 STIs/STDs Y Cervical Cancer N BrCa gene tested? N Ovarian Cancer N Breast Cancer N Bladder Problems N Last HPV Result Negative Abnormal Pap Y BrCa Positive N Infertility N Breast Ultrasound Yes Sexual Orientation heterosexual HPV Vaccine N Endometriosis N Age at Menarche 9 Age at First Child 35 Fibroids N Uterine Cancer N Current Control Method Oral Contra ceptives Sexually Active? Y Sexual Problems? N Date of Last Pap Smear 11/11/2023 Obstetrics History GPAL:G 2 P 1 0 1 1 Type Value Full Term 1 Induced 1 Living 1 Total 2 Immunizations Vaccine Type Date Status Note Provider Nam e and Address Organization Details Recorded Time COVID-19, mRNA, LNP-S, PF, 100 mcg/0.5mL dose or 50 mcg/0.25mL dose 08/30/2020 completed Isabelle Lalo null, [facility] 11/11/2023 10:48:20 COVID-19, mRNA, LNP-S, PF, 100 mcg/0.5mL dose or 50 mcg/0.25mL dose 09/27/2020 completed Isabelle Lalo null, [facility] 11/11/2023 10:48:20 COVID-19, mRNA, LNP-S, PF, 100 mcg/0.5mL dose or 50 mcg/0.25mL dose 04/29/2021 completed Isabelle Lalo null, [facility] 11/11/2023 10:48:20 Influenza, split virus, quadrivalent, PF 04/04/2020 completed Isabelle Lalo null, [facility] 11/11/2023 10:48:20 Past Encounters Encounter ID Performer Location Encounter Start Date Encounter Closed Date Diagnosis/Indication Diagnosis SNOMED-CT Code Diagnosis ICD10 Code Diagnosis Note [id number] AZUL SMITH MD [facility] [address] 12/17/2015 11:07:26 12/17/2015 12:10:59 Gynecologic examination 59989662 Z01.419 Acute vaginitis 57203106 N76.0 Screening for malignant neoplasm of cervix 881870335 Z12.4 Screening for malignant neoplasm of breast 592424575 Z12.39 Cystitis 70982841 N30.00 [id number] AZUL SMITH MD [facility] [place] [address] 06/18/2016 14:05:23 06/18/2016 14:53:39 Acute vaginitis 80494263 N76.0 Prescripti on sent - take as prescribed BV culture taken - treat as indicated Call if symptoms persist Venereal d isease screening 476963700 Z11.3 [id number] AZUL SMITH MD [facility] [place] [address] 12/01/2016 15:00:37 12/01/2016 16:30:42 Acute vaginitis 74276332 N76.0 Prescripti on sent - take as prescribed BV culture taken - treat as indicated Call if symptoms persist Cystitis 53615256 N30.00 Treat as indicated [id number] AZUL SMITH MD [facility] [address] 03/11/2017 12:03:29 03/11/2017 12:36:30 Gynecologic examination 57338834 Z01.419 ? N ormal Harness Brusher Exam PAP Guidelines reviewed with pt - PAP with HPV co-testing done as indicated Annual Screening MMG @40yo Bone Density as indicated - 1200mg Ca and at least 800IU Vit D (diet/supp lementatio n), weight-katie ring exercise, avoid smoking, limit alcohol consumptio n Routine Colonoscop y Screening @50yo, earlier if clinically indicated Low saturated fat diet rich in fruit/veg/ grains, regular aerobic exercise (3-5 times per week), seatbelts, sunscreen/ avoid excess sun exposure Sample Estrace given x1 for urethral irritation Atypical s quamous cells of undetermined significance on cervical Papanicolaou smear 205062257 R87.610 Screening for malignant neoplasm of breast 303872982 Z12.39 Acute vaginitis 59496790 N76.0 Treat as indicated [id number] AZUL SMITH MD [facility] [address] 06/05/2017 11:03:48 06/05/2017 11:42:28 Venereal disease screening 856998468 Z11.3 Acute vaginitis 34894747 N76.0 Treat as indicated Dysuria 01137754 R30.0 Treat as indicated Vulval irritation 848616 003 N90.89 BV Culture taken - treat as indicated Avoid tight-fitt ed pants/unde rwear, pantyhose, panty liners, scented soaps/sham poos, bubble bath, scented detergents , feminine sprays, douches/po wers, dyed toilet articles, hair drying vulvar area Recommend using hypoallerg enic baby detergent with underwear, ?allergic rxn to scented detergent If no improvemen t, will trial clobetasol ointment f/u 2 month for re-check [id number] AZUL SMITH MD [facility] [place] [address] 08/05/2017 14:40:52 08/05/2017 15:06:01 Pruritus of vulva 76285416 L29.2 Explained to pt that may take a while for complete resolution of symptoms Will re-fill Clobetasol and cont use of hypoallerg enic detergents Instructed to call if symptoms fail to improve more worsen [id number] AZUL SMITH MD [facility] [address] [place] [address] 03/19/2018 15:10:13 03/19/2018 15:47:50 Gynecologic examination 07372805 Z01.419 Normal Harness Brusher Exam PAP Guidelines reviewed with pt - PAP with HPV co-testing done as indicated Annual Screening MMG @40yo Bone Density as indicated - 1200mg Ca and at least 800IU Vit D (diet/supp lementatio n), weight-katie ring exercise, avoid smoking, limit alcohol consumptio n Routine Colonoscop y Screening @50yo, earlier if clinically indicated Low saturated fat diet rich in fruit/veg/ grains, regular aerobic exercise (3-5 times per week), seatbelts, sunscreen/ avoid excess sun exposure Screening for malignant neoplasm of cervix 311477945 Z12.4 Z87.42 Screening mammography 24 855055 Z12.31 Obesity 398136362 E66.9 [id number] AZUL SMITH MD [facility] [address] 05/05/2018 09:00:43 05/05/2018 09:40:21 Acute vaginitis 12471040 N76.0 Prescripti on sent - take as prescribed BV culture taken - treat as indicated Call if symptoms persist [id number] AZUL SMITH MD [facility] [place] [address] 06/01/2019 14:33:06 06/01/2019 15:22:50 Gynecologic examination 05691562 Z01.419 Normal Harness Brusher Exam PAP Guidelines reviewed with pt - PAP with HPV co-testing done as indicated Annual Screening MMG @40yo Bone Density as indicated - 1200mg Ca and at least 800IU Vit D (diet/supp lementatio n), weight-katie ring exercise, avoid smoking, limit alcohol consumptio n Routine Colonoscop y Screening @50yo, earlier if clinically indicated Low saturated fat diet rich in fruit/veg/ grains, regular aerobic exercise (3-5 times per week), seatbelts, sunscreen/ avoid excess sun exposure Declines Gardasil Screening for malignant neoplasm of cervix 908360192 Z12.4 Screening mammography 24 209631 Z12.31 Depression screening 171 Z13.31 Body mass index 40+ - severely obese 771968979 Z68.41 E66.01 Discussed importance of well balanced diet being mindful of excess simple carbohydra stephanie and advised to modify her diet by decreasing the amount of calories eaten, to avoid processed foods, increase fruit and vegetable intake, and to try a weight loss program such as Weight Watchers. We discussed the importance of exercise in the form of walking or stationary bicycling or some other enjoyable aerobic activity. The patient was advised to that a great starting point is to exercise (walking or other aerobic activity) at least 30 minutes/we ek 3-5 times/ week. She was encouraged to start slowly walking 15 minutes/da y, 3 times/ week and slowly increase the time every week. These measures will help patient to slowly lose weight and/or maintain weight. [id number] AZUL SMITH MD [facility] [place] [address] 06/06/2020 16:07:42 06/06/2020 16:45:31 Gynecologic examination 87992659 Z01.419 Normal Harness Brusher Exam PAP Guidelines reviewed with pt - PAP with HPV co-testing done as indicated Annual Screening MMG @40yo Bone Density as indicated - 1200mg Ca and at least 800IU Vit D (diet/supp lementatio n), weight-katie ring exercise, avoid smoking, limit alcohol consumptio n Routine Colonoscop y Screening @50yo, earlier if clinically indicated Low saturated fat diet rich in fruit/veg/ grains, regular aerobic exercise (3-5 times per week), seatbelts, sunscreen/ avoid excess sun exposure Screening for malignant neoplasm of cervix 859234294 Z12.4 Screening mammography 24 973924 Z12.31 Depression screening 171 Z13.31 Acute vaginitis 35289122 N76.0 Prescripti on not sent BV culture taken - treat as indicated Call if symptoms persist [id number] AZUL SMITH MD [facility] [address] [facility] [address] [place] [address] 07/17/2021 08:33:51 07/17/2021 09:36:52 Gynecologic examination 02308204 Z01.419 Normal Harness Brusher Exam PAP Guidelines reviewed with pt - PAP with HPV co-testing done as indicated Annual Screening MMG @40yo Bone Density as indicated - 1200mg Ca and at least 800IU Vit D (diet/supp lementatio n), weight-katie ring exercise, avoid smoking, limit alcohol consumptio n Routine Colonoscop y Screening @50yo, earlier if clinically indicated Low saturated fat diet rich in fruit/veg/ grains, regular aerobic exercise (3-5 times per week), seatbelts, sunscreen/ avoid excess sun exposure Screening for malignant neoplasm of cervix 163869141 Z12.4 Screening mammography 24 129380 Z12.31 Harness Brusher/MMG 1 year Depression screening 171 171540 Z13.31 [id number] DEB Solorzano [facility] [facility] [address] [place] [address] 10/17/2021 18:42:37 10/17/2021 19:26:34 Genital herpes simplex 78385594 A60.9 GENITAL HERPES: Discussed genital herpes management and factors that may cause an outbreak.D iscussed possible transmissi on of virus to her sexual partner and how to avoid that.Discu ssed management for now is to take antiviral tablets as prescribed and if needed to use local lidocaine gel as prescribed .Advised for now she should not have sex during lesions. Medication management reviewed with client advised she may need Valtrex for 5-10 days. Candidiasis of vagina 72 653987 B37.3 Discussed with patient the microscope examinatio n I performed today on her vaginal discharge confirms she has a vaginal yeast infection. Advised vaginal yeast occurs due to an imbalance in the pH of her vagina. This can occur due to stress, douching, high sugar intake, wearing non cotton or tight underwear. For now, treatment option of oral tablets recommende d. 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 Products such as yogurt taken on a regular basis can help balance the pH of the body and reduce frequency of recurrence . [id number] AZUL SMITH MD [facility] [address] [place] [address] 12/02/2021 13:26:09 12/02/2021 14:13:29 Recurrent genital herpes simplex 289296753 A60.00 clinically c/w HSV lesionReco mmend continuing daily ValtrexWil l daily topical Zovirax and Lidocaine cream for further reliefReas sured that lesion with self resolve with timeInstru cted to call if lesion does not improve [id number] AZUL SMITH MD [facility] [place] [address] 07/30/2022 09:46:08 07/30/2022 10:50:27 Gynecologic examination 01312229 Z01.419 Normal Harness Brusher Exam PAP Guidelines reviewed with pt - PAP with HPV co-testing done as indicated Annual Screening MMG @40yo Bone Density as indicated - 1200mg Ca and at least 800IU Vit D (diet/supp lementatio n), weight-katie ring exercise, avoid smoking, limit alcohol consumptio n Routine Colonoscop y Screening @50yo, earlier if clinically indicated Low saturated fat diet rich in fruit/veg/ grains, regular aerobic exercise (3-5 times per week), seatbelts, sunscreen/ avoid excess sun exposureCo ntraceptio n > OCPs Screening for malignant neoplasm of cervix 180576954 Z12.4 Screening mammography 24 405516 Z12.31 In-House MMG Depression screening 171 024049 Z13.31 Irregular periods 646717 07 N92.6 Continue Ibuprofen as needed Schedule ultrasound to evaluate pelvic anatomy Schedule talk afterwards to review findings and make treatment plan Will schedule Endometria l Biopsy and Endosee Hysterosco py as indicated Call if bleeding >1 pad/hour for more than 3 hours [id number] AZUL SMITH MD GW[address] [place] [address] 08/19/2022 11:41:49 08/19/2022 13:33:37 Irregular periods [id number] N92.6 U/S done and reviewed with pt: Aware normal appearing uterus with thin stripe; normal appearing ovaries Pertinent findings reviewed with pt and questions answered Treatment plan and follow-up discussedN o additional treatment indicated at this timeWill keep menstrual diary and call if things clinically changeCont combined OCPs [id number] AZUL SMITH MD GWH9 [address] [place] [address] 11/11/2023 10:36:41 11/11/2023 11:51:57 Gynecologic examination [id number] Z01.419 Normal Harness Brusher Exam PAP Guidelines reviewed with pt - PAP with HPV co-testing done as indicated Annual Screening MMG @40yo Bone Density as indicated - 1200mg Ca and at least 800IU Vit D (diet/supp lementatio n), weight-katie ring exercise, avoid smoking, limit alcohol consumptio n Routine Colonoscop y Screening @50yo, earlier if clinically indicated Low saturated fat diet rich in fruit/veg/ grains, regular aerobic exercise (3-5 times per week), seatbelts, sunscreen/ avoid excess sun exposureCo ntraceptio n > OCPs Screening for malignant neoplasm of cervix [id number] Z12.4 Screening mammography 24 254145 Z12.31 In-House MMG Depression screening 171 030057 Z13.31 Screening for malignant neoplasm of colon 081064669 Z12.11 Vaginal irritation 51554 6004 N89.8 Prescripti on sent - apply to external vulvar region at bedtime as directed BV Culture taken - treat as indicated Avoid tight-fitt ed pants/unde rwear, pantyhose, panty liners, scented soaps/sham poos, bubble bath, scented detergents , feminine sprays, douches/po wers, dyed toilet articles, hair drying vulvar area Call if symptoms persist Health Concerns Section Related Observation LastModified by Organization Detai ls LastModified Time None Recorded Concern Status LastModified by Organization Details LastModified Time None Recorded Advance Directives Directive None Recorded Payers Insurance Date Sequence Insurance Name Policy Number Policy Jones Covered Member ID Jones Member ID Guarantor Name 12/01/2021 1 [place] 112 Rosalie Valencia [id number] Rosalie Valencia 11/08/2023 1 [employer]I [employer] [employer] 112 Rosalie Valencia [id number] Rosalie Valencia Notes Date Note Type Note Provider Name and Address Organization Details Recorded Time 10/17/2021 text/html [facility] problem visit. Here for evaluation and management of possible UTI. C/o sharp pain on the tip of her urethra when she urinates, feels like cuts , irritation. Reports still with supra pubic pressure. Urinating every 30 minutes. Urine culture sterile on 10/15/21Took cipro for three day completed course today, feels the first pill worked but it help but now symptoms are back. UA normal. No vaginal symptoms, denies fever or chills.Macrobid makes her nauseated. Known history of genital herpes for about 16 years. Last outbreak was about a year ago. Covid vaccinated. Grazyna Randall CNM 175 [facility], [address] [place], [address], [facility] 10/17/2021 21:21:56 12/02/2021 text/html Pt has been usin g daily prophylactic Valtrex x1 month. Has noted tender lesion in left vulvar region for the last couple weeks. No improvement with daily Valtrex. AZUL SMITH MD 175 [facility], [address] [place] [address], [phone], [facility] 12/02/2021 14:14:16 07/30/2022 text/html [facility] Annual GYNReported bypatient.History:no gynecologic complaints; no change in interval history Menstrual cycle:Bleeding between periods(x3 weeks) Urinary symptoms:No hematuria; No incontinence; Urgency Vulva:No genital lesion Vagina:Normal vaginal discharge Breast:No breast pain; No breast lump; No nipple discharge Current Contraception:Satisf ied with current contraception; Monogamous relationship; Oral contraceptives Sexual activity:sexually active yes; No sexual complaints; No pain during intercourse; Normal libido Menopausal symptoms:No menopausal symptoms; Normal vaginal lubrication Psychological symptoms:No depression; No anxiety; No PMDD Preventive measures:Encourage self breast examination; Encourage regular exercise; Encourage no tobacco use; Encourage regular mammograms starting age 40; Followed with yearly pap smears; Followed with Q3 year pap smear and high risk HPV typing; History of abnormal pap smear/cervical dysplasia; Mammogram performed within the past year; Needs to schedule colonoscopy no patient escort AZUL SMITH MD [address], [address], [facility] 07/30/2022 10:30:09 08/19/2022 text/html Pt here to [facility] evaluate irregular menses reported at annual exam. Currently on OCPs and always has regular menses. Over last month, pt reports intermittent vb for about 4 weeks. Bleeding has recently stopped. AZUL SMITH MD [address] [place] [address], [phone], [facility] 08/19/2022 13:01:02 11/11/2023 text/html [facility] Annual GYNReported bypatient.History:no gynecologic complaints; no change in interval history Menstrual cycle:Normal menses Urinary symptoms:No hematuria; No incontinence; Urgency Vulva:No genital lesion Vagina:Normal vaginal discharge Breast:No breast pain; No breast lump; No nipple discharge Current Contraception:Satisf ied with current contraception; Monogamous relationship; Oral contraceptives Sexual activity:sexually active yes ; No sexual complaints; No pain during intercourse; Normal libido Menopausal symptoms:No menopausal symptoms; Normal vaginal lubrication Psychological symptoms:No depression; No anxiety; No PMDD Preventive measures:Encourage self breast examination; Encourage regular exercise; Encourage no tobacco use; Followed with yearly pap smears; Followed with pap smear and high risk HPV typing every 3 years; History of abnormal pap smear/cervical dysplasia; Encourage regular mammograms starting age 40; Mammogram performed within the past year; Needs to schedule colonoscopy no patient escort AZUL SMITH MD [address], [phone], [facility] 11/11/2023 11:47:45 OBGyn Episode Ob Episode Information Episode Created Date Number of Fetuses Patient Bloodtype Patient rh Status Prepregnancy Weight lbs Domestic Partner Domestic Partner Phone Father Name 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 12/17/19 16 1 CLOSED Fetus Data First Name Last Name Admitted to NICU Weight (g) Sex Living Outcome Pediatric Complications Fetus ID Race Codes Race Delivery Type 3175.14 4 F Full Term [id number] Vaginal Delivery Lowell Calculation Initial Lowell Date Initial Exam Date Initial Exam Provider Initial Ultrasound Date Last Menstrual Period Date Ultra Sound Weeks Gestation 0 Eighteen To Twenty Week Lowell Update Ultra Sound Date Fundal Height At Umbil Quickening Date Ultra Sound Latest Weeks Gestation Final Lowell Confirmed By Final Lowell Confirmed Date Final Lowell Date Ultra Sound Latest Days Gestation 0 0 Menstrual History Last Menstrual Date Menses Monthly On Bcp Conception Prior Menses Frequency Hcg Plus Date Menarche Onset Age Delivery Information Delivery Date Delivery Type Labor Anesthesia Weeks Gestation Incision Type Labor Labor Length Hrs Delivered By Post Complications Tubal Sterilization Discharge Date Comments 0 Regional-Ep idural false GDMA2; PUPPS Discharge Information Feeding Method Contraceptive Method Maternal HG B and HCT Levels Ob Episode Information Episode Created Date Number of Fetuses Patient Bloodtype Patient rh Status Prepregnancy Weight lbs Domestic Partner Domestic Partner Phone Father Name 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 12/17/19 16 1 CLOSED Fetus Data First Name Last Name Admitted to NICU Weight (g) Sex Living Outcome Pediatric Complications Fetus ID Race Codes Race Delivery Type , Induced [id number] Lowell Calculation Initial Lowell Date Initial Exam Date Initial Exam Provider Initial Ultrasound Date Last Menstrual Period Date Ultra Sound Weeks Gestation 0 Eighteen To Twenty Week Lowell Update Ultra Sound Date Fundal Height At Umbil Quickening Date Ultra Sound Latest Weeks Gestation Final Lowell Confirmed By Final Lowell Confirmed Date Final Lowell Date Ultra Sound Latest Days Gestation 0 0 Menstrual History Last Menstrual Date Menses Monthly On Bcp Conception Prior Menses Frequency Hcg Plus Date Menarche Onset Age Delivery Information Delivery Date Delivery Type Labor Anesthesia Weeks Gestation Incision Type Labor Labor Length Hrs Delivered By Post Complications Tubal Sterilization Discharge Date Comments 2 D+C Discharge Information Feeding Method Contraceptive Method Maternal HG B and HCT Levels
--- OUTSIDE RECORDS SUMMARY | 2024-09-30 07:45 | XMS_ITS | Encounter Summary ---
Author Organization [facility] Address [address] [place] [address] Care Team Providers Care Rooming House Inspector Name Role Phone Bethany Hernandez MD Primary Care Provider [phone] Khushbu John APRN Primary Care Provider [phone] Trudy Pascual MD Primary Care Provider Un available Jack Goodman DO Unavailable [phone] Trudy Pascual MD Unavailable UnavailTrudy Ogden MD Unavailable UnavailTrudy Ogden MD Unavailable UnavailTrudy Ogden MD Unavailable UnavailGodwin Gabriel MD Primary Care Provider [phone] Trudy Pascual MD Primary Care Provider Un available Dannie Honeycutt DO Unavailable Valerie Shahid MD Primary Care Provider [phone] Shmuel Norton MD Unavailable [phone] Encounter Details Date Type Department Care Team (Late st Contact Info) Description 02/26/2018 Scanned Document [address] [address] Provider, Generic Social History Tobacco Use Types Packs/Day Years [...] Description 10/24/2024 1:00 PM EDT Consult [facility] [address] [place] [phone] Radha Escalante MD [address] [place] [address] 11/21/2024 3:00 PM EDT Office Visit [facility] 100 [facility] [address] [place] [address] Valerie Shahid MD [address] [place] [address] documented as of this encounter Visit Diagnoses Not on filedocumented in this encounter Care Teams Rooming House Inspector Relationship Specialty Start Date End Date Bethany Hernandez MD PCP - General Internal Medicine 06/20/15 07/24/19 Khushbu John APRN [address] [place] [address] PCP - General Family Medicine 07/25/19 07/08/20 Trudy Pascual MD [address] [place] [address] PCP - General Internal Medicine 07/09/20 08/26/22 Jack Goodman DO [address] [place] [address] PCP - [employer] Attributed 09/22/20 12/22/20 Trudy Pascual MD Retired provider PCP - Ivan [employer] Attributed 12/23/20 03/24/21 Trudy Pascual MD Retired provider PCP - Ivan [employer] Attributed 05/25/21 10/22/21 Trudy Pascual MD Retired provider PCP - Ivan [employer] Attributed 12/23/21 09/21/22 Trudy Pascual MD [address] [place] [address] PCP - Hospice Attending 08/27/22 Godwin Snowden MD [address] [place] [address] PCP - General Surgery, General 08/27/22 02/25/23 Trudy Pascual MD [address] [place] [address] PCP - General Internal Medicine 02/26/23 10/28/23 Dannie Honeycutt DO [address] [place] [address] PCP - Ivan Commercial Attributed 03/25/23 Valerie Shahid MD [address] [place] [address] PCP - General Internal Medicine 10/29/23 Shmuel Norton MD [address] [place] [address] Obstetrics and Gynecology 12/16/23 documented as of this encounter
--- OUTSIDE RECORDS SUMMARY | 2024-09-30 07:45 | XMS_ITS ---
Author Name [facility] Organization Unknown History of Medication Use Medication Directions Dispensed Refills Start Date End Date Stat us nystatin (MYCOSTATIN) 906945 UNIT/ML suspension Take 5 mL (500,000 Units total) by mouth 4 (four) times a day. 05/28/2024 active predniSONE (DELTASONE) 20 MG tablet Take 2 tablets (40 mg total) by mouth daily. With food. 01/01/2023 active Flonase Allergy Relief 50mcg/actuation Nasal Shanks 04/02/2022 active nitrofurantoin monohydrate (MACROBID) 100 MG capsule Take 1 capsule (100 mg total) by mouth 2 (two) times a day with meals. Dispense generic equivalent of MACROBID 03/27/2022 2 active acyclovir 400 mg tablet TAKE 1 TABLET BY MOUTH 3 TIMES A DAY X5DAYS. THEN TWICE A DAY FOR SUPPRESSION TAKE 1 TABLET BY MOUTH 3 TIMES A DAY X5DAYS. THEN TWICE A DAY FOR SUPPRESSION completed fluconazole 150 mg tablet TAKE ONE TAB BY MOUTH DAY ONE AND REPEAT ONE TAB BY MOUTH ON DAY 4 TAKE ONE TAB BY MOUTH DAY ONE AND REPEAT ONE TAB BY MOUTH ON DAY 4 completed lidocaine 5 % topical cream Apply 1 application 6 times a day by topical route as needed. Apply 1 application 6 times a day by topical route as needed. completed lidocaine HCl 2 % mucosal jelly APPLY A SMALL AMOUNT OF GEL TO AFFECTED AREA EVERY 2-3 HOURS NEEDED FOR PAIN APPLY A SMALL AMOUNT OF GEL TO AFFECTED AREA EVERY 2-3 HOURS NEEDED FOR PAIN completed Multiple Vitamin (MULTIVITAMIN) capsule Take 1 capsule by mouth daily. Gastric sleeve vitamins active valacyclovir 1 gram tablet TAKE 1 TABLET BY MOUTH EVERY 12 HOURS FOR 10 DAYS TAKE 1 TABLET BY MOUTH EVERY 12 HOURS FOR 10 DAYS completed Zovirax 5 % topical ointment APPLY TO THE AFFECTED AREA(S) BY TOPICAL ROUTE EVERY 3 HOURS 6 TIMES PER DAY APPLY TO THE AFFECTED AREA(S) BY TOPICAL ROUTE EVERY 3 HOURS 6 TIMES PER DAY completed Allergies Allergen Reaction Severity Comment Documented Date Source Statu s MACROBID Nausea [facility] BACITRACIN Other [facility] Problems Problem Status Onset Date Problem Type Date of Resolution Source S/P bariatric surgery active 2021-02-13 ProblemAct [facility] Headache active ProblemAct [facility] Overweight active 2023-12-16 ProblemAct [facility] Herpes genitalia active 2015-05-07 ProblemAct H [facility] Family history of colonic polyps active 2021-09-25 ProblemAct [facility] Ingrowing nail active 2022-04-02 ProblemAct E[facility] _[facility]CR[facility] Plantar fasciitis active 2016-03-13 ProblemAct E[facility]OD[facility] Equinus, acquired pes cavus, plantar flex met, RIGHT other acquired deformities active 2016-03-13 ProblemAct [facility] Tinea unguium, onychomycosis active 2023-09-07 EncounterDiagnosisAct ENS_P ODCRCT Onychogryphosis -Nail active 2016-03-13 ProblemAct [facility] Dystrophia unguium active 2022-04-02 ProblemAct [facility] Cellulitis of right toe, paronychia active 2022-04-02 ProblemAct ENS_PODCR[facility] Equinus, acquired pes cavus, plantar flex met, LEFT other acquired deformities active 2016-03-13 ProblemAct ENS_POD CRCT Acute vaginitis active ProblemAct C[facility] Obesity active ProblemAct [facility] Cystitis active ProblemAct [facility] Genital herpes simplex active 2021-10-24 ProblemAct [facility] Immunizations Vaccine Date Source Lot Number Status Tdap 12/18/2023 [facility] [id number] completed Covid-19 mRNA Primary Series Vaccine - Moderna 0.5 mL Full Dose 09/27/2020 [facility] [id number] completed Covid-19 mRNA Primary Series Vaccine - Moderna 0.5 mL Full Dose 09/27/2020 [facility] [id number] completed Covid-19 mRNA Primary Series Vaccine - Moderna 0.5 mL Full Dose 08/30/2020 [facility] [id number] completed Encounters Encounter Type Encounter Reason Primary Diagnosis Location Date Ambulatory Other Other [place] 05/28/2024 Ambulatory Dysuria Dysuria [place] 04/04/2024 Ambulatory Encounter for immunization Encounter for immunization [facility] 12/18/2023 Ambulatory Encounter for general adult medical examination without abnormal findings Encounter for general adult medical examination without abnormal findings [facility] 11/20/2023 Ambulatory Irregular menstruation, unspecified Irregular menstruation, unspecified [facility] 11/11/2023 Ambulatory Irregular menstruation, unspecified Irregular menstruation, unspecified [facility] 11/11/2023 Ambulatory Pain in left leg Pain in left leg [facility] 10/29/2023 Ambulatory Trochanteric bursitis, right hip Trochanteric bursitis, right hip [facility] 05/05/2023 Ambulatory Pain in right hip Pain in right hip [facility] 05/04/2023 Ambulatory [facility] 04/28/2023 Ambulatory Trochanteric bursitis, right hip Trochanteric bursitis, right hip [facility] 04/28/2023 Ambulatory Trochanteric bursitis, right hip Trochanteric bursitis, right hip [facility] 04/14/2023 Ambulatory Trochanteric bursitis, right hip Trochanteric bursitis, right hip [facility] 04/13/2023 Ambulatory [facility] 04/10/2023 Ambulatory [facility] 04/08/2023 Ambulatory Trochanteric bursitis, right hip Trochanteric bursitis, right hip [facility] 03/30/2023 Ambulatory [facility] 03/27/2023 Ambulatory Trochanteric bursitis, right hip Trochanteric bursitis, right hip [facility] 03/23/2023 Ambulatory Trochanteric bursitis, right hip Trochanteric bursitis, right hip [facility] 03/20/2023 Ambulatory [facility] 03/19/2023 Ambulatory Trochanteric bursitis, right hip Trochanteric bursitis, right hip [facility] 03/16/2023 Ambulatory Trochanteric bursitis, right hip Trochanteric bursitis, right hip [facility] 03/13/2023 Ambulatory Trochanteric bursitis, right hip Trochanteric bursitis, right hip [facility] 03/09/2023 Ambulatory [facility] 03/06/2023 Ambulatory Trochanteric bursitis, right hip Trochanteric bursitis, right hip [facility] 02/26/2023 Ambulatory Trochanteric bursitis, right hip Trochanteric bursitis, right hip [facility] 02/06/2023 Ambulatory Other specified disorders of eustachian tube, right ear Other specified disorders of eustachian tube, right ear [facility] 01/01/2023 Ambulatory [facility] 09/12/2022 Ambulatory Excessive and redundant skin and subcutaneous tissue [facility] 08/28/2022 Ambulatory [facility] 08/19/2022 Ambulatory [facility], [facility] 08/19/2022 Ambulatory [facility], [facility] 07/30/2022 Ambulatory [facility], [facility] 07/30/2022 Ambulatory Other specified noninflammatory disorders of vagina [facility] 03/27/2022 Ambulatory Contact with and (suspected) exposure to covid-19 [facility] 03/18/2022 Ambulatory [facility], [facility] 12/02/2021 Ambulatory Contusion of rig ht lesser toe(s) without damage to nail, initial encounter [facility] 11/15/2021 Ambulatory Localized adiposity [facility] 11/07/2021 Ambulatory [facility], [facility] 10/17/2021 Ambulatory Family history o f colonic polyps [facility] 09/25/2021 Ambulatory [facility], [facility] 07/17/2021 Ambulatory [facility], [facility] 07/17/2021 Ambulatory Contact with and (suspected) exposure to covid-19 [facility] 05/03/2021 Ambulatory Contact with and (suspected) exposure to covid-19 [facility] 04/21/2021 Ambulatory Contact with and (suspected) exposure to covid-19 [facility] 04/16/2021 Care Team Organization Name Specialty Phone Email Start Date End Da [facility] Valerie Shahid Primary [facility] 10/29/2023 [facility] Primary [facility] 09/16/2023 [facility] 09/16/2023 [facility] 03/26/2023 024 [facility] 02/13/2023 024 [facility] JODEE ALVARADO Primary Care 09/08/2022 08/10/2024 [facility] Trudy Pascual Primary Care 03/27/202207/23 [facility], [facility] 12/05/2021 [facility], [facility] 07/17/202112/02 [facility] Trudy Pascual Primary Care 04/16/202102/23 [facility], [facility] GRAY MADDOX, Primary Care 02/14/2021 01/11/2024 [facility] PALMA ALVARADO Primary Care
--- OUTSIDE RECORDS SUMMARY | 2024-09-30 07:45 | XMS_ITS | Encounter Summary ---
Author Organization [facility] Address [address] [place] [address] Care Team Providers Care Chemistry Intern Name Role Phone Trudy Pascual MD Unavailable Unavaila Dannie Quiroga DO Unavailable Valerie Shahid MD Primary Care Provider [phone] Shmuel Norton MD Unavailable [phone] Encounter Details Date Type Department Care Team (Late st Contact Info) Description 03/28/2024 Scanned Document [facility] BARIATRIC SURG SCAN Bariatrics, Scan Social History Tobacco Use Types Packs/Day Years Used Date Smoking Tobacco: Former Cigarettes 1.5 14 Smokeless Tobacco: Never Comments:QUIT IN 2009 Alcohol [...] Answer Date Recorded PHQ-2 Total Score 0 11/20/2023 Physical Activity Answer Date Recorded On average, how many days pe r week do you engage in moderate to strenuous exercise (like a brisk walk)? 5 days 11/20/2023 On average, how many minutes do you exercise per day at this level? 30 min 11/20/2023 Comments No Sex and Gender Information Value Date Recorded Sex Assigned at Female 10/27/2023 12:28 PM EDT Legal Sex Female 3:24 PM EDT Gender Identity Female 08/23/2020 6:42 AM EDT Sexual Orientation Not on file documented as of this encounter Plan of Treatment Upcoming Encounters Date Type Department Care Team (Late st Contact Info) Description 10/24/2024 1:00 PM EDT Consult [facility] [address] [place] [address] Radha Escalante MD [address] [place], [place] [id number] 11/21/2024 3:00 PM EDT Office Visit [facility] 100 [facility] [address] [place] [address] Valerie Shahid MD [address] [place] [address] documented as of this encounter Visit Diagnoses Not on filedocumented in this encounter Care Teams Chemistry Intern Relationship Specialty Start Date End Date Trudy Pascual MD PCP - Hospice Attending 08/27/22 Dannie Honeycutt DO [address] [place] [address] PCP - [place] Commercial Attributed 03/25/23 Valerie Shahid MD [address] [place] [address] PCP - General Internal Medicine 10/29/23 Shmuel Norton MD [address] [place] [address] Obstetrics and Gynecology 12/16/23 documented as of this encounter
--- OUTSIDE RECORDS SUMMARY | 2024-09-30 07:45 | XMS_ITS | Clinical Summary ---
Author Organization [facility] Address [address] [place] [address] Care Team Providers Care Freight Brakeman Name Role Phone Trudy Pascual MD Unavailable Unavaila Dannie Quiroga DO Unavailable Valerie Shahid MD Primary Care Provider [phone] Shmuel Norton MD Unavailable [phone] Allergies Active Allergy Reactions Criticality Noted Date Comments Bacitracin Dermatitis 05/07/2015 Cephalosporins Dermatitis 05/07/2015 Oxycodone-Acetaminophen Other (See Comments) emotional Sulfa Antibiotics Dermatitis,Rash/Dermatitis Low Medications fluticasone (FloNASE) 50 mcg/spray nasal spray USE 2 PUFFS IN THE NOSTRILS DAILY 0 04/23/2016 Active acyclovir (ZOVIRAX) 400 mg tabletIndicatio ns:Herpes simplex Take 1 tablet (400 mg total) by mouth 2 (two) times a day. 180 tablet 3 06/17/2016 Active cetirizine (ZyrTEC) 10 MG tablet Take 1 tablet (10 mg total) by mouth. Active Multiple Vitamin (MULTIVITAMIN) capsule Take 1 capsule by mouth daily. Gastric sleeve vitamins Active Simpesse 0.15-0.03 &0.01 MG Tab Take 1 tablet by mouth daily. 09/30/2023 Active Multiple Vitamins-Minera ls (BARIATRIC MULTIVITAMINS/I RICHARDSON PO) Take by mouth. Active nystatin (MYCOSTATIN) 197320 UNIT/ML suspensionIndic ations:Oral thrush Take 5 mL (500,000 Units total) by mouth 4 (four) times a day. 140 mL 05/28/2024 Active Active Problems Problem Noted Date Diagnosed Date Overweight 12/16/2023 Family history of colonic polyps 09/25/2021 Assessment & Plan (09/25/2021 12:59 PM EDT): Discussed scheduling colonoscopy for cancer screening Patient concerned about completing bowel prep due to history of gastric sleeve surgery and limited intake--unsure if she can tolerate high-volume liquids Discussed different preps including magnesium citrate, Clenpiq and Sutab. Patient will discuss options with her bariatric surgeon before scheduling the colonoscopy. Patient will call the office once she speaks with her surgeon and decides on which prep she would prefer and would better tolerate--order can placed at that time S/P bariatric surgery 02/13/2021 Herpes genitalia 05/07/2015 Headache Overview (10/29/2023): Sinus-intermittent Resolved Problems Problem Noted Date Diagnosed Date Resolved Date Acute frontal sinusitis 02/13/2021 06/10/2023 Routine general medical exam ination at a health care facility 07/31/2020 12/16/2023 RUQ pain 08/11/2018 10/29/2023 Assessment & Plan (09/25/2021 1:00 PM EDT): Prior work-up included US x 2 negative, HIDA negative, EGD (2017) with mild antral erosions, CT (2018) with mild fatty liver. PPI tx did not have long-lasting effect. IB gretchen without benefit Pt declined TCA. Symptoms greatly improved overall Follow clinically Assessment & Plan (02/14/2019 1:44 PM EDT): Workup thus far: US x 2 negative, HIDA negative, EGD (2017) with mild antral erosions, CT (2018) with mild fatty liver. PPI tx did not have long-lasting effect. IB gretchen did not work. Pt declined TCA. Continued significant improvement/ almost complete resolution with low FODMAPs elim diet and warm compresses. Denies any alarm symptoms of dysphagia, unintentional weight loss, early satiety, blood in stool, or family history of GI malignancy. Was unable to taper off the H2 zee longer than 4 days. 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 The FDA states that these levels are likely similar to what is found in common foods per preliminary tests and is currently not recommending discontinuation or recall of ranitidine products. That being said until further testing is done, I recommended she switch to famotidine (pepcid) 20mg daily instead of the ranitidine. She verbalized understanding/agreement. She will follow up with me as needed if pain returns. Future considerations would include GES and surgical referral for CCY. Assessment & Plan (08/11/2018 1:01 PM EDT): Workup thus far: US x 2 negative, HIDA negative, EGD (2018) with mild antral erosions, CT (2019) with mild fatty liver. PPI tx did not have long-lasting effect. IB gretchen did not work. Pt declined TCA. Now with significant improvement/ almost complete resolution with low FODMAPs elim diet and warm compresses. Going forward, I suggested tapering off H2 zee and continue to re-introduce foods to identify further triggers. She will follow up with me as needed if pain returns. Future considerations would include GES and surgical referral for CCY. Obesity 09/10/2015 11/20/2023 Plantar fasciitis 05/07/2015 07/23/2018 Back pain 10/29/2023 Encounters Date Type Department Care Team Description 08/11/2024 Telephone [facility] [address] [place] [address] Monica Calderón Bypass Screening from Last 3 Months Immunizations Immunization Administration Dates Next Due Covid-19 mRNA Primary Series Vaccine - Moderna 0.5 mL Full Dose 09/27/2020,08/30/2020 Tdap 12/18/2023 Family History Medical History Relation Name Comments No Known Problems Daughter Tia Colon cancer Maternal Aunt Colon polyps Mother Relation Name Status Comments Daughter Tia Alive Father Alive Maternal Aunt Mother Alive Social History Tobacco Use Types Packs/Day Years Used Date Smoking Tobacco: Former Cigarettes 1.5 14 Smokeless Tobacco: Never Tobacco Cessation:Counseling Given: Not Answered Comments:QUIT IN 2009 Alcohol Use Standard Drinks/Week [...] AM EDT Sexual Orientation Not on file Last Filed Vital Signs Vital Sign Reading Time Taken Comments Blood Pressure 113/70 05/28/2024 5:54 PM EST Pulse 78 05/28/2024 5:54 PM EST Temperature 37.1 ??C (98.7 ??F) 05/28/2024 5:54 PM ES T Respiratory Rate 16 05/28/2024 5:54 PM EST Oxygen Saturation 97% 05/28/2024 5:54 PM EST Inhaled Oxygen Concentration - - Weight 63.5 kg (140 lb) 08/11/2024 9:36 AM EDT Height 156.2 cm (5' 1.5 ) 08/11/2024 9:36 AM EDT Body Mass Index 26.02 08/11/2024 9:36 AM EDT Plan of Treatment Upcoming Encounters Date Type Department Care Team (Late st Contact Info) Description 10/24/2024 1:00 PM EDT Consult [address] [place] [phone] Radha Escalante MD [address] [place] [address] 11/21/2024 3:00 PM EDT Office Visit [facility] [address] [place] [phone] Valerie Shahid MD [address] [place] [address] Health Maintenance Due Date Last Done Comments Hepatitis C Virus Screening 1975 Hepatitis B Vaccines (1 of 3 - 19+ 3-dose series) 09/04/1994 Colonoscopy 09/04/2020 COVID-19 Vaccine (2023- season) 2024 04/29/2021, 09/27/2020, 08/30/2020 Influenza Vaccine 12/23/2024 04/04/2020 Mammogram 11/10/2025 11/11/2023, 07/23, 05/09/2019 Physical 11/19/2025 11/20/2023, 06/17/2016 Pap Smear (Ages 21-65) 11/10/2026 , 07/30/2022, 07/17/2021, Additional history exists DTaP/Tdap/Td Vaccines (2 - Td or Tdap) 12/17/2033 12/18/2023 HIV Screening Discontinued Pneumococcal Vaccine: Pediatric (0-5 Years) and At-Risk Patients (6 to 49 Years) Aged Out No longer eligible based on patient's age to complete this topic Procedures Procedure Name Priority Date/Time Associated Diagnosis Comments IMAGING BREAST/BX/MAMMO Routine 11/11/2023 1:05 PM EDT THINPREP PAP TEST (REVERSE ENGINEER) WITH HPV REFLEX Routine 11/11/2023 12:00 AM EDT from Last 3 Months or Most Recently Relevant to Health Maintenance Results * Imaging Breast/Bx/Mammo Result (11/11/2023 1:05 PM EDT) Anatomical Region Laterality Modality Other us Scan Obstetrics And Gynecology IMG LEGACY PROCED URES Edited Result - Final * ThinPrep Pap Test (Ecg Technician) with HPV Reflex (11/11/2023 12:00 AM EDT) Clinical Information [facility] Comment:None given LMP: [facility] Comment:NONE GIVEN Previous PAP: [facility] Comment:NONE GIVEN Previous Biopsy [facility] Comment:NONE GIVEN Source: [facility] Comment:Cervix, Endocervix Statement of Adequacy: [facility] Comment: Satisfactory for evaluation. Endocervical/transformation zone component absent. Interpretation/Resu lt: [facility] Comment: Cytology Results: Negative for intraepithelial lesion or malignancy. Comment: [facility] Comment: This Pap test has been evaluated with computer assisted technology. Application Tester: [facility] Comment: ALS, CT(ASCP) CT screening location: [address] ??[address] Comment [facility] Comment: EXPLANATORY NOTE: The Pap is a screening test for cervical cancer. It is not a diagnostic test and is subject to false negative and false positive results. It is most reliable when a satisfactory sample, regularly obtained, is submitted with relevant clinical findings and history, and when the Pap result is evaluated along with historic and current clinical information. 11/11/2023 11/12/2023 3:1 8 AM EDT Narrative [facility] - 11/13/2023 9:19 AM EDT [id number] HXP Shmuel Norton MD LAB AMB PATH/CYTO ORDERABL ES Final Result [facility] [address] [facility] [address], [place] [address] from Last 3 Months or Most Recently Relevant to Health Maintenance Insurance [facility] Member Subscriber Plan / Payer ([employer] 12/30/2014-Present) Name:Irwin Valenciaa Mikaela Relation to Subscriber:Self Name:Irwin Valenciafabi Al Payer ID:[id number] (NAIC) Group ID:[id number] Type:Not on file Address: [address] [facility] Care Teams Freight Brakeman Relationship Specialty Start Date End Date Trudy Pascual MD PCP - Hospice Attending 08/27/22 Dannie Honeycutt DO [address] [place] [address] PCP - [place] [employer] Attributed 03/25/23 Valerie Shahid MD [address] [place] [address] PCP - General Internal Medicine 10/29/23 Shmuel Norton MD [address] [place] [address] Obstetrics and Gynecology 12/16/23
--- OUTSIDE RECORDS SUMMARY | 2024-09-30 07:46 | XMS_ITS | Encounter Summary ---
Author Organization [facility] Address [address] [place] [address] Care Team Providers Care Landscape Designer Name Role Phone Bethany Hernandez MD Primary Care Provider [phone] Khushbu John APRN Primary Care Provider [phone] Trudy Pascual MD Primary Care Provider Un available Jack Goodman DO Unavailable [phone] Trudy Pascual MD Unavailable UnavailTrudy Ogden MD Unavailable UnavailTrudy Ogden MD Unavailable UnavailTrudy Ogden MD Unavailable UnavailGodwin Gabriel MD Primary Care Provider [phone] Trudy Pascual MD Primary Care Provider Un available Dannie Honeycutt DO Unavailable Valerie Shahid MD Primary Care Provider [phone] Shmuel Norton MD Unavailable [phone] Encounter Details Date Type Department Care Team (Late st Contact Info) Description 06/21/2015 Scanned Document [address] [address] Provider, Generic Social History Tobacco Use Types Packs/Day Years Used Date Smoking Tobacco: Former Alcohol Use Standard Drinks/Week Comments Yes 0 (1 standard drink = 0.6 oz pur e alcohol) Comments Unknown Sex and Gender Information Value Date Recorded Sex Assigned at Female 10/27/2023 12:28 PM EDT Legal Sex Female 3:24 PM EDT Gender Identity Female 08/23/2020 6:42 AM EDT Sexual Orientation Not on file documented as of this encounter Plan of Treatment Upcoming Encounters Date Type Department Care Team (Late st Contact Info) Description 10/24/2024 1:00 PM EDT Consult [facility] [address] [place] [phone] Radha Escalante MD [address] [place] [address] 11/21/2024 3:00 PM EDT Office Visit [facility] [address] [facility] [address] [place] [phone] Valerie Shahid MD [address] [place] [address] documented as of this encounter Visit Diagnoses Not on filedocumented in this encounter Care Teams Landscape Designer Relationship Specialty Start Date End Date Bethany Hernandez MD PCP - General Internal Medicine 06/20/15 07/24/19 Khushbu John APRN [address] [place] [address] PCP - General Family Medicine 07/25/19 07/08/20 Trudy Pascual MD [address] [place] [address] PCP - General Internal Medicine 07/09/20 08/26/22 Jack Goodman DO [address] [place] [address] PCP - [place] [employer] Attributed 09/22/20 12/22/20 Trudy Pascual MD Retired provider PCP - [place] [employer] Attributed 12/23/20 03/24/21 Trudy Pascual MD Retired provider PCP - [place] [employer] Attributed 05/25/21 10/22/21 Trudy Pascual MD Retired provider PCP - [place] [employer] Attributed 12/23/21 09/21/22 Trudy Pascual MD [address] [place] [address] PCP - Hospice Attending 08/27/22 Godwin Snowden MD [address] [place] [address] PCP - General Surgery, General 08/27/22 02/25/23 Trudy Pascual MD [address] [place] [address] PCP - General Internal Medicine 02/26/23 10/28/23 Dannie Honeycutt DO [facility] [place] [address] PCP - [place] [employer] Attributed 03/25/23 Valerie Shahid MD [address] [place] [phone] PCP - General Internal Medicine 10/29/23 Shmuel Norton MD [address] [place] [address] Obstetrics and Gynecology 12/16/23 documented as of this encounter
--- OUTSIDE RECORDS SUMMARY | 2024-09-30 07:46 | XMS_ITS | Clinical Summary ---
Author Organization [facility] Address [address] [place] [address] Care Team Providers Care Store Administrator Name Role Phone Bethany Hernandez MD Primary Care Provider [phone] Surgical History Surgery Date Site/Laterality Comments WISDOM TOOTH EXTRACTION PROCEDURE:WISDOM TOOTH EXTRACTION UPPER GASTROINTESTINAL ENDOSCOPY 03/08/2018 N/A PROCEDURE:UPPER GASTROINTESTINAL ENDOSCOPY;COMMENT:Procedure: UPPER ENDOSCOPY-EGD; Surgeon: Hussein Garcia MD; Location: [facility]; Service: Gastroenterology; Laterality: N/A; Medical History Medical History Date Comments Asthma DX:Asthma;COMMEN T:as a child Family History Medical History Relation Name Comments Cancer Father's Sister Cancer Mother's Sister Relation Name Status Comments Father's Sister Mother's Sister Social History Tobacco Use Types Packs/Day Years Used Date Smoking Tobacco: Former Cigarettes Q uit: 05/25/2009 Smokeless Tobacco: Never Alcohol Use Standard Drinks/Week Comments Yes 0 (1 standard drink = 0.6 oz pur e alcohol) Comments Unknown Sex and Gender Information Value Date Recorded Sex Assigned at Not on file Legal Sex Female 12:07 AM EST Gender Identity Not on file Sexual Orientation Not on file Obstetrics History Plan of Treatment Health Maintenance Due Date Last Done Comments Breast Cancer Screening 1975 DTaP,Tdap,and Td Vaccines (1 - Tdap) 09/04/1994 Hepatitis B Vaccines (1 of 3 - 19+ 3-dose series) 09/04/1994 Cervical Cancer Screening: P ap Smear 09/04/1996 COVID-19 Vaccine (2023-2 5 season) 2024 Influenza Vaccine (Season Ended) 2025 HIB Vaccines Aged Out No longer eligi ble based on patient's age to complete this topic HPV Vaccines Aged Out No longer eligi ble based on patient's age to complete this topic Hepatitis A Vaccines Aged Out No long er eligible based on patient's age to complete this topic IPV Vaccines Aged Out No longer eligi ble based on patient's age to complete this topic MMR Vaccines Aged Out No longer eligi ble based on patient's age to complete this topic Meningococcal ACWY Vaccine Aged Out N o longer eligible based on patient's age to complete this topic Meningococcal B Vaccine Aged Out No l onger eligible based on patient's age to complete this topic Pneumococcal Vaccine: Pediat rics (0 to 5 Years) and At-Risk Patients (6 to 64 Years) Aged Out No longer eligible b ased on patient's age to complete this topic RSV Immunization Patients Un pura 20 months Aged Out No longer eligible b ased on patient's age to complete this topic Varicella Vaccines Aged Out No longer eligible based on patient's age to complete this topic Care Teams Store Administrator Relationship Specialty Start Date End Date Bethany Hernandez MD [address] [place] [address] PCP - General Internal Medicine 03/01/18
--- OUTSIDE RECORDS SUMMARY | 2024-09-30 07:46 | XMS_ITS | Encounter Summary ---
Author Organization [facility] Address [address] [place] [address] Care Team Providers Care Handmade Tile Artist Name Role Phone Trudy Pascual MD Unavailable UnavailGodwin Gabriel MD Primary Care Provider [phone] Trudy Pascual MD Primary Care Provider Un available Dannie Honeycutt DO Unavailable Valerie Shahid MD Primary Care Provider [phone] Shmuel Norton MD Unavailable [phone] Encounter Details Date Type Department Care Team (Late st Contact Info) Description 10/02/2022 Scanned Document [facility] ENDOCR[facility] SCAN Endocrinology, Scan Social History [...] Description 10/24/2024 1:00 PM EDT Consult [facility] [address] [place] [phone] Radha Escalante MD [address] [place] [address] 11/21/2024 3:00 PM EDT Office Visit [facility] [address] [facility] [address] [place] [phone] Valerie Shahid MD [address] [place] [address] documented as of this encounter Visit Diagnoses Not on filedocumented in this encounter Care Teams Handmade Tile Artist Relationship Specialty Start Date End Date Trudy Pascual MD PCP - Hospice Attending 08/27/22 Godwin Snowden MD [address] [place] [address] PCP - General Surgery, General 08/27/22 02/25/23 Trudy Pascual MD PCP - General Internal Medicine 02/26/23 10/28/23 Dannie Honeycutt DO [address] [place] [address] PCP - [place] Commercial Attributed 03/25/23 Valerie Shahid MD [address] [place] [address] PCP - General Internal Medicine 10/29/23 Shmuel Norton MD [address] [place] [address] Obstetrics and Gynecology 12/16/23 documented as of this encounter
--- OUTSIDE RECORDS SUMMARY | 2024-09-30 07:46 | XMS_ITS | Encounter Summary ---
Author Organization [facility] Address [address] [place] [address] Care Team Providers Care Sample Patternmaker Name Role Phone Bethany Hernandez MD Primary Care Provider [phone] Khushbu John APRN Primary Care Provider [phone] Trudy Pascual MD Primary Care Provider Un available Jack Goodman DO Unavailable [phone] Trudy Pascual MD Unavailable UnavailTrudy Ogden MD Unavailable UnavailTrudy Ogden MD Unavailable UnavailTrudy Ogden MD Unavailable UnavailGodwin Gabriel MD Primary Care Provider [phone] Trudy Pascual MD Primary Care Provider Un available Dannie Honeycutt DO Unavailable Valerie Shahid MD Primary Care Provider [phone] Shmuel Norton MD Unavailable [phone] Encounter Details Date Type Department Care Team (Late st Contact Info) Description 04/12/2018 Scanned Document [address] [address] Provider, Generic Social History Tobacco [...] Description 10/24/2024 1:00 PM EDT Consult [facility] [address] [place] [phone] Radha Escalante MD [address] [place] [address] 11/21/2024 3:00 PM EDT Office Visit [facility] [address] [facility] [address] [place] [address] Valerie Shahid MD [address] [place] [address] documented as of this encounter Visit Diagnoses Not on filedocumented in this encounter Care Teams Sample Patternmaker Relationship Specialty Start Date End Date Bethany Hernandez MD PCP - General Internal Medicine 06/20/15 07/24/19 Khushbu John APRN [address] [place] [address] PCP - General Family Medicine 07/25/19 07/08/20 Trudy Pascual MD [address] [place] [address] PCP - General Internal Medicine 07/09/20 08/26/22 Jack Goodman DO [address] [place] [address] PCP - [place] Commercial Attributed 09/22/20 12/22/20 Trudy Pascual MD Retired provider PCP - [place] [employer] Attributed 12/23/20 03/24/21 Trudy Pascual MD Retired provider PCP - [place] [employer] Attributed 05/25/21 10/22/21 Trudy Pascual MD Retired provider PCP - [place] [employer] Attributed 12/23/21 09/21/22 Trudy Pascual MD [address] [place] [address] PCP - Hospice Attending 08/27/22 Godwin Snowden MD [address] [place] [address] PCP - General Surgery, General 08/27/22 02/25/23 Trudy Pascual MD [address] [place] [address] PCP - General Internal Medicine 02/26/23 10/28/23 Dannie Honeycutt DO [address] [place] [address] PCP - [place] Commercial Attributed 03/25/23 Valerie Shahid MD [address] [place] [address] PCP - General Internal Medicine 10/29/23 Shmuel Norton MD [address] [place] [address] Obstetrics and Gynecology 12/16/23 documented as of this encounter
--- OUTSIDE RECORDS SUMMARY | 2024-09-30 07:46 | XMS_ITS | Encounter Summary ---
Author Organization [facility] Address [address] [place] [address] Care Team Providers Care Focused Factory Manager Name Role Phone Bethany Hernandez MD Primary Care Provider [phone] Khushbu John APRN Primary Care Provider [phone] Trudy Pascual MD Primary Care Provider Un available Jack Goodman DO Unavailable [phone] Trudy Pascual MD Unavailable UnavailTrudy Ogden MD Unavailable UnavailTrudy Ogden MD Unavailable UnavailTrudy Ogden MD Unavailable UnavailGodwin Gabriel MD Primary Care Provider [phone] Trudy Pascual MD Primary Care Provider Un available Dannie Honeycutt DO Unavailable Valerie Shahid MD Primary Care Provider [phone] Shmuel Norton MD Unavailable [phone] Reason for Visit * Reason Comments Medication Refill Encounter Details Date Type Department Care Team (Late st Contact Info) Description 09/21/[address] [address] Bethany Hernandez MD [address] [place], [place] [address] [address] [address] Health care maintenance Social History Tobacco Use Types Packs/Day Years [...] on file documented as of this encounter Miscellaneous Notes * Telephone Encounter - Dior Garcia RN - 09/21/2017 7:15 AM EDT Due for ov documented in this encounter Plan of Treatment Upcoming Encounters Date Type Department Care Team (Late st Contact Info) Description 10/24/2024 1:00 PM EDT Consult [facility] [address] [place] [phone] Radha Escalante MD [address] [place] [address] 11/21/2024 3:00 PM EDT Office Visit [address] [place] [address] Valerie Shahid MD [address] [place], [place] [phone] documented as of this encounter Visit Diagnoses Diagnosis Health care maintenance documented in this encounter Care Teams Focused Factory Manager Relationship Specialty Start Date End Date Bethany Hernandez MD PCP - General Internal Medicine 06/20/15 07/24/19 Khushbu John APRN [address] [place] [address] PCP - General Family Medicine 07/25/19 07/08/20 Trudy Pascual MD [address] [place] [address] PCP - General Internal Medicine 07/09/20 08/26/22 Jack Goodman DO [address] [place], [place] [phone] PCP - [place] Commercial Attributed 09/22/20 12/22/20 Trudy Pascual MD Retired provider PCP - [place] [employer] Attributed 12/23/20 03/24/21 Trudy Pascual MD Retired provider PCP - [place] [employer] Attributed 05/25/21 10/22/21 Trudy Pascual MD Retired provider PCP - [place] [employer] Attributed 12/23/21 09/21/22 Trudy Pascual MD [address] [place] [address] PCP - Hospice Attending 08/27/22 Godwin Snowden MD [address] [place] [address] PCP - General Surgery, General 08/27/22 02/25/23 Trudy Pascual MD [address] [place] [address] PCP - General Internal Medicine 02/26/23 10/28/23 Dannie Honeycutt DO [facility] [place] [address] PCP - [place] Commercial Attributed 03/25/23 Valerie Shahid MD [address] [place] [address] PCP - General Internal Medicine 10/29/23 Shmuel Norton MD [address] [place] [address] Obstetrics and Gynecology 12/16/23 documented as of this encounter
--- OUTSIDE RECORDS SUMMARY | 2024-09-30 07:46 | XMS_ITS | Encounter Summary ---
Author Organization [facility] Address [address] [place] [address] Care Team Providers Care Review Consultant Name Role Phone Bethany Hernandez MD Primary Care Provider [phone] Khushbu John APRN Primary Care Provider + [phone] Trudy Pascual MD Primary Care Provider Un available Jack Goodman DO Unavailable [phone] Trudy Pascual MD Unavailable UnavailTrudy Ogden MD Unavailable UnavailTrudy Ogden MD Unavailable UnavailTrudy Ogden MD Unavailable UnavailGodwin Gabriel MD Primary Care Provider [phone] Trudy Pascual MD Primary Care Provider Un available Dannie Honeycutt DO Unavailable Valerie Shahid MD Primary Care Provider [phone] Shmuel Norton MD Unavailable [phone] Encounter Details Date Type Department Care Team (Late st Contact Info) Description 05/11/2018 Scanned Document [address] [phone] Provider, Generic Social History Tobacco [...] Description 10/24/2024 1:00 PM EDT Consult CTGI [address] [place] [address] Radha Escalante MD 85 [place] [address] 11/21/2024 3:00 PM EDT Office Visit [facility] 100 [facility] [address] [place] [address] Valerie Shahid MD 100 [place] [address] documented as of this encounter Visit Diagnoses Not on filedocumented in this encounter Care Teams Review Consultant Relationship Specialty Start Date End Date Bethany Hernandez MD PCP - General Internal Medicine 06/20/15 07/24/19 Khushbu John APRN [address] [place] [address] PCP - General Family Medicine 07/25/19 07/08/20 Trudy Pascual MD [address] [place] [address] PCP - General Internal Medicine 07/09/20 08/26/22 Jack Goodman DO [address] [place] [address] PCP - [place] [employer] Attributed 09/22/20 12/22/20 Trudy Pascual MD Retired provider PCP - [place] [employer] Attributed 12/23/20 03/24/21 Trudy Pascual MD Retired provider PCP - [place] [employer] Attributed 05/25/21 10/22/21 Trudy Pascual MD Retired provider PCP - [place] [employer] Attributed 12/23/21 09/21/22 Trudy Pascual MD [address] [place] [address] PCP - Hospice Attending 08/27/22 Godwin Snowden MD [address] [place] [address] PCP - General Surgery, General 08/27/22 02/25/23 Trudy Pascual MD [address] [place] [address] PCP - General Internal Medicine 02/26/23 10/28/23 Dannie Honeycutt DO [address] [place] [address] PCP - [place] [employer] Attributed 03/25/23 Valerie Shahid MD [address] [place] [address] PCP - General Internal Medicine 10/29/23 Shmuel Norton MD [address] [place] [address] Obstetrics and Gynecology 12/16/23 documented as of this encounter
--- OUTSIDE RECORDS SUMMARY | 2024-09-30 07:46 | XMS_ITS | Encounter Summary ---
Author Organization [facility] Address [address] [place] [address] Care Team Providers Care Retention Specialist Name Role Phone Bethany Hernandez MD Primary Care Provider [phone] Khushbu John APRN Primary Care Provider + [phone] Trudy Pascual MD Primary Care Provider Un available Jack Goodman DO Unavailable [phone] Trudy Pascual MD Unavailable UnavailTrudy Ogden MD Unavailable UnavailTrudy Ogden MD Unavailable UnavailTrudy Ogden MD Unavailable UnavailGodwin Gabriel MD Primary Care Provider [phone] Trudy Pascual MD Primary Care Provider Un available Dannie Honeycutt DO Unavailable Valerie Shahid MD Primary Care Provider [phone] Shmuel Norton MD Unavailable [phone] Encounter Details Date Type Department Care Team (Late st Contact Info) Description 01/14/2017 Scanned Document [address] [phone] Provider, Generic Social History Tobacco [...] Description 10/24/2024 1:00 PM EDT Consult [facility]GI [address] [place] [address] Radha Escalante MD 85 [place] [address] 11/21/2024 3:00 PM EDT Office Visit [facility] 100 [facility] [address] [place] [address] Valerie Shahid MD 100 [place] [address] documented as of this encounter Visit Diagnoses Not on filedocumented in this encounter Care Teams Retention Specialist Relationship Specialty Start Date End Date Bethany Hernandez MD PCP - General Internal Medicine 06/20/15 07/24/19 Khushbu John APRN [address] [place] [address] PCP - General Family Medicine 07/25/19 07/08/20 Trudy Pascual MD [address] [place] [address] PCP - General Internal Medicine 07/09/20 08/26/22 Jack Goodman DO [address] [place] [address] PCP - [place] [employer] Attributed 09/22/20 12/22/20 Trudy Pascual MD Retired provider PCP - [place] [employer] Attributed 12/23/20 03/24/21 Trudy Pascual MD Retired provider PCP - [place] [employer] Attributed 05/25/21 10/22/21 Trudy Pascual MD Retired provider PCP - [place] [employer] Attributed 12/23/21 09/21/22 Trudy Pascual MD [address] [place] [address] PCP - Hospice Attending 08/27/22 Godwin Snowden MD [address] [place] [address] PCP - General Surgery, General 08/27/22 02/25/23 Trudy Pascual MD [address] [place] [address] PCP - General Internal Medicine 02/26/23 10/28/23 Dannie Honeycutt DO [facility] [place] [address] PCP - [place] [employer] Attributed 03/25/23 Valerie Shahid MD [address] [place] [id number] PCP - General Internal Medicine 10/29/23 Shmuel Norton MD [address] [place] [address] Obstetrics and Gynecology 12/16/23 documented as of this encounter
--- OUTSIDE RECORDS SUMMARY | 2024-09-30 07:46 | XMS_ITS | Encounter Summary ---
Author Organization [facility] Address [address] [place] [address] Care Team Providers Care Network Administrator Name Role Phone Trudy Pascual MD Unavailable Unavaila Trudy Trejo MD Primary Care Provider Un available Dannie Honeycutt DO Unavailable Valerie Shahid MD Primary Care Provider [phone] Shmuel Norton MD Unavailable [phone] Encounter Details Date Type Department Care Team (Late st Contact Info) Description 03/25/2023 Scanned Document [facility] BARIATRICS SCAN Bariatrics, Scan Social History Tobacco Use [...] Description 10/24/2024 1:00 PM EDT Consult [facility]GI [facility] [address] [facility] [address] [place] [phone] Radha Escalante MD 85 [place], [place] [id number] 11/21/2024 3:00 PM EDT Office Visit [facility] 100 [facility] [address] [place] [phone] Valerie Shahid MD 100 [place] [address] documented as of this encounter Visit Diagnoses Not on filedocumented in this encounter Care Teams Network Administrator Relationship Specialty Start Date End Date Trudy Pascual MD PCP - Hospice Attending 08/27/22 Trudy Pascual MD PCP - General Internal Medicine 02/26/23 10/28/23 Dannie Honeycutt DO [address] [place] [address] PCP - [place] [employer] Attributed 03/25/23 Valerie Shahid MD 100 [place] [address] PCP - General Internal Medicine 10/29/23 Shmuel Norton MD 100 [place] [address] Obstetrics and Gynecology 12/16/23 documented as of this encounter
--- OUTSIDE RECORDS SUMMARY | 2024-09-30 07:46 | XMS_ITS | Clinical Summary ---
Author Organization [facility] Address [address] [place] [address] Care Team Providers Care Manager Of Training Name Role Phone Bethany Hernandez MD Primary Care Provider [phone] Allergies Active Allergy Reactions Criticality Noted Date Comments Bacitracin Other (See Comments) Medium 02/26/2018 cellulitis Cephalosporins Rash Low 02/26/2018 Sulfa Antibiotics Rash Low 02/26/2018 Medications Medication Sig Dispensed Refills Start Date End Date Status Levonorgest-Eth Estrad - 0.15-0.03 &0.01 MG TABS Take 1 tablet by mouth daily. 1 12/29/2017 Active cetirizine (ZyrTEC) 10 MG tablet Take 10 mg by mouth as needed for allergies (twice a day). 0 Active fluticasone (FLONASE) 50 MCG/ACT nasal spray spray/apply 2 sprays in each nostril daily. 0 Active Esomeprazole Magnesium (NEXIUM PO) Take 1 capsule by mouth daily. 0 Active Family History Medical History Relation Name Comments Cancer Maternal Aunt Cancer Paternal Aunt Relation Name Status Comments Maternal Aunt Paternal Aunt Social History Tobacco Use Types Packs/Day Years Used Date Smoking Tobacco: Former Cigarettes Q uit: 2010 Smokeless Tobacco: Never Alcohol Use Standard Drinks/Week Comments Yes 0 (1 standard drink = 0.6 oz pur e alcohol) socially very rarely Sex and Gender Information Value Date Recorded Sex Assigned at Not on file Gender Identity Not on file Sexual Orientation Not on file Last Filed Vital Signs Vital Sign Reading Time Taken Comments Blood Pressure 108/65 03/08/2018 9:46 AM EDT Pulse 70 03/08/2018 9:46 AM EDT Temperature 36.4 ??C (97.6 ??F) 03/08/2018 9:30 AM ED T Respiratory Rate 20 03/08/2018 9:46 AM EDT Oxygen Saturation 98% 03/08/2018 9:35 AM EDT Inhaled Oxygen Concentration - - Weight 108.9 kg (240 lb) 02/26/2018 3:45 PM EDT Height 157.5 cm (5' 2 ) 02/26/2018 3:45 PM EDT Body Mass Index 43.9 02/26/2018 3:45 PM EDT Plan of Treatment Health Maintenance Due Date Last Done Comments Hepatitis B Vaccines (1 of 3 - 3-dose series) 1975 Hepatitis C Screening 1975 COVID-19 Vaccine (#1) 03/06/1976 Depression Screening 1987 Preventative Health Evaluation 09/04/1993 DTap / Tdap / Td (1 - Tdap) 09/04/1994 Cervical Cancer Screening (P ap Smear) 09/04/1996 Colon Cancer Screening (Colonoscopy) 09/04/2020 Influenza Vaccine (#1) 2024 04/04/2020 Pneumococcal Vaccine Aged Out No long er eligible based on patient's age to complete this topic RSV Ped < 20 months Aged Out No longe r eligible based on patient's age to complete this topic Care Teams Manager Of Training Relationship Specialty Start Date End Date Bethany Hernandez MD [address] [facility] [address] [place] [address] PCP - General Internal Medicine 03/01/18
--- OUTSIDE RECORDS SUMMARY | 2024-09-30 07:46 | XMS_ITS | Encounter Summary ---
Author Organization [facility] Address [address] [place] [address] Care Team Providers Care Journeyman Mechanic Name Role Phone Bethany Hernandez MD Primary Care Provider [phone] Khushbu John APRN Primary Care Provider + [phone] Trudy Pascual MD Primary Care Provider Un available Jack Goodman DO Unavailable [phone] Trudy Pascual MD Unavailable UnavailTrudy Ogden MD Unavailable UnavailTrudy Ogden MD Unavailable UnavailTrudy Ogden MD Unavailable UnavailGodwin Gabriel MD Primary Care Provider [phone] Trudy Pascual MD Primary Care Provider Un available Dannie Honeycutt DO Unavailable Valerie Shahid MD Primary Care Provider [phone] Shmuel Norton MD Unavailable [phone] Encounter Details Date Type Department Care Team (Late st Contact Info) Description 03/13/2016 Scanned Document [address] [phone] Provider, Generic Social History Tobacco [...] on file documented as of this encounter Progress Notes * Bethany Hernandez - 03/14/2016 8:05 AM EDT Please advise her to schedule wellness visit documented in this encounter Plan of Treatment Upcoming Encounters Date Type Department Care Team (Late st Contact Info) Description 10/24/2024 1:00 PM EDT Consult CTGI [address] [place] [address] Radha Escalante MD 85 [place], [place] [phone] 11/21/2024 3:00 PM EDT Office Visit [facility] 100 [facility] 101 [place] [address] Valerie Shahid MD 100 [place] [address] documented as of this encounter Visit Diagnoses Not on filedocumented in this encounter Care Teams Journeyman Mechanic Relationship Specialty Start Date End Date Bethany Hernandez MD PCP - General Internal Medicine 06/20/15 07/24/19 Khushbu John APRN [address] [place] [address] PCP - General Family Medicine 07/25/19 07/08/20 Trudy Pascual MD [address] [place] [address] PCP - General Internal Medicine 07/09/20 08/26/22 Jack Goodman DO [address] [place] [address] PCP - [place] [employer] Attributed 09/22/20 12/22/20 Trudy Pascual MD Retired provider PCP - [place] [employer] Attributed 12/23/20 03/24/21 Trudy Pascual MD Retired provider PCP - [place] [employer] Attributed 05/25/21 10/22/21 Trudy Pascual MD Retired provider PCP - [place] [employer] Attributed 12/23/21 09/21/22 Trudy Pascual MD [address] [place], [place] [id number] PCP - Hospice Attending 08/27/22 Godwin Snowden MD [address] [place] [address] PCP - General Surgery, General 08/27/22 02/25/23 Trudy Pascual MD [address] [place], [place] [address] PCP - General Internal Medicine 02/26/23 10/28/23 Dannie Honeycutt DO [address] [place] [address] PCP - [place] [employer] Attributed 03/25/23 Valerie Shahid MD [address] [place] [address] PCP - General Internal Medicine 10/29/23 Shmuel Norton MD [address] [place] [id number] Obstetrics and Gynecology 12/16/23 documented as of this encounter
--- OUTSIDE RECORDS SUMMARY | 2024-09-30 07:46 | XMS_ITS | Encounter Summary ---
Author Organization [facility] Address [address] [place] [address] Care Team Providers Care Skewer Up Name Role Phone Trudy Pascual MD Primary Care Provider Un available Trudy Pascual MD Unavailable UnavailTrudy Ogden MD Unavailable Unavaila Godwin Franklin MD Primary Care Provider [phone] Trudy Pascual MD Primary Care Provider Un available Dannie Honeycutt DO Unavailable Valerie Shahid MD Primary Care Provider [phone] Shmuel Norton MD Unavailable [phone] Encounter Details Date Type Department Care Team (Late st Contact Info) Description 02/26/2022 Scanned Document [facility] [address] [place] [address] Cardiology, Scan Social History Tobacco Use Types Packs/Day [...] Description 10/24/2024 1:00 PM EDT Consult [facility]GI [facility] 113 [facility] [address] [place] [phone] Radha Escalante MD 85 [place], [place] [phone] 11/21/2024 3:00 PM EDT Office Visit [facility] 100 [facility] [address] [place] [phone] Valerie Shahid MD 100 [place], [place] [address] documented as of this encounter Visit Diagnoses Not on filedocumented in this encounter Care Teams Skewer Up Relationship Specialty Start Date End Date Trudy Pascual MD PCP - General Internal Medicine 07/09/20 08/26/22 Trudy Pascual MD Retired provider PCP - [place] [employer] Attributed 12/23/21 09/21/22 Trudy Pascual MD PCP - Hospice Attending 08/27/22 Godwin Snowden MD [address] [address] PCP - General Surgery, General 08/27/22 02/25/23 Trudy Pascual MD PCP - General Internal Medicine 02/26/23 10/28/23 Dannie Honeycutt DO [address]5 [place] [address] PCP - [place] [employer] Attributed 03/25/23 Valerie Shahid MD [address] [place] [address] PCP - General Internal Medicine 10/29/23 Shmuel Norton MD [address] [place] [address] Obstetrics and Gynecology 12/16/23 documented as of this encounter
--- OUTSIDE RECORDS SUMMARY | 2024-09-30 07:46 | XMS_ITS | Encounter Summary ---
Author Organization [facility] Address 100 [place] [address] Care Team Providers Care Hop Separator Name Role Phone Bethany Hernandez MD Primary Care Provider [phone] Khushbu John APRN Primary Care Provider + [phone] Trudy Pascual MD Primary Care Provider Un available Jack Goodman DO Unavailable [phone] Trudy Pascual MD Unavailable UnavailTrudy Ogden MD Unavailable UnavailTrudy Ogden MD Unavailable UnavailTrudy Ogden MD Unavailable UnavailGodwin Gabriel MD Primary Care Provider [phone] Trudy Pascual MD Primary Care Provider Un available Dannie Honeycutt DO Unavailable Valerie Shahid MD Primary Care Provider [phone] Shmuel Norton MD Unavailable [phone] Encounter Details Date Type Department Care Team (Late st Contact Info) Description 03/08/2018 Scanned Document [address] [phone] Provider, Generic Social History Tobacco [...] Description 10/24/2024 1:00 PM EDT Consult [facility]GI [address] [place] [address] Radha Escalante MD 85 [place] [address] 11/21/2024 3:00 PM EDT Office Visit [facility] 100 [facility] [address] [place] [address] Valerie Shahid MD 100 [place] [address] documented as of this encounter Visit Diagnoses Not on filedocumented in this encounter Care Teams Hop Separator Relationship Specialty Start Date End Date Bethany Hernandez MD PCP - General Internal Medicine 06/20/15 07/24/19 Khushbu John APRN [address] [place] [address] PCP - General Family Medicine 07/25/19 07/08/20 Trudy Pascual MD [address] [place] [address] PCP - General Internal Medicine 07/09/20 08/26/22 Jack Goodman DO [address] [place] [address] PCP - [place] [employer] Attributed 09/22/20 12/22/20 Trudy Pascual MD Retired provider PCP - [place] [employer] Attributed 12/23/20 03/24/21 Trudy Pascual MD Retired provider PCP - [place] [employer] Attributed 05/25/21 10/22/21 Trudy Pascual MD Retired provider PCP - [place] [employer] Attributed 12/23/21 09/21/22 Trudy Pascual MD [address] [place] [address] PCP - Hospice Attending 08/27/22 Godwin Snowden MD [address] [place] [address] PCP - General Surgery, General 08/27/22 02/25/23 Trudy Pascual MD [address] [place] [address] PCP - General Internal Medicine 02/26/23 10/28/23 Dannie Honeycutt DO [address] [place] [address] PCP - [place] [employer] Attributed 03/25/23 Valerie Shahid MD [address] [place] [address] PCP - General Internal Medicine 10/29/23 Shmuel Norton MD [address] [place] [address] Obstetrics and Gynecology 12/16/23 documented as of this encounter
--- OUTSIDE RECORDS SUMMARY | 2024-09-30 07:46 | XMS_ITS | Encounter Summary ---
Author Organization [facility] Address [address] [place] [address] Care Team Providers Care Core Shaper Name Role Phone Bethany Hernandez MD Primary Care Provider [phone] Khushbu John APRN Primary Care Provider + [phone] Trudy Pascual MD Primary Care Provider Un available Jack Goodman DO Unavailable [phone] Trudy Pascual MD Unavailable UnavailTrudy Ogden MD Unavailable UnavailTrudy Ogden MD Unavailable UnavailTrudy Ogden MD Unavailable UnavailGodwin Gabriel MD Primary Care Provider [phone] Trudy Pascual MD Primary Care Provider Un available Dannie Honeycutt DO Unavailable Valerie Shahid MD Primary Care Provider [phone] Shmuel Norton MD Unavailable [phone] Encounter Details Date Type Department Care Team (Late st Contact Info) Description 03/08/2018 Scanned Document [address] [phone] Provider, Generic Social History Tobacco [...] 10/24/2024 1:00 PM EDT Consult CTGI [address] [place] [address] Radha Escalante MD 85 [place] [address] 11/21/2024 3:00 PM EDT Office Visit [facility] 100 [facility] [address] [place] [address] Valerie Shahid MD [address] [place] [address] documented as of this encounter Visit Diagnoses Not on filedocumented in this encounter Care Teams Core Shaper Relationship Specialty Start Date End Date Bethany Hernandez MD PCP - General Internal Medicine 06/20/15 07/24/19 Khushbu John APRN [address] [place] [address] PCP - General Family Medicine 07/25/19 07/08/20 Trudy Pascual MD [address] [place] [address] PCP - General Internal Medicine 07/09/20 08/26/22 Jack Goodman DO [address] [place] [address] PCP - [place] [employer] Attributed 09/22/20 12/22/20 Trudy Pascual MD Retired provider PCP - [place] [employer] Attributed 12/23/20 03/24/21 Trudy Pascual MD Retired provider PCP - [place] [employer] Attributed 05/25/21 10/22/21 Trudy Pascual MD Retired provider PCP - [place] [employer] Attributed 12/23/21 09/21/22 Trudy Pascual MD [address] [place] [address] PCP - Hospice Attending 08/27/22 Godwin Snowden MD [address] [place] [address] PCP - General Surgery, General 08/27/22 02/25/23 Trudy Pascual MD [address] [place] [address] PCP - General Internal Medicine 02/26/23 10/28/23 Dannie Honeycutt DO [address] [place] [address] PCP - [place] [employer] Attributed 03/25/23 Valerie Shahid MD [address] [place] [address] PCP - General Internal Medicine 10/29/23 Shmuel Norton MD [address] [place] [address] Obstetrics and Gynecology 12/16/23 documented as of this encounter
--- OUTSIDE RECORDS SUMMARY | 2024-09-30 07:46 | XMS_ITS | Encounter Summary ---
Author Organization [facility] Address [address] [place] [address] Care Team Providers Care Order Picker Name Role Phone Trudy Pascual MD Primary Care Provider Un available Trudy Pascual MD Unavailable UnavailTrudy Ogden MD Unavailable Unavaila Godwin Franklin MD Primary Care Provider [phone] Trudy Pascual MD Primary Care Provider Un available Dannie Honeycutt DO Unavailable Valerie Shahid MD Primary Care Provider [phone] Shmuel Norton MD Unavailable [phone] Encounter Details Date Type Department Care Team (Late st Contact Info) Description 04/14/2022 Scanned Document [address] [phone] Bariatric Surgery, Scan Social History Tobacco Use [...] Exposure Response Date Recorded In the last 10 days, have yo u been in contact with someone who was confirmed or suspected to have Coronavirus/COVID-19? No / Unsure 03/27/2022 5:13 PM EDT documented as of this encounter Plan of Treatment Upcoming Encounters Date Type Department Care Team (Late st Contact Info) Description 10/24/2024 1:00 PM EDT Consult [facility]GI [address] [place] [address] Radha Escalante MD [address] [place], [place] [phone] 11/21/2024 3:00 PM EDT Office Visit [facility] 100 [facility] [address] [place] [address] Valerie Shahid MD 100 [place] [address] documented as of this encounter Visit Diagnoses Not on filedocumented in this encounter Care Teams Order Picker Relationship Specialty Start Date End Date Trudy Pascual MD PCP - General Internal Medicine 07/09/20 08/26/22 Trudy Pascual MD Retired provider PCP - [place] [employer] Attributed 12/23/21 09/21/22 Trudy Pascual MD PCP - Hospice Attending 08/27/22 Godwin Snowden MD [address] [place] [address] PCP - General Surgery, General 08/27/22 02/25/23 Trudy Pascual MD PCP - General Internal Medicine 02/26/23 10/28/23 Dannie Honeycutt DO [address] [place] [address] PCP - [place] [employer] Attributed 03/25/23 Valerie Shahid MD [address] [place] [address] PCP - General Internal Medicine 10/29/23 Shmuel Norton MD [address] [place] [address] Obstetrics and Gynecology 12/16/23 documented as of this encounter
--- OUTSIDE RECORDS SUMMARY | 2024-09-30 07:46 | XMS_ITS | Encounter Summary ---
Author Organization [facility] Address [address] [place] [address] Care Team Providers Care Apiculture Teacher Name Role Phone Bethany Hernandez MD Primary Care Provider [phone] Khushbu John APRN Primary Care Provider [phone] Trudy Pascual MD Primary Care Provider Un available Jack Goodman DO Unavailable [phone] Trudy Pascual MD Unavailable UnavailTrudy Ogden MD Unavailable UnavailTrudy Ogden MD Unavailable UnavailTrudy Ogden MD Unavailable UnavailGodwin Gabriel MD Primary Care Provider [phone] Trudy Pascual MD Primary Care Provider Un available Dannie Honeycutt DO Unavailable Valerie Shahid MD Primary Care Provider [phone] Shmuel Norton MD Unavailable [phone] Encounter Details Date Type Department Care Team (Late st Contact Info) Description 10/06/2017 Scanned Document [address] [id number] Provider, Generic Social History Tobacco Use Types [...] Description 10/24/2024 1:00 PM EDT Consult [facility] [address] [place] [phone] Radha Escalante MD [address] [place] [address] 11/21/2024 3:00 PM EDT Office Visit [facility] [address] [facility] [address] [place] [phone] Valerie Shahid MD [address] [place] [address] documented as of this encounter Visit Diagnoses Not on filedocumented in this encounter Care Teams Apiculture Teacher Relationship Specialty Start Date End Date Bethany Hernandez MD PCP - General Internal Medicine 06/20/15 07/24/19 Khushbu John, LIZETH [address] [place], [place] [id number] PCP - General Family Medicine 07/25/19 07/08/20 Trudy Pascual MD [address] [place] [address] PCP - General Internal Medicine 07/09/20 08/26/22 Jack Goodman DO [address] [place] [address] PCP - [place] [employer] Attributed 09/22/20 12/22/20 Trudy Pascual MD Retired provider PCP - [place] [employer] Attributed 12/23/20 03/24/21 Trudy Pascual MD Retired provider PCP - [place] [employer] Attributed 05/25/21 10/22/21 Trudy Pascual MD Retired provider PCP - [place] [employer] Attributed 12/23/21 09/21/22 Trudy Pascual MD [address] [place] [address] PCP - Hospice Attending 08/27/22 Godwin Snowden MD [address] [place] [address] PCP - General Surgery, General 08/27/22 02/25/23 Trudy Pascual MD [address] [place] [address] PCP - General Internal Medicine 02/26/23 10/28/23 Dannie Honeycutt DO [address] [place] [address] PCP - [place] [employer] Attributed 03/25/23 Valerie Shahid MD [address] [place] [id number] PCP - General Internal Medicine 10/29/23 Shmuel Norton MD [address] [place] [address] Obstetrics and Gynecology 12/16/23 documented as of this encounter
--- OUTSIDE RECORDS SUMMARY | 2024-09-30 07:46 | XMS_ITS | Encounter Summary ---
Author Organization [facility] Address [address] [place] [address] Care Team Providers Care Transfill Technician Name Role Phone Bethany Hernandez MD Primary Care Provider [phone] Khushbu John APRN Primary Care Provider [phone] Trudy Pascual MD Primary Care Provider Un available Jack Goodman DO Unavailable [phone] Trudy Pascual MD Unavailable UnavailTrudy Ogden MD Unavailable UnavailTrudy Ogden MD Unavailable UnavailTrudy Ogden MD Unavailable UnavailGodwin Gabriel MD Primary Care Provider [phone] Trudy Pascual MD Primary Care Provider Un available Dannie Honeycutt DO Unavailable Valerie Shahid MD Primary Care Provider [phone] Shmuel Norton MD Unavailable [phone] Encounter Details Date Type Department Care Team (Late st Contact Info) Description 03/08/2018 Scanned Document [address] [phone] Provider, Generic Social History Tobacco [...] Description 10/24/2024 1:00 PM EDT Consult CTGI [address] [place] [phone] Radha Escalante MD [address] [place] [address] 11/21/2024 3:00 PM EDT Office Visit [facility] [address] [facility] [address] [place] [phone] Valerie Shahid MD [address] [place] [address] documented as of this encounter Procedures Procedure Name Priority Date/Time Associated Diagnosis Comments HX GASTROENTEROLOGY UPPER ENDOSCOPY-SCAN 03/08/2018 documented in this encounter Results * HX GASTROENTEROLOGY UPPER ENDOSCOPY-SCAN (03/08/2018) Narrative 03/08/2018 Ordered by an unspecified provider. us Generic Provider HX AMB PROCEDURES Edited Result - Final documented in this encounter Visit Diagnoses Not on filedocumented in this encounter Care Teams Transfill Technician Relationship Specialty Start Date End Date Bethany Hernandez MD PCP - General Internal Medicine 06/20/15 07/24/19 Khushbu John APRN [address] [place] [address] PCP - General Family Medicine 07/25/19 07/08/20 Trudy Pascual MD [address] [place] [address] PCP - General Internal Medicine 07/09/20 08/26/22 Jack Goodman DO [address] [place] [address] PCP - [place] [employer] Attributed 09/22/20 12/22/20 Trudy Pascual MD Retired provider PCP - [place] [employer] Attributed 12/23/20 03/24/21 Trudy Pascual MD Retired provider PCP - [place] [employer] Attributed 05/25/21 10/22/21 Trudy Pascual MD Retired provider PCP - [place] [employer] Attributed 12/23/21 09/21/22 Trudy Pascual MD [address] [place] [address] PCP - Hospice Attending 08/27/22 Godwin Snowden MD [address] [place] [address] PCP - General Surgery, General 08/27/22 02/25/23 Trudy Pascual MD [address] [place] [address] PCP - General Internal Medicine 02/26/23 10/28/23 Dannie Honeycutt DO [address] [place] [address] PCP - [place] [employer] Attributed 03/25/23 Valerie Shahid MD [address] [place] [address] PCP - General Internal Medicine 10/29/23 Shmuel Norton MD [address] [place] [address] Obstetrics and Gynecology 12/16/23 documented as of this encounter
--- OUTSIDE RECORDS SUMMARY | 2024-09-30 07:46 | XMS_ITS | Encounter Summary ---
Author Organization [facility] Address [address] [place] [address] Care Team Providers Care Metalworking Instructor Name Role Phone Trudy Pascual MD Primary Care Provider Un available Trudy Pascual MD Unavailable UnavailTrudy Ogden MD Unavailable Unavaila Godwin Franklin MD Primary Care Provider [phone] Trudy Pascual MD Primary Care Provider Un available Dannie Honeycutt DO Unavailable Valerie Shahid MD Primary Care Provider [phone] Shmuel Norton MD Unavailable Encounter Details Date Type Department Care Team (Late st Contact Info) Description 04/23/2022 Scanned Document [address] [phone] Gastroenterology, Scan Social History Tobacco Use Types Packs/Day [...] Description 10/24/2024 1:00 PM EDT Consult [facility]GI [address] [place] [phone] Radha Escalante MD [address] [place], [place] [phone] 11/21/2024 3:00 PM EDT Office Visit [facility] [address] [facility] [address] [place] [phone] Valerie Shahid MD [address] [place] [address] documented as of this encounter Visit Diagnoses Not on filedocumented in this encounter Care Teams Metalworking Instructor Relationship Specialty Start Date End Date Trudy Pascual MD PCP - General Internal Medicine 07/09/20 08/26/22 Trudy Pascual MD Retired provider PCP - [place] [employer] Attributed 12/23/21 09/21/22 Trudy Pascual MD PCP - Hospice Attending 08/27/22 Godwin Snowden MD [address] [place] [address] PCP - General Surgery, General 08/27/22 02/25/23 Trudy Pascual MD PCP - General Internal Medicine 02/26/23 10/28/23 Dannie Honeycutt DO [address] [place] [address] PCP - [place] [employer] Attributed 03/25/23 Valerie Shahid MD [address] [place] [address] PCP - General Internal Medicine 10/29/23 Shmuel Norton MD [address] [place] [address] Obstetrics and Gynecology 12/16/23 documented as of this encounter
[2024-09-30 08:01] LABS: MANUAL DIFF FLAG NO
[2024-09-30 08:46] LABS: Basophils Percent Auto 0.7 % (0-2); Eosinophils Absolute Auto 0.1 X10*3/uL (0.0-0.4); Eosinophils Percent Auto 3.2 % (0-4); Hematocrit 40.6 % (37.0-47.0); Hemoglobin 13.6 g/dl (12.0-16.0); Imm Gran Abs Auto 0.01 X10*3/uL (0.00-0.03); Imm Gran Pct Auto 0.2 % (0.0-0.4); Lymphocytes Absolute Auto 1.8 X10*3/uL (1.2-4.9); Lymphocytes Percent Auto 42.5 % (20-40); Mean Corpuscular HGB Conc 33.5 g/dl (31.0-35.0); Mean Corpuscular Hemoglobin 31.2 pg (27.0-33.0); Mean Corpuscular Volume 93.1 fL (80.0-98.0); Mean Platelet Volume 8.9 fL (9.4-12.3); Monocytes Absolute Auto 0.4 X10*3/uL (0.1-1.2); Monocytes Percent Auto 8.5 % (2-11); Neutrophils Absolute Auto 1.9 x10*3/uL (2.0-8.3); Neutrophils Percent Auto 44.9 % (45-73); Platelet Count 253 X10*3/uL (160-400); Red Blood Count 4.36 X10*6/uL (4.20-5.50); Red Cell Distribution Width 12.4 % (11.0-16.0); White Blood Count 4.3 X10*3/uL (4.8-10.8)
[2024-09-30 08:52] LABS: Estimated Average Glucose 100 mg/dL; Hemoglobin A1C 113.3443 umol/L; Hemoglobin A1c % 5.1 % (<6.0); Total Hemoglobin (HGBA1C) 3525.9502 umol/L
[2024-09-30 09:26] LABS: Alanine Aminotransferase 15 U/L (0-31); Albumin Level 3.9 g/dL (3.5-5.0); Alkaline Phosphatase 43 U/L (39-117); Anion Gap 9 (12-20); Aspartate Amino Transferase 24 U/L (5-31); Bilirubin Total 0.6 mg/dL (0.0-1.0); Blood Urea Nitrogen 22 mg/dL (9-16); C Reactive Protein 0.18 mg/dL (< or = 0.50); Carbon Dioxide 26 mmol/L (22-29); Chloride 108 mmol/L (96-108); Cholesterol 138 mg/dL (<200); Estimated Glomerular Filt Rate > 60; Glucose Random 82 mg/dL (60-115); HDL Cholesterol 52 mg/dL (>40); Iron 170 mcg/dL (30-160); LDL Cholesterol Calculated 74 mg/dL (<100); Percent Iron Saturation 43 % (15-50); Potassium 3.8 mmol/L (3.3-5.1); Sodium 139 mmol/L (135-145); Total Iron Binding Capacity 394 mcg/dL (228-428); Total Protein 6.9 g/dL (6.5-8.0); Triglycerides 62 mg/dL (<150); Unsaturated Iron Binding 224 ug/dL
[2024-09-30 09:50] LABS: Ferritin 76 ng/mL (10-250); TSH reflex Free T4 0.96 uIU/mL (0.32-4.0); Vitamin D 25-OH Total 114.2 ng/mL (>30)
[2024-09-30 09:52] LABS: Folate 16.3 ng/mL (> or = 4.0); Vitamin B12 617 pg/mL (200-900)
[2024-09-30 10:19] LABS: Insulin 3 uU/mL (2-29)
[2024-10-04 18:58] LABS: Zinc 75 mcg/dL (60-130)
[2024-10-06 14:38] LABS: Vitamin A 77 mcg/dL (38-98)
[2024-10-09 17:48] LABS: Vitamin B1 20 nmol/L (8-30)
== END 2024-09-30 07:42 | disposition home or self-care (01) ==
LOC: HO.LAB 07:41
PROVIDERS: PCP Internal Medicine; Referring Provider Internal Medicine; Visit Provider Physician Assistant Surgical
DX: Z98.84 Bariatric surgery status (principal); Z13.1 Encounter for screening for diabetes mellitus; Z13.6 Encounter for screening for cardiovascular disorders
CPT/HCPCS: 36415; 80053; 80061; 82306; 82607; 82728; 82746; 83036; 83525; 83540; 84425; 84443; 84590; 84630; 85025; 86140

== ENCOUNTER 2024-10-11 13:31 | Outpatient (AMB) | payer BC, SELFPAY ==
--- NOTE | 2024-10-11 13:33 | A.OFFVIS_ITS ---
VS Expanded 10/11/24 13:44 BP 118/57 L Blood Pressure Location Rt brachial Blood Pressure Position Sitting Pulse 69 Pulse Source Pulse Oximeter Temp 98.0 F Temperature Source Temporal Artery Scan Pulse Oximetry 100 Oxygen Delivery Method Room Air Height 5 ft 1.5 in Weight 144 lb 6.4 oz BMI 26.8 Body Fat % 31.3 Body Fat Mass 45.2 Fat Free Mass 99.0 Visceral Fat Rating 6.0 Body Water % 48.8 Body Water Mass 70.4 Muscle Mass/Score 94.0 Basal Metabolic Rate/Score 1,339 Intake Visit Reasons: OV PO LSG 10/10/20 Allergies bacitracin Allergy (Severe, Verified 10/11/24 13:46) Anaphylaxis, cellilitis Cephalosporins Allergy (Severe, Verified 10/11/24 13:46) Anaphylaxis, cellulitis Sulfa (Sulfonamide Antibiotics) Allergy (Severe, Verified 10/11/24 13:46) Anaphylaxis Medication List - Last Reviewed 10/11/24 by Madeline Velasquez, PROCESS SERVER acyclovir 400 mg PO BID cetirizine (Zyrtec) 10 mg PO DAILY fluticasone propionate 50 mcg/actuation 1 spray intranasal DAILY L norgest/e.estradiol-e.estrad 0.15 mg-30 mcg (84)/10 mcg (7) 1 tab PO DAILY multivitamin 1 tab PO DAILY valacyclovir 1,000 mg PO Q12H HPI Comments Details: This is a 48 yo female who is s/p LSG 10/10/2020. Presents for 4 year post op visit. Also s/p panniculectomy 08/2022. Weight change of +6.4lbs since last OV 6mo ago. No complaints of nausea, emesis, abdominal pain or reflux, or constipation. Had been using [employer] hoa. Pt reports some episodes of low blood sugar over the past few weeks. She assumes this based on how she feels- high level, feels sleepy, followed by blurry vision, dizziness, sweat, overheating. No history of diabetes, did have gestational diabetes. Present meal plan includes: coffee with almond milk 2 shakes 2 bars (hoa told her to use 1 but she felt she needed 2 due to hunger; uses [employer] and [employer]) 1 meal MVI Exercise: 3x per week exercise treadmill and elliptical, she wants to incorporate more strength training got a new puppy, also has 2 Rottweilers and has been walking a lot more than doing formal exercise PFSH Medical History COVID-19 vaccine series completed GERD (gastroesophageal reflux disease) Low back pain Morbid obesity Obesity Plantar fasciitis, bilateral Vitamin B1 deficiency Vitamin B12 deficiency Surgical History History of sleeve gastrectomy [place] teeth extracted Family History Mother No problems noted. Father Diabetes Brother No problems noted. Daughter No problems noted. Social History Are you a primary medical care manager to a significant other at home: No Do you presently have visiting nurse or other home services: No Alcohol intake: current Alcohol intake frequency: holidays/special occasions only Comment: aware of trip hazard Patient Tobacco Use Status: Former Tobacco user Tobacco use type: Cigarette service: No Current occupational status: employed Assessment & Plan Assessment & Plan (1) S/P panniculectomy: Code(s): Z98.890 - Other specified postprocedural states Category: Surgical (2) S/P laparoscopic sleeve gastrectomy: Code(s): Z98.84 - Bariatric surgery status Category: Surgical (3) Overweight (BMI 25.0-29.9): Code(s): E66.3 - Overweight Category: Medical Plan Will send glucose tabs, plus equipment for blood sugar monitoring per pt's request. May have some component of dumping syndome, pt thinks these episodes happen when she goes too long without eating or takes in more sugar. She will also keep a food diary and try to be more consistent with protein/nutrition intake during the day. Also provided [employer] contact info. Labs reviewed. RTC 3mo. Medications: New blood-glucose meter (Accu-Chek Guide Glucose Meter) As directed 1 ea 0RF blood sugar diagnostic (Accu-Chek Guide test strips) As directed 100 ea 0RF glucose 2 grams PO .q4h prn PRN 30 tabs 1RF hypoglycemia lancets (Accu-Chek Fastclix Lancet Drum) As directed 100 ea 0RF
[2024-10-11 13:44] VITALS: BP 118/57; PULSE 69; TEMP 36.7; O2SAT 100; BMI 26.8
--- OUTSIDE RECORDS SUMMARY | 2024-10-11 14:42 | XMS_ITS | Encounter Summary ---
Author Organization [facility] Address [address] [place] [address] Care Team Providers Care Blank Driller Name Role Phone Trudy Pascual MD Unavailable Unavaila Trudy Trejo MD Primary Care Provider Un available Dannie Honeycutt DO Unavailable Valerie Shahid MD Primary Care Provider [phone] Shmuel Norton MD Unavailable [phone] Encounter Details Date Type Department Care Team (Late st Contact Info) Description 06/25/2023 Scanned Document [facility] ENDOCRINOLOGY SCAN Endocrinology, Scan Social History Tobacco [...] Description 10/24/2024 1:00 PM EDT Consult [facility] [address] [facility] [address] [place] [phone] Radha Escalante MD [address] [place], [place] [phone] 11/21/2024 3:00 PM EDT Office Visit [facility] [address] [facility] [address] [place] [phone] Valerie Shahid MD [address] [place] [address] documented as of this encounter Visit Diagnoses Not on filedocumented in this encounter Care Teams Blank Driller Relationship Specialty Start Date End Date Trudy Pascual MD PCP - Hospice Attending 08/27/22 Trudy Pascual MD PCP - General Internal Medicine 02/26/23 10/28/23 Dannie Honeycutt DO [address] [place] [address] PCP - [place] [employer] Attributed 03/25/23 Valerie Shahid MD [address] [place] [address] PCP - General Internal Medicine 10/29/23 Shmuel Norton MD [address] [place] [address] Obstetrics and Gynecology 12/16/23 documented as of this encounter
--- OUTSIDE RECORDS SUMMARY | 2024-10-11 14:42 | XMS_ITS | Data Portability ---
Author Organization [place] - [facility]'s [facility], [facility] Address [id number] [place] [address] Care Team Providers Care Magnetic Locater Name Role Phone MAMI MURCIA Primary Care Provider [phone] Assessment No assessment recorded. 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 Azul Smith Not available Not available Not available Lab bacteria l vaginosi s + vaginiti s panel, vaginal 2023 024 Formerly [facility], [address] [place] [address], 11/13/2023 09:18:37 urinalys is, dipstick 2023 024 In-Office Order, Internal Use Only DO Not Attach Compendium DO Not Attach Compendium, Do Not Delete/merge, [id number] 11/11/2023 11:45:31 pap, IG + reflex HPV 2023 024 Formerly [facility], [address], [place], 11/13/2023 09:28:38 pap, IG + HPV 2022 023 Formerly [facility], [address] [place] [address], 08/03/2022 07:32:29 urinalys is, dipstick 2021 [email or web address] In-Office Order, Internal Use Only DO Not Attach Compendium DO Not Attach Compendium, Do Not Delete/merge, [id number] 10/17/2021 19:26:22 ken wet prep 2021 [email or web address] In-Office Order, Internal Use Only DO Not Attach Compendium DO Not Attach Compendium, Do Not Delete/merge, [id number] 10/17/2021 19:26:22 ph, vaginal fluid 2021 [email or web address] [...] (PROC) 2023 024 kermit Parker MD, [address] [facility] , [place], [address], 11/18/2023 16:40:32 Surgeries None recorded . Imaging None recorded . Medication Orders nystatin -triamci nolone 100,000 unit/gra m-0.1 % topical ointment 2023 024 [facility]armacy #1098, [address] [place], [address], 11/11/2023 11:45:31 Simpesse 0.15 mg-30 mcg (84)/10 mcg(7) tablets, 3 month dose pack 2023 024 [facility]/Pharmacy #1098, [address] [place], [address], 11/11/2023 11:45:30 L norgest/ E estradio l-E estrad 0.15 mg-30 mcg (84)/10 mcg(7) tabs,3mo s 2022 023 [facility] [address] [place], [address], 07/30/2022 10:26:50 Zovirax 5 % topical ointment 2021 [address]22 [address] [place], [address], 07/30/2022 10:05:37 lidocain e 5 % topical cream [address]/Pharmacy #1098, [address] [place], [address], 07/30/2022 10:05:41 Valtrex 1 gram tablet 2021 022 [email or web address] [facility]/Pharmacy #1098, [address] [place], [address], 10/17/2021 21:18:00 lidocain e HCl 2 % mucosal jelly 2021 022 [address] [place], [address], 07/30/2022 10:05:56 Diflucan 150 mg tablet 2021 022 [facility] [address] [place], [address], 10/17/2021 19:26:25 Patient TargetsNo targets recorded. 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; PAP done per Guidelines; Low Fat Diet/Regular Exercise Not available 07/29/2022 12:27:12 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; PAP done per Guidelines; Low Fat Diet/Regular Exercise Not available 07/29/2022 12:27:25 11/11/2023 [id number] mammogram: about this test Not available 11/11/2023 11:45:27 tips to help you stay healthy Not available 11/11/2023 11:45:27 self breast exam education Not available 11/11/2023 11:45:27 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 Results Created Date Observation Date Name Description Value Unit Range Abnormal Flag Note LastModifiedBy Organization Detail LastModifiedTime 10/16/19 22 10/15/2021 URINE CULTU RE urine source URINE, CLEAN CATCH Not Available [facility] [address] [place], [address] 10/17/2021 09:18:34 10/16/1910/15/2021 URINE CULTU RE micro [...] dipesh bacte rial count s. Not Available [facility] [address] [place], [address] 10/17/2021 09:18:34 10/18/19 22 10/17/2021 whiff test, vagin al fluid Result negati ve Not Available In-Office Order Internal Use Only DO Not Attach Compendium DO Not Attach Compendium, Do Not Delete/merge, [id number] 10/17/2021 19:24:30 10/18/19 22 10/17/2021 ph, vagin al fluid Vaginal pH 4.5 Not Available In-Offi ce Order Internal Use Only DO Not Attach Compendium DO Not Attach Compendium, Do Not Delete/merge, [id number] 10/17/2021 19:24:30 10/18/19 22 10/17/2021 ken wet prep Hyphae Presen t Not Available In-Office Order Internal Use Only DO Not Attach Compendium DO Not Attach Compendium, Do Not Delete/merge, [id number] 10/17/2021 19:24:30 10/18/19 22 10/17/2021 ken wet prep Clue Cells Presen t Not Available In-Office Order Internal Use Only DO Not Attach Compendium DO Not Attach Compendium, Do Not Delete/merge, [id number] 10/17/2021 19:24:30 10/18/19 22 10/17/2021 ken wet prep Yeast Presen t Not Available In-Office Order Internal Use Only DO Not Attach Compendium DO Not Attach Compendium, Do Not Delete/merge, [id number] 10/17/2021 19:24:30 10/18/19 22 10/17/2021 urina lysis , dipst ick Interpretati on negati ve Not Available In-Office Order Internal Use Only DO Not Attach Compendium DO Not Attach Compendium, Do Not Delete/merge, [id number] 10/17/2021 19:02:15 10/18/19 22 10/17/2021 urina lysis , dipst ick Leukocytes Negati ve Not Available In-Office Order Internal Use Only DO Not Attach Compendium DO Not Attach Compendium, Do Not Delete/merge, [id number] 10/17/2021 19:02:15 10/18/19 22 10/17/2021 urina lysis [...] 10/17/2021 urina lysis , dipst ick Specific [place] 1.000 Not Available In-Off ice Order Internal [...] detec t all HPV types from this [facility] e Not Available [facility] [address] [place] [address], [address] 08/03/2022 07:32:27 07/31/19 23 07/30/2022 THINP REP [...] NG HPV RESUL TS: HPV mRNA E6/E7 15875 01183 Appro yamel: 08/01 Negat verónica REF RANGE : Negat verónica CPT Codes : 34442 ICD Codes : Z12.4 Not Available [facility] [address] [place], [address] 08/03/2022 07:32:29 11/11/19 24 11/13/2023 SURES WAB(R ) ADVAN LISA VAGIN ITIS, TMA sureswab(R) adv bacterial vaginosis (bv), tma NEGATI VE negati ve normal Not Available [facility] [place] [facility] [address], [address], 11/13/2023 09:18:37 11/11/19 24 11/13/2023 SURES WAB(R ) ADVAN LISA VAGIN ITIS, TMA jozef species NOT DETECT ED not detect ed normal Not Available [facility] [place] [facility] [address], [address], 11/13/2023 09:18:37 11/11/19 24 11/13/2023 SURES WAB(R ) ADVAN LISA VAGIN ITIS, TMA jozef glabrata NOT DETECT ED not detect ed normal Julieta da speci es C. albic ans, C. tropi calis , C. parap barrett is, and/o r C. dubli angelina is can be detec dipesh, but not diffe renti ated, in the Julieta da spp. resul t. Not Available [facility] [address], [address], 11/13/2023 09:18:37 11/11/19 24 11/13/2023 SURES WAB(R ) ADVAN LISA VAGIN ITIS, TMA trichomonas vaginalis (TV), tma NOT DETECT ED not detect ed normal Not Available [facility]- [address], [place], [address], 11/13/2023 09:18:37 11/11/19 24 11/13/2023 THINP REP TIS PAP W/REF L HPV MRNA E6/E7 clinical information: normal None given Not Available [facility]- [address], [place], [address], 11/13/2023 09:28:38 11/11/19 24 11/13/2023 THINP REP TIS PAP W/REF L HPV MRNA E6/E7 LMP: normal NONE GIVEN Not Available [facility]- [address], [address], 11/13/2023 09:28:38 11/11/19 24 11/13/2023 THINP REP TIS PAP W/REF L HPV MRNA E6/E7 prev. Pap: normal NONE GIVEN Not Available [facility]- [address], [address], 11/13/2023 09:28:38 11/11/19 24 11/13/2023 THINP REP TIS PAP W/REF L HPV MRNA E6/E7 prev. BX: normal NONE GIVEN Not Available [facility] [place], [address], 11/13/2023 09:28:38 11/11/19 24 11/13/2023 THINP REP TIS PAP W/REF L HPV MRNA E6/E7 source: normal Cervi x, Endoc ervix Not Available [facility] [address] [place], [address], 11/13/2023 09:28:38 11/11/19 24 11/13/2023 THINP REP TIS PAP W/REF L HPV MRNA E6/E7 statement of adequacy: normal Satis facto ry for evalu ation . Endoc ervic al/tr ansfo rmati on zone compo nent absen t. Not Available [facility] [place] [facility] [address], [place], [address], 11/13/2023 09:28:38 11/11/19 24 11/13/2023 THINP REP TIS PAP W/REF L HPV MRNA E6/E7 interpretati on/result: normal Cytol ogy Resul ts: Negat verónica for intra epith elial lesio n or ziyad tracy . Not Available [facility] [place] [facility] [address] [place], [place], [address], 11/13/2023 09:28:38 11/11/19 24 11/13/2023 THINP REP TIS PAP W/REF L HPV MRNA E6/E7 comment: normal This Pap test has been evalu ated with compu ter ronnie dipesh techn ology . Not Available [facility] [place] [facility] [address] [place], [address], 11/13/2023 09:28:38 11/11/19 24 11/13/2023 THINP REP TIS PAP W/REF L HPV MRNA E6/E7 cytotechnolo gist: normal ALS, CT( CP) CT scree robb locat ion: [facility] [address], [place] [address] Not Available [facility] [place] [facility] [address] [place], [place], [address], 11/13/2023 09:28:38 11/11/19 24 11/13/2023 THINP REP [...] clini isidoro infor matio n. Not Available [facility] [place] [facility] [address] [place], [place], [address], 11/13/2023 09:28:38 11/11/19 24 11/11/2023 urina lysis , dipst ick Leukocytes Negati ve Not Available In-Office Order Internal Use Only DO Not Attach Compendium DO Not Attach Compendium, Do Not Delete/merge, [id number] 11/09/2023 08:37:04 11/11/19 24 11/11/2023 urina lysis , dipst ick Nitrite negati ve Not Available In-Office Order Internal Use Only DO Not Attach Compendium DO Not Attach Compendium, Do Not Delete/merge, [id number] 11/09/2023 08:37:04 11/11/19 24 11/11/2023 urina lysis , dipst ick Protein Negati ve Not Available In-Office Order Internal Use Only DO Not Attach Compendium DO Not Attach Compendium, Do Not Delete/merge, [id number] 11/09/2023 08:37:04 11/11/19 24 11/11/2023 urina lysis , dipst ick Glucose Negati ve Not Available In-Office Order Internal Use Only DO Not Attach Compendium DO Not Attach Compendium, Do Not Delete/merge, [id number] 11/09/2023 08:37:04 08/05/19 23 07/30/2022 MAMMO , [...] ly Signed On: Aug 04, 2022 14:10 [facility] [place] [address], [place], [address], 08/05/2022 08:05:02 08/20/19 23 08/19/2022 US, trans vagin al RAD [facility] [address] [facility] [address], [place], [address], 08/19/2022 13:18:21 08/20/19 23 08/19/2022 US, trans vagin al RAD [facility] [address] [facility] [address], [place], [address], 08/19/2022 13:18:21 11/12/19 24 11/12/2023 scree robb mammm ogram - bilat eral 3D No observ ation record ed. [address], [place], [address], 11/19/2023 12:13:17 Result Notes None recorded. Problems Name Problem SNOMED Code Status Onset Date Resolution Date Notes Provider Name and Address Organization Details Recorded Time Acute vaginitis 44656918 Active AZUL SMITH MD [address] [facility], [address] [place] [address], [address] [place] [address] 4, [facility] 6 12:13:53 Cystitis 63481779 Active AZUL SMITH MD [address] [facility], [address] [place] [address], [address] [place] [address] 4, [facility] 6 12:13:53 Obesity 491996425 Active AZUL SMITH MD [address] [facility], [address] [place] [address], [address] [place] [address] 4, [facility] 6 12:13:54 Genital herpes simplex 55207706 Active 022 ERUM MOTA MD [address] [facility], [address] [place] [address], [address] [place] [address] 4, [facility] 2 13:33:26 Problem Notes None recorded. Procedures Surgical History Date Name Laterality Status Provider Name and Address Organization Details Recorded Time 11/11/19 24 [id number] completed AZUL SMITH MD [address] [facility], [address] [place] [address], [address], [facility] 11/09/2023 08:36:30 11/11/19 24 Date of Last Pap Smear completed AZUL SMITH MD [address], [place], [address], [facility] 11/13/2023 09:32:34 11/11/19 24 Date of Last Mammogram completed Isabelle Lalo [facility] 11/11/2023 10:51:49 09/12/19 23 Abdominoplasty completed AZUL SMITH MD [address], [place], [address], [facility] 11/11/2023 11:46:06 07/31/19 23 V9D-UKJPSL completed AZUL SMITH MD [address], [place], [address], [facility] 07/29/2022 12:24:59 07/31/19 23 Y9G-IXR completed AZUL SMITH MD [address], [place], [address], [facility] 07/29/2022 12:24:57 07/17/19 22 K1U-QXUGMN completed AZUL SMITH MD [address], [place], [address], [facility] 07/16/2021 13:13:55 07/17/19 22 X0P-DME completed AZUL SMITH MD [address], [place], [address], [facility] 07/16/2021 13:13:52 10/10/19 21 laparoscopic sleeve gastrectomy completed AZUL SMITH MD [address], [place], [address], [facility] 07/17/2021 09:31:33 06/06/19 21 I8B-BXSUTY completed AZUL SMITH MD [address], [place], [address], [facility] 06/05/2020 17:15:01 06/06/19 21 K5E-XPE completed AZUL SMITH MD [address] [facility], [place], [address], [facility] 06/05/2020 17:14:59 05/25/19 21 Gastric Bypass completed Eleanor Desouza [facility] 08/19/2022 12:30:36 06/01/19 20 P5R-AGIVWK completed AZUL SMITH MD [address], [address] [place] [address], [place], [address], [facility] 06/01/2019 15:15:21 06/01/19 20 M2U-BQW completed [facility] MD [facility], [address] [place] [address], [place], [address], [facility] 06/01/2019 15:15:20 03/19/20 18 L4B-JRSZVK completed AZUL SMITH MD [address], [address] [place] [address], [place], [address], [facility] 03/19/2018 15:41:56 03/19/20 18 C9N-BOT completed AZUL SMITH MD [address] [facility], [address] [place] [address], [place], [address], [facility] 03/19/2018 15:41:53 03/11/20 17 A4D-LXXWAE completed AZUL SMITH MD [address], [address] [place] [address], [place], [address], [facility] 03/11/2017 12:31:17 03/11/20 17 J1Y-NTL completed AZUL SMITH MD [address] [facility], [place], [address], [facility] 03/11/2017 12:30:36 12/17/19 16 U7I-RTB completed AZUL SMITH MD [address], [place], [address], [place] [facility] 12/17/2015 12:07:34 12/17/19 16 S9R-CSBAI completed AZUL SMITH MD [address], [place], [address], [place] [facility] 12/17/2015 12:07:34 12/17/19 16 Q0J-OXO completed AZUL SMITH MD [address], [place], [address], [place] [facility] 12/17/2015 12:07:34 12/17/19 16 Q2A-BPV completed AZUL SMITH MD [address], [place], [address], [place] [facility] 12/17/2015 12:07:34 12/17/19 16 B7W-PJDPAQM completed AZUL SMITH MD [address], [place], [address], [place] [facility] 12/17/2015 12:07:34 12/17/19 16 R5V-OZTOUR completed AZUL SMITH MD [address], [place], [address], [place] [facility] 12/17/2015 12:07:34 05/25/19 02 Dilation & suction completed Not Available [facility] 06/04/2020 08:55:57 Imaging Results Imaging Date Name Status LastModified by Organization Details LastModified Time 07/30/2022 MAMMO, screening, tomosynthesis, bilateral completed [email or web address] [facility] [address], [place], [address], 08/05/2022 08:05:02 08/19/2022 [facility], [place], [address], 08/19/2022 13:18:21 08/19/2022 US, transvaginal completed [facility] [address] [facility] [address], [place], [address], 08/19/2022 13:18:21 11/12/2023 screening mammmogram - bilateral 3D completed [facility] [address] [facility] [address], [place], [address], 11/19/2023 12:13:17 Procedure Notes None recorded. Medical Equipment None Reported. Allergies Allergen ID Allergen Name Allergen Category Reaction Reaction Severity Criticality Documentation Date Start Date Code Code System Note Provider Name and Address Organization Details Recorded Time 8881656 Macrobid medicatio n dizziness headache nausea mild moderate moderate Not available 12/09/20162016 51154 1 RxNorm Leandrovesta Osei [facility] 7 11:52:23 784785 Substance with sulfonami de structure and antibacte rial mechanism of action (substanc e) medicatio n rash Not available Not available 12/17/2015 01195 8003 SNOMED Lashell Alejandre [facility] 6 11:34:43 668421 bacitraci n medicatio n other Not available Not available 12/17/2015 1291 RxNorm Cellu litis AZUL SMITH MD [address] [facility], [address] [place] [address], [address], [facility] 6 11:43:47 098099 Medicinal product containin g cephalosp susan and acting as antibacte rial agent (product) medicatio n rash Not available Not available 12/17/2015 57506 9009 SNOMED AZUL SMITH MD [address] [facility], [address] [place] [address], [address], [facility] 6 11:43:47 Medications Name Sig Start Date [...] Available Not Available Not Available Joe Kovacs [facility] spacer 06/01 completed Not Available Not Available [...] cm 112 mm[Hg] 78 mm[Hg] Jane Olivares [facility] 10/17/2021 18:59:00 Date Recorded Body height Body mass index (BMI) Body weight Systolic blood pressure Diastolic blood pressure Provider Name and Address Organization Details Last Updated DateTime 12/02/2021 157.48 cm 28.4 kg/m2 71445.25 g 120 mm[Hg] 70 mm[Hg] Tashia Hubbardtana [facility] 2 14:02:08 Date Recorded Body height Body mass index (BMI) Body weight Systolic blood pressure Diastolic blood pressure Provider Name and Address Organization Details Last Updated DateTime 07/30/2022 157.48 cm 27.4 kg/m2 18274.14 g 110 mm[Hg] 60 mm[Hg] Alon Ramirez [facility] 3 10:11:46 Date Recorded Body height Body mass index (BMI) Body weight Systolic blood pressure Diastolic blood pressure Provider Name and Address Organization Details Last Updated DateTime 08/19/2022 157.48 cm 27.3 kg/m2 71204.26 g 104 mm[Hg] 68 mm[Hg] Eleanor Desouza [facility] 3 12:33:19 Date Recorded Body height Body mass index (BMI) Body weight Systolic blood pressure Diastolic blood pressure Provider Name and Address Organization Details Last Updated DateTime 11/11/2023 157.48 cm 26.3 kg/m2 85723.3 g 108 mm[Hg] 58 mm[Hg] Isabelle May [facility] 4 11:34:42 Social History Question Answer Notes LastModified by Organizat ion Details LastModified Time Tobacco Smoking Status Former Smoker Jane rodríguez [facility] 10/17/2021 18:42:54 Is Blood Transfusion Acceptable In An Emergency? Yes kay Information not available 07/30/2022 Concerns About Meeting Basic Needs (food, Housing, Heat, Etc)? No Information not available 07/30/2022 Education 4 Year College Informatio n not available 07/30/2022 What Is The Highest Grade Or Level Of School You Have Completed Or The Highest Degree You Have Received? [id number] Information not available 10/17/2021 Does Your Partner [...] Stress Level High Information not available 07/30/2022 Have You Recently Traveled Abroad? No Information not available 07/17/2021 Have You Recently (within The Last 12 Weeks, Or During A Current ) Traveled To Or Lived In A Zika-affected Area? No Information not available 07/30/2022 Sex: Unknown Functional Status Question Answer Note LastModified by Organizat ion Details LastModified Time What is your level of alcohol consumption? Occasional Information not available 10/17/2021 What is your exercise level? Moderate Information not available 10/17/2021 Mental Status Question Answer Note LastModified by Organization D etails LastModified Time Do you feel stressed (tense, restless, nervous, or anxious, or unable to sleep at night)? [id number] Information not available 10/17/2021 Family History Relationship Description Onset Age of [...] or Inherited Disease N Anesthesia Complications N Neurological Disorder N Headaches/Migraines N Have you ever been on isolation N Anxiety Disorder N HSV Y Arthritis N Infertility N Interstitial Cystitis N Acid Reflux (GERD) N Cancer N Stroke N Endometriosis N Fibromyalgia N Spina Bifida N HIV N Heart Problems N Sexual Dysfunction N Hypogonadism N Autoimmune disorder N Kidney or Bladder Problems N Thyroid Problems N GI Problems N Eating Disorder N Anemia N Multiple Sclerosis N Psychiatric Illness N Ovarian Cancer N Diabetes N Blood Transfusions N Bladder disease N History of MRSA N None reported by patient N Abnormal Uterine Bleeding N Hyperlipidemia N BrCa positive N Diverticulitis N Abuse/Domestic Violence N Asthma Y Bladder Cancer N Hepatitis [...] mcg/0.25mL dose 08/30/2020 completed Isabelle Lalo null, [facility] 11/11/2023 10:48:20 COVID-19, mRNA, LNP-S, PF, 100 mcg/0.5mL dose or 50 mcg/0.25mL dose 09/27/2020 completed Isabelle Lalo null, [facility] 11/11/2023 10:48:20 COVID-19, mRNA, LNP-S, PF, 100 mcg/0.5mL dose or 50 mcg/0.25mL dose 04/29/2021 completed Isabelle Lalo null, [facility] 11/11/2023 10:48:20 Influenza, split virus, quadrivalent, PF 04/04/2020 completed Isabelle Lalo null, [facility] 11/11/2023 10:48:20 Past Encounters Encounter ID Performer Location Encounter Start Date Encounter Closed Date Diagnosis/Indication Diagnosis SNOMED-CT Code Diagnosis ICD10 Code Diagnosis Note [id number] AZUL SMITH MD [facility] [address] [id number] 8 12/17/2015 11:07:26 12/17/2015 12:10:59 Gynecologic examination 48313406 Z01.419 Acute vaginitis 03659290 N76.0 Screening for malignant neoplasm of cervix 546898309 Z12.4 Screening for malignant neoplasm of breast 338375993 Z12.39 Cystitis 07011100 N30.00 [id number] AZUL SMITH MD [facility] [place] [address] 06/18/2016 14:05:23 06/18/2016 14:53:39 Acute vaginitis 20013973 N76.0 Prescripti on sent - take as prescribed BV culture taken - treat as indicated Call if symptoms persist Venereal d isease screening 311544268 Z11.3 [id number] AZUL SMITH MD [facility] [place] [phone] 12/01/2016 15:00:37 12/01/2016 16:30:42 Acute vaginitis 15492380 N76.0 Prescripti on sent - take as prescribed BV culture taken - treat as indicated Call if symptoms persist Cystitis 20078782 N30.00 Treat as indicated [id number] AZUL SMITH MD [facility] [address] [place] [address] 03/11/2017 12:03:29 03/11/2017 12:36:30 Gynecologic examination 48318254 Z01.419 ? N ormal 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 PAP Guidelines reviewed with pt - [...] of undetermined significance on cervical Papanicolaou smear 414884335 R87.610 Screening for malignant neoplasm of breast 968870591 Z12.39 Acute vaginitis 09206673 N76.0 Treat as indicated [id number] AZUL SMITH MD GW[address] ,[facility] [address] [place] [address] 06/05/2017 11:03:48 06/05/2017 11:42:28 Venereal disease screening 986871848 Z11.3 Acute vaginitis 49351609 N76.0 Treat as indicated Dysuria 86474449 R30.0 Treat as indicated Vulval irritation 292295 003 N90.89 BV Culture taken - treat as indicated Avoid tight-fitt ed pants/unde rwear, pantyhose, panty liners, scented soaps/sham poos, bubble bath, scented detergents , feminine sprays, douches/po wers, dyed toilet articles, hair drying vulvar area Recommend using hypoallerg enic baby detergent with underwear, ?allergic rxn to scented detergent If no improvemen t, will trial clobetasol ointment f/u 2 month for re-check [id number] AZUL SMITH MD [facility] [address] ,[place] [address] 8 08/05/2017 14:40:52 08/05/2017 15:06:01 Pruritus of vulva 55955872 L29.2 Explained to pt that may take a while for complete resolution of symptoms Will re-fill Clobetasol and cont use of hypoallerg enic detergents Instructed to call if symptoms fail to improve more worsen [id number] AZUL SMITH MD [facility] [address] ,[place] [address] 8 03/19/2018 15:10:13 03/19/2018 15:47:50 Gynecologic examination 96950459 Z01.419 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 PAP Guidelines reviewed with pt - [...] exposure Screening for malignant neoplasm of cervix 334545606 Z12.4 Z87.42 Screening mammography 24 608766 Z12.31 Obesity 186602268 E66.9 [id number] AZUL SMITH MD [facility] [address] ,[place] [address] 05/05/2018 09:00:43 05/05/2018 09:40:21 Acute vaginitis 71627190 N76.0 Prescripti on sent - take as prescribed BV culture taken - treat as indicated Call if symptoms persist [id number] AZUL SMITH MD [facility] [address] ,[place] [address] 06/01/2019 14:33:06 06/01/2019 15:22:50 Gynecologic examination 46528275 Z01.419 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 PAP Guidelines reviewed with pt - [...] exposure Screening for malignant neoplasm of cervix 893169147 Z12.4 Screening mammography 24 684232 Z12.31 Depression screening 171 424670 Z13.31 Acute vaginitis 28893162 N76.0 Prescripti on not sent BV culture taken - treat as indicated Call if symptoms persist [id number] AZUL SMITH MD [facility]9 [address] [facility] [address] [place] [address] 07/17/2021 08:33:51 07/17/2021 09:36:52 Gynecologic examination 78011172 Z01.419 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 Candidiasis of vagina 72 068014 B37.3 Discussed with patient the microscope examinatio n I performed today on her vaginal discharge confirms she has a vaginal yeast infection. Advised vaginal yeast occurs due to an imbalance in the pH of her vagina. This can occur due to stress, douching, high sugar intake, wearing non cotton or tight underwear. For now, treatment option of oral tablets tracy wilder. Advised I will place one refill but it is important for future management of recurrent vaginal yeast infection that she tries to reach out to her primary STERILE PROCESSING MANAGER office for halfway management .Advised her partner does not need to be treated. Products such as yogurt taken on a regular basis can help balance the pH of the body and reduce frequency of recurrence . [id number] AZUL SMITH MD [facility] ,[place] [address] [place] [address] 12/02/2021 13:26:09 12/02/2021 14:13:29 Recurrent genital herpes simplex 229297250 A60.00 clinically c/w HSV lesionReco mmend continuing daily ValtrexWil l daily topical Zovirax and Lidocaine cream for further reliefReas sured that lesion with self resolve with timeInstru cted to call if lesion does not improve [id number] AZUL SMITH MD [facility] ,[facility] [address] [place] [address] 07/30/2022 09:46:08 07/30/2022 10:50:27 Gynecologic examination 35382779 Z01.419 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 PAP Guidelines reviewed with pt - [...] OCPs Screening for malignant neoplasm of cervix 767631651 Z12.4 Screening mammography 24 723814 Z12.31 In-House MMG Depression screening 171 880149 Z13.31 Irregular periods 630588 07 N92.6 Continue Ibuprofen as needed Schedule ultrasound to evaluate pelvic anatomy Schedule talk afterwards to review findings and make treatment plan Will schedule Endometria l Biopsy and Endosee Hysterosco py as indicated Call if bleeding >1 pad/hour for more than 3 hours [id number] AZUL SIMTH MD [facility]9 [address] ,[facility] [address] [place] [address] 08/19/2022 11:41:49 08/19/2022 13:33:37 Irregular periods 24485774 N92.6 U/S done and reviewed with pt: Aware normal appearing uterus with thin stripe; normal appearing ovaries Pertinent findings reviewed with pt and questions answered Treatment plan and follow-up discussedN o additional treatment indicated at this timeWill keep menstrual diary and call if things clinically changeCont combined OCPs [id number] AZUL SMITH MD [facility],[place] [address] [place] [address] 11/11/2023 10:36:41 11/11/2023 11:51:57 Gynecologic examination 22759049 Z01.419 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 Covid vaccinated. Grazyna Randall CNM [address] [facility], 3rd Floor, [place], [address], [facility] 10/17/2021 21:21:56 12/02/2021 text/html Pt has been usin g daily prophylactic Valtrex x1 month. Has noted tender lesion in left vulvar region for the last couple weeks. No improvement with daily Valtrex. 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 Currently on OCPs and always has regular menses. Over last month, pt reports intermittent vb for about 4 weeks. Bleeding has recently stopped. 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 AZUL SMITH MD [address] [place] [address], [address], [facility] 11/11/2023 11:47:45 OBGyn Episode Ob Episode Information Episode Created Date Number of Fetuses Patient Bloodtype Patient rh Status Prepregnancy Weight lbs Domestic Partner Domestic Partner Phone Father Name Extractor Operator Helper Status 12/17/19 16 1 CLOSED Fetus Data First Name Last Name Admitted to NICU Weight (g) Sex Living Outcome Pediatric Complications Fetus ID Race Codes Race Delivery Type 3175.14 4 F Full Term [id number] Vaginal Delivery [place]ell Calculation Initial [place]ell Date [...] Domestic Partner Domestic Partner Phone Father Name Extractor Operator Helper Status 12/17/19 16 1 CLOSED Fetus Data First Name Last Name Admitted to NICU Weight (g) Sex Living Outcome Pediatric Complications Fetus ID Race Codes Race Delivery Type , Induced [id number] [place]ell Calculation Initial [place]ell Date Initial Exam [...]
--- OUTSIDE RECORDS SUMMARY | 2024-10-11 14:42 | XMS_ITS | Encounter Summary ---
Author Organization [facility] Address [address] [place] [address] Care Team Providers Care Records Analysis Manager Name Role Phone Bethany Hernandez MD Primary Care Provider [phone] Khushbu John APRN Primary Care Provider [phone] Trudy Pascual MD Primary Care Provider Un available Jack Goodman DO Unavailable [phone] Trudy Pascual MD Unavailable UnavailTrudy Ogden MD Unavailable UnavailTrudy Ogden MD Unavailable UnavailTrudy Ogden MD Unavailable UnavailGodwin Gabriel MD Primary Care Provider [phone] Trudy Pascual MD Primary Care Provider Un available Dannie Honeycutt DO Unavailable Valerie Shahid MD Primary Care Provider [phone] Shmuel Norton MD Unavailable [phone] Encounter Details Date Type Department Care Team (Late st Contact Info) Description 02/26/2018 Scanned Document [address] [address] Provider, Generic Social History Tobacco [...] Description 10/24/2024 1:00 PM EDT Consult [facility] [address] [place] [address] Radha Escalante MD [address] [place] [address] 11/21/2024 3:00 PM EDT Office Visit [facility] [address] [facility] [address] [place] [address] Valerie Shahid MD 100 [place] [address] documented as of this encounter Visit Diagnoses Not on filedocumented in this encounter Care Teams Records Analysis Manager Relationship Specialty Start Date End Date Bethany Hernandez MD PCP - General Internal Medicine 06/20/15 07/24/19 Khushbu John APRN [address] [place] [address] PCP - General Family Medicine 07/25/19 07/08/20 Trudy Pascual MD [address] [place] [address] PCP - General Internal Medicine 07/09/20 08/26/22 Jack Goodman DO [address] [place] [address] PCP - [place] Commercial Attributed 09/22/20 12/22/20 Trudy Pascual MD Retired provider PCP - [place] Commercial Attributed 12/23/20 03/24/21 Trudy Pascual MD Retired provider PCP - [place] Commercial Attributed 05/25/21 10/22/21 Trudy Pascual MD Retired provider PCP - [place] Commercial Attributed 12/23/21 09/21/22 Trudy Pascual MD [address] [place] [address] PCP - Hospice Attending 08/27/22 Godwin Snowden MD [address] [place] [address] PCP - General Surgery, General 08/27/22 02/25/23 Trudy Pascual MD [address] [place] [address] PCP - General Internal Medicine 02/26/23 10/28/23 Dannie Honeycutt DO [address] [place] [address] PCP - [place] Commercial Attributed 03/25/23 Valerie Shahid MD [address] [place] [address] PCP - General Internal Medicine 10/29/23 Shmuel Norton MD [address] [place] [address] Obstetrics and Gynecology 12/16/23 documented as of this encounter
--- OUTSIDE RECORDS SUMMARY | 2024-10-11 14:42 | XMS_ITS | Encounter Summary ---
Author Organization [facility] Address [address] [place] [address] Care Team Providers Care Babbitt Spinner Name Role Phone Trudy Pascual MD Unavailable Unavaila Dannie Quiroga DO Unavailable Valerie Shahid MD Primary Care Provider [phone] Shmuel Norton MD Unavailable [phone] Encounter Details Date Type Department Care Team (Late st Contact Info) Description 03/28/2024 Scanned Document [facility] BARIATRIC SURG SCAN Bariatrics, Scan Social [...] Description 10/24/2024 1:00 PM EDT Consult [facility] [address] [place] [address] Radha Escalante MD [address] [place], [place] [address] 11/21/2024 3:00 PM EDT Office Visit [facility] 100 [facility] [address] [place] [address] Valerie Shahid MD [address] [place] [address] documented as of this encounter Visit Diagnoses Not on filedocumented in this encounter Care Teams Babbitt Spinner Relationship Specialty Start Date End Date Trudy Pascual MD PCP - Hospice Attending 08/27/22 Dannie Honeycutt DO [address] [place] [address] PCP - [place] Commercial Attributed 03/25/23 Valerie Shahid MD [address] [place] [address] PCP - General Internal Medicine 10/29/23 Shmuel Norton MD [address] [place] [address] Obstetrics and Gynecology 12/16/23 documented as of this encounter
--- OUTSIDE RECORDS SUMMARY | 2024-10-11 14:42 | XMS_ITS | Encounter Summary ---
Author Organization [facility] Address [address] [place] [address] Care Team Providers Care Correctional Corporal Name Role Phone Khushbu John APRN Primary Care Provider [phone] Trudy Pascual MD Primary Care Provider Un available Jack Goodman DO Unavailable [phone] Trudy Pascual MD Unavailable Unavaila Trudy Trejo MD Unavailable Unavaila Trudy Trejo MD Unavailable Unavaila Trudy Trejo MD Unavailable Unavaila Godwin Franklin MD Primary Care Provider [phone] Trudy Pascual MD Primary Care Provider Un available Dannie Honeycutt DO Unavailable Valerie Shahid MD Primary Care Provider [phone] Shmuel Norton MD Unavailable [phone] Encounter Details Date Type Department Care Team (Latest Contact Info) Description 04/18/2020 Lab Requisition [facility] COVID Drive Through [address] [place] [address] [address] [place] [address] Shmuel Talbot, PALuiC [address] [place] [address] [id number] Encounter for laboratory testing for COVID-19 virus [...] Info) Description 10/24/2024 1:00 PM EDT Consult [facility]] [address] [facility] [address] [place] [address] Radha Escalante MD [address] [place], [place] [address] 11/21/2024 3:00 PM EDT Office Visit [facility] 100 [facility] [address] [place] [address] Valerie Shahid MD [address] [place] [address] documented as of this encounter Procedures Procedure Name Priority Date/Time Associated Diagnosis Comments (REPORT) SARS COV-2 RNA (COVID-19), QUAL Routine 04/18/2020 12:34 PM EST Encounter for laboratory testing for COVID-19 virus [ICD-10-CM] documented in this encounter Results * SARS CoV-2 RNA (COVID-19), Qual (04/18/2020 12:34 PM EST) [facility] SARS CoV 2 RNA, Qual NOT DETECTED NOT DETECTED 04/22/2020 6:00 PM EST [facility] Comment: A Not Detected (negative) test result [...] providers and patients using the following websites: https://www.[employer] [place]/home/Covid-19/HCP/QuestLDTP/ fact-sheet https://www.[employer] [place]/home/Covid-19/Patients/QuestLDTP/ fact-sheet.html This test has been authorized by the FDA under an Emergency Use Authorization (EUA) for use by authorized laboratories. Due to the current public health emergency, [facility] is receiving a high volume of samples [...] about COVID-19 can be found at the [employer] website: www.[employer] [place]/Covid19. Microbiology Nasopharyngeal swab / Unknown 04/18/2020 12:34 PM EST 04/18/2020 12:34 PM EST [facility] 04/22/2020 6:00 PM EST Performing Organization Information: ?Site ID: [id number] ?Name: [employer] ?Address: [address] [place] [address] [address],[place] [address] ?Director: ATIF QUEEN MD [facility] at [facility] License number [id number] Shmuel Talbot PA-C BODY FLUIDS AND STOOLS OR DERABLES Final Result JORGE Poe [place] documented in this encounter Visit Diagnoses Diagnosis Encounter for laboratory testing for COVID-19 virus documented in this encounter Care Teams Correctional Corporal Relationship Specialty Start Date End Date Khushbu John APRN [address] [place] [address] PCP - General Family Medicine 07/25/19 07/08/20 Trudy Pascual MD [address] [place] [address] PCP - General Internal Medicine 07/09/20 08/26/22 Jack Goodman DO [address] [place] [address] PCP - [place] Commercial Attributed 09/22/20 12/22/20 Trudy Pascual MD Retired provider PCP - [place] Commercial Attributed 12/23/20 03/24/21 Trudy Pascual MD Retired provider PCP - [place] Commercial Attributed 05/25/21 10/22/21 Trudy Pascual MD Retired provider PCP - [place] Commercial Attributed 12/23/21 09/21/22 Trudy Pascual MD [address] [place] [address] PCP - Hospice Attending 08/27/22 Godwin Snowden MD [address] [address] PCP - General Surgery, General 08/27/22 02/25/23 Trudy Pascual MD [address] [place] [address] PCP - General Internal Medicine 02/26/23 10/28/23 Dannie Honeycutt DO [address] [place] [address] PCP - [place] Commercial Attributed 03/25/23 Valerie Shahid MD [address] [place] [address] PCP - General Internal Medicine 10/29/23 Shmuel Norton MD [address] [place] [address] Obstetrics and Gynecology 12/16/23 documented as of this encounter
--- OUTSIDE RECORDS SUMMARY | 2024-10-11 14:42 | XMS_ITS | Encounter Summary ---
Author Organization [facility] Address [address] [place] [address] Care Team Providers Care Coppersmith Helper Name Role Phone Bethany Hernandez MD Primary Care Provider [phone] Khushbu John APRN Primary Care Provider [phone] Trudy Pascual MD Primary Care Provider Un available Jack Goodman DO Unavailable [phone] Trudy Pascual MD Unavailable UnavailTrudy Ogden MD Unavailable UnavailTrudy Ogden MD Unavailable UnavailTrudy Ogden MD Unavailable UnavailGodwin Gabriel MD Primary Care Provider [phone] Trudy Pascual MD Primary Care Provider Un available Dannie Honeycutt DO Unavailable Valerie Shahid MD Primary Care Provider [phone] Shmuel Norton MD Unavailable [phone] Encounter Details Date Type Department Care Team (Late st Contact Info) Description 03/02/2018 Scanned Document [facility] [address] [place] [address] Bethany Hernandez MD [address] [place] [address] [place] [address] Social History Tobacco Use Types Packs/Day [...] Description 10/24/2024 1:00 PM EDT Consult [facility] [address] [facility] [address] [place] [address] Radha Escalante MD 85 [place] [address] 11/21/2024 3:00 PM EDT Office Visit [facility] 100 [facility] [address] [place] [address] Valerie Shahid MD [address] [place] [address] documented as of this encounter Visit Diagnoses Not on filedocumented in this encounter Care Teams Coppersmith Helper Relationship Specialty Start Date End Date Bethany Hernandez MD PCP - General Internal Medicine 06/20/15 07/24/19 Khushbu John APRN [address] [place] [address] PCP - General Family Medicine 07/25/19 07/08/20 Trudy Pascual MD [address] [place] [address] PCP - General Internal Medicine 07/09/20 08/26/22 Jack Goodman DO [address] [place] [address] PCP - [place] Commercial Attributed 09/22/20 12/22/20 Trudy Pascual MD Retired provider PCP - [place] Commercial Attributed 12/23/20 03/24/21 Trudy Pascual MD Retired provider PCP - [place] Commercial Attributed 05/25/21 10/22/21 Trudy Pascual MD Retired provider PCP - [place] Commercial Attributed 12/23/21 09/21/22 Trudy Pascual MD [address] [place], [place] [address] PCP - Hospice Attending 08/27/22 Godwin Snowden MD [address] [place] [address] PCP - General Surgery, General 08/27/22 02/25/23 Trudy Pascual MD [address] [place], [place] [address] PCP - General Internal Medicine 02/26/23 10/28/23 Dannie Honeycutt DO [address] [place] [address] PCP - [place] Commercial Attributed 03/25/23 Valerie Shahid MD [address] [place] [address] PCP - General Internal Medicine 10/29/23 Shmuel Norton MD [address] [place] [address] Obstetrics and Gynecology 12/16/23 documented as of this encounter
--- OUTSIDE RECORDS SUMMARY | 2024-10-11 14:42 | XMS_ITS | Encounter Summary ---
Author Organization [facility] Address [address] [place] [address] Care Team Providers Care Construction Job Cost Estimator Name Role Phone Trudy Pascual MD Unavailable Unavaila Trudy Trejo MD Primary Care Provider Un available Dannie Honeycutt DO Unavailable Valerie Shahid MD Primary Care Provider [phone] Shmuel Norton MD Unavailable [phone] Encounter Details Date Type Department Care Team (Late st Contact Info) Description 09/09/[address] [address] Trudy Pascual MD Retired provider [...] 10/24/2024 1:00 PM EDT Consult [facility] [address] [place] [address] Radha Escalante MD [address] [place] [address] 11/21/2024 3:00 PM EDT Office Visit [facility] 100 [facility] [address] [place] [address] Valerie Shahid MD [address] [place] [id number] documented as of this encounter Visit Diagnoses Not on filedocumented in this encounter Care Teams Construction Job Cost Estimator Relationship Specialty Start Date End Date Trudy Pascual MD PCP - Hospice Attending 08/27/22 Trudy Pascual MD PCP - General Internal Medicine 02/26/23 10/28/23 Dannie Honeycutt DO [address] [place] [address] PCP - [place] Commercial Attributed 03/25/23 Valerie Shahid MD 100 [place] [address] PCP - General Internal Medicine 10/29/23 Shmuel Norton MD [address] [place] [address] Obstetrics and Gynecology 12/16/23 documented as of this encounter
--- OUTSIDE RECORDS SUMMARY | 2024-10-11 14:42 | XMS_ITS | Encounter Summary ---
Author Organization [facility] Address [address] [place] [address] Care Team Providers Care Meter Tester Primary Name Role Phone Trudy Pascual MD Primary Care Provider Un available Jack Goodman DO Unavailable [phone] Trudy Pascual MD Unavailable UnavailTrudy Ogden MD Unavailable UnavailTrudy Ogden MD Unavailable UnavailTrudy Ogden MD Unavailable UnavailGodwin Gabriel MD Primary Care Provider [phone] Trudy Pascual MD Primary Care Provider Un available Dannie Honeycutt DO Unavailable Valerie Shahid MD Primary Care Provider [phone] Shmuel Norton MD Unavailable [phone] Encounter Details Date Type Department Care Team (Late st Contact Info) Description 07/23/2020 Scanned Document [place] [place] [address] Bariatric Surgery, Scan Social History Tobacco Use [...] Description 10/24/2024 1:00 PM EDT Consult CTGI [facility] [address] [facility] [address] [place] [address] Radha Escalante MD [address] [place] [address] 11/21/2024 3:00 PM EDT Office Visit [facility] [address] [facility] [address] [place] [address] Valerie Shahid MD [address] [place] [address] documented as of this encounter Procedures Procedure Name Priority Date/Time Associated Diagnosis Comments LAB RESULT 07/23/2020 documented in this encounter Results * LAB RESULT (07/23/2020) 07/23/2020 us Scan Bariatric Surgery HX AMB PROCEDURES Edited Result - Final documented in this encounter Visit Diagnoses Not on filedocumented in this encounter Care Teams Meter Tester Primary Relationship Specialty Start Date End Date Trudy Pascual MD PCP - General Internal Medicine 07/09/20 08/26/22 Jack Goodman DO [address] [place] [address] PCP - [place] Commercial Attributed 09/22/20 12/22/20 Trudy Pascual MD Retired provider PCP - [place] [employer] Attributed 12/23/20 03/24/21 Trudy Pascual MD Retired provider PCP - [place] [employer] Attributed 05/25/21 10/22/21 Trudy Pascual MD Retired provider PCP - [place] [employer] Attributed 12/23/21 09/21/22 Trudy Pascual MD PCP - Hospice Attending 08/27/22 Godwin Snowden MD [address] [place] [address] PCP - General Surgery, General 08/27/22 02/25/23 Trudy Pascual MD PCP - General Internal Medicine 02/26/23 10/28/23 Dannie Honeycutt DO [address] [place] [address] PCP - [place] Commercial Attributed 03/25/23 Valerie Shahid MD [address] [place] [address] PCP - General Internal Medicine 10/29/23 Shmuel Norton MD [address] [place] [id number] Obstetrics and Gynecology 12/16/23 documented as of this encounter
--- OUTSIDE RECORDS SUMMARY | 2024-10-11 14:42 | XMS_ITS | Encounter Summary ---
Author Organization [facility] Address [address] [place] [address] Care Team Providers Care Compressor Operator Adjuster Name Role Phone Trudy Pascual MD Unavailable Unavaila Trudy Trejo MD Primary Care Provider Un available Dannie Honeycutt DO Unavailable Valerie Shahid MD Primary Care Provider [phone] Shmuel Norton MD Unavailable [phone] Encounter Details Date Type Department Care Team (Late st Contact Info) Description 09/10/[address] [address] Trudy Pascual MD Retired provider [...] Description 10/24/2024 1:00 PM EDT Consult CTGI [address] [place] [address] Radha Escalante MD 85 [place] [address] 11/21/2024 3:00 PM EDT Office Visit [facility] 100 [facility] [address] [place] [phone] Valerie Shahid MD [address] [place] [phone] documented as of this encounter Visit Diagnoses Not on filedocumented in this encounter Care Teams Compressor Operator Adjuster Relationship Specialty Start Date End Date Trudy Pascual MD PCP - Hospice Attending 08/27/22 Trudy Pascual MD PCP - General Internal Medicine 02/26/23 10/28/23 Dannie Honeycutt DO [address] [place] [address] PCP - [place] Commercial Attributed 03/25/23 Valerie Shahid MD [address] [place] [address] PCP - General Internal Medicine 10/29/23 Shmuel Norton MD [address] [place] [address] Obstetrics and Gynecology 12/16/23 documented as of this encounter
--- OUTSIDE RECORDS SUMMARY | 2024-10-11 14:42 | XMS_ITS | Clinical Summary ---
Author Organization [facility] Address [address] [place] [address] Care Team Providers Care Teacher Citizenship Name Role Phone Trudy Pascual MD Unavailable Unavaila Dannie Quiroga DO Unavailable Valerie Shahid MD Primary Care Provider [phone] Shmuel Norton MD Unavailable [phone] Allergies Active Allergy Reactions Criticality Noted Date [...] PO) Take by mouth. Active nystatin (MYCOSTATIN) 139656 UNIT/ML suspensionIndic ations:Oral thrush Take 5 mL [...] Type Department Care Team Description 08/11/2024 Telephone [facility] [address] [place] [address] Monica Calderón Bypass Screening from [...] Info) Description 10/24/2024 1:00 PM EDT Consult [address] [place] [phone] Radha Escalante MD 85 [place] [address] 11/21/2024 3:00 PM EDT Office Visit [facility] [address] [place] [address] Valerie Shahid MD [address] [place] [address] Health Maintenance Due Date Last Done Comments [...] 11/11/2023 1:05 PM EDT THINPREP PAP TEST (LENS AND FRAMES PRESCRIPTION CLERK) WITH HPV REFLEX Routine 11/11/2023 12:00 AM EDT from Last 3 Months or Most Recently Relevant to Health Maintenance Results * Imaging Breast/Bx/Mammo Result (11/11/2023 1:05 PM EDT) Anatomical Region Laterality Modality Other us Scan Obstetrics And Gynecology IMG LEGACY PROCED URES Edited Result - Final * ThinPrep Pap Test ([facility]) with HPV Reflex (11/11/2023 12:00 AM EDT) [...] has been evaluated with computer assisted technology. Human Resources Assistant Manager: [facility] Comment: ALS, CT(ASCP) CT screening location: [address] ??[address] Comment [facility] Comment: EXPLANATORY NOTE: [...] DIAGNOSTICS NL1 - 11/13/2023 9:19 AM EDT [id number] HXP Shmuel Norton MD LAB AMB PATH/CYTO ORDERABL ES Final Result [facility] [address] [facility] 3rd [address], [place] [address] from Last 3 Months or Most Recently Relevant to Health Maintenance Insurance [facility] Member Subscriber Plan / [facility] Name:Irwin Valenciaa Mikaela Relation to Subscriber:Self Name:Irwin Valenciafabi Al Payer ID:[id number] (NAIC) Group ID:[id number] Type:Not on file Address: [address] [facility] Care Teams Teacher Citizenship Relationship Specialty Start Date End Date Trudy Pascual MD PCP - Hospice Attending 08/27/22 Dannie Honeycutt DO [address] [place] [address] PCP - [place] Commercial Attributed 03/25/23 Valerie Shahid MD [address] [place] [address] PCP - General Internal Medicine 10/29/23 Shmuel Norton MD [address] [place] [address] Obstetrics and Gynecology 12/16/23
--- OUTSIDE RECORDS SUMMARY | 2024-10-11 14:42 | XMS_ITS | Clinical Summary ---
Author Organization [facility] Address [address] [place] [address] Care Team Providers Care Center Maker Hand Name Role Phone Lanre Galvan Primary Care [...] age to complete this topic Care Teams Center Maker Hand Relationship Specialty Start Date End Date Lanre Galvan PCP - General 12/29/22
--- OUTSIDE RECORDS SUMMARY | 2024-10-11 14:43 | XMS_ITS | Encounter Summary ---
Author Organization [facility] Address [address] [place] [address] Care Team Providers Care Telehealth Director Name Role Phone Bethany Hernandez MD Primary Care Provider [phone] Khushbu John APRN Primary Care Provider [phone] Trudy Pascual MD Primary Care Provider Un available Jack Goodman DO Unavailable [phone] Trudy Pascual MD Unavailable UnavailTrudy Ogden MD Unavailable UnavailTrudy Ogden MD Unavailable UnavailTrudy Ogden MD Unavailable UnavailGodwin Gabriel MD Primary Care Provider [phone] Trudy Pascual MD Primary Care Provider Un available Dannie Honeycutt DO Unavailable Valerie Shahid MD Primary Care Provider [phone] Shmuel Norton MD Unavailable [phone] Encounter Details Date Type Department Care Team (Late st Contact Info) Description 03/13/2016 Scanned Document [address] [address] Provider, Generic Social History Tobacco [...] Description 10/24/2024 1:00 PM EDT Consult CTGI [address] [place] [address] Radha Escalante MD 85 [place], [place] [phone] 11/21/2024 3:00 PM EDT Office [facility] 100 [facility] 101 [place] [address] Valerie Shahid MD [address] [place] [address] documented as of this encounter Visit Diagnoses Not on filedocumented in this encounter Care Teams Telehealth Director Relationship Specialty Start Date End Date Bethany Hernandez MD PCP - General Internal Medicine 06/20/15 07/24/19 Khushbu John APRN [address] [place] [address] PCP - General Family Medicine 07/25/19 07/08/20 Trudy Pascual MD [address] [place] [address] PCP - General Internal Medicine 07/09/20 08/26/22 Jack Goodman DO [address] [place] [address] PCP - [place] Commercial Attributed 09/22/20 12/22/20 Trudy Pascual MD Retired provider PCP - [place] [employer] Attributed 12/23/20 03/24/21 Trudy Pascual MD Retired provider PCP - [place] [employer] Attributed 05/25/21 10/22/21 Trudy Pascual MD Retired provider PCP - [place] [employer] Attributed 12/23/21 09/21/22 Trudy Pascual MD [address] [place], [place] [phone] PCP - Hospice Attending 08/27/22 Godwin Snowden MD [address] [place] [address] PCP - General Surgery, General 08/27/22 02/25/23 Trudy Pascual MD [address] [place], [place] [address] PCP - General Internal Medicine 02/26/23 10/28/23 Dannie Honeycutt DO [address] [place] [address] PCP - [place] Commercial Attributed 03/25/23 Valerie Shahid MD [address] [place] [address] PCP - General Internal Medicine 10/29/23 Shmuel Norton MD [address] [place] [phone] Obstetrics and Gynecology 12/16/23 documented as of this encounter
--- OUTSIDE RECORDS SUMMARY | 2024-10-11 14:43 | XMS_ITS | Encounter Summary ---
Author Organization [facility] Address [address] [place] [address] Care Team Providers Care Cutting Torch Operator Name Role Phone Bethany Hernandez MD Primary Care Provider [phone] Khushbu John APRN Primary Care Provider [phone] Trudy Pascual MD Primary Care Provider Un available Jack Goodman DO Unavailable [phone] Trudy Pascual MD Unavailable UnavailTrudy Ogden MD Unavailable UnavailTrudy Ogden MD Unavailable UnavailTrudy Ogden MD Unavailable UnavailGodwin Gabriel MD Primary Care Provider [phone] Trudy Pascual MD Primary Care Provider Un available Dannie Honeycutt DO Unavailable Valerie Shahid MD Primary Care Provider [phone] Shmuel Norton MD Unavailable [phone] Encounter Details Date Type Department Care Team (Late st Contact Info) Description 04/12/2018 Scanned Document [address] [address] Provider, Generic Social History Tobacco [...] Description 10/24/2024 1:00 PM EDT Consult CTGI [address] [place] [address] Radha Escalante MD 85 [place] [address] 11/21/2024 3:00 PM EDT Office Visit [facility] 100 [facility] [address] [place] [address] Valerie Shahid MD [address] [place] [address] documented as of this encounter Visit Diagnoses Not on filedocumented in this encounter Care Teams Cutting Torch Operator Relationship Specialty Start Date End Date Bethany Hernandez MD PCP - General Internal Medicine 06/20/15 07/24/19 Khushbu John APRN [address] [place] [address] PCP - General Family Medicine 07/25/19 07/08/20 Trudy Pascual MD [address] [place] [address] PCP - General Internal Medicine 07/09/20 08/26/22 Jack Goodman DO [address] [place] [address] PCP - [place] Commercial Attributed 09/22/20 12/22/20 Trudy Pascual MD Retired provider PCP - [place] [employer] Attributed 12/23/20 03/24/21 Trudy Pascual MD Retired provider PCP - [place] [employer] Attributed 05/25/21 10/22/21 Trudy Pascual MD Retired provider PCP - [place] [employer] Attributed 12/23/21 09/21/22 Trudy Pascual MD [address] [place] [address] PCP - Hospice Attending 08/27/22 Godwin Snowden MD [address] [place] [address] PCP - General Surgery, General 08/27/22 02/25/23 Trudy Pascual MD [address] [place] [address] PCP - General Internal Medicine 02/26/23 10/28/23 Dannie Honeycutt DO [address] [place] [address] PCP - [place] [employer] Attributed 03/25/23 Valerie Shahid MD [address] [place] [address] PCP - General Internal Medicine 10/29/23 Shmuel Norton MD [address] [place] [address] Obstetrics and Gynecology 12/16/23 documented as of this encounter
--- OUTSIDE RECORDS SUMMARY | 2024-10-11 14:43 | XMS_ITS | Encounter Summary ---
Author Organization [facility] Address [address] [place] [address] Care Team Providers Care Cash Accountant Name Role Phone Trudy Pascual MD Unavailable UnavailGodwin Gabriel MD Primary Care Provider [phone] Trudy Pascual MD Primary Care Provider Un available Dannie Honeycutt DO Unavailable Valerie Shahid MD Primary Care Provider [phone] Shmuel Norton MD Unavailable [phone] Encounter Details Date Type Department Care Team (Late st Contact Info) Description 10/02/2022 Scanned Document [facility] ENDOCRINOLOGY SCAN Endocrinology, Scan Social History [...] Description 10/24/2024 1:00 PM EDT Consult CTGI [address] [place] [address] Radha Escalante MD 85 [place] [address] 11/21/2024 3:00 PM EDT Office Visit [facility] [address] [facility] 101 [place] [address] Valerie Shahid MD 100 [place] [address] documented as of this encounter Visit Diagnoses Not on filedocumented in this encounter Care Teams Cash Accountant Relationship Specialty Start Date End Date Trudy Pascual MD PCP - Hospice Attending 08/27/22 Godwin Snowden MD [address] [place] [address] PCP - General Surgery, General 08/27/22 02/25/23 Trudy Pascual MD PCP - General Internal Medicine 02/26/23 10/28/23 Dannie Honeycutt DO [address] [place] [address] PCP - [place] Commercial Attributed 03/25/23 Valerie Shahid MD [address] [place] [address] PCP - General Internal Medicine 10/29/23 Shmuel Norton MD [address] [place] [address] Obstetrics and Gynecology 12/16/23 documented as of this encounter
--- OUTSIDE RECORDS SUMMARY | 2024-10-11 14:43 | XMS_ITS | Encounter Summary ---
Author Organization [facility] Address [address] [place] [address] Care Team Providers Care Soup Mixer Name Role Phone Bethany Hernandez MD Primary Care Provider [phone] Khushbu John APRN Primary Care Provider [phone] Trudy Pascual MD Primary Care Provider Un available Jack Goodman DO Unavailable [phone] Trudy Pascual MD Unavailable UnavailTrudy Ogden MD Unavailable UnavailTrudy Ogden MD Unavailable UnavailTrudy Ogden MD Unavailable UnavailGodwin Gabriel MD Primary Care Provider [phone] Trudy Pascual MD Primary Care Provider Un available Dannie Honeycutt DO Unavailable Valerie Shahid MD Primary Care Provider [phone] Shmuel Norton MD Unavailable [phone] Encounter Details Date Type Department Care Team (Late st Contact Info) Description 03/08/2018 Scanned Document [address] [address] Provider, Generic Social History Tobacco [...] Description 10/24/2024 1:00 PM EDT Consult CTGI [address] [place] [phone] Radha Escalante MD 85 [place] [address] 11/21/2024 3:00 PM EDT Office [facility] 100 [facility] [address] [place] [address] Valerie Shahid MD [address] [place] [address] documented as of this encounter Procedures Procedure Name Priority Date/Time Associated Diagnosis Comments HX GASTROENTEROLOGY UPPER ENDOSCOPY-SCAN 03/08/2018 documented in this encounter Results * HX GASTROENTEROLOGY UPPER ENDOSCOPY-SCAN (03/08/2018) Narrative 03/08/2018 Ordered by an unspecified provider. us Generic Provider HX AMB PROCEDURES Edited Result - Final documented in this encounter Visit Diagnoses Not on filedocumented in this encounter Care Teams Soup Mixer Relationship Specialty Start Date End Date Bethany Hernandez MD PCP - General Internal Medicine 06/20/15 07/24/19 Khushbu John APRN [address] [place] [address] PCP - General Family Medicine 07/25/19 07/08/20 Trudy Pascual MD [address] [place] [address] PCP - General Internal Medicine 07/09/20 08/26/22 Jack Goodman DO [address] [place] [address] PCP - [place] Commercial Attributed 09/22/20 12/22/20 Trudy Pascual MD Retired provider PCP - [place] Commercial Attributed 12/23/20 03/24/21 Trudy Pascual MD Retired provider PCP - [place] Commercial Attributed 05/25/21 10/22/21 Trudy Pascual MD Retired provider PCP - [place] Commercial Attributed 12/23/21 09/21/22 Trudy Pascual MD [address] [place] [address] PCP - Hospice Attending 08/27/22 Godwin Snowden MD [address] [place] [address] PCP - General Surgery, General 08/27/22 02/25/23 Trudy Pascual MD [address] [place] [address] PCP - General Internal Medicine 02/26/23 10/28/23 Dannie Honeycutt DO [address] [place] [address] PCP - [place] Commercial Attributed 03/25/23 Valerie Shahid MD [address] [place] [address] PCP - General Internal Medicine 10/29/23 Shmuel Norton MD [address] [place] [address] Obstetrics and Gynecology 12/16/23 documented as of this encounter
--- OUTSIDE RECORDS SUMMARY | 2024-10-11 14:43 | XMS_ITS | Encounter Summary ---
Author Organization [facility] Address [address] [place] [address] Care Team Providers Care Backbreaker Name Role Phone Trudy Pascual MD Primary Care Provider Un available Trudy Pascual MD Unavailable UnavailTrudy Ogden MD Unavailable Unavaila Godwin Franklin MD Primary Care Provider [phone] Trudy Pascual MD Primary Care Provider Un available Dannie Honeycutt DO Unavailable Valerie Shahid MD Primary Care Provider [phone] Shmuel Norton MD Unavailable [phone] Encounter Details Date Type Department Care Team (Late st Contact Info) Description 04/23/2022 Scanned Document [address] [address] Gastroenterology, Scan Social History Tobacco [...] Description 10/24/2024 1:00 PM EDT Consult CTGI [address] [place] [address] Radha Escalante MD [address] [place], [place] [phone] 11/21/2024 3:00 PM EDT Office Visit [facility] 100 [facility] [address] [place] [address] Valerie Shahid MD [address] [place] [address] documented as of this encounter Visit Diagnoses Not on filedocumented in this encounter Care Teams Backbreaker Relationship Specialty Start Date End Date Trudy Pascual MD PCP - General Internal Medicine 07/09/20 08/26/22 Trudy Pascual MD Retired provider PCP - [place] Commercial Attributed 12/23/21 09/21/22 Trudy Pascual MD PCP - Hospice Attending 08/27/22 Godwin Snowden MD [address] [place] [address] PCP - General Surgery, General 08/27/22 02/25/23 Trudy Pascual MD PCP - General Internal Medicine 02/26/23 10/28/23 Dannie Honeycutt DO [address] [place] [address] PCP - [place] Commercial Attributed 03/25/23 Valerie Shahid MD [address] [place] [address] PCP - General Internal Medicine 10/29/23 Shmuel Norton MD [address] [place] [address] Obstetrics and Gynecology 12/16/23 documented as of this encounter
--- OUTSIDE RECORDS SUMMARY | 2024-10-11 14:43 | XMS_ITS | Encounter Summary ---
Author Organization [facility] Address [address] [place] [address] Care Team Providers Care Electrolog Operator Name Role Phone Trudy Pascual MD Unavailable Unavaila Trudy Trejo MD Primary Care Provider Un available Dannie Honeycutt DO Unavailable Valerie Shahid MD Primary Care Provider [phone] Shmuel Norton MD Unavailable [phone] Encounter Details Date Type Department Care Team (Late st Contact Info) Description 03/25/2023 Scanned Document [facility] BARIATRICS SCAN Bariatrics, Scan Social [...] Description 10/24/2024 1:00 PM EDT Consult [facility]GI [facility] [address] [facility] [address] [place] [address] Radha Escalante MD 85 [place], [place] [address] 11/21/2024 3:00 PM EDT Office Visit [facility] 100 [facility] [address] [place] [phone] Valerie Shahid MD [address] [place] [address] documented as of this encounter Visit Diagnoses Not on filedocumented in this encounter Care Teams Electrolog Operator Relationship Specialty Start Date End Date Trudy Pascual MD PCP - Hospice Attending 08/27/22 Trudy Pascual MD PCP - General Internal Medicine 02/26/23 10/28/23 Dannie Honeycutt DO [address] [place] [address] PCP - [place] Commercial Attributed 03/25/23 Valerie Shahid MD 100 [place] [address] PCP - General Internal Medicine 10/29/23 Shmuel Norton MD [address] [place] [address] Obstetrics and Gynecology 12/16/23 documented as of this encounter
--- OUTSIDE RECORDS SUMMARY | 2024-10-11 14:43 | XMS_ITS | Encounter Summary ---
Author Organization [facility], Located [facility] Address [address] [place] [address] Care Team Providers Care Cantilever Crane Operator Name Role Phone Bethany Hernandez MD Primary Care Provider [phone] Khushbu John APRN Primary Care Provider + [phone] Trudy Pascual MD Primary Care Provider Un available Jack Goodman DO Unavailable [phone] Trudy Pascual MD Unavailable UnavailTrudy Ogden MD Unavailable UnavailTrudy Ogden MD Unavailable UnavailTrudy Ogden MD Unavailable UnavailGodwin Gabriel MD Primary Care Provider [phone] Trudy Pascual MD Primary Care Provider Un available Dannie Honeycutt DO Unavailable Valerie Shahid MD Primary Care Provider [phone] Shmuel Norton MD Unavailable [phone] Encounter Details Date Type Department Care Team (Late st Contact Info) Description 01/14/2017 Scanned Document [address] [address] Provider, Generic Social History Tobacco [...] 10/24/2024 1:00 PM EDT Consult CTGI [address] [place] [address] Radha Escalante MD 85 [place] [address] 11/21/2024 3:00 PM EDT Office Visit [facility] 100 [facility] [address] [place] [address] Valerie Shahid MD 100 [place] [address] documented as of this encounter Visit Diagnoses Not on filedocumented in this encounter Care Teams Cantilever Crane Operator Relationship Specialty Start Date End Date Bethany Hernandez MD PCP - General Internal Medicine 06/20/15 07/24/19 Khushbu John APRN [address] [place] [address] PCP - General Family Medicine 07/25/19 07/08/20 Trudy Pascual MD [address] [place] [address] PCP - General Internal Medicine 07/09/20 08/26/22 Jack Goodman DO [address] [place] [address] PCP - [place] [employer] Attributed 09/22/20 12/22/20 Trudy Pascual MD Retired provider PCP - [place] [employer] Attributed 12/23/20 03/24/21 Trudy Pascual MD Retired provider PCP - [place] [employer] Attributed 05/25/21 10/22/21 Trudy Pascual MD Retired provider PCP - [place] [employer] Attributed 12/23/21 09/21/22 Trudy Pascual MD [address] [place] [address] PCP - Hospice Attending 08/27/22 Godwin Snowden MD [address] [place] [address] PCP - General Surgery, General 08/27/22 02/25/23 Trudy Pascual MD [address] [place] [address] PCP - General Internal Medicine 02/26/23 10/28/23 Dannie Honeycutt DO [facility]5 [place] [address] PCP - [place] Commercial Attributed 03/25/23 Valerie Shahid MD [address] [place] [id number] PCP - General Internal Medicine 10/29/23 Shmuel Norton MD [address] [place] [address] Obstetrics and Gynecology 12/16/23 documented as of this encounter
--- OUTSIDE RECORDS SUMMARY | 2024-10-11 14:43 | XMS_ITS | Encounter Summary ---
Author Organization [facility] Address [address] [place] [address] Care Team Providers Care Nurse Clinician Name Role Phone Bethany Hernandez MD Primary Care Provider [phone] Khushbu John APRN Primary Care Provider [phone] Trudy Pascual MD Primary Care Provider Un available Jack Goodman DO Unavailable [phone] Trudy Pascual MD Unavailable UnavailTrudy Ogden MD Unavailable UnavailTrudy Ogden MD Unavailable UnavailTrudy Ogden MD Unavailable UnavailGodwin Gabriel MD Primary Care Provider [phone] Trudy Pascual MD Primary Care Provider Un available Dannie Honeycutt DO Unavailable Valerie Shahid MD Primary Care Provider [phone] Shmuel Norton MD Unavailable [phone] Reason for Visit * Reason Comments Medication Refill Encounter Details Date Type Department Care Team (Late st Contact Info) Description 09/21/[address] [address] Bethany Hernandez MD [address] [place], [place] [address] [address] [address] Health care maintenance Social History [...] Description 10/24/2024 1:00 PM EDT Consult CTGI [address] [place] [address] Radha Escalante MD [address] [place] [address] 11/21/2024 3:00 PM EDT Office Visit [address] [place] [address] Valerie Shahid MD [address] [place], [place] [id number] documented as of this encounter Visit Diagnoses Diagnosis Health care maintenance documented in this encounter Care Teams Nurse Clinician Relationship Specialty Start Date End Date Bethany Hernandez MD PCP - General Internal Medicine 06/20/15 07/24/19 Khushbu John APRN [address] [place] [address] PCP - General Family Medicine 07/25/19 07/08/20 Trudy Pascual MD [address] [place] [address] PCP - General Internal Medicine 07/09/20 08/26/22 Jack Goodman DO [address] [place], [place] [id number] PCP - [place] [employer] Attributed 09/22/20 12/22/20 Trudy Pascual MD Retired provider PCP - [place] [employer] Attributed 12/23/20 03/24/21 Trudy Pascual MD Retired provider PCP - [place] [employer] Attributed 05/25/21 10/22/21 Trudy Pascual MD Retired provider PCP - [place] [employer] Attributed 12/23/21 09/21/22 Trudy Pascual MD [address] [place] [address] PCP - Hospice Attending 08/27/22 Godwin Snowden MD [address] [place] [address] PCP - General Surgery, General 08/27/22 02/25/23 Trudy Pascual MD [address] [place] [address] PCP - General Internal Medicine 02/26/23 10/28/23 Dannie Honeycutt DO [facility]5 [place] [address] PCP - [place] [employer] Attributed 03/25/23 Valerie Shahid MD [address] [place] [address] PCP - General Internal Medicine 10/29/23 Shmuel Norton MD [address] [place] [address] Obstetrics and Gynecology 12/16/23 documented as of this encounter
--- OUTSIDE RECORDS SUMMARY | 2024-10-11 14:43 | XMS_ITS | Clinical Summary ---
Author Organization [facility] Address [address] [place] [address] Care Team Providers Care Electric Blanket Wirer Name Role Phone Bethany Hernandez MD Primary Care Provider [phone] Surgical History Surgery Date Site/Laterality Comments WISDOM TOOTH EXTRACTION PROCEDURE:WISDOM TOOTH EXTRACTION UPPER GASTROINTESTINAL ENDOSCOPY 03/08/2018 N/A PROCEDURE:UPPER GASTROINTESTINAL ENDOSCOPY;COMMENT:Procedure: UPPER ENDOSCOPY-EGD; Surgeon: Hussein Garcia MD; Location: [facility] END[facility]COPY; Service: Gastroenterology; Laterality: N/A; Medical History [...] age to complete this topic Care Teams Electric Blanket Wirer Relationship Specialty Start Date End Date Bethany Hernandez MD [address] [place] [address] PCP - General Internal Medicine 03/01/18
--- OUTSIDE RECORDS SUMMARY | 2024-10-11 14:43 | XMS_ITS | Encounter Summary ---
Author Organization [facility] Address [address] [place] [address] Care Team Providers Care Special Needs Nanny Name Role Phone Bethany Hernandez MD Primary Care Provider [phone] Khushbu John APRN Primary Care Provider [phone] Trudy Pascual MD Primary Care Provider Un available Jack Goodman DO Unavailable [phone] Trudy Pascual MD Unavailable UnavailTrudy Ogden MD Unavailable UnavailTrudy Ogden MD Unavailable UnavailTrudy Ogden MD Unavailable UnavailGodwin Gabriel MD Primary Care Provider [phone] Trudy Pascual MD Primary Care Provider Un available Dannie Honeycutt DO Unavailable Valerie Shahid MD Primary Care Provider [phone] Shmuel Norton MD Unavailable [phone] Encounter Details Date Type Department Care Team (Late st Contact Info) Description 10/06/2017 Scanned Document [address] [address] Provider, Generic Social History Tobacco [...] Description 10/24/2024 1:00 PM EDT Consult [facility] 113 [facility] [address] [place] [address] Radha Escalante MD 85 [place] [address] 11/21/2024 3:00 PM EDT Office Visit [facility] 100 [facility] [address] [place] [address] Valerie Shahid MD [address] [place] [address] documented as of this encounter Visit Diagnoses Not on filedocumented in this encounter Care Teams Special Needs Nanny Relationship Specialty Start Date End Date Bethany Hernandez MD PCP - General Internal Medicine 06/20/15 07/24/19 Khushbu John, LIZETH [address] [place], [place] [id number] PCP - General Family Medicine 07/25/19 07/08/20 Trudy Pascual MD [address] [place] [address] PCP - General Internal Medicine 07/09/20 08/26/22 Jack Goodman DO [address] [place] [address] PCP - [place] [employer] Attributed 09/22/20 12/22/20 Trudy Pascual MD Retired provider PCP - [place] [employer] Attributed 12/23/20 03/24/21 Trudy Pascual MD Retired provider PCP - [place] [employer] Attributed 05/25/21 10/22/21 Trudy Pascual MD Retired provider PCP - [place] [employer] Attributed 12/23/21 09/21/22 Trudy Pascual MD [address] [place] [address] PCP - Hospice Attending 08/27/22 Godwin Snowden MD [address] [place] [address] PCP - General Surgery, General 08/27/22 02/25/23 Trudy Pascual MD [address] [place] [address] PCP - General Internal Medicine 02/26/23 10/28/23 Dannie Honeycutt DO [address] [place] [address] PCP - [place] [employer] Attributed 03/25/23 Valerie Shahid MD [address] [place] [id number] PCP - General Internal Medicine 10/29/23 Shmuel Norton MD [address] [place] [address] Obstetrics and Gynecology 12/16/23 documented as of this encounter
--- OUTSIDE RECORDS SUMMARY | 2024-10-11 14:43 | XMS_ITS | Encounter Summary ---
Author Organization [facility] Address [address] [place] [address] Care Team Providers Care Construction Mgr Name Role Phone Trudy Pascual MD Primary Care Provider Un available Trudy Pascual MD Unavailable UnavailTrudy Ogden MD Unavailable Unavaila Godwin Franklin MD Primary Care Provider [phone] Trudy Pascual MD Primary Care Provider Un available Dannie Honeycutt DO Unavailable Valerie Shahid MD Primary Care Provider [phone] Shmuel Norton MD Unavailable [phone] Encounter Details Date Type Department Care Team (Late st Contact Info) Description 04/14/2022 Scanned Document [address] [address] Bariatric Surgery, Scan Social History [...] Description 10/24/2024 1:00 PM EDT Consult CTGI [address] [place] [address] Radha Escalante MD 85 [place], [place] [address] 11/21/2024 3:00 PM EDT Office Visit [facility] 100 [facility] [address] [place] [address] Valerie Shahid MD 100 [place] [address] documented as of this encounter Visit Diagnoses Not on filedocumented in this encounter Care Teams Construction Mgr Relationship Specialty Start Date End Date Trudy Pascual MD PCP - General Internal Medicine 07/09/20 08/26/22 Trudy Pascual MD Retired provider PCP - [place] [employer] Attributed 12/23/21 09/21/22 Trudy Pascual MD PCP - Hospice Attending 08/27/22 Godwin Snowden MD [address] [place] [address] PCP - General Surgery, General 08/27/22 02/25/23 Trudy Pascual MD PCP - General Internal Medicine 02/26/23 10/28/23 Dannie Honeycutt DO [address] [place] [address] PCP - [place] [employer] Attributed 03/25/23 Valerie Shahid MD [address] [place] [address] PCP - General Internal Medicine 10/29/23 Shmuel Norton MD [address] [place] [address] Obstetrics and Gynecology 12/16/23 documented as of this encounter
--- OUTSIDE RECORDS SUMMARY | 2024-10-11 14:43 | XMS_ITS | Encounter Summary ---
Author Organization [facility] Address [address] [place] [address] Care Team Providers Care Medical Practice Manager Name Role Phone Trudy Pascual MD Primary Care Provider Un available Trudy Pascual MD Unavailable UnavailTrudy Ogden MD Unavailable Unavaila Godwin Franklin MD Primary Care Provider [phone] Trudy Pascual MD Primary Care Provider Un available Dannie Honeycutt DO Unavailable Valerie Shahid MD Primary Care Provider [phone] Shmuel Norton MD Unavailable [phone] Encounter Details Date Type Department Care Team (Late st Contact Info) Description 02/26/2022 Scanned Document [facility] [address] [place] [address] Cardiology, Scan Social History Tobacco Use [...] 10/24/2024 1:00 PM EDT Consult CTGI [facility] 113 [facility] [address] [place] [address] Radha Escalante MD 85 [place], [place] [address] 11/21/2024 3:00 PM EDT Office Visit [facility] 100 [facility] [address] [place] [address] Valerie Shahid MD 100 [place], [place] [address] documented as of this encounter Visit Diagnoses Not on filedocumented in this encounter Care Teams Medical Practice Manager Relationship Specialty Start Date End Date Trudy Pascual MD PCP - General Internal Medicine 07/09/20 08/26/22 Trudy Pascual MD Retired provider PCP - [place] [employer] Attributed 12/23/21 09/21/22 Trudy Pascual MD PCP - Hospice Attending 08/27/22 Godwin Snowden MD [address] [address] PCP - General Surgery, General 08/27/22 02/25/23 Trudy Pascual MD PCP - General Internal Medicine 02/26/23 10/28/23 Dannie Honeycutt DO [address]5 [place] [address] PCP - [place] [employer] Attributed 03/25/23 Valerie Shahid MD [address] [place] [address] PCP - General Internal Medicine 10/29/23 Shmuel Norton MD [address] [place] [address] Obstetrics and Gynecology 12/16/23 documented as of this encounter
--- OUTSIDE RECORDS SUMMARY | 2024-10-11 14:43 | XMS_ITS | Encounter Summary ---
Author Organization [facility] Address [address] [place] [address] Care Team Providers Care Assistant Professor Of History Name Role Phone Bethany Hernandez MD Primary Care Provider [phone] Khushbu John APRN Primary Care Provider + [phone] Trudy Pascual MD Primary Care Provider Un available Jack Goodman DO Unavailable [phone] Trudy Pascual MD Unavailable UnavailTrudy Ogden MD Unavailable UnavailTrudy Ogden MD Unavailable UnavailTrudy Ogden MD Unavailable UnavailGodwin Gabriel MD Primary Care Provider [phone] Trudy Pascual MD Primary Care Provider Un available Dannie Honeycutt DO Unavailable Valerie Shahid MD Primary Care Provider [phone] Shmuel Norton MD Unavailable [phone] Encounter Details Date Type Department Care Team (Late st Contact Info) Description 03/08/2018 Scanned Document [address] [address] Provider, Generic Social History Tobacco [...] Description 10/24/2024 1:00 PM EDT Consult [facility]GI [address] [place] [address] Radha Escalante MD 85 [place] [address] 11/21/2024 3:00 PM EDT Office Visit [facility] 100 [facility] [address] [place] [address] Valerie Shahid MD 100 [place] [address] documented as of this encounter Visit Diagnoses Not on filedocumented in this encounter Care Teams Assistant Professor Of History Relationship Specialty Start Date End Date Bethany Hernandez MD PCP - General Internal Medicine 06/20/15 07/24/19 Khushbu John APRN [address] [place] [address] PCP - General Family Medicine 07/25/19 07/08/20 Trudy Pascual MD [address] [place] [address] PCP - General Internal Medicine 07/09/20 08/26/22 Jack Goodman DO [address] [place] [address] PCP - [place] [employer] Attributed 09/22/20 12/22/20 Trudy Pascual MD Retired provider PCP - [place] [employer] Attributed 12/23/20 03/24/21 Trudy Pascual MD Retired provider PCP - [place] [employer] Attributed 05/25/21 10/22/21 Trudy Pascual MD Retired provider PCP - [place] [employer] Attributed 12/23/21 09/21/22 Trudy Pascual MD [address] [place] [address] PCP - Hospice Attending 08/27/22 Godwin Snowden MD [address] [place] [address] PCP - General Surgery, General 08/27/22 02/25/23 Trudy Pascual MD [address] [place] [address] PCP - General Internal Medicine 02/26/23 10/28/23 Dannie Honeycutt DO [address] [place] [address] PCP - [place] [employer] Attributed 03/25/23 Valerie Shahid MD [address] [place] [address] PCP - General Internal Medicine 10/29/23 Shmuel Norton MD [address] [place] [address] Obstetrics and Gynecology 12/16/23 documented as of this encounter
--- OUTSIDE RECORDS SUMMARY | 2024-10-11 14:43 | XMS_ITS | Encounter Summary ---
Author Organization [facility] Address [address] [place] [address] Care Team Providers Care Coal Getter Name Role Phone Bethany Hernandez MD Primary Care Provider [phone] Khushbu John APRN Primary Care Provider + [phone] Trudy Pascual MD Primary Care Provider Un available Jack Goodman DO Unavailable [phone] Trudy Pascual MD Unavailable UnavailTrudy Ogden MD Unavailable UnavailTrudy Ogden MD Unavailable UnavailTrudy Ogden MD Unavailable UnavailGodwin Gabriel MD Primary Care Provider [phone] Trudy Pascual MD Primary Care Provider Un available Dannie Honeycutt DO Unavailable Valerie Shahid MD Primary Care Provider [phone] Shmuel Norton MD Unavailable [phone] Encounter Details Date Type Department Care Team (Late st Contact Info) Description 05/11/2018 Scanned Document [address] [address] Provider, Generic Social History Tobacco [...] Description 10/24/2024 1:00 PM EDT Consult CTGI [address] [place] [address] Radha Escalante MD 85 [place] [address] 11/21/2024 3:00 PM EDT Office Visit [facility] 100 [facility] [address] [place] [address] Valerie Shahid MD 100 [place] [address] documented as of this encounter Visit Diagnoses Not on filedocumented in this encounter Care Teams Coal Getter Relationship Specialty Start Date End Date Bethany Hernandez MD PCP - General Internal Medicine 06/20/15 07/24/19 Khushbu John APRN [address] [place] [address] PCP - General Family Medicine 07/25/19 07/08/20 Trudy Pascual MD [address] [place] [address] PCP - General Internal Medicine 07/09/20 08/26/22 Jack Goodman DO [address] [place] [address] PCP - [place] Commercial Attributed 09/22/20 12/22/20 Trudy Pascual MD Retired provider PCP - [place] [employer] Attributed 12/23/20 03/24/21 Trudy Pascual MD Retired provider PCP - [place] [employer] Attributed 05/25/21 10/22/21 Trudy Pascual MD Retired provider PCP - [place] [employer] Attributed 12/23/21 09/21/22 Trudy Pascual MD [address] [place] [address] PCP - Hospice Attending 08/27/22 Godwin Snowden MD [address] [place] [address] PCP - General Surgery, General 08/27/22 02/25/23 Trudy Pascual MD [address] [place] [address] PCP - General Internal Medicine 02/26/23 10/28/23 Dannie Honeycutt DO [address] [place] [address] PCP - [place] Commercial Attributed 03/25/23 Valerie Shahid MD [address] [place] [address] PCP - General Internal Medicine 10/29/23 Shmuel Norton MD [address] [place] [address] Obstetrics and Gynecology 12/16/23 documented as of this encounter
--- OUTSIDE RECORDS SUMMARY | 2024-10-11 14:43 | XMS_ITS | Encounter Summary ---
Author Organization [facility] Address [address] [place] [address] Care Team Providers Care Electrical Timing Device Calibrator Name Role Phone Bethany Hernandez MD Primary Care Provider [phone] Khushbu John APRN Primary Care Provider + [phone] Trudy Pascual MD Primary Care Provider Un available Jack Goodman DO Unavailable [phone] Trudy Pascual MD Unavailable UnavailTrudy Ogden MD Unavailable UnavailTrudy Ogden MD Unavailable UnavailTrudy Ogden MD Unavailable UnavailGodwin Gabriel MD Primary Care Provider [phone] Trudy Pascual MD Primary Care Provider Un available Dannie Honeycutt DO Unavailable Valerie Shahid MD Primary Care Provider [phone] Shmuel Norton MD Unavailable [phone] Encounter Details Date Type Department Care Team (Late st Contact Info) Description 06/21/2015 Scanned Document [address] [address] Provider, Generic Social History Tobacco [...] Description 10/24/2024 1:00 PM EDT Consult CTGI [address] [place] [address] Radha Escalante MD 85 [place] [address] 11/21/2024 3:00 PM EDT Office Visit [facility] 100 [facility] [address] [place] [address] Valerie Shahid MD 100 [place] [address] documented as of this encounter Visit Diagnoses Not on filedocumented in this encounter Care Teams Electrical Timing Device Calibrator Relationship Specialty Start Date End Date Bethany Hernandez MD PCP - General Internal Medicine 06/20/15 07/24/19 Khushbu John APRN [address] [place] [address] PCP - General Family Medicine 07/25/19 07/08/20 Trudy Pascual MD [address] [place] [address] PCP - General Internal Medicine 07/09/20 08/26/22 Jack Goodman DO [address] [place] [address] PCP - [place] Commercial Attributed 09/22/20 12/22/20 Trudy Pascual MD Retired provider PCP - [place] [employer] Attributed 12/23/20 03/24/21 Trudy Pascual MD Retired provider PCP - [place] [employer] Attributed 05/25/21 10/22/21 Trudy Pascual MD Retired provider PCP - [place] [employer] Attributed 12/23/21 09/21/22 Trudy Pascual MD [address] [place] [address] PCP - Hospice Attending 08/27/22 Godwin Snowden MD [address] [place] [address] PCP - General Surgery, General 08/27/22 02/25/23 Trudy Pascual MD [address] [place] [address] PCP - General Internal Medicine 02/26/23 10/28/23 Dannie Honeycutt DO [facility] [place] [address] PCP - [place] Commercial Attributed 03/25/23 Valerie Shahid MD [address] [place] [id number] PCP - General Internal Medicine 10/29/23 Shmuel Norton MD [address] [place] [address] Obstetrics and Gynecology 12/16/23 documented as of this encounter
--- OUTSIDE RECORDS SUMMARY | 2024-10-11 14:43 | XMS_ITS | Clinical Summary ---
Author Organization [facility] Address [address] [place] [address] Care Team Providers Care Ornamental Metal Erector Apprentice Name Role Phone Bethany Hernandez MD Primary Care Provider [phone] Allergies Active Allergy Reactions Criticality Noted Date [...] age to complete this topic Care Teams Ornamental Metal Erector Apprentice Relationship Specialty Start Date End Date Bethany Hernandez MD [address] [facility] [address] [place] [address] PCP - General Internal Medicine 03/01/18
--- OUTSIDE RECORDS SUMMARY | 2024-10-11 14:43 | XMS_ITS | Encounter Summary ---
Author Organization [facility] Address [address] [place] [address] Care Team Providers Care Director Life Sales Name Role Phone Bethany Hernandez MD Primary Care Provider [phone] Khushbu John APRN Primary Care Provider [phone] Trudy Pascual MD Primary Care Provider Un available Jack Goodman DO Unavailable [phone] Trudy Pascual MD Unavailable UnavailTrudy Ogden MD Unavailable UnavailTrudy Ogden MD Unavailable UnavailTrudy Ogden MD Unavailable UnavailGodwin Gabriel MD Primary Care Provider [phone] Trudy Pascual MD Primary Care Provider Un available Dannie Honeycutt DO Unavailable Valerie Shahid MD Primary Care Provider [phone] Shmuel Norton MD Unavailable [phone] Encounter Details Date Type Department Care Team (Late st Contact Info) Description 03/08/2018 Scanned Document [address] [phone] Provider, Generic Social History Tobacco [...] Description 10/24/2024 1:00 PM EDT Consult [facility] [address] [place] [phone] Radha Escalante MD [address] [place] [address] 11/21/2024 3:00 PM EDT Office Visit [facility] [address] [facility] [address] [place] [phone] Valerie Shahid MD [address] [place] [address] documented as of this encounter Visit Diagnoses Not on filedocumented in this encounter Care Teams Director Life Sales Relationship Specialty Start Date End Date Bethany Hernandez MD PCP - General Internal Medicine 06/20/15 07/24/19 Khushbu John APRN [address] [place] [address] PCP - General Family Medicine 07/25/19 07/08/20 Trudy Pascual MD [address] [place] [address] PCP - General Internal Medicine 07/09/20 08/26/22 Jack Goodman DO [address] [place] [address] PCP - [place] [employer] Attributed 09/22/20 12/22/20 Trudy Pascual MD Retired provider PCP - [place] [employer] Attributed 12/23/20 03/24/21 Trudy Pascual MD Retired provider PCP - [place] [employer] Attributed 05/25/21 10/22/21 Trudy Pascual MD Retired provider PCP - [place] [employer] Attributed 12/23/21 09/21/22 Trudy Pascual MD [address] [place] [address] PCP - Hospice Attending 08/27/22 Godwin Snowden MD [address] [place] [address] PCP - General Surgery, General 08/27/22 02/25/23 Trudy Pascual MD [address] [place] [address] PCP - General Internal Medicine 02/26/23 10/28/23 Dannie Honeycutt DO [address] [place] [address] PCP - [place] [employer] Attributed 03/25/23 Valerie Shahid MD [address] [place] [address] PCP - General Internal Medicine 10/29/23 Shmuel Norton MD [address] [place] [address] Obstetrics and Gynecology 12/16/23 documented as of this encounter
== END 2024-10-11 14:08 | disposition home or self-care (01) ==
LOC: HO.HBS 13:31
PROVIDERS: PCP Internal Medicine Cardiovascular Disease; Visit Provider Physician Assistant Surgical
DX: E66.3 Overweight (principal); Z68.26 Body mass index [BMI] 26.0-26.9, adult; Z90.3 Acquired absence of stomach [part of]; Z98.84 Bariatric surgery status
CPT/HCPCS: 99214

== ENCOUNTER 2025-02-01 13:05 | Outpatient (AMB) | payer BC, SELFPAY ==
--- OUTSIDE RECORDS SUMMARY | 2025-01-30 13:15 | XMS_ITS | Encounter Summary ---
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 [place] [facility] which had a [place] case. Encounter Details Date Type Department Care Team (Late st Contact Info) Description 01/30/2025 1:15 PM EDT Office Visit [facility] [address] [place] [address] Yazan Mathis MD [address] [place] [address] Anh Martinez PA [address] [place], [place] [id number] Viral URI (Primary Dx); Vertigo Social History Tobacco Use Types Packs/Day Years Used Date Smoking Tobacco: Former Cigarettes 1.5 14 Q uit: 04/24/2009 Smokeless Tobacco: Never Comments:QUIT IN 2009 Alcohol Use Standard Drinks/Week Comments Yes 0 (1 standard drink = 0.6 oz pur e alcohol) Special occasions OASIS D0700: Social Isolation Answer Da te Recorded Frequency of experiencing loneliness or isolatio n Never 10/06/2022 OASIS A1250: Transportation Answer Date Recorded Lack of Transportation (Medical) No 10/06/2022 Lack of Transportation (Non-Medical) No 10/06/2022 Patient Unable or Declines to Respond No 10/06/2022 [facility] Utilities Answer Date Recorded In the past 12 months has th e electric, gas, oil, or water company threatened to shut off services in your home? No 11/20/2024 Social Connection and Isolat ion Panel [NHANES] Answer Date Recorded In a typical week, how many times do you talk on the phone with family, friends, or neighbors? More than three times a week 11/20/2024 Frequency of Social Gatherin gs with Friends and Family Not on file 11/20/2024 Attends Faith Services Not on file 11/20 Active Member of Clubs or Organizations Not on f ile 11/20/2024 Attends Club or Organization Meetings Not on omar e 11/20/2024 Marital Status Not on file 11/20/2024 AUDIT-C Answer Date Recorded Q1: How often do you have a drink containing alc ohol? Monthly or less 11/20/2024 Q2: How many drinks containi ng alcohol do you have on a typical day when you are drinking? 1 or 2 11/20/2024 Frequency of Binge Drinking Not on file 10/24 PHQ-2 Answer Date Recorded PHQ-2 Total Score 0 11/20/2024 Hunger Vital Sign Answer Date Recorded Within the past 12 months, y ou worried that your food would run out before you got the money to buy more. Never true 11/21/19 25 Within the past 12 months, t he food you bought just didn't last and you didn't have money to get more. Never true 11/20/2024 PRAPARE - Transportation Answer Date Re corded In the past 12 months, has l ack of transportation kept you from medical appointments or from getting medications? No 10/24 In the past 12 months, has l ack of transportation kept you from meetings, work, or from getting things needed for daily living? No 11/20/2024 Housing Stability Vital Sign Answer Pietro e Recorded In the last 12 months, was t here a time when you were not able to pay the mortgage or rent on time? No 11/20/2024 In the past 12 months, how m any times have you moved where you were living? 0 11/20/2024 At any time in the past 12 m [facility], were you homeless or living in a penitentiary (including now)? No 11/20/2024 Physical Activity Answer Date Recorded On average, how many days pe r week do you engage in moderate to strenuous exercise (like a brisk walk)? 3 days 11/20/2024 On average, how many minutes do you exercise per day at this level? 30 min 11/20/2024 Education Answer Date Recorded What is the highest level of school you have completed or the highest degree you have received? Bachelor's degree (e.g., BA, AB, BS) 11/20/2024 Comments No Sex and Gender Information Value Date Recorded Sex Assigned at Female 10/27/2023 12:28 PM EDT Legal Sex Female 3:24 PM EDT Gender Identity Female 08/23/2020 6:42 AM EDT Sexual Orientation Heterosexual (straight) 10/24 1:41 PM EDT documented as of this encounter Last Filed Vital Signs Vital Sign Reading Time Taken Comments Blood Pressure 112/71 01/30/2025 1:14 PM EDT Pulse 83 01/30/2025 1:14 PM EDT Temperature 36.7 C (98.1 F) 01/30/2025 1:14 PM EDT Respiratory Rate 16 01/30/2025 1:14 PM EDT Oxygen Saturation 99% 01/30/2025 1:14 PM EDT Inhaled Oxygen Concentration - - Weight 64.9 kg (143 lb) 01/30/2025 1:14 PM EDT Height - - Body Mass Index 27.02 11/28/2024 11:23 AM EDT documented in this encounter Progress Notes * JOANNE Cummings - 01/30/2025 1:41 PM EDT Assessment & Plan Rosalie was seen today for illness. Diagnoses and all orders for this visit: Viral URI - POCT Rapid COVID-19 Antigen (FDA EUA) Vertigo - meclizine (ANTIVERT) 25 MG tablet; Take 1 tablet (25 mg total) by mouth 3 (three) times a day as needed for dizziness. Medical Decision Making: Patient has a viral URI. I considered mastoiditis, pneumonia, GABHS, sinusitis, [employer], retropharyngeal abscess, meningitis, otitis media, orbital cellultis and other bacterial infxs but the hx, exam & data did not support the diagnoses. The pt/family was advised that some dzs present atypically & the pt was given explicit DC instructions. The nonuse of antibiotics was discussed. Symptomatictherapy suggested: flonase, otc cold medications, increase fluids, warm tea, humidifiers. Call or return to clinic prn if these symptoms worsen or fail to improve as anticipated. Patient has peripheral vertigo. Unlikely central vertigo due to a normal neurological exam and absence of headache. There is no numbness, weakness, pronounced gait impairment, diplopia, and dysarthria to suggest central vertigo. I do not think the patient needs a MRI/MRA at this point since exam points towards peripheral medical. will try meclizine for her dizziness. Follow-up with ENT if vertigocontinues and difficult to control. Discussed treatment plan with patient and she understands. Emergent signs and symptoms discussed regarding dizziness The care plan including medications and self-management goals were reviewed to the best of the Patient and/or family's ability. All questions and concerns were answered. Patient and/or family verbalized understanding of the plan of care. Subjective Rosalie Valencia is a 49 y.o. female HPI Chief Complaint: URI, dizziness Context: Certain head position Severity: Mild Other Pertinent History: Noting runny nose congestion, ear pressure/popping. Occasional dizziness. Not present currently. Present for the past 2 days. Describes dizziness as sensation of room spinning. Presents with movements. These episodes would last 1-2 minutes and would go away on its own. No hearing loss or tinnitus No headaches, change in vision, or syncope. No fevers, shortness of breath, or chest pain. I have reviewed the patients medications, allergies, past medical history, social history and family history as documented. Past Medical History: Diagnosis Date Asthma As a child went away. Bronchial asthma Back pain Fatty liver Headache Heartburn Herpes genital Leg cramps Childhood Randomly at night not frequent Obesity Past Surgical History: Procedure Laterality Date COLONOSCOPY N/A 12/22/2024 Procedure: COLONOSCOPY; Surgeon: Radha Escalante MD; [place] [facility] [place] Service: Gastroenterology; Laterality: N/A; ENDOSCOPY approximately 2020 HIATAL HERNIA REPAIR LAPAROSCOPIC GASTRIC SLEEVE 10/09/2021 [place] PANNICULECTOMY 09/11/2022 [place] STOMACH SURGERY 2020 Gastric sleeve WISDOM TOOTH EXTRACTION all 4 - age 18 - no complications Social History[1] Family History Problem Relation Age of Onset Colon polyps Mother Every colonoscopy she has polyps Alcohol abuse Father No Known Problems Daughter Colon cancer Maternal Aunt 33 Colon cancer Maternal Aunt Crohn's disease Maternal Aunt Colon cancer Paternal Aunt 56 - 59 Recent diagnosis Breast cancer Paternal Aunt 50 Review of Systems: All other systems reviewed and are negative except where documented below: Constitutional: No Fever or chills Cardiovascular: No Chest pain Pulmonary: No SOB Gastrointestinal: No abdominal pain. No nausea, vomiting or diarrhea Objective Vitals: 01/30/25 1314 BP: 112/71 Pulse: 83 Resp: 16 Temp: 98.1 ??F (36.7 ??C) SpO2: 99% Weight: 64.9 kg (143 lb) Vital signs reviewed. Physical Exam Constitutional: Well-appearing, in no apparent respiratory distress. Does not appear toxic Eyes: Conjunctivae Clear, No scleral icterus. Ear, Nose, Mouth, Throat: Grossly normal inspection. Normal voice, handling secretions normally. Positive nasal congestion/rhinorrhea. Patent ear canals bilaterally without TM erythema fluid or distention Neck: Supple, no nuchal signs, No cervical lymphadenopathy, Cardiovascular: Normal S1, S2. No extra heart sounds. Respiratory: Breath sounds clear and equal bilaterally, no wheezes, rales, or rhonchi. No accessorymuscle use. Speaking in full complete sentences Gastrointestinal: Soft and No tenderness Back: No CVAT Musculoskeletal: No extremity tenderness. No muscle atrophy. Skin: Normal for age and race, grossly normal temperature and turgor. No acute rash. NEURO Exam: Alert and oriented ??3 to person, place, and time. CN II-XII are grossly intact. VisualFields are Full. Motor is +5/5 in all the main muscle groups in the upper & lower extremities & symmetrically. Sensory is intact x 4 ext. DTRs +2/4 throughout. No focal or lateralizing signs are present. Gait is Normal. Cerebellar testing with finger to nose is appropriate. Psychiatric: Mood and manner are appropriate. Grooming and personal hygiene are appropriate. Hematologic: No significant bruising, petechia, or purpura. Results for orders placed or performed in visit on 01/30/25 POCT Rapid COVID-19 Antigen (FDA EUA) Collection Time: 01/30/25 1:29 PM Specimen: Nasal Cavity; Swab, Nasal Result Value Ref Range COVID-19 Rapid Antigen, POC (FDA EUA) Negative Result Comments: A Positive Result does not rule outbacterial infection or co-infection with other viruses. Clinical correlation advised. A Negative Result in symptomatic patients should be considered presumptive and needs confirmation by PCR. Kit Lot Number [id number] It [employer] Manager Pass Pass JOANNE Cummings 01/31/25 10:43 AM [1] Social History Tobacco Use Smoking status: Former Current packs/day: 0.00 Average packs/day: 1.5 packs/day for 14.0 years (21.0 ttl pk-yrs) Types: Cigarettes Quit date: 04/24/2009 Years since quittin.7 Smokeless tobacco: Never Tobacco comments: QUIT IN 2009 Vaping Use Vaping status: Never Used Substance Use Topics Alcohol use: Yes Comment: Special occasions Drug use: No documented in this encounter Miscellaneous Notes * Addendum Note - JOANNE Cummings - 01/31/2025 10:43 AM EDTAddended by: ANH MARTNIEZ on: 01/31/2025 10:43 AM Modules accepted: Orders documented in this encounter Plan of Treatment Upcoming Encounters Date Type Department Care Team (Late st Contact Info) Description 11/27/2025 4:00 PM EDT Office Visit [address] [place] [address] Valerie Shahid MD [address] [place] [address] documented as of this encounter Procedures Procedure Name Priority Date/Time Associated Diagnosis Comments POCT RAPID COVID-19 AG (FDA EUA) Routine 01/30/2025 1:29 PM EDT Viral URI documented in this encounter Results * POCT Rapid COVID-19 Antigen (FDA EUA) (01/30/2025 1:29 PM EDT) COVID-19 Rapid Antigen, POC (FDA EUA) Negative Result Comments: A Positive Result does not rule out bacterial infection or co-infection with other viruses. Clinical correlation advised. A Negative Result in symptomatic patients should be considered presumptive and needs confirmation by PCR. Kit Lot Number [id number] It Communications Manager Pass Pass Swab, Nasal Specimen from nose / Unknown 01/30/2025 1:29 PM EDT Anh RUBIO POINT OF CARE TEST ORDERABLES Final Result documented in this encounter Visit Diagnoses Diagnosis Viral URI- Primary Acute upper respiratory infections of unspecified site Vertigo Dizziness and giddiness documented in this encounter Care Teams Mechanical Repair Worker Relationship Specialty Start Date End Date Trudy Pascual MD PCP - Hospice Attending 08/27/22 Dannie Honeycutt DO [address] [place] [address] PCP - [place] [employer] Attributed 03/25/23 Valerie Shahid MD [address] [place] [address] PCP - General Internal Medicine 10/29/23 Shmuel Norton MD [address] [place] [address] Obstetrics and Gynecology 12/16/23 Radha Escalante MD [address] [place] [address] Gastroenterology 12/25/24 documented as of this encounter
--- NOTE | 2025-02-01 12:26 | MHC.OFFVISWM ---
VS Expanded 02/01/25 12:27 Height 5 ft 1.5 in Weight 146 lb 6 oz BMI 27.2 Intake Visit Reasons: TV PO LSG 10/10/20 Allergies bacitracin Allergy (Severe, Verified 10/11/24 13:46) Anaphylaxis, cellilitis Cephalosporins Allergy (Severe, Verified 10/11/24 13:46) Anaphylaxis, cellulitis Sulfa (Sulfonamide Antibiotics) Allergy (Severe, Verified 10/11/24 13:46) Anaphylaxis Medication List - Last Reconciled 02/01/25 by JOANNE Gentile acyclovir 400 mg PO BID blood sugar diagnostic (Accu-Chek Guide test strips) As directed blood-glucose meter (Accu-Chek Guide Glucose Meter) As directed, q4h PRN hypoglycemia symptoms cetirizine (Zyrtec) 10 mg PO DAILY fluticasone propionate 50 mcg/actuation 1 spray intranasal DAILY glucose 2 grams PO .q4h prn PRN L norgest/e.estradiol-e.estrad 0.15 mg-30 mcg (84)/10 mcg (7) 1 tab PO DAILY lancets (Accu-Chek Fastclix Lancet Drum) As directed multivitamin 1 tab PO DAILY valacyclovir 1,000 mg PO Q12H HPI Comments Details: This is a 49 yo female who is s/p LSG 10/10/2020. Also s/p panniculectomy 08/2022. Weight gain of 2.2lbs since last OV 4mo ago. Pt reports weight has been fluctuating. No complaints of nausea, emesis, abdominal pain or reflux, or constipation. Had been using [employer] hoa. Pt received blood sugar testing equipment after last visit but has found that her blood sugar has typically been in range. She lost the info on [employer]. She was weighing herself daily but felt this was too much; then went back to weekly but felt this was not enough accountability and gained a few lbs. Tends to snack in evenings. Present meal plan includes: coffee with almond milk 2 shakes 2 bars (hoa told her to use 1 but she felt she needed 2 due to hunger; uses [employer] and [employer]) 1 meal MVI Exercise: 3x per week exercise treadmill and elliptical, she wants to incorporate more strength training got a new puppy, also has 2 Rottweilers and has been walking a lot more than doing formal exercise [facility] Medical History COVID-19 vaccine series completed GERD (gastroesophageal reflux disease) Low back pain Morbid obesity Obesity Plantar fasciitis, bilateral Vitamin B1 deficiency Vitamin B12 deficiency Surgical History History of sleeve gastrectomy [place] teeth extracted Family History Mother No problems noted. Father Diabetes Brother No problems noted. Daughter No problems noted. Social History Are you a primary respiratory care assistant to a significant other at home: No Do you presently have visiting nurse or other home services: No Alcohol intake: current Alcohol intake frequency: holidays/special occasions only Comment: aware of trip hazard Patient Tobacco Use Status: Former Tobacco user Tobacco use type: Cigarette service: No Current occupational status: employed Telehealth Telehealth Telehealth Platform: Telephone Location of provider rendering services: practice address Location of patient: address on file Patient Identification confirmed using: Name, : Yes Telehealth method: voice only Patient verbally consented to treatment: Yes Patient verbally consented to billing insurance company: Yes Patient informed of any privacy concerns related to visit: Yes Minutes spent on Phone/Video with Pt.: 15 Assessment & Plan Assessment & Plan (1) S/P laparoscopic sleeve gastrectomy: Code(s): Z98.84 - Bariatric surgery status Category: Surgical (2) Overweight (BMI 25.0-29.9): Code(s): E66.3 - Overweight Category: Medical (3) S/P panniculectomy: Code(s): Z98.890 - Other specified postprocedural states Category: Surgical Plan Resent [employer] info via text. She knows she does well when she follows the meal plan. She is considering weighing herself 2-3x/week as she feels this is a better balance for her. Her most comfortable weight is 141lbs. RTC 4mo phone visit.
[2025-02-01 12:27] VITALS: BMI 27.2
--- OUTSIDE RECORDS SUMMARY | 2025-02-01 16:05 | XMS_ITS | Clinical Summary ---
Author Organization [facility] Address [address] [place] [address] Care Team Providers Care Railroad Car Loader Name Role Phone Trudy Pascual MD Unavailable Unavaila Dannie Quiroga DO Unavailable Valerie Shahid MD Primary Care Provider [phone] Shmuel Norton MD Unavailable [phone] Radha Escalante MD Unavailable Allergies Active Allergy Reactions Criticality Noted Date Comments Bacitracin Dermatitis 05/07/2015 Cephalosporins Dermatitis 05/07/2015 Oxycodone-Acetaminophen Other (See Comments) emotional Sulfa Antibiotics Dermatitis,Rash/Dermatitis Low Medications acyclovir (ZOVIRAX) 400 mg tabletIndicati ons:Herpes simplex Take 1 tablet (400 mg total) by mouth 2 (two) times a day. 180 tablet 3 06/17/19 17 Active cetirizine (ZyrTEC) 10 MG tablet Take 1 tablet (10 mg total) by mouth. Active Simpesse 0.15-0.03 &0.01 MG Tab Take 1 tablet by mouth daily. 09/30/19 24 Active Multiple Vitamins-Kinsey als (BARIATRIC MULTIVITAMINS/ IRON PO) Take by mouth. Activ e ondansetron (ZOFRAN) 4 MG tabletIndicati ons:Colon cancer screening Take 1 tablet (4 mg total) by mouth 3 times daily (every 8 hours) as needed for nausea or vomiting. TAKE ON DAY PRIOR TO COLONOSCOPY FOR NAUSEA WHILE DRINKING PREP. 10 tablet 1 10/25/19 25 Active Blood Glucose Monitoring Suppl (Accu-Chek Guide) w/Device Kit USE DIRECTED EVERY 4 HOURS NEEDED FOR HYPOGLYCEMIA SYMPTOMS 10/14/19 25 Active Accu-Chek Guide Test test strip See Admin Instructions. 10/14/19 25 Active Accu-Chek FastClix Lancets Misc See Admin Instructions. 10/12/19 25 Active meclizine (ANTIVERT) 25 MG tabletIndicati ons:Vertigo Take 1 tablet (25 mg total) by mouth 3 (three) times a day as needed for dizziness. 30 tablet 02/01/20 25 Active fluticasone (FloNASE) 50 mcg/spray nasal spray USE 2 PUFFS IN THE NOSTRILS DAILY 0 04/23/20 16 025 Discontinued Active Problems Problem Noted Date Diagnosed Date [...] Date Resolved Date Acute frontal sinusitis 02/13/2021 06/0 10/2023 Routine general medical exam ination at a health care facility 07/31/2020 12/16/2023 RUQ pain 08/11/2018 10/29/2023 Assessment & Plan (09/25/2021 1:00 PM EDT): Prior work-up included US x 2 negative, HIDA negative, EGD (2017) with mild antral erosions, CT (2019) with [...] Encounters Date Type Department Care Team Description 01/30/2025 1:15 PM EDT Office Visit [facility] [address] [place] [address] Yazan Mathis MD As[place], Alexander, PA Viral URI (Primary Dx); Vertigo 01/30/2025 Travel 01/02/2025 Orders Only ICP [address] [place] [address] Shmuel Norton MD 12/22/2024 1:01 PM EDT Anesthesia Event [facility] [address] [place] [phone] Gaurang Soler MD Koerner, Krista L, CRNA 12/22/2024 12:45 PM EDT - 12/22/2024 1:15 PM EDT Surgery [facility] [address] [place] [phone] Radha Escalante MD COLONOSCOPY 12/22/2024 12:00 PM EDT - 12/22/2024 11:59 PM EDT Hospital Encounter [facility] [address] [place] [phone] Radha Escalante MD Discharge Disposition: Home or Self Care 12/22/[address] [facility] [address] [facility] [address] [place] [phone] Radha Escalante MD 12/22/2024 Travel 11/28/2024 11:05 AM EDT Office Visit [facility] [address] [place] [address] Yaazn Mathis MD Anderson, Kelsey E PA-C Acute bacterial sinusitis (Primary Dx) 11/28/2024 Travel 11/21/2024 3:00 PM EDT Office Visit [facility] [address] [facility] [address] [place] [phone] Valerie Shahid MD Routine medical exam (Primary Dx); Screening mammogram for breast cancer 11/21/2024 Travel from Last 3 Months Immunizations Immunization Administration Dates Next Due Covid-19 mRNA Primary Series Vaccine - Moderna 0.5 mL Full Dose 09/27/2020,08/30/2020 Influenza, Quadrivalent (FLU ARIX, AFLURIA, FLULAVAL, FLUZONE) Preservative Free IM 04/04/2020 Tdap 12/18/2023 Family History Medical History Relation Name Comments No Known Problems Daughter Tia Alcohol abuse Father Fco Patterson Colon cancer Maternal Aunt 1 Colon cancer Maternal Aunt 2 Feli Barrera Crohn's disease Maternal Aunt 2 Feli Barrera Colon polyps Mother Rosa Peck Every col onoscopy she has polyps Colon cancer Paternal Aunt 1 Kathleen Martinez Recent diagn osis Breast cancer Paternal Aunt 2 Relation Name Status Comments Daughter Tia Alive Father Fco Patterson Alive Maternal Aunt 1 Maternal Aunt 2 Feli Barrera Alive Mother Rosa Peck Alive Paternal Aunt 1 Kathleen Martinez Alive Paternal Aunt 2 Social History Tobacco Use Types Packs/Day Years Used Date Smoking Tobacco: Former Cigarettes 1.5 14 Q uit: 04/24/2009 Smokeless Tobacco: Never Tobacco Cessation:Counseling Given: Not [...] Unable or Declines to Respond No 10/06/2022 [facility] Utilities Answer Date Recorded In the past 12 months has [employer], gas, oil, or water [employer] threatened to shut off services in your home? No 11/20/2024 Social Connection and Isolat ion Panel [NHANES] Answer Date Recorded In a typical week, how many times do you talk on the phone with family, friends, or neighbors? More than three times a week 11/20/2024 Frequency of Social Gatherin gs with Friends and Family Not on file 11/20/2024 Attends Zoroastrianism Services Not on file 11/20 Active Member [...] any time in the past 12 m [facility], were you homeless or living in a intermediate (including now)? No 11/20/2024 Physical Activity Answer [...] Orientation Heterosexual (straight) 10/24 1:41 PM EDT Last Filed Vital Signs Vital Sign Reading Time Taken Comments Blood Pressure 112/71 01/30/2025 1:14 PM EDT Pulse 83 01/30/2025 1:14 PM EDT Temperature 36.7 C (98.1 F) 01/30/2025 1:14 PM EDT Respiratory Rate 16 01/30/2025 1:14 PM EDT Oxygen Saturation 99% 01/30/2025 1:14 PM EDT Inhaled Oxygen Concentration - - Weight 64.9 kg (143 lb) 01/30/2025 1:14 PM EDT Height 154.9 cm (5' 1 ) 11/28/2024 11:23 AM EDT Body Mass Index 27.02 11/28/2024 11:23 AM EDT Plan of Treatment Upcoming Encounters Date Type Department Care Team (Late st Contact Info) Description 11/27/2025 4:00 PM EDT Office Visit [facility] [address] [facility] [address] [place] [address] Valerie Shahid MD [address] [place] [address] Health Maintenance Due Date Last Done Comments Hepatitis C Virus Screening 1975 Hepatitis B Vaccines (1 of 3 - 19+ 3-dose series) 09/04/1994 Influenza Vaccine 12/23/2024 04/04/2020 COVID-19 Vaccine ( season) 2025 04/29/2021, 09/27/2020, 08/30/2020 Mammogram 11/10/2025 11/11/2023, 07/23, 05/09/2019 Physical 11/19/2025 11/20/2023, 06/17/2016 Pap Smear (Ages 21-65) 01/03/2028 , 11/11/2023, 07/30/2022, Additional history exists Colonoscopy 12/22/2029 12/22/2024 DTaP/Tdap/Td Vaccines (2 - Td or Tdap) 12/17/2033 12/18/2023 HIV Screening Discontinued Pneumococcal Vaccine: Pediatric (0-5 Years) and At-Risk Patients (6 to 49 Years) Aged Out No longer eligible based on patient's age to complete this topic Procedures Procedure Name Priority Date/Time Associated Diagnosis Comments POCT RAPID COVID-19 AG (FDA EUA) Routine 01/30/2025 1:29 PM EDT Viral URI THINPREP PAP TEST (CURRENCY COUNTER) WITH HPV REFLEX Routine 01/02/2025 9:21 AM EDT COLONOSCOPY 12/22/2024 1:01 PM EDT Colon cancer screening Special Needs portal complete 09/25/24, no PAT call 12/12/24 IMAGING BREAST/BX/MAMMO Routine 11/11/2023 1:05 PM EDT from Last 3 Months or Most Recently Relevant to Health Maintenance Results * POCT Rapid COVID-19 Antigen (FDA EUA) (01/30/2025 1:29 PM EDT) COVID-19 Rapid Antigen, POC (FDA EUA) Negative Result Comments: A Positive Result does not rule out bacterial infection or co-infection with other viruses. Clinical correlation advised. A Negative Result in symptomatic patients should be considered presumptive and needs confirmation by PCR. Kit Lot Number [id number] Straightening Press Operator Helper Pass Pass Swab, Nasal Specimen from nose / Unknown 01/30/2025 1:29 PM EDT [place] [facility] POINT OF CARE TEST ORDERABLES Final Result * ThinPrep Pap Test (Collections Professional) with HPV Reflex (01/02/2025 9:21 AM EDT) Report Report [facility] Comment: Final Gynecological Cytology Report ThinPrep Pap Test with HPV Reflex SPECIMEN ADEQUACY: SATISFACTORY FOR EVALUATION; ENDOCERVICAL/TRANSFORMATION ZONE COMPONENT ABSENT/INSUFFICIENT . INTERPRETATION: NEGATIVE FOR INTRAEPITHELIAL LESION OR MALIGNANCY. Electronically Signed: Adan Mansfield CT (ASCP) CLINICAL INFORMATION: LMP: NG Clinical History: HXP Biopsy Date: NG Specimen Source: Cervix, Endocervix Previous Pap Date: NG CPT Codes: 79635 ICD Codes: Z12.4 01/02/2025 9:21 AM EDT 01/02/2025 9:45 PM EDT us Shmuel Norton MD LAB AMB PATH/CYTO ORDERABL ES Final Result [facility] [address] [place] * Imaging Breast/Bx/Mammo Result (11/11/2023 1:05 PM EDT) Anatomical Region Laterality Modality Other us Scan Obstetrics And Gynecology IMG LEGACY PROCED URES Edited Result - Final from Last 3 Months or Most Recently Relevant to Health Maintenance Insurance [facility] Member Subscriber Plan / Payer ( fective 2014-Present) Name:Rosalie Valencia Mikaela Relation to Subscriber:Self Name:Rosalie Valencia Mikaela Payer ID:[id number] (NAIC) Group ID:[id number] Type:Not on file Address: [id number] [place] [id number] [facility] Care Teams Railroad Car Loader Relationship Specialty Start Date End Date Trudy Pascual MD PCP - Hospice Attending 08/27/22 Dannie Honeycutt DO [address] [place] [address] PCP - [place] Commercial Attributed 03/25/23 Valerie Shahid MD [address] [place] [address] PCP - General Internal Medicine 10/29/23 Shmuel Norton MD [address] [place] [address] Obstetrics and Gynecology 12/16/23 Radha Escalante MD [address] [address] Gastroenterology 12/25/24
--- OUTSIDE RECORDS SUMMARY | 2025-02-01 16:05 | XMS_ITS | Clinical Summary ---
Author Organization [facility] Address [address] [place] [address] Care Team Providers Care Fuel System Maintenance Worker Name Role Phone Bethany Hernandez MD Primary Care Provider [phone] Allergies Active Allergy Reactions Criticality Noted Date [...] Date Smoking Tobacco: Former Cigarettes Q uit: 2009 Smokeless Tobacco: Never Alcohol Use Standard Drinks/Week [...] 70 03/08/2018 9:46 AM EDT Temperature 36.4 C (97.6 F) 03/08/2018 9:30 AM EDT Respiratory Rate 20 03/08/2018 9:46 AM EDT [...] Cancer Screening (Colonoscopy) 09/04/2020 Influenza Vaccine (#1) 2025 04/04/2020 Pneumococcal Vaccine Aged Out No long er eligible based on patient's age to complete this topic RSV Ped < 20 months Aged Out No longe r eligible based on patient's age to complete this topic Care Teams Fuel System Maintenance Worker Relationship Specialty Start Date End Date Bethany Hernandez MD [address] [place] [address] PCP - General Internal Medicine 03/01/18
--- OUTSIDE RECORDS SUMMARY | 2025-02-01 16:05 | XMS_ITS | Encounter Summary ---
Author Organization [facility] Address [address] [place] [address] Care Team Providers Care Title Closer Name Role Phone Bethany Hernandez MD Primary Care Provider [phone] Khushbu John APRN Primary Care Provider [phone] Trudy Pascual MD Primary Care Provider Un available Jack Goodman DO Unavailable [phone] Trudy Pascual MD Unavailable UnavailTrudy Ogden MD Unavailable UnavailTrudy Ogden MD Unavailable UnavailTrudy Ogden MD Unavailable UnavailGodwin Gabriel MD Primary Care Provider [phone] Trudy Pascual MD Primary Care Provider Un available Dannie Honeycutt DO Unavailable Valerie Shahid MD Primary Care Provider [phone] Shmuel Norton MD Unavailable [phone] Radha Escalante MD Unavailable Encounter Details Date Type Department Care Team (Late st Contact Info) Description 06/21/2015 Scanned Document [address] [address] Provider, Generic Social History Tobacco [...] Description 11/27/2025 4:00 PM EDT Office Visit [address] [place] [address] Valerie Shahid MD [address] [place] [address] documented as of this encounter Visit Diagnoses Not on filedocumented in this encounter Care Teams Title Closer Relationship Specialty Start Date End Date Bethany Hernandez MD PCP - General Internal Medicine 06/20/15 07/24/19 Khushbu John APRN [address] [place] [address] PCP - General Family Medicine 07/25/19 07/08/20 Trudy Pascual MD [address] [place] [address] PCP - General Internal Medicine 07/09/20 08/26/22 Jack Goodman DO [address] [place] [address] PCP - [place] Commercial Attributed 09/22/20 12/22/20 Trudy Pascual MD Retired provider PCP - [place] Commercial Attributed 12/23/20 03/24/21 Trudy Pascual MD Retired provider PCP - [place] Commercial Attributed 05/25/21 10/22/21 Trudy Pascual MD Retired provider PCP - [place] Commercial Attributed 12/23/21 09/21/22 Trudy Pascual MD [address] [place] [address] PCP - Hospice Attending 08/27/22 Godwin Snowden MD [address] [place] [address] PCP - General Surgery, General 08/27/22 02/25/23 Trudy Pascual MD [address] [place] [address] PCP - General Internal Medicine 02/26/23 10/28/23 Dannie Honeycutt DO [address] [place] [address] PCP - [place] Commercial Attributed 03/25/23 Valerie Shahid MD [address] [place] [address] PCP - General Internal Medicine 10/29/23 Shmuel Norton MD [address] [place] [address] Obstetrics and Gynecology 12/16/23 Radha Escalante MD [address] [address] Gastroenterology 12/25/24 documented as of this encounter
--- OUTSIDE RECORDS SUMMARY | 2025-02-01 16:05 | XMS_ITS | Encounter Summary ---
Author Organization [facility] Address [address] [place] [address] Care Team Providers Care Stonecutter Apprentice Hand Name Role Phone Trudy Pascual MD Unavailable Unavaila Trudy Trejo MD Primary Care Provider Un available Dannie Honeycutt DO Unavailable Valerie Shahid MD Primary Care Provider [phone] Shmuel Norton MD Unavailable [phone] Radha Escalante MD Unavailable Encounter Details Date Type Department Care Team (Late st Contact Info) Description 09/09/[address] [address] Trudy Pascual MD Retired provider [...] Description 11/27/2025 4:00 PM EDT Office Visit [facility] [address] [facility] [address] [place] [address] Valerie Shahid MD [address] [place] [address] documented as of this encounter Visit Diagnoses Not on filedocumented in this encounter Care Teams Stonecutter Apprentice Hand Relationship Specialty Start Date End Date Trudy Pascual MD PCP - Hospice Attending 08/27/22 Trudy Pascual MD PCP - General Internal Medicine 02/26/23 10/28/23 Dannie Honeycutt DO [address] [place] [address] PCP - [place] Commercial Attributed 03/25/23 Valerie Shahid MD [address] [place] [address] PCP - General Internal Medicine 10/29/23 Shmuel Norton MD [address] [place] [address] Obstetrics and Gynecology 12/16/23 Radha Escalante MD [address] [place] [address] Gastroenterology 12/25/24 documented as of this encounter
--- OUTSIDE RECORDS SUMMARY | 2025-02-01 16:05 | XMS_ITS | Encounter Summary ---
Author Organization [facility] Address [address] [place] [address] Care Team Providers Care Shirring 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 Automatic Name Role Phone Bethany Hernandez MD Primary Care Provider [phone] Khushbu John APRN Primary Care Provider [phone] Trudy Pascual MD Primary Care Provider Un available Jack Goodman DO Unavailable [phone] Trudy Pascual MD Unavailable UnavailTrudy Ogden MD Unavailable UnavailTrudy Ogden MD Unavailable UnavailTrudy Ogden MD Unavailable UnavailGodwin Gabriel MD Primary Care Provider [phone] Trudy Pascual MD Primary Care Provider Un available Dannie Honeycutt DO Unavailable Valerie Shahid MD Primary Care Provider [phone] Shmuel Norton MD Unavailable [phone] Radha Escalante MD Unavailable Encounter Details Date Type Department Care Team (Late st Contact Info) Description 05/11/2018 Scanned Document [address] [address] Provider, Generic Social History Tobacco [...] Description 11/27/2025 4:00 PM EDT Office Visit [address] [place] [address] Valerie Shahid MD [address] [place] [address] documented as of this encounter Visit Diagnoses Not on filedocumented in this encounter Care Teams Shirring 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 Automatic Relationship Specialty Start Date End Date Bethany Hernandez MD PCP - General Internal Medicine 06/20/15 07/24/19 Khushbu John APRN [address] [place], [place] [id number] PCP - General Family Medicine 07/25/19 07/08/20 Trudy Pascual MD [address] [place] [address] PCP - General Internal Medicine 07/09/20 08/26/22 Jack Goodman DO [address] [place] [address] PCP - [place] Commercial Attributed 09/22/20 12/22/20 Trudy Pascual MD Retired provider PCP - [place] Commercial Attributed 12/23/20 03/24/21 Trudy Pascual MD Retired provider PCP - [place] Commercial Attributed 05/25/21 10/22/21 Trudy Pascual MD Retired provider PCP - [place] Commercial Attributed 12/23/21 09/21/22 Trudy Pascual MD [address] [place] [address] PCP - Hospice Attending 08/27/22 Godwin Snowden MD [address] [place] [address] PCP - General Surgery, General 08/27/22 02/25/23 Trudy Pascual MD [address] [place] [address] PCP - General Internal Medicine 02/26/23 10/28/23 Dannie Honeycutt DO [address] [place] [address] PCP - [place] Commercial Attributed 03/25/23 Valerie Shahid MD [address] [place] [address] PCP - General Internal Medicine 10/29/23 Shmuel Norton MD [address] [place] [address] Obstetrics and Gynecology 12/16/23 Radha Escalante MD [address] [place] [address] [address] [place] [address] Gastroenterology 12/25/24 documented as of this encounter
--- OUTSIDE RECORDS SUMMARY | 2025-02-01 16:05 | XMS_ITS | Encounter Summary ---
Author Organization [facility] Address [address] [place] [address] Care Team Providers Care Residential Roofer Name Role Phone Bethany Hernandez MD Primary Care Provider [phone] Khushbu John APRN Primary Care Provider [phone] Trudy Pascual MD Primary Care Provider Un available Jack Goodman DO Unavailable [phone] Trudy Pascual MD Unavailable UnavailTrudy Ogden MD Unavailable UnavailTrudy Ogden MD Unavailable UnavailTrudy Ogden MD Unavailable UnavailGodwin Gabriel MD Primary Care Provider [phone] Trudy Pascual MD Primary Care Provider Un available Dannie Honeycutt DO Unavailable Valerie Shahid MD Primary Care Provider [phone] Shmuel Norton MD Unavailable [phone] Radha Escalante MD Unavailable Encounter Details Date Type Department Care Team (Late st Contact Info) Description 03/08/2018 Scanned Document [address] [phone] Provider, Generic Social History Tobacco [...] Description 11/27/2025 4:00 PM EDT Office Visit [facility] [address] [facility] [address] [place] [address] Valerie Shahid MD [address] [place] [address] documented as of this encounter Procedures Procedure Name Priority Date/Time Associated Diagnosis Comments HX GASTROENTEROLOGY UPPER ENDOSCOPY-SCAN 03/08/2018 documented in this encounter Results * HX GASTROENTEROLOGY UPPER ENDOSCOPY-SCAN (03/08/2018) Narrative 03/08/2018 Ordered by an unspecified provider. us Generic Provider HX AMB PROCEDURES Edited Result - Final documented in this encounter Visit Diagnoses Not on filedocumented in this encounter Care Teams Residential Roofer Relationship Specialty Start Date End Date Bethany Hernandez MD PCP - General Internal Medicine 06/20/15 07/24/19 Khushbu John APRN [address] [place] [address] PCP - General Family Medicine 07/25/19 07/08/20 Trudy Pascual MD [address] [place] [address] PCP - General Internal Medicine 07/09/20 08/26/22 Jack Goodman DO [address] [place] [address] PCP - [place] Commercial Attributed 09/22/20 12/22/20 Trudy Pascual MD Retired provider PCP - [place] Commercial Attributed 12/23/20 03/24/21 Trudy Pascual MD Retired provider PCP - [place] Commercial Attributed 05/25/21 10/22/21 Trudy Pascual MD Retired provider PCP - [place] Commercial Attributed 12/23/21 09/21/22 Trudy Pascual MD [address] [place], [place] [id number] PCP - Hospice Attending 08/27/22 Godwin Snowden MD [address] [place] [address] PCP - General Surgery, General 08/27/22 02/25/23 Trudy Pascual MD [address] [place], [place] [id number] PCP - General Internal Medicine 02/26/23 10/28/23 Dannie Honeycutt DO [address] [place] [address] PCP - [place] Commercial Attributed 03/25/23 Valerie Shahid MD [address] [place] [address] PCP - General Internal Medicine 10/29/23 Shmuel Norton MD [address] [place] [address] Obstetrics and Gynecology 12/16/23 Radha Escalante MD [address] [place] [address] Gastroenterology 12/25/24 documented as of this encounter
--- OUTSIDE RECORDS SUMMARY | 2025-02-01 16:05 | XMS_ITS | Encounter Summary ---
Author Organization [facility] Address [address] [place] [address] Care Team Providers Care Branch Operation Evaluation Manager Name Role Phone Trudy Pascual MD Unavailable Unavaila Trudy Trejo MD Primary Care Provider Un available Dannie Honeycutt DO Unavailable Valerie Shahid MD Primary Care Provider [phone] Shmuel Norton MD Unavailable [phone] Radha Escalante MD Unavailable Encounter Details Date Type Department Care Team (Late st Contact Info) Description 09/10/[address] [address] Trudy Pascual MD Retired provider [...] Description 11/27/2025 4:00 PM EDT Office Visit [facility] [address] [facility] [place] [facility] [address] [place] [address] Valerie Shahid MD [address] [place] [address] documented as of this encounter Visit Diagnoses Not on filedocumented in this encounter Care Teams Branch Operation Evaluation Manager Relationship Specialty Start Date End Date Trudy Pascual MD PCP - Hospice Attending 08/27/22 Trudy Pascual MD PCP - General Internal Medicine 02/26/23 10/28/23 Dannie Honeycutt DO [address] [place] [address] PCP - [place] Commercial Attributed 03/25/23 Valerie Shahid MD [address] [place] [address] PCP - General Internal Medicine 10/29/23 Shmuel Norton MD [address] [place] [address] Obstetrics and Gynecology 12/16/23 Radha Escalante MD [address] [place] [address] Gastroenterology 12/25/24 documented as of this encounter
--- OUTSIDE RECORDS SUMMARY | 2025-02-01 16:05 | XMS_ITS | Encounter Summary ---
Author Organization [facility] Address [address] [place] [address] Care Team Providers Care Pumper Gauger Name Role Phone Bethany Hernandez MD Primary Care Provider [phone] Khushbu John APRN Primary Care Provider [phone] Trudy Pascual MD Primary Care Provider Un available Jack Goodman DO Unavailable [phone] Trudy Pascual MD Unavailable UnavailTrudy Ogden MD Unavailable UnavailTrudy Ogden MD Unavailable UnavailTrudy Ogden MD Unavailable UnavailGodwin Gabriel MD Primary Care Provider [phone] Trudy Pascual MD Primary Care Provider Un available Dannie Honeycutt DO Unavailable Valerie Shahid MD Primary Care Provider [phone] Shmuel Norton MD Unavailable [phone] Radha Escalante MD Unavailable Reason for Visit * Reason Comments Medication Refill Encounter Details Date Type Department Care Team (Late st Contact Info) Description 09/21/2017 Refill [id number] [place] [address] Bethany Hernandez MD [facility] [place] [address] [address] Health care maintenance Social History Tobacco Use [...] PM EDT documented as of this encounter Miscellaneous Notes * Telephone Encounter - Dior Garcia RN - 09/21/2017 7:15 AM EDT Due for ov documented in this encounter Plan of Treatment Upcoming Encounters Date Type Department Care Team (Late st Contact Info) Description 11/27/2025 4:00 PM EDT Office Visit [address] [place] [address] Valerie Shahid MD [address] [place] [address] documented as of this encounter Visit Diagnoses Diagnosis Health care maintenance documented in this encounter Care Teams Pumper Gauger Relationship Specialty Start Date End Date Bethany Hernandez MD PCP - General Internal Medicine 06/20/15 07/24/19 Khushbu John APRN [address] [place] [address] [id number] PCP - General Family Medicine 07/25/19 07/08/20 Trudy Pascual MD [address] [place], [place] [id number] PCP - General Internal Medicine 07/09/20 08/26/22 Jack Goodman DO [address] [place] [address] PCP - [place] [employer] Attributed 09/22/20 12/22/20 Trudy Pascual MD Retired provider PCP - [place] [employer] Attributed 12/23/20 03/24/21 Trudy Pascual MD Retired provider PCP - [place] [employer] Attributed 05/25/21 10/22/21 Trudy Pascual MD Retired provider PCP - [place] [employer] Attributed 12/23/21 09/21/22 Trudy Pascual MD [address] [place] [address] PCP - Hospice Attending 08/27/22 Godwin Snowden MD [address] [place] [address] PCP - General Surgery, General 08/27/22 02/25/23 Trudy Pascual MD [address] [place] [address] PCP - General Internal Medicine 02/26/23 10/28/23 Dannie Honeycutt DO [address] [place] [address] PCP - [place] [employer] Attributed 03/25/23 Valerie Shahid MD [address] [place] [address] PCP - General Internal Medicine 10/29/23 Shmuel Norton MD [address] [place] [address] Obstetrics and Gynecology 12/16/23 Radha Escalante MD [address] [place] [address] Gastroenterology 12/25/24 documented as of this encounter
--- OUTSIDE RECORDS SUMMARY | 2025-02-01 16:05 | XMS_ITS | Clinical Summary ---
Author Organization [facility] Address [address] [place] [address] Care Team Providers Care Golf Tournament Consultant Name Role Phone Lanre Galvan Primary Care [...] COVID-19 Vaccine ( - 2023-2 5 season) 2025 Influenza (#1) 2025 Zoster (Shingrix) (1 of 2) 09/04/2025 HPV Vaccine (No Doses Required) Completed Hep A Aged Out No longer eligi ble based on patient's age to complete this topic Hib Aged Out No longer eligi ble based on patient's age to complete this topic Meningococcal ACWY Aged Out No longer eligible based on patient's age to complete this topic Pneumococcal Aged Out No longer eligi ble based on patient's age to complete this topic Care Teams Golf Tournament Consultant Relationship Specialty Start Date End Date Lanre Galvan PCP - General 12/29/22
--- OUTSIDE RECORDS SUMMARY | 2025-02-01 16:05 | XMS_ITS | Encounter Summary ---
Author Organization [facility] Address [address] [place] [address] Care Team Providers Care Brazer Helper Induction Name Role Phone Trudy Pascual MD Primary Care Provider Un available Trudy Pascual MD Unavailable Unavaila Trudy Trejo MD Unavailable Unavaila Godwin Franklin MD Primary Care Provider [phone] Trudy Pascual MD Primary Care Provider Un available Dannie Honeycutt DO Unavailable Valerie Shahid MD Primary Care Provider [phone] Shmuel Norton MD Unavailable [phone] Radha Escalante MD Unavailable Encounter Details Date Type Department Care Team (Late st Contact Info) Description 02/26/2022 Scanned Document [facility] [address] [address] Cardiology, Scan Social History Tobacco Use [...] 4:00 PM EDT Office Visit [facility] [address] [facility] [address] [place] [address] Valerie Shahid MD [address] [place] [address] documented as of this encounter Visit Diagnoses Not on filedocumented in this encounter Care Teams Brazer Helper Induction Relationship Specialty Start Date End Date Trudy Pascual MD PCP - General Internal Medicine 07/09/20 08/26/22 Trudy Pascual MD Retired provider PCP - [place] Commercial Attributed 12/23/21 09/21/22 Trudy Pascual MD PCP - Hospice Attending 08/27/22 Godwin Snowden MD [address] [place] [address] PCP - General Surgery, General 08/27/22 02/25/23 Trudy Pascual MD PCP - General Internal Medicine 02/26/23 10/28/23 Dannie Honeycutt DO [address] [place] [address] PCP - [place] Commercial Attributed 03/25/23 Valerie Shhaid MD [address] [place] [address] PCP - General Internal Medicine 10/29/23 Shmuel Norton MD [address] [place] [address] Obstetrics and Gynecology 12/16/23 Radha Escalante MD [address] [place] [address] Gastroenterology 12/25/24 documented as of this encounter
--- OUTSIDE RECORDS SUMMARY | 2025-02-01 16:05 | XMS_ITS | Encounter Summary ---
Author Organization [facility] Address [address] [place] [address] Care Team Providers Care Mothers Helper Name Role Phone Bethany Hernandez MD Primary Care Provider [phone] Khushbu John APRN Primary Care Provider [phone] Trudy Pascual MD Primary Care Provider Un available Jack Goodman DO Unavailable [phone] Trudy Pascual MD Unavailable UnavailTrudy Ogden MD Unavailable UnavailTrudy Ogden MD Unavailable UnavailTrudy Ogden MD Unavailable UnavailGodwin Gabriel MD Primary Care Provider [phone] Trudy Pascual MD Primary Care Provider Un available Dannie Honeycutt DO Unavailable Valerie Shahid MD Primary Care Provider [phone] Shmuel Norton MD Unavailable [phone] Radha Escalante MD Unavailable Encounter Details Date Type Department Care Team (Late st Contact Info) Description 02/26/2018 Scanned Document [address] [address] Provider, Generic Social History Tobacco [...] Description 11/27/2025 4:00 PM EDT Office Visit [address] [place] [address] Valerie Shahid MD [address] [place] [address] documented as of this encounter Visit Diagnoses Not on filedocumented in this encounter Care Teams Mothers Helper Relationship Specialty Start Date End Date Bethany Hernandez MD PCP - General Internal Medicine 06/20/15 07/24/19 Khushbu John APRN [address] [place], [place] [id number] PCP - General Family Medicine 07/25/19 07/08/20 Trudy Pascual MD [address] [place] [address] PCP - General Internal Medicine 07/09/20 08/26/22 Jack Goodman DO [address] [place] [address] PCP - [place] Commercial Attributed 09/22/20 12/22/20 Trudy Pascual MD Retired provider PCP - [place] [employer] Attributed 12/23/20 03/24/21 Trudy Pascual MD Retired provider PCP - [place] [employer] Attributed 05/25/21 10/22/21 Trudy Pascual MD Retired provider PCP - [place] [employer] Attributed 12/23/21 09/21/22 Trudy Pascual MD [address] [place] [address] PCP - Hospice Attending 08/27/22 Godwin Snowden MD [address] [place] [address] PCP - General Surgery, General 08/27/22 02/25/23 Trudy Pascual MD [address] [place] [address] PCP - General Internal Medicine 02/26/23 10/28/23 Dannie Honeycutt DO [address] [place] [address] PCP - [place] Commercial Attributed 03/25/23 Valerie Shahid MD [address] [place] [address] PCP - General Internal Medicine 10/29/23 Shmuel Norton MD [address] [place] [address] Obstetrics and Gynecology 12/16/23 Radha Escalante MD [address] [place] [address] [address] [place] [address] Gastroenterology 12/25/24 documented as of this encounter
--- OUTSIDE RECORDS SUMMARY | 2025-02-01 16:05 | XMS_ITS | Encounter Summary ---
Author Organization [facility] Address [address] [place] [address] Care Team Providers Care Small Parts Shaper Operator Name Role Phone Khushbu John APRN Primary Care Provider [phone] Trudy Pascual MD Primary Care Provider Un available Jack Goodman DO Unavailable [phone] Trudy Pascual MD Unavailable Unavaila Trudy Trejo MD Unavailable Unavaila Trudy Trejo MD Unavailable Unavaila Trudy Trejo MD Unavailable Unavaila Godwin Franklin MD Primary Care Provider [phone] Trudy Pascual MD Primary Care Provider Un available Dannie Honeycutt DO Unavailable Valerie Shahid MD Primary Care Provider [phone] Shmuel Norton MD Unavailable [phone] Radha Escalante MD Unavailable Encounter Details Date Type Department Care Team (Latest Contact Info) Description 04/18/2020 Lab Requisition [facility] Through [address] [place] [address] [address] [place] [address] Shmuel Talbot, PALuiC [address] [place] [address] Encounter for laboratory testing for COVID-19 virus [...] Description 11/27/2025 4:00 PM EDT Office Visit [address] [place] [address] Valerie Shahid MD [address] [place] [address] documented as of this encounter Procedures Procedure Name Priority Date/Time Associated Diagnosis Comments (REPORT) SARS COV-2 RNA (COVID-19), QUAL Routine 04/18/2020 12:34 PM EST Encounter for laboratory testing for COVID-19 virus [ICD-10-CM] documented in this encounter Results * SARS CoV-2 RNA (COVID-19), Qual (04/18/2020 12:34 PM EST) Pathologist [facility] SARS CoV 2 RNA, Qual NOT DETECTED NOT DETECTED 04/22/2020 6:00 PM EST [facility] Comment: A Not Detected (negative) test [...] diagnosis and patient management decisions. REFERENCE RANGE: NOT DETECTED This patient specimen was tested using an FDA EUA pooling method. Negative results from pooled testing should not be treated as definitive. If the patient's clinical signs and symptoms are [...] providers and patients using the following websites: https://www.[employer]/home/Covid-19/HCP/QuestLDTP/ fact-sheet https://www.[employer]to/home/Covid-19/Patients/QuestLDTP/ fact-sheet.html This test has been authorized by the FDA under an Emergency Use Authorization (EUA) for use by authorized laboratories. Due to the current public health emergency, [facility] is receiving a high volume of samples [...] including collection of an additional specimen. Methodology: Nucleic Acid Amplification Test (NAAT) includes RT-PCR or TMA Additional information about COVID-19 can be found at the [facility] website: www.[employer]/Covid19. Microbiology Nasopharyngeal swab / Unknown 04/18/2020 12:34 PM EST 04/18/2020 12:34 PM EST [facility] - 04/22/2020 6:00 PM EST Performing Organization Information: Site ID: [id number] Name: [facility] Address: [address] [place] [address],[place] [address] Director: ATIF QUEEN MD [facility] License number [id number] Shmuel Talbot PA-C BODY FLUIDS AND STOOLS OR DERABLES Final Result JORGE FLORES documented in this encounter Visit Diagnoses Diagnosis Encounter for laboratory testing for COVID-19 virus documented in this encounter Care Teams Small Parts Shaper Operator Relationship Specialty Start Date End Date Khushbu John APRN [address] [place] [address] PCP - General Family Medicine 07/25/19 07/08/20 Trudy Pascual MD [address] [place] [address] PCP - General Internal Medicine 07/09/20 08/26/22 Jack Goodman DO [address] [place], [place] [id number] PCP - [place] Commercial Attributed 09/22/20 12/22/20 Trudy Pascual MD Retired provider PCP - [place] [employer] Attributed 12/23/20 03/24/21 Trudy Pascual MD Retired provider PCP - [place] [employer] Attributed 05/25/21 10/22/21 Trudy Pascual MD Retired provider PCP - [place] [employer] Attributed 12/23/21 09/21/22 Trudy Pascual MD [address] [place] [address] PCP - Hospice Attending 08/27/22 Godwin Snowden MD [address] [place] [address] PCP - General Surgery, General 08/27/22 02/25/23 Trudy Pascual MD [address] [place] [address] PCP - General Internal Medicine 02/26/23 10/28/23 Dannie Honeycutt DO [address] [place] [address] PCP - [place] Commercial Attributed 03/25/23 Valerie Shahid MD [address] [place] [address] PCP - General Internal Medicine 10/29/23 Shmuel Norton MD [address] [place] [address] Obstetrics and Gynecology 12/16/23 Radha Escalante MD [address] [address] Gastroenterology 12/25/24 documented as of this encounter
--- OUTSIDE RECORDS SUMMARY | 2025-02-01 16:05 | XMS_ITS | Encounter Summary ---
Author Organization [facility] Address [address] [place] [address] Care Team Providers Care Wind Farm Electrical Systems Designer Name Role Phone Trudy Pascual MD Unavailable Unavaila Trudy Trejo MD Primary Care Provider Un available Dannie Honeycutt DO Unavailable Valerie Shahid MD Primary Care Provider [phone] Shmuel Norton MD Unavailable [phone] Radha Escalante MD Unavailable Encounter Details Date Type Department Care Team (Late st Contact Info) Description 06/25/2023 Scanned Document [facility] ENDOCRINOLOGY SCAN Endocrinology, Scan Social [...] Description 11/27/2025 4:00 PM EDT Office Visit [facility] [address] [place] [address] Valerie Shahid MD [address] [place] [address] documented as of this encounter Visit Diagnoses Not on filedocumented in this encounter Care Teams Wind Farm Electrical Systems Designer Relationship Specialty Start Date End Date Trudy Pascual MD PCP - Hospice Attending 08/27/22 Trudy Pascual MD PCP - General Internal Medicine 02/26/23 10/28/23 Dannie Honeycutt DO [address] [place] [address] PCP - [place] Commercial Attributed 03/25/23 Valerie Shahid MD [address] [place] [address] PCP - General Internal Medicine 10/29/23 Shmuel Norton MD [address] [place] [address] Obstetrics and Gynecology 12/16/23 Radha Escalante MD [address] [address] Gastroenterology 12/25/24 documented as of this encounter
--- OUTSIDE RECORDS SUMMARY | 2025-02-01 16:05 | XMS_ITS | Encounter Summary ---
Author Organization [facility] Address [address] [place] [address] Care Team Providers Care Bi Data Architect Name Role Phone Trudy Pascual MD Unavailable Unavaila Trudy Trejo MD Primary Care Provider Un available Dannie Honeycutt DO Unavailable Valerie Shahid MD Primary Care Provider [phone] Shmuel Norton MD Unavailable [phone] Radha Escalante MD Unavailable Encounter Details Date Type Department Care Team (Late st Contact Info) Description 03/25/2023 Scanned Document [facility] BARIATRICS SCAN Bariatrics, Scan Social History [...] Description 11/27/2025 4:00 PM EDT Office Visit [facility] [address] [place] [address] Valerie Shahid MD [address] [place] [address] documented as of this encounter Visit Diagnoses Not on filedocumented in this encounter Care Teams Bi Data Architect Relationship Specialty Start Date End Date Trudy Pascual MD PCP - Hospice Attending 08/27/22 Trudy Pascual MD PCP - General Internal Medicine 02/26/23 10/28/23 Dannie Honeycutt DO [address] [place] [address] PCP - [place] Commercial Attributed 03/25/23 Valerie Shahid MD [address] [place] [address] PCP - General Internal Medicine 10/29/23 Shmuel Norton MD [address] [place] [address] Obstetrics and Gynecology 12/16/23 Radha Escalante MD [address] [address] Gastroenterology 12/25/24 documented as of this encounter
--- OUTSIDE RECORDS SUMMARY | 2025-02-01 16:05 | XMS_ITS | Encounter Summary ---
Author Organization [facility] Address [address] [place] [address] Care Team Providers Care Food Sampler Name Role Phone Bethany Hernandez MD Primary Care Provider [phone] Khushbu John APRN Primary Care Provider [phone] Trudy Pascual MD Primary Care Provider Un available Jack Goodman DO Unavailable [phone] Trudy Pascual MD Unavailable UnavailTrudy Ogden MD Unavailable UnavailTrudy Ogden MD Unavailable UnavailTrudy Ogden MD Unavailable UnavailGodwin Gabriel MD Primary Care Provider [phone] Trudy Pascual MD Primary Care Provider Un available Dannie Honeycutt DO Unavailable Valerie Shahid MD Primary Care Provider [phone] Shmuel Norton MD Unavailable [phone] Radha Escalante MD Unavailable Encounter Details Date Type Department Care Team (Late st Contact Info) Description 03/08/2018 Scanned Document [address] [address] Provider, Generic Social History Tobacco [...] Description 11/27/2025 4:00 PM EDT Office Visit [address] [place] [address] Valerie Shahid MD [address] [place] [address] documented as of this encounter Visit Diagnoses Not on filedocumented in this encounter Care Teams Food Sampler Relationship Specialty Start Date End Date Bethany Hernandez MD PCP - General Internal Medicine 06/20/15 07/24/19 Khushbu John APRN [address] [place], [place] [phone] PCP - General Family Medicine 07/25/19 07/08/20 Trudy Pascual MD [address] [place] [address] PCP - General Internal Medicine 07/09/20 08/26/22 Jack Goodman DO [address] [place] [address] PCP - [place] Commercial Attributed 09/22/20 12/22/20 Trudy Pascual MD Retired provider PCP - [place] [employer] Attributed 12/23/20 03/24/21 Trudy Pascual MD Retired provider PCP - [place] Commercial Attributed 05/25/21 10/22/21 Trudy Pascual MD Retired provider PCP - [place] Commercial Attributed 12/23/21 09/21/22 Trudy Pascual MD [address] [place] [address] PCP - Hospice Attending 08/27/22 Godwin Snowden MD [address] [place] [address] PCP - General Surgery, General 08/27/22 02/25/23 Trudy Pascual MD [address] [place] [address] PCP - General Internal Medicine 02/26/23 10/28/23 Dannie Honeycutt DO [address] [place] [address] PCP - [place] Commercial Attributed 03/25/23 Valerie Shahid MD [address] [place] [address] PCP - General Internal Medicine 10/29/23 Shmuel Norton MD [address] [place] [address] Obstetrics and Gynecology 12/16/23 Radha Escalante MD [address] [place] [address] [address] [place] [address] Gastroenterology 12/25/24 documented as of this encounter
--- OUTSIDE RECORDS SUMMARY | 2025-02-01 16:05 | XMS_ITS | Encounter Summary ---
Author Organization [facility] Address [address] [place] [address] Care Team Providers Care Riverine Assault Craft Crewman Name Role Phone Bethany Hernandez MD Primary Care Provider [phone] Khushbu John APRN Primary Care Provider [phone] Trudy Pascual MD Primary Care Provider Un available Jack Goodman DO Unavailable [phone] Trudy Pascual MD Unavailable UnavailTrudy Ogden MD Unavailable UnavailTrudy Ogden MD Unavailable UnavailTrudy Ogden MD Unavailable UnavailGodwin Gabriel MD Primary Care Provider [phone] Trudy Pascual MD Primary Care Provider Un available Dannie Honeycutt DO Unavailable Valerie Shahid MD Primary Care Provider [phone] Shmuel Norton MD Unavailable [phone] Radha Escalante MD Unavailable Encounter Details Date Type Department Care Team (Late st Contact Info) Description 03/13/2016 Scanned Document [address] [phone] Provider, Generic Social History Tobacco Use Types [...] PM EDT documented as of this encounter Progress Notes * Bethany Hernandez - 03/14/2016 8:05 AM EDT Please advise her to schedule wellness visit documented in this encounter Plan of Treatment Upcoming Encounters Date Type Department Care Team (Late st Contact Info) Description 11/27/2025 4:00 PM EDT Office Visit [address] [address] Valerie Shahid MD [address] [place] [address] documented as of this encounter Visit Diagnoses Not on filedocumented in this encounter Care Teams [place] Assault Craft Crewman Relationship Specialty Start Date End Date Bethany Hernandez MD PCP - General Internal Medicine 06/20/15 07/24/19 Khushbu John APRN [address] [place] [address] PCP - General Family Medicine 07/25/19 07/08/20 Trudy Pascual MD [address] [place] [address] PCP - General Internal Medicine 07/09/20 08/26/22 Jack Goodman DO [address] [place] [address] PCP - [place] Commercial Attributed 09/22/20 12/22/20 Trudy Pascual MD Retired provider PCP - [place] Commercial Attributed 12/23/20 03/24/21 Trudy Pascual MD Retired provider PCP - [place] Commercial Attributed 05/25/21 10/22/21 Trudy Pascual MD Retired provider PCP - [place] Commercial Attributed 12/23/21 09/21/22 Trudy Pascual MD [address] [place] [address] PCP - Hospice Attending 08/27/22 Godwin Snowden MD [address] [place] [address] PCP - General Surgery, General 08/27/22 02/25/23 Trudy Pascual MD [address] [place] [address] PCP - General Internal Medicine 02/26/23 10/28/23 Dannie Honeycutt DO [facility] [place] [address] PCP - [place] Commercial Attributed 03/25/23 Valerie Shahid MD [address] [place] [phone] PCP - General Internal Medicine 10/29/23 Shmuel Norton MD [address] [place] [address] Obstetrics and Gynecology 12/16/23 Radha Escalante MD [address] [place] [address] Gastroenterology 12/25/24 documented as of this encounter
--- OUTSIDE RECORDS SUMMARY | 2025-02-01 16:05 | XMS_ITS ---
Author Name [facility] Organization Unknown History of Medication Use Medication Directions Dispensed Refills Start Date End Date Stat us amoxicillin-clavulan ate (AUGMENTIN) 875-125 MG per tablet Take 1 tablet by mouth 2 (two) times a day. 11/28/2024 active ondansetron (ZOFRAN) 4 MG tablet Take 1 tablet (4 mg total) by mouth 3 times daily (every 8 hours) as needed for nausea or vomiting. TAKE ON DAY PRIOR TO COLONOSCOPY FOR NAUSEA WHILE DRINKING PREP. 10/24/2024 active qiwjzk-uullborth-vew nesium sulfates (Suprep Bowel Prep Kit) 17.5-3.13-1.6 GM/177ML Solution solution Take two 177 mL bottles as directed 10/24/2024 active nystatin (MYCOSTATIN) 392915 UNIT/ML suspension Take 5 mL (500,000 Units total) by mouth 4 (four) times a day. 05/28/2024 active predniSONE (DELTASONE) 20 MG tablet Take 2 tablets (40 mg total) by mouth daily. With food. 01/01/2023 active Flonase Allergy Relief 50mcg/actuation Nasal [place] 04/02/2022 active nitrofurantoin monohydrate (MACROBID) 100 MG [...] Severity Comment Documented Date Source Statu s OXYCODONE-ACETAMINO PHEN OTHER (SEE COMMENTS) emotional 12/16/2023 [facility] active SULFA ANTIBIOTICS RASH/DERMATIT IS 05/07/2015 [facility] active MACROBID NAUSEA [facility] BACITRACIN OTHER [facility] CEPHALOSPORINS RASH [facility] SULFA ENS_PODCRCT SULFA (SULFONAMIDE ANTIBIOTICS) RASH [facility] Problems Problem Status Onset Date Problem Type Date of Resolution Source Overweight active 2023-12-16 ProblemAct [facility] Acute bacterial sinusitis active EncounterDiagnosisAct [facility] Colon cancer screening active EncounterDiagnosisAct [facility] S/P bariatric surgery active 2021-02-13 ProblemAct [facility] Family history of colonic polyps active 2021-09-25 ProblemAct [facility] Headache active ProblemAct [facility] Herpes genitalia active 2015-05-07 ProblemAct [facility] Ingrowing nail active 2022-04-02 ProblemAct ENS _PODCRCT [...] Date Source Lot Number Status Tdap 12/18/2023 [facility] [id number] completed Covid-19 mRNA Primary Series Vaccine - Moderna 0.5 mL Full Dose 09/27/2020 [facility] [id number] completed Covid-19 mRNA Primary Series Vaccine - Moderna 0.5 mL Full Dose 09/27/2020 [facility] [id number] completed Covid-19 mRNA Primary Series Vaccine - Moderna 0.5 mL Full Dose 08/30/2020 [facility] [id number] completed Influenza, Quadrivalent (FLU ARIX, AFLURIA, FLULAVAL, FLUZONE) Preservative Free IM 04/04/2020 [facility] [id number] completed Encounters Encounter Type Encounter Reason Primary Diagnosis Location Date Ambulatory Dizziness and giddiness Dizziness and giddiness [facility] 01/30/2025 Ambulatory [facility] for center medical and lab director exam (general) (routine) w/o abn findings [facility] for center medical and lab director exam (general) (routine) w/o abn findings [facility], [facility] 01/18/2025 Ambulatory [facility]cntr for center medical and lab director exam (general) (routine) w/o abn findings [facility] for center medical and lab director exam (general) (routine) w/o abn findings [facility], [facility] 01/02/2025 Ambulatory Encntr for center medical and lab director exam (general) (routine) w/o abn findings [facility] for center medical and lab director exam (general) (routine) w/o abn findings [facility] [employer], [facility] 01/02/2025 Ambulatory Encounter for screening for malignant neoplasm of colon Encounter for screening for malignant neoplasm of colon [facility] 12/22/2024 Ambulatory Other Other [facility] 11/28/2024 Ambulatory Encounter for general adult medical examination without abnormal findings Encounter for general adult medical examination without abnormal findings [facility] 11/21/2024 Ambulatory Colon Cancer Screening Colon Cancer Screening [facility] 10/24/2024 Ambulatory Other Other [facility] 05/28/2024 Ambulatory Dysuria Dysuria [facility] 04/04/2024 Ambulatory Encounter for immunization Encounter for immunization [facility] 12/18/2023 Ambulatory Encounter for general adult medical examination without abnormal findings Encounter for general adult medical examination without abnormal findings [facility] 11/20/2023 Ambulatory Irregular menstruation, unspecified Irregular menstruation, unspecified [facility] 11/11/2023 Ambulatory Irregular menstruation, unspecified Irregular menstruation, unspecified [facility] 11/11/2023 Ambulatory Pain in left leg Pain in left leg [facility] 10/29/2023 Ambulatory Trochanteric bursitis, right hip Trochanteric bursitis, right hip [facility] 05/05/2023 Ambulatory Pain in right hip Pain in right hip [facility] 05/04/2023 Ambulatory [facility] 04/28/2023 Ambulatory Trochanteric bursitis, right hip Trochanteric bursitis, right hip [facility] 04/28/2023 Ambulatory Trochanteric bursitis, right hip Trochanteric bursitis, right hip [facility] 04/14/2023 Ambulatory Trochanteric bursitis, right hip Trochanteric bursitis, right hip [facility] 04/13/2023 Ambulatory [facility] 04/10/2023 Ambulatory [facility] 04/08/2023 Ambulatory Trochanteric bursitis, right hip Trochanteric bursitis, right hip [facility] 03/30/2023 Ambulatory [facility] 03/27/2023 Ambulatory Trochanteric bursitis, right hip Trochanteric bursitis, right hip [facility] 03/23/2023 Ambulatory Trochanteric bursitis, right hip Trochanteric bursitis, right hip [facility] 03/20/2023 Ambulatory [facility] 03/19/2023 Ambulatory Trochanteric bursitis, right hip Trochanteric bursitis, right hip [facility] 03/16/2023 Ambulatory Trochanteric bursitis, right hip Trochanteric bursitis, right hip [facility] 03/13/2023 Ambulatory Trochanteric bursitis, right hip Trochanteric bursitis, right hip [facility] 03/09/2023 Ambulatory [facility] 03/06/2023 Ambulatory Trochanteric bursitis, right hip Trochanteric bursitis, right hip [facility] 02/26/2023 Ambulatory Trochanteric bursitis, right hip Trochanteric bursitis, right hip [facility] 02/06/2023 Ambulatory Other specified disorders of eustachian tube, right ear Other specified disorders of eustachian tube, right ear [facility] 01/01/2023 Ambulatory [facility] 09/12/2022 Ambulatory Excessive and redundant skin and subcutaneous tissue [facility] 08/28/2022 Ambulatory [facility] 08/19/2022 Ambulatory [facility], [facility] 08/19/2022 Ambulatory [facility], [facility] 07/30/2022 Ambulatory [facility], [facility] 07/30/2022 Ambulatory Other specified noninflammatory disorders of vagina [facility] 03/27/2022 Ambulatory Contact with and (suspected) exposure to covid-19 [facility] 03/18/2022 Ambulatory [facility], [facility] 12/02/2021 Ambulatory Contusion of rig ht lesser toe(s) without damage to nail, initial encounter [facility] 11/15/2021 Ambulatory Localized adiposity [facility] 11/07/2021 Ambulatory [facility], [facility] 10/17/2021 Ambulatory Family history o f colonic polyps [facility] 09/25/2021 Ambulatory [facility], [facility] 07/17/2021 Ambulatory [facility] 07/17/2021 Ambulatory Contact with and (suspected) exposure to covid-19 [facility] 05/03/2021 Ambulatory Contact with and (suspected) exposure to covid-19 [facility] 04/21/2021 Ambulatory Contact with and (suspected) exposure to covid-19 [facility] 04/16/2021 Care Team Organization Name Specialty Phone Email Start Date End Da lorin [facility] Valerie Rachaelalbertasierra [facility] 10/24/2024 [facility] Valerie Zehra [facility] 10/29/2023 [facility] Trudy Pascual [facility] 09/16/2023 [facility] 09/16/2023 [facility] 03/26/2023 [facility] 02/13/2023 024 [facility] JODEE ALVARADO Primary Care 09/08/2022 [facility] Trudy Pascual Primary [facility] 03/27/2022 [facility] 12/05/2021 [facility], [facility] 07/17/202112/02 [facility] Trudy Pascual Primary Care 04/16/202102/23 [facility], [facility] GRAY MADDOX, Primary Care 02/14/2021 01/11/2024 [facility] PALMA ALVARADO Primary Care
--- OUTSIDE RECORDS SUMMARY | 2025-02-01 16:05 | XMS_ITS | Encounter Summary ---
Author Organization [facility] Address [address] [place] [address] Care Team Providers Care Bottomer Operator Name Role Phone Bethany Hernandez MD Primary Care Provider [phone] Khushbu John APRN Primary Care Provider [phone] Trudy Pascual MD Primary Care Provider Un available Jack Goodman DO Unavailable [phone] Trudy Pascual MD Unavailable UnavailTrudy Ogden MD Unavailable UnavailTrudy [place] MD Unavailable UnavailTrudy [place]den MD Unavailable UnavailGodwin Gabriel MD Primary Care Provider [phone] Trudy Pascual MD Primary Care Provider Un available Dannie Honeycutt DO Unavailable Valerie Shahid MD Primary Care Provider [phone] Shmuel Norton MD Unavailable [phone] Radha Escalante MD Unavailable Encounter Details Date Type Department Care Team (Late st Contact Info) Description 10/06/2017 Scanned Document [facility] [place] [address] [place] [address] Provider, Generic Social History Tobacco Use [...] Description 11/27/2025 4:00 PM EDT Office Visit [address] [place] [address] Valerie Shahid MD [address] [place] [address] documented as of this encounter Visit Diagnoses Not on filedocumented in this encounter Care Teams Bottomer Operator Relationship Specialty Start Date End Date Bethany Hernandez MD PCP - General Internal Medicine 06/20/15 07/24/19 Khushbu John APRN [address] [place] [address] PCP - General Family Medicine 07/25/19 07/08/20 Trudy Pascual MD [address] [place] [address] PCP - General Internal Medicine 07/09/20 08/26/22 Jack Goodman DO [address] [place] [address] PCP - [place] [employer] Attributed 09/22/20 12/22/20 Trudy Pascual MD Retired provider PCP - [place] [employer] Attributed 12/23/20 03/24/21 Trudy Pascual MD Retired provider PCP - [place] [employer] Attributed 05/25/21 10/22/21 Trudy Pascual MD Retired provider PCP - [place] [employer] Attributed 12/23/21 09/21/22 Trudy Pascual MD [address] [place] [address] PCP - Hospice Attending 08/27/22 Godwin Snowden MD [address] [place] [address] PCP - General Surgery, General 08/27/22 02/25/23 Trudy Pascual MD [address] [place] [address] PCP - General Internal Medicine 02/26/23 10/28/23 Dannie Honeycutt DO [address] [place] [address] PCP - [place] [employer] Attributed 03/25/23 Valerie Shahid MD [address] [place] [address] PCP - General Internal Medicine 10/29/23 Shmuel Norton MD [address] [place] [address] Obstetrics and Gynecology 12/16/23 Radha Escalante MD [address] [place] [address] [address] [place] [address] Gastroenterology 12/25/24 documented as of this encounter
--- OUTSIDE RECORDS SUMMARY | 2025-02-01 16:05 | XMS_ITS | Encounter Summary ---
Author Organization [facility] Address [address] [place] [address] Care Team Providers Care Production Troubleshooter Name Role Phone Bethany Hernandez MD Primary Care Provider [phone] Khushbu John APRN Primary Care Provider [phone] Trudy Pascual MD Primary Care Provider Un available Jack Goodman DO Unavailable [phone] Trudy Pascual MD Unavailable UnavailTrudy Ogden MD Unavailable UnavailTrudy Ogden MD Unavailable UnavailTrudy Ogden MD Unavailable UnavailGodwin Gabriel MD Primary Care Provider [phone] Trudy Pascual MD Primary Care Provider Un available Dannie Honeycutt DO Unavailable Valerie Shahid MD Primary Care Provider [phone] Shmuel Norton MD Unavailable [phone] Radha Escalante MD Unavailable Encounter Details Date Type Department Care Team (Late st Contact Info) Description 01/14/2017 Scanned Document [address] [address] Provider, Generic Social History Tobacco [...] Description 11/27/2025 4:00 PM EDT Office Visit [address] [place] [address] Valerie Shahid MD [address] [place] [address] documented as of this encounter Visit Diagnoses Not on filedocumented in this encounter Care Teams Production Troubleshooter Relationship Specialty Start Date End Date Bethany Hernandez MD PCP - General Internal Medicine 06/20/15 07/24/19 Khushbu John APRN [address] [place] [address] PCP - General Family Medicine 07/25/19 07/08/20 Trudy Pascual MD [address] [place] [address] PCP - General Internal Medicine 07/09/20 08/26/22 Jack Goodman DO [address] [place] [address] PCP - [place] [employer] Attributed 09/22/20 12/22/20 Trudy Pascual MD Retired provider PCP - [place] [employer] Attributed 12/23/20 03/24/21 Trudy Pascual MD Retired provider PCP - [place] [employer] Attributed 05/25/21 10/22/21 Trudy Pascual MD Retired provider PCP - [place] [employer] Attributed 12/23/21 09/21/22 Trudy Pascual MD [address] [place] [address] PCP - Hospice Attending 08/27/22 Godwin Snowden MD [address] [place] [address] PCP - General Surgery, General 08/27/22 02/25/23 Trudy Pascual MD [address] [place] [address] PCP - General Internal Medicine 02/26/23 10/28/23 Dannie Honeycutt DO [address] [place] [address] PCP - [place] [employer] Attributed 03/25/23 Valerie Shahid MD [address] [place] [address] PCP - General Internal Medicine 10/29/23 Shmuel Norton MD [address] [place] [address] Obstetrics and Gynecology 12/16/23 Radha Escalante MD [address] [address] Gastroenterology 12/25/24 documented as of this encounter
--- OUTSIDE RECORDS SUMMARY | 2025-02-01 16:05 | XMS_ITS | Encounter Summary ---
Author Organization [facility] Address [address] [place] [address] Care Team Providers Care Payroll Analyst Name Role Phone Trudy Pascual MD Primary Care Provider Un available Trudy Pascual MD Unavailable Unavaila Trudy Trejo MD Unavailable Unavaila Godwin Franklin MD Primary Care Provider [phone] Trudy Pascual MD Primary Care Provider Un available Dannie Honeycutt DO Unavailable Valerie Shahid MD Primary Care Provider [phone] Shmuel Norton MD Unavailable [phone] Radha Escalante MD Unavailable Encounter Details Date Type Department Care Team (Late st Contact Info) Description 04/14/2022 Scanned Document [address] [address] Bariatric Surgery, Scan Social History [...] Orientation Heterosexual (straight) 10/24 1:41 PM EDT COVID-19 Exposure Response Date Recorded In the last 10 days, have yo u been in contact with someone who was confirmed or suspected to have Coronavirus/COVID-19? No / Unsure 03/27/2022 5:13 PM EDT documented as of this encounter Plan of Treatment Upcoming Encounters Date Type Department Care Team (Late st Contact Info) Description 11/27/2025 4:00 PM EDT Office Visit [address] [place] [address] Valerie Shahid MD [address] [place] [address] documented as of this encounter Visit Diagnoses Not on filedocumented in this encounter Care Teams Payroll Analyst Relationship Specialty Start Date End Date Trudy Pascual MD PCP - General Internal Medicine 07/09/20 08/26/22 Trudy Pascual MD Retired provider PCP - [place] [employer] Attributed 12/23/21 09/21/22 Trudy Pascual MD PCP - Hospice Attending 08/27/22 Godwin Snowden MD [address] [place] [address] PCP - General Surgery, General 08/27/22 02/25/23 Trudy Pascual MD PCP - General Internal Medicine 02/26/23 10/28/23 Dannie Honeycutt DO [address] [place] [address] PCP - [place] Commercial Attributed 03/25/23 Valerie Shahid MD [address] [place] [address] PCP - General Internal Medicine 10/29/23 Shmuel Norton MD [address] [place] [address] Obstetrics and Gynecology 12/16/23 Radha Escalante MD [address] [address] Gastroenterology 12/25/24 documented as of this encounter
--- OUTSIDE RECORDS SUMMARY | 2025-02-01 16:05 | XMS_ITS | Clinical Summary ---
Author Organization [facility] Address [address] [place] [address] Care Team Providers Care Plant And Maintenance Technician Name Role Phone Bethany Hernandez MD Primary Care Provider [phone] Surgical History Surgery Date Site/Laterality Comments WISDOM TOOTH EXTRACTION PROCEDURE:WISDOM TOOTH EXTRACTION UPPER GASTROINTESTINAL ENDOSCOPY 03/08/2018 N/A PROCEDURE:UPPER GASTROINTESTINAL ENDOSCOPY;COMMENT:Procedure: UPPER ENDOSCOPY-EGD; Surgeon: Hussein Garcia MD; Location: [facility] END[facility]; Service: Gastroenterology; Laterality: N/A; Medical History [...] Cervical Cancer Screening: P ap Smear 09/04/1996 Depression Screening 05/25/2024 COVID-19 Vaccine ( - 2023-2 5 season) 2025 Influenza Vaccine (#1) 2025 HIB Vaccines Aged Out No longer [...] 5 Years) and At-Risk Patients (6 to 49 Years) Aged Out No longer eligible b ased on patient's age to complete this topic RSV Immunization Patients Un pura 20 months Aged Out No longer eligible b ased on patient's age to complete this topic Varicella Vaccines Aged Out No longer eligible based on patient's age to complete this topic Care Teams Plant And Maintenance Technician Relationship Specialty Start Date End Date Bethany Hernandez MD [address] [place] [address] PCP - General Internal Medicine 03/01/18
--- OUTSIDE RECORDS SUMMARY | 2025-02-01 16:05 | XMS_ITS | Encounter Summary ---
Author Organization [facility] Address [address] [place] [address] Care Team Providers Care Agronomy Teacher Name Role Phone Trudy Pascual MD Unavailable Unavaila Dannie Quiroga DO Unavailable Valerie Shahid MD Primary Care Provider [phone] Shmuel Norton MD Unavailable [phone] Radha Escalante MD Unavailable Encounter Details Date Type Department Care Team (Late st Contact Info) Description 12/22/[address] [facility] [address] [facility] [address] [place] [address] Radha Escalante MD [address] [place], [place] [id number] Social History Tobacco Use Types Packs/Day Years [...] Unable or Declines to Respond No 10/06/2022 [facility] Utilities Answer Date Recorded In the [...] and Family Not on file 11/20/2024 Attends [employer] Not on file 11/20 Active Member [...] any time in the past 12 m [facility], were you homeless or living in a halfway (including now)? No 11/20/2024 Physical Activity Answer [...] Description 11/27/2025 4:00 PM EDT Office Visit [address] [address] Valerie Shahid MD [address] [place] [address] documented as of this encounter Visit Diagnoses Not on filedocumented in this encounter Care Teams Agronomy Teacher Relationship Specialty Start Date End Date Trudy Pascual MD PCP - Hospice Attending 08/27/22 Dannie Honeycutt DO [address] [place] [address] PCP - [place] [employer] Attributed 03/25/23 Valerie Shahid MD [address] [place] [address] PCP - General Internal Medicine 10/29/23 Shmuel Norton MD [address] [place] [address] Obstetrics and Gynecology 12/16/23 Radha Escalante MD [address] [place] [address] Gastroenterology 12/25/24 documented as of this encounter
--- OUTSIDE RECORDS SUMMARY | 2025-02-01 16:05 | XMS_ITS | Encounter Summary ---
Author Organization [facility] Address [address] [place] [address] Care Team Providers Care Trim Machine Adjuster Name Role Phone Trudy Pascual MD Unavailable Unavaila Godwin Franklin MD Primary Care Provider [phone] Trudy Pascual MD Primary Care Provider Un available Dannie Honeycutt DO Unavailable Valerie Shahid MD Primary Care Provider [phone] Shmuel Norton MD Unavailable [phone] Radha Escalante MD Unavailable Encounter Details Date Type Department Care Team (Late st Contact Info) Description 10/02/2022 Scanned Document [facility] ENDOCRINOLOGY SCAN Endocrinology, Scan Social History Tobacco [...] Description 11/27/2025 4:00 PM EDT Office Visit [facility] [address] [facility] [address] [place] [address] Valerie Shahid MD [address] [place] [address] documented as of this encounter Visit Diagnoses Not on filedocumented in this encounter Care Teams Trim Machine Adjuster Relationship Specialty Start Date End Date Trudy Pascual MD PCP - Hospice Attending 08/27/22 Godwin Snowden MD [address] [address] PCP - General Surgery, General 08/27/22 02/25/23 Trudy Pascual MD PCP - General Internal Medicine 02/26/23 10/28/23 Dannie Honeycutt DO [address] [place] [address] PCP - [place] Commercial Attributed 03/25/23 Valerie Shahid MD [address] [place] [address] PCP - General Internal Medicine 10/29/23 Shmuel Norton MD [address] [place] [id number] Obstetrics and Gynecology 12/16/23 Radha Escalante MD [address] [place] [address] Gastroenterology 12/25/24 documented as of this encounter
--- OUTSIDE RECORDS SUMMARY | 2025-02-01 16:05 | XMS_ITS | Encounter Summary ---
Author Organization [facility] Address [address] [place] [address] Care Team Providers Care Boomboat Operator Name Role Phone Bethany Hernandez MD Primary Care Provider [phone] Khushbu John APRN Primary Care Provider [phone] Trudy Pascual MD Primary Care Provider Un available Jack Goodman DO Unavailable [phone] Trudy Pascual MD Unavailable UnavailTrudy Ogden MD Unavailable UnavailTrudy Ogden MD Unavailable UnavailTrudy Ogden MD Unavailable UnavailGodwin Gabriel MD Primary Care Provider [phone] Trudy Pascual MD Primary Care Provider Un available Dannie Honeycutt DO Unavailable Valerie Shahid MD Primary Care Provider [phone] Shmuel Norton MD Unavailable [phone] Radha Escalante MD Unavailable Encounter Details Date Type Department Care Team (Late st Contact Info) Description 03/08/2018 Scanned Document [address] [address] Provider, Generic Social History Tobacco [...] Description 11/27/2025 4:00 PM EDT Office Visit [address] [place] [address] Valerie Shahid MD [address] [place] [address] documented as of this encounter Visit Diagnoses Not on filedocumented in this encounter Care Teams Boomboat Operator Relationship Specialty Start Date End Date Bethany Hernandez MD PCP - General Internal Medicine 06/20/15 07/24/19 Khushbu John APRN [address] [place], [place] [id number] PCP - General Family Medicine 07/25/19 07/08/20 Trudy Pascual MD [address] [place] [address] PCP - General Internal Medicine 07/09/20 08/26/22 Jack Goodman DO [address] [address] PCP - [place] [employer] Attributed 09/22/20 12/22/20 Trudy Pascual MD Retired provider PCP - [place] [employer] Attributed 12/23/20 03/24/21 Trudy Pascual MD Retired provider PCP - [place] [employer] Attributed 05/25/21 10/22/21 Trudy Pascual MD Retired provider PCP - [place] [employer] Attributed 12/23/21 09/21/22 Trudy Pascual MD [address] [place] [address] PCP - Hospice Attending 08/27/22 Godwin Snowden MD [address] [place] [address] PCP - General Surgery, General 08/27/22 02/25/23 Trudy Pascual MD [address] [place] [address] PCP - General Internal Medicine 02/26/23 10/28/23 Dannie Honeycutt DO [address] [place] [address] PCP - [place] [employer] Attributed 03/25/23 Valerie Shahid MD [address] [place] [address] PCP - General Internal Medicine 10/29/23 Shmuel Norton MD [address] [place] [address] Obstetrics and Gynecology 12/16/23 Radha Escalante MD [address] [place] [address] [address] [place] [address] Gastroenterology 12/25/24 documented as of this encounter
--- OUTSIDE RECORDS SUMMARY | 2025-02-01 16:05 | XMS_ITS | Encounter Summary ---
Author Organization [facility] Address [address] [place] [address] Care Team Providers Care Bioinformatics Research Technician Name Role Phone Trudy Pascual MD Primary Care Provider Un available Jack Goodman DO Unavailable [phone] Trudy Pascual MD Unavailable UnavailTrudy Ogden MD Unavailable UnavailTrudy Ogden MD Unavailable UnavailTrudy Ogden MD Unavailable Unavaila Godwin Franklin MD Primary Care Provider [phone] Trudy Pascual MD Primary Care Provider Un available Dannie Honeycutt DO Unavailable Valerie Shahid MD Primary Care Provider [phone] Shmuel Norton MD Unavailable [phone] Radha Escalante MD Unavailable Encounter Details Date Type Department Care Team (Late st Contact Info) Description 07/23/2020 Scanned Document [place] [address] [place] [address] Bariatric Surgery, Scan Social History Tobacco [...] Description 11/27/2025 4:00 PM EDT Office Visit [address] [address] Valerie Shahid MD [address] [place] [address] documented as of this encounter Procedures Procedure Name Priority Date/Time Associated Diagnosis Comments LAB RESULT 07/23/2020 documented in this encounter Results * LAB RESULT (07/23/2020) 07/23/2020 us Scan Bariatric Surgery HX AMB PROCEDURES Edited Result - Final documented in this encounter Visit Diagnoses Not on filedocumented in this encounter Care Teams Bioinformatics Research Technician Relationship Specialty Start Date End Date Trudy Pascual MD PCP - General Internal Medicine 07/09/20 08/26/22 Jack Goodman DO [address] [place] [address] PCP - [place] [employer] Attributed 09/22/20 12/22/20 Trudy Pascual MD Retired provider PCP - [place] [employer] Attributed 12/23/20 03/24/21 Trudy Pascual MD Retired provider PCP - [place] [employer] Attributed 05/25/21 10/22/21 Trudy Pascual MD Retired provider PCP - [place] [employer] Attributed 12/23/21 09/21/22 Trudy Pascual MD PCP - Hospice Attending 08/27/22 Godwin Snowden MD [address] [facility] [address] [place] [address] PCP - General Surgery, General 08/27/22 02/25/23 Trudy Pascual MD PCP - General Internal Medicine 02/26/23 10/28/23 Dannie Honeycutt DO [address] [place] [address] PCP - [place] [employer] Attributed 03/25/23 Valerie Shahid MD [address] [place] [address] PCP - General Internal Medicine 10/29/23 Shmuel Norton MD [address] [place] [address] Obstetrics and Gynecology 12/16/23 Radha Escalante MD 6 [facility] [address] [place] [address] Gastroenterology 12/25/24 documented as of this encounter
--- OUTSIDE RECORDS SUMMARY | 2025-02-01 16:05 | XMS_ITS | Encounter Summary ---
Author Organization [facility] Address [address] [place] [address] Care Team Providers Care Brine Mixer Operator Name Role Phone Trudy Pascual MD Unavailable Unavaila Dannie Quiroga DO Unavailable Valerie Shahid MD Primary Care Provider [phone] Shmuel Norton MD Unavailable [phone] Radha Escalante MD Unavailable Encounter Details Date Type Department Care Team (Latest Contact Info) Description 01/30/2025 Travel Social History Tobacco Use Types Packs/Day Years [...] Unable or Declines to Respond No 10/06/2022 [facility] Utilities Answer Date Recorded In the past 12 months has e [employer], gas, oil, or water company threatened to [...] and Family Not on file 11/20/2024 Attends [employer] Services Not on file 11/20 Active Member [...] [facility] were you [facility] or living in [...] Description 11/27/2025 4:00 PM EDT Office Visit [facility] 100 [facility] [address] [place] [address] Valerie Shahid MD [address] [place] [address] documented as of this encounter Visit Diagnoses Not on filedocumented in this encounter Care Teams Brine Mixer Operator Relationship Specialty Start Date End Date Trudy Pascual MD PCP - Hospice Attending 08/27/22 Dannie Honeycutt DO [address] [place] [address] PCP - [place] Commercial Attributed 03/25/23 Valerie Shahid MD [address] [place] [address] PCP - General Internal Medicine 10/29/23 Shmuel Norton MD [address] [place] [address] Obstetrics and Gynecology 12/16/23 Radha Escalante MD [address] [address] Gastroenterology 12/25/24 documented as of this encounter
--- OUTSIDE RECORDS SUMMARY | 2025-02-01 16:05 | XMS_ITS | Encounter Summary ---
Author Organization [facility] Address [address] [place] [address] Care Team Providers Care City Marshal Name Role Phone Trudy Pascual MD Primary Care Provider Un available Trudy Pascual MD Unavailable Unavaila Trudy Trejo MD Unavailable Unavaila Godwin Franklin MD Primary Care Provider [phone] Trudy Pascual MD Primary Care Provider Un available Dannie Honeycutt DO Unavailable Valerie Shahid MD Primary Care Provider [phone] Shmuel Norton MD Unavailable [phone] Radha Escalante MD Unavailable Encounter Details Date Type Department Care Team (Late st Contact Info) Description 04/23/2022 Scanned Document [address] [address] Gastroenterology, Scan Social History Tobacco [...] Description 11/27/2025 4:00 PM EDT Office Visit [address] [place] [address] Valerie Shahid MD [address] [place] [address] documented as of this encounter Visit Diagnoses Not on filedocumented in this encounter Care Teams City Marshal Relationship Specialty Start Date End Date Trudy Pascual MD PCP - General Internal Medicine 07/09/20 08/26/22 Trudy Pascual MD Retired provider PCP - [place] [employer] Attributed 12/23/21 09/21/22 Trudy Pascual MD PCP - Hospice Attending 08/27/22 Godwin Snowden MD [address] [place] [address] PCP - General Surgery, General 08/27/22 02/25/23 Trudy Pascual MD PCP - General Internal Medicine 02/26/23 10/28/23 Dannie Honeycutt DO [address] [place] [address] PCP - [place] Commercial Attributed 03/25/23 Valerie Shahid MD [address] [place] [address] PCP - General Internal Medicine 10/29/23 Shmuel Norton MD [address] [place] [address] Obstetrics and Gynecology 12/16/23 Radha Escalante MD [address] [address] Gastroenterology 12/25/24 documented as of this encounter
--- OUTSIDE RECORDS SUMMARY | 2025-02-01 16:05 | XMS_ITS | Encounter Summary ---
Author Organization [facility] Address [address] [place] [address] Care Team Providers Care Press Loader Name Role Phone Bethany Hernandez MD Primary Care Provider [phone] Khushbu John APRN Primary Care Provider [phone] Trudy Pascual MD Primary Care Provider Un available Jack Goodman DO Unavailable [phone] Trudy Pascual MD Unavailable UnavailTrudy Ogden MD Unavailable UnavailTrudy Ogden MD Unavailable UnavailTrudy Ogden MD Unavailable UnavailGodwin Gabriel MD Primary Care Provider [phone] Trudy Pascual MD Primary Care Provider Un available Dannie Honeycutt DO Unavailable Valerie Shahid MD Primary Care Provider [phone] Shmuel Norton MD Unavailable [phone] Radha Escalante MD Unavailable Encounter Details Date Type Department Care Team (Late st Contact Info) Description 03/02/2018 Scanned Document [facility] [address] [place] [address] Bethany Hernandez MD [facility] [place] [address] [address] Social History Tobacco Use Types Packs/Day [...] 11/27/2025 4:00 PM EDT Office Visit [address] [place] [address] Valerie Shahid MD [address] [place] [address] documented as of this encounter Visit Diagnoses Not on filedocumented in this encounter Care Teams Press Loader Relationship Specialty Start Date End Date Bethany Heranndez MD PCP - General Internal Medicine 06/20/15 07/24/19 Khushbu John APRN [address] [place], [place] [phone] PCP - General Family Medicine 07/25/19 07/08/20 Trudy Pascual MD [address] [place] [address] PCP - General Internal Medicine 07/09/20 08/26/22 Jack Goodman DO [address] [place] [address] PCP - [place] [employer] Attributed 09/22/20 12/22/20 Trudy Pascual MD Retired provider PCP - [place] [employer] Attributed 12/23/20 03/24/21 Trudy Pascual MD Retired provider PCP - [place] [employer] Attributed 05/25/21 10/22/21 Trudy Pascual MD Retired provider PCP - [place] [employer] Attributed 12/23/21 09/21/22 Trudy Pascual MD [address] [place] [address] PCP - Hospice Attending 08/27/22 Godwin Snowden MD [address] [place] [address] PCP - General Surgery, General 08/27/22 02/25/23 Trudy Pascual MD [address] [place] [address] PCP - General Internal Medicine 02/26/23 10/28/23 Dannie Honeycutt DO [facility] [place] [address] PCP - [place] [employer] Attributed 03/25/23 Valerie Shahid MD [address] [place] [id number] PCP - General Internal Medicine 10/29/23 Shmuel Norton MD [address] [place] [id number] Obstetrics and Gynecology 12/16/23 Radha Escalante MD [address] [place] [address] Gastroenterology 12/25/24 documented as of this encounter
--- OUTSIDE RECORDS SUMMARY | 2025-02-01 16:05 | XMS_ITS | Encounter Summary ---
Author Organization [facility] Address [address] [place] [address] Care Team Providers Care S Iron Worker Name Role Phone Trudy Pascual MD Unavailable Unavaila Dannie Quiroga DO Unavailable Valerie Shahid MD Primary Care Provider [phone] Shmuel Norton MD Unavailable [phone] Radha Escalante MD Unavailable Encounter Details Date Type Department Care Team (Late st Contact Info) Description 03/28/2024 Scanned Document [facility] BARIATRIC SURG SCAN Bariatrics, Scan Social History [...] Description 11/27/2025 4:00 PM EDT Office Visit [facility] [address] [facility] [address] [place] [address] Valerie Shahid MD [address] [place] [id number] documented as of this encounter Visit Diagnoses Not on filedocumented in this encounter Care Teams S Iron Worker Relationship Specialty Start Date End Date Trudy Pascual MD PCP - Hospice Attending 08/27/22 Dannie Honeycutt DO [address] [place] [address] PCP - [place] [employer] Attributed 03/25/23 Valerie Shahid MD [address] [place] [address] PCP - General Internal Medicine 10/29/23 Shmuel Norton MD [address] [place] [address] Obstetrics and Gynecology 12/16/23 Radha Escalante MD [address] [address] Gastroenterology 12/25/24 documented as of this encounter
--- OUTSIDE RECORDS SUMMARY | 2025-02-01 16:05 | XMS_ITS | Encounter Summary ---
Author Organization [facility] Address [address] [place] [address] Care Team Providers Care Emergency Response Coordinator Name Role Phone Bethany Hernandez MD Primary Care Provider [phone] Khushbu John APRN Primary Care Provider [phone] Trudy Pascual MD Primary Care Provider Un available Jack Goodman DO Unavailable [phone] Trudy Pascual MD Unavailable UnavailTrudy Ogden MD Unavailable UnavailTrudy Ogden MD Unavailable UnavailTrudy Ogden MD Unavailable UnavailGodwin Gabriel MD Primary Care Provider [phone] Trudy Pascual MD Primary Care Provider Un available Dannie Honeycutt DO Unavailable Valerie Shahid MD Primary Care Provider [phone] Shmuel Norton MD Unavailable [phone] Radha Escalante MD Unavailable Encounter Details Date Type Department Care Team (Late st Contact Info) Description 04/12/2018 Scanned Document [address] [address] Provider, Generic Social History Tobacco [...] Description 11/27/2025 4:00 PM EDT Office Visit [address] [place] [address] Valerie Shahid MD [address] [place] [address] documented as of this encounter Visit Diagnoses Not on filedocumented in this encounter Care Teams Emergency Response Coordinator Relationship Specialty Start Date End Date Bethany Hernandez MD PCP - General Internal Medicine 06/20/15 07/24/19 Khushbu John APRN [address] [place], [place] [phone] PCP - General Family Medicine 07/25/19 07/08/20 Trudy Pascual MD [address] [place] [address] PCP - General Internal Medicine 07/09/20 08/26/22 Jack Goodman DO [address] [place] [address] PCP - [place] Commercial Attributed 09/22/20 12/22/20 Trudy Pascual MD Retired provider PCP - [place] [employer] Attributed 12/23/20 03/24/21 Trudy Pascual MD Retired provider PCP - [place] [employer] Attributed 05/25/21 10/22/21 Trudy Pascual MD Retired provider PCP - [place] [employer] Attributed 12/23/21 09/21/22 Trudy Pascual MD [address] [place] [address] PCP - Hospice Attending 08/27/22 Godwin Snowden MD [address] [place] [address] PCP - General Surgery, General 08/27/22 02/25/23 Trudy Pascual MD [address] [place] [address] PCP - General Internal Medicine 02/26/23 10/28/23 Dannie Honeycutt DO [address] [place] [address] PCP - [place] Commercial Attributed 03/25/23 Valerie Shahid MD [address] [place] [address] PCP - General Internal Medicine 10/29/23 Shmuel Norton MD [address] [place] [address] Obstetrics and Gynecology 12/16/23 Radha Escalante MD [address] [place] [address] [address] [place] [address] Gastroenterology 12/25/24 documented as of this encounter
== END 2025-02-01 13:06 | disposition home or self-care (01) ==
LOC: HO.HBS 13:05
PROVIDERS: PCP Internal Medicine Cardiovascular Disease; Visit Provider Physician Assistant Surgical
DX: E66.3 Overweight (principal); Z68.27 Body mass index [BMI] 27.0-27.9, adult; Z90.3 Acquired absence of stomach [part of]; Z98.84 Bariatric surgery status; Z98.890 Other specified postprocedural states
CPT/HCPCS: 98967